=== PATIENT | male | born 1955 ===

== ENCOUNTER 2022-08-01 10:19 | Outpatient (REF) | payer MEDICARE, SELFPAY ==
[2022-08-01 10:38] LABS: MANUAL DIFF FLAG NO
[2022-08-01 11:30] LABS: Basophils Percent Auto 0.5 % (0-2); Eosinophils Absolute Auto 0.2 X10*3/uL (0.0-0.4); Eosinophils Percent Auto 3.6 % (0-4); Hematocrit 38.4 % (42.0-52.0); Hemoglobin 12.6 g/dl (14.0-18.0); Imm Gran Abs Auto 0.02 X10*3/uL (0.00-0.03); Imm Gran Pct Auto 0.3 % (0.0-0.4); Lymphocytes Absolute Auto 1.8 X10*3/uL (1.2-4.9); Lymphocytes Percent Auto 30.1 % (20-40); Mean Corpuscular HGB Conc 32.8 g/dl (31.0-36.0); Mean Corpuscular Hemoglobin 30.4 pg (27.0-33.0); Mean Corpuscular Volume 92.8 fL (80.0-98.0); Mean Platelet Volume 10.5 fL (9.4-12.4); Monocytes Absolute Auto 0.6 X10*3/uL (0.1-1.2); Monocytes Percent Auto 10.2 % (2-11); Neutrophils Absolute Auto 3.3 x10*3/uL (2.0-8.3); Neutrophils Percent Auto 55.3 % (45-73); Platelet Count 145 X10*3/uL (160-400); Red Blood Count 4.14 X10*6/uL (4.60-5.80); Red Cell Distribution Width 13.3 % (11.0-16.0); White Blood Count 5.9 X10*3/uL (4.8-10.8)
[2022-08-01 11:40] LABS: Alanine Aminotransferase 27 U/L (0-40); Albumin Level 4.1 g/dL (3.5-5.0); Alkaline Phosphatase 136 U/L (39-117); Anion Gap 13 (12-20); Aspartate Amino Transferase 37 U/L (5-37); Bilirubin Direct 0.2 mg/dL (0.0-0.5); Bilirubin Total 0.5 mg/dL (0.0-1.0); Blood Urea Nitrogen 24 mg/dL (9-16); Calcium 8.8 mg/dL (8.4-10.2); Carbon Dioxide 25 mmol/L (22-29); Chloride 109 mmol/L (96-108); Estimated Glomerular Filt Rate > 60; Glucose Random 108 mg/dL (60-115); Potassium 4.3 mmol/L (3.3-5.1); Sodium 143 mmol/L (135-145); Total Protein 6.9 g/dL (6.5-8.0)
[2022-08-01 12:09] LABS: Folate 16.4 ng/mL (> or = 4.0); Vitamin B12 892 pg/mL (200-900); Vitamin D 25-OH Total 38.6 ng/mL (>30)
== END 2022-08-01 10:20 | disposition home or self-care (01) ==
LOC: HO.LAB 10:19
PROVIDERS: Visit Provider Family Medicine
DX: Z13.9 Encounter for screening, unspecified (principal); Z78.9 Other specified health status; E66.9 Obesity, unspecified; Z68.30 Body mass index [BMI] 30.0-30.9, adult; E55.9 Vitamin D deficiency, unspecified
CPT/HCPCS: 36415; 80053; 82248; 82306; 82607; 82746; 84443; 85025

== ENCOUNTER → 2022-09-15 20:30 | Outpatient (REF) | payer MEDICARE, SELFPAY | LOC: HO.SL 20:30 | PROVIDERS: Visit Provider Family Medicine | DX: G47.30 Sleep apnea, unspecified (principal) | CPT/HCPCS: 95810 ==

== ENCOUNTER 2022-11-09 14:50 | Outpatient (REF) | payer MEDICARE, SELFPAY ==
[2022-11-09 18:07] LABS: Alanine Aminotransferase 48 U/L (0-40); Alkaline Phosphatase 108 U/L (39-117); Anion Gap 13 (12-20); Aspartate Amino Transferase 43 U/L (5-37); Bilirubin Total 0.5 mg/dL (0.0-1.0); Blood Urea Nitrogen 19 mg/dL (9-16); Calcium 9.2 mg/dL (8.4-10.2); Carbon Dioxide 26 mmol/L (22-29); Chloride 109 mmol/L (96-108); Estimated Glomerular Filt Rate > 60; Glucose Random 76 mg/dL (60-115); Potassium 3.9 mmol/L (3.3-5.1); Sodium 144 mmol/L (135-145); Total Protein 7.4 g/dL (6.5-8.0)
== END 2022-11-09 14:51 | disposition home or self-care (01) ==
LOC: HO.LAB 14:50
PROVIDERS: PCP Family Medicine; Visit Provider Internal Medicine
DX: Z11.4 Encounter for screening for human immunodeficiency virus [HIV] (principal); K74.60 Unspecified cirrhosis of liver
CPT/HCPCS: 36415; 80053; 85027; 85610; 86704; 86706; 86708; 86803; 87340; 87389; 99202

== ENCOUNTER 2022-12-03 13:53 | Outpatient (REF) | payer MEDICARE, SELFPAY ==
--- NOTE | ~2022-12-03 | US_ITS ---
EXAMINATION: US COMPLETE ABDOMEN WITH LIVER ELASTOGRAPHY CLINICAL INFORMATION: Unspecified cirrhosis of liver COMPARISON: None available. TECHNIQUE: Real-time imaging of the abdominal viscera. Noninvasive ultrasound liver fibrosis assessment is performed using Angel ElastPQ point quantification shear wave elastography (2D-SWE) with a C5-2 MHz transducer. Multiple elastography samples are obtained. FINDINGS: Slightly limited exam due to overlying gas PANCREAS: Normal. The visualized pancreatic head and body are normal in appearance. The remainder of the pancreas is obscured from visualization by the overlying bowel gas. ABDOMINAL AORTA: The proximal, middle, and distal aortic segments are normal in caliber. INFERIOR VENA CAVA: Visualized portions are normal. LIVER: The liver demonstrates normal size, contour and mild increased echogenicity. No focal lesion or intrahepatic biliary duct dilatation. The right lobe measures 14.9 cm in length. The left lobe measures 11.9 cm in length. Portal flow is hepatopedal Shear wave liver elastography median stiffness is 1.92 m/s (reference: normal median stiffness is 1.3 m/s or less). IQR/median stiffness to assess sampling precision is 0.09 (reference: good quality data set is IQR/median stiffness of 0.15 or less). GALLBLADDER: Normal. The gallbladder is physiologically distended without evidence of stones, sludge, polyps, wall thickening or pericholecystic fluid. COMMON BILE DUCT: Normal in caliber measuring 0.3 cm in diameter. RIGHT KIDNEY: Normal. No hydronephrosis. No renal calculi or focal parenchymal lesions. The kidney measures 10.5 cm in maximum dimension. LEFT KIDNEY: There is normal cortical thickness with an echogenic stone measuring 0.3 x 0.3 x 0.4 cm midpole. No additional echogenic stones seen. There is no hydronephrosis. The kidney measures 10.6 cm in maximum dimension. SPLEEN: Normal. The spleen measures 11.0 cm in maximum dimension. FREE FLUID: None. US/US abdomen comp w elastography IMPRESSION: 1. Mild hepatic steatosis without focal lesion. Nonobstructive echogenic stone midpole left kidney measuring 4 mm. 2. Liver elastography median liver stiffness measures 1.92 m/s corresponding to cACLD suggestive. REFERENCE: Society of Radiologists in Ultrasound Liver Stiffness Thresholds (2020): LIVER STIFFNESS THRESHOLDS: *Liver Stiffness equal or less than 1.3 m/s: High probability of being normal. *Liver Stiffness less than 1.7 m/s: In the absence of other known clinical signs, rules out compensated advanced chronic liver disease. *Liver Stiffness 1.7-2.1 m/s: Suggestive of compensated advanced chronic liver disease but need further test for confirmation. *Liver Stiffness over 2.1 m/s: Rules in compensated advanced chronic liver disease. *Liver Stiffness over 2.4 m/s: Suggestive of clinically significant portal hypertension. QUALITY OF DATA SET: *IQR/Median value equal or less than 0.15 implies a quality data set. *IQR/Median value over 0.15 implies a poor quality data set. SIGNIFICANT CHANGE FROM PRIOR EXAM: Significant change if liver stiffness measurement is 10% or greater from prior exam. OTHER CONSIDERATIONS: The stage of liver fibrosis may be overestimated in the setting of acute hepatitis, liver inflammation, elevated liver function tests, hepatic vascular congestion, obstructive cholestasis, non-fasting state, and infiltrative diseases such as amyloidosis and lymphoma. In some patients with NAFLD, the liver stiffness thresholds for compensated advanced chronic liver disease may be lower. In causes other than viral hepatitis and NAFLD, liver stiffness thresholds are not well established.
== END 2022-12-03 13:54 | disposition home or self-care (01) ==
LOC: HO.US 13:53
PROVIDERS: PCP Family Medicine; Visit Provider Internal Medicine
DX: K74.60 Unspecified cirrhosis of liver (principal)
CPT/HCPCS: 76705; 76981

== ENCOUNTER 2022-12-07 13:16 | Outpatient (AMB) | payer OTHER, SELFPAY ==
--- NOTE | 2022-12-07 13:21 | A.OFFVIS_ITS ---
Intake Vital Signs 12/07/22 13:25 Height 5 ft 7 in Weight 200 lb 9.93 oz BMI 31.4 BP 120/60 Blood Pressure Location Lt brachial Position Sitting Pulse 71 Intake Visit Reasons: 4 week fu Intake Note: Niraj presents in the office as a 4 week follow up. CC: He has been having some pains in the RUQ since he has had a surgery. He get discomfort. Manager Salt Required: Yes Manager Salt Name: Jan [id number] Allergies No Known Allergies Allergy (Verified 12/07/22 13:26) HPI HPI Comments History of Present Illness Details 67y.o M with PMH of recently diagnosed cirrhosis of ? etiology for which he is here for follow up. 11/09/22: Pt here with his and daughter. Reports that last year he underwent a CCY, from their description it sounds like he then also had a bile leak secondary to CBD stone which was removed post cholecystectomy. During this hospitalisation he was told he likely has cirrhosis. However pt does not recall seeing a doctor of dental medicine for furhter care. He has remote hx of drinking in his teenage. No current or previous IVDU. No fam hx of chronic liver diseases including iron or copper disorders, early COPD or neuropsychiatric disorders. No fam hx of HCC. Pt does not have DM or HLD that he is aware of. He has never had CRC screening. 12/07/22: Here with . 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 Apart from R sided abdominal pain and discomfort at the site of CCY, no new gastrointestinal complaints. Labs reviewed and are reassuring for normal INR and platelet count. Elastography done but report pending. [facility] Surgical History History of esophagogastroduodenoscopy (EGD) Hx of cholecystectomy Social History Alcohol intake: current Alcohol intake frequency: holidays/special occasions only Patient Tobacco Use Status: Never used Tobacco Review of Systems Const All systems reviewed & are unremarkable except as noted in HPI and below Physical Exam Vital Signs: Last Vital Signs Pulse 71 12/07/22 13:25 BP 120/60 12/07/22 13:25 BMI result Body Mass Index 31.4 Gen appear: NAD HEENT: nonicteric, no cervical lymphadenopathy Chest: CTA CVS: Regular S1/S2 Abd: soft, nontender, nondistended, bowel sounds + Ext: no peripheral edema Neuro: A/Ox3, noted to move all extremities spontaneously Psych: interacting appropriately Assessment & Plan Assessment & Plan (1) Cirrhosis: Code(s): K74.60 - Unspecified cirrhosis of liver (2) Encounter for colorectal cancer screening: Code(s): Z12.11 - Encounter for screening for malignant neoplasm of colon; Z12.12 - Encounter for screening for malignant neoplasm of rectum Plan Reviewed with the pt and his daughter that based on labs no evidence of advanced liver disease however elastography pending. If concurrent with remaining noninvasive testing, will book for a screening colo as previously discussed, otherwise will need an EGD in addition to this for variceal screening. Will book these procedures as needed. Split PEG prep instructions were also reviewed with him. Coding Level of Care Code Est Pt Level 4 (61591) Diagnoses Cirrhosis K74.60 Encounter for colorectal cancer screening Z12.11; Z12.12
[2022-12-07 13:25] VITALS: BP 120/60; PULSE 71; BMI 31.4
== END 2022-12-07 14:50 | disposition home or self-care (01) ==
PROVIDERS: Visit Provider Internal Medicine
DX: K74.60 Unspecified cirrhosis of liver (principal); Z12.11 Encounter for screening for malignant neoplasm of colon; Z12.12 Encounter for screening for malignant neoplasm of rectum
CPT/HCPCS: 99214

== ENCOUNTER → 2022-12-07 13:16 | Outpatient (BNVA) | payer OTHER, SELFPAY | PROVIDERS: Visit Provider Internal Medicine | DX: Z12.11 Encounter for screening for malignant neoplasm of colon (principal); K74.60 Unspecified cirrhosis of liver | CPT/HCPCS: 99212 ==

== ENCOUNTER → 2023-01-04 08:43 | Outpatient (REF) | payer MEDICARE, SELFPAY ==
--- NOTE | 2023-01-04 08:47 | CA_ITS ---
Transthoracic Echocardiogram Patient (Last, First, Middle): Niraj Ro, Gender: Male Date of : 1955 Age: 67 Procedure Date: 01/04/2023 Procedure Type: Transthoracic Echocardiogram Location: OP Height: 167.64 cm Weight: 90.72 kg BSA: 2.00 m2 Heart Rate: bpm BP: 110 / 65 mmHg [employer] Salesperson: AMY Referring MD: Angela Curry MD Symptoms: R06.09 ABRAMS Study Quality: Adequate with contrast ECG Rhythm: Sinus Conclusions: - The left ventricular systolic function is normal. The calculated ejection fraction is 57% by biplane method. - [id number] focal hypertrophy of the basal septum. - No obvious valvular pathology seen on this study. Findings Procedure Information Contrast agent, definity, is being given per protocol without apparent complications. Left Ventricle Normal left ventricular cavity size. The left ventricular systolic function is normal. The calculated ejection fraction is 57% by biplane method. There is no evidence of regional wall motion abnormalities. Diastolic function is normal for age. [id number] focal hypertrophy of the basal septum. Right Ventricle Normal right ventricular cavity size and systolic function. Atria Both atria are normal in size. Aortic Valve There is a normal trileaflet aortic valve. There is no aortic valve stenosis. There is trace (trivial) aortic valve regurgitation. Mitral Valve The mitral valve appears normal. There is trace mitral valve regurgitation. There is no mitral valve stenosis. Pulmonic Valve The pulmonic valve is likely normal. Tricuspid Valve Normal tricuspid valve structure. There is mild tricuspid valve regurgitation. There is no evidence of pulmonary hypertension. Great Vessels The asc aorta is normal in size. Venous The inferior vena cava was not well visualized. The inferior vena cava is normal in size. Pericardium/Pleural There is no evidence of pericardial effusion. Prior Study Comparison No prior study available for comparison. Recommendations, Care & Conclusions No obvious valvular pathology seen on this study. Measurements 2D Linear Measurements IVSd: 1.33 0.6-0.9/0.6-1.0 cm LVIDd: 4.37 3.9-5.3/4.2-5.9 cm LVIDd Index: 2.19 2.4-3.2/2.2-3.1 cm/m2 LVIDs: 3.10 2.0-3.6 cm LVPWd: 1.03 0.7-1.1 cm LA Diam: 4.20 2.7-3.8/3.0-4.0 cm LAIDs Index: 2.10 1.5-2.3 cm/m2 LV Mass: 230.22 67-162/88-224 g LV Mass Index: 115.11 43-95/49-115 g/m2 LVOT Diam: 1.80 3.0+(-)1.3 cm 2D Systolic Function EF 4C: 60.70 >55% EF 2C: 52.00 >55% EF BiP: 56.80 >55% Mitral Valve MV Pk E: 1.00 MV PK A: 1.00 MV Decel Time: 197.00 E/A: 1.00 E'Lateral: 8.59 E'Medial: 8.49 E/E' Med: 11.80 E/E' Lat: 11.60 PHT: 58.00 MVA PHT: 3.79 Decel Drew: 5.06 Aortic Valve AoV Pk Piter: 1.41 AoV Mn Piter: 0.96 AoV VTI: 0.32 AoV Pk Grad: 8.00 Aov Mn Grad: 4.00 LISA Cont.VTI: 1.81 LVOT LVOT Pk Piter: 1.04 LVOT Mn Piter: 0.64 LVOT VTI: 0.23 LVOT Pk Grad: 4.00 LVOT Mn Grad: 2.00 LVOT Diam: 1.80 LVOT Area: 2.54 Diastolic Function MV Pk E: 1.00 MV Pk A: 1.00 E/A: 1.00 E'Medial: 8.49 E/E' Med: 11.80 E' Laterial: 8.59 E/E' Lat: 11.60 Right Ventricle TAPSE (mm): 22.60 TVS' Piter: 12.20 Tricuspid Valve TR Pk Piter: 2.04 TR Pk Grad: 17.00 Great Vessels Aorta Sinus of Valsalva: 3.20 2.0-3.5 cm Ao Asc: 3.60 2.1-3.4 cm Pulmonary Valve PV Pk Piter: 0.91 Peak PV Grad: 3.00 Updated in Other Vendor System with Status of Final Hao Ross MD electronically signed on 01/04/2023 11:30:40 AM with status of Final
== END ==
LOC: HO.CARD 08:43
PROVIDERS: PCP Family Medicine; Visit Provider Family Medicine
DX: R06.09 Other forms of dyspnea (principal)
CPT/HCPCS: 93306; Q9957

== ENCOUNTER → 2023-01-04 08:47 | Outpatient (BNV) | payer MEDICARE, SELFPAY | PROVIDERS: PCP Family Medicine; Visit Provider Internal Medicine | DX: I36.1 Nonrheumatic tricuspid (valve) insufficiency (principal) | CPT/HCPCS: 93306 ==

== ENCOUNTER 2023-03-11 11:59 | Day surgery (SDC) | payer MEDICARE, OTHER, SELFPAY ==
--- NOTE | 2023-03-10 10:59 | HO.ANESPROP2 ---
Documented by User: Clarisa Olea NP 03/10/23 11:03 HPI - Anesthesia Eval Consult details Narrative: 67yo M for Upper Endoscopy and Colonoscopy ? Cirrhosis PMFSH Active Problems Active Problems: All Active Problems (Updated 11/09/22 @ 15:55 by Kisha Hale MD) Encounter for colorectal cancer screening (Acute) Cirrhosis (Acute) Surgical History Surgical History History of esophagogastroduodenoscopy (EGD) Hx of cholecystectomy Social History Social History Alcohol intake: current Alcohol intake frequency: holidays/special occasions only Patient Tobacco Use Status: Never used Tobacco Advance Directives: No Advance Directives Information Provided: Yes Meds Allergies Allergy/AdvReac Type Severity Reaction Status Date / Time No Known Allergies Allergy Verified 12/07/22 13:26 Home Medications Medication Instructions Recorded Confirmed Last Taken Type ascorbic acid (vitamin C) 500 mg 1,000 mg PO QAM 11/09/22 Unknown History tablet (Vitamin C) citalopram 20 mg tablet 20 mg PO QAM 11/09/22 Unknown History cyanocobalamin (vitamin B-12) 1,000 mcg PO QAM 11/09/22 Unknown History 1,000 mcg tablet diphenhydramine HCl 50 mg capsule 50 mg PO BEDTIME PRN itch 11/09/22 Unknown History (Banophen) famotidine 40 mg tablet 40 mg PO BEDTIME 11/09/22 Unknown History folic acid 800 mcg tablet 0.8 mg PO QAM 11/09/22 Unknown History haloperidol 10 mg tablet 10 mg PO BEDTIME 11/09/22 Unknown History haloperidol 5 mg tablet 5 mg PO QAM 11/09/22 Unknown History omega-3 acid ethyl esters 1 gram 1 cap PO BID 11/09/22 Unknown History capsule pantoprazole 40 mg tablet,delayed 40 mg PO QAM 11/09/22 Unknown History release simvastatin 40 mg tablet 40 mg PO BEDTIME 11/09/22 Unknown History aripiprazole 15 mg tablet 15 mg PO DAILY 12/07/22 Unknown History nabumetone 750 mg tablet 750 mg PO BID 12/07/22 Unknown History Exam Exam Date and Time: March 10, 2023 1059 Pertinent Lab Results Pertinent Lab Results: Laboratory Tests 11/09/22 16:15 WBC 7.6 Hgb 13.1 L Hct 39.8 L Plt Count 180 Sodium 144 Potassium 3.9 Chloride 109 H Carbon Dioxide 26 BUN 19 H Creatinine 0.76 Laboratory Tests 11/09/22 16:15 Total Bilirubin 0.5 AST 43 H ALT 48 H Alkaline Phosphatase 108 Total Protein 7.4 Albumin 4.0 Narrative Narrative: US abdomen comp w elastography 11/2022 IMPRESSION: 1. Mild hepatic steatosis without focal lesion. Nonobstructive echogenic stone midpole left kidney measuring 4 mm. 2. Liver elastography median liver stiffness measures 1.92 m/s corresponding to cACLD suggestive. ECHO 12/2022 Conclusions: - The left ventricular systolic function is normal. The calculated ejection fraction is 57% by biplane method. - Mszf-yk-mmitkyik focal hypertrophy of the basal septum. - No obvious valvular pathology seen on this study. Assessment and Plan Assessment Anesthesia Assessment: Chart Reviewed Documented by User: Uriel Garcia MD 03/11/23 13:08 PMF Family History Family history of problems with anesthesia: No Surgical History Surgical History History of esophagogastroduodenoscopy (EGD) Hx of cholecystectomy History of Problems with Anesthesia: No Social History Social History Alcohol intake: current Alcohol intake frequency: holidays/special occasions only Patient Tobacco Use Status: Never used Tobacco Advance Directives: No Advance Directives Information Provided: Yes Meds Allergies Allergy/AdvReac Type Severity Reaction Status Date / Time No Known Allergies Allergy Verified 12/07/22 13:26 Home Medications Medication Instructions Recorded Confirmed Last Taken Type ascorbic acid (vitamin C) 500 mg 1,000 mg PO QAM 11/09/22 Unknown History tablet (Vitamin C) citalopram 20 mg tablet 20 mg PO QAM 11/09/22 Unknown History cyanocobalamin (vitamin B-12) 1,000 mcg PO QAM 11/09/22 Unknown History 1,000 mcg tablet diphenhydramine HCl 50 mg capsule 50 mg PO BEDTIME PRN itch 11/09/22 Unknown History (Banophen) famotidine 40 mg tablet 40 mg PO BEDTIME 11/09/22 Unknown History folic acid 800 mcg tablet 0.8 mg PO QAM 11/09/22 Unknown History haloperidol 10 mg tablet 10 mg PO BEDTIME 11/09/22 Unknown History haloperidol 5 mg tablet 5 mg PO QAM 11/09/22 Unknown History omega-3 acid ethyl esters 1 gram 1 cap PO BID 11/09/22 Unknown History capsule pantoprazole 40 mg tablet,delayed 40 mg PO QAM 11/09/22 Unknown History release simvastatin 40 mg tablet 40 mg PO BEDTIME 11/09/22 Unknown History aripiprazole 15 mg tablet 15 mg PO DAILY 12/07/22 Unknown History nabumetone 750 mg tablet 750 mg PO BID 12/07/22 Unknown History Exam Airway Mallampati Class: II TM Dist: <=3cm Neck ROM: Full Heart: ok Lungs: ok Assessment and Plan Assessment Anesthesia Assessment: Anesthesia Plan Discussed Final Anesthetic Review Family History of Problems with Anesthesia: No History of Problems with Anesthesia: No NPO: Yes ASA Class: III Final Preanesthetic Review: No Changes in Pt Med Stat, Meds/Allgs Chart Reviewed, Consent Obtained/Reviewed and Anes Risks/Benef Reviewed Patient Risk: Intermediate Procedure Risk: Intermediate Anesthetic Plan Anesthetic Plan: MAC: and Agree w/ Assess. and Plan Disposition: Standard PACU
--- NOTE | 2023-03-11 12:19 | MHC.SHP ---
Pre-Procedural Eval Section A Date of Service: 03/11/23 Section B Chief Complaint: Unspecified cirrhosis of liver,screening Details of Present Illness: Surgical History History of esophagogastroduodenoscopy (EGD) Hx of cholecystectomy Present Medications: see Short Stay Collaborative assessment History of Previous Operations: No relevant previous surgery Allergies: Allergies Allergy/AdvReac Type Severity Reaction Status Date / Time No Known Allergies Allergy Verified 12/07/22 13:26 Review of Systems Review of Systems Comment: Ten point ROS negative Exam Exam Comment: Gen appear: No acute distress HEENT: no icterus Chest: No overt resp distress Abd: soft, nontender, nondistended Psych: Stable affect, answering questions appropriately Neuro: A/Ox3 noted to move all extremities spontaneously Ext: no peripheral edema Plan Diagnosis/Plan: Unchanged I have reviewed the history and physical and performed a pertinent physical examination on my patient. No changes have occurred unless specified. Time Spent With Patient Time: Total time managing care of this patient today ____ minutes.
[2023-03-11 12:39] VITALS: BP 129/64; PULSE 65; RESP 16; TEMP 36.4; O2SAT 98; BMI 31.3
--- NOTE | 2023-03-11 13:07 | P.OP_ITS ---
Operative Note Operative Note Date of Service: 03/11/23 Narrative: Procedure:?Esophagogastroduodenoscopy and colonoscopy Endoscopist:?Kisha Hale MD Indication:?Liver disease, screening for CRC Anesthesia Provider:?Dr Uriel Garcia Anesthesia Type:?MAC Instrument:?Olympus GIF-H190, PCF-H190L EGD Procedure:?? The procedure, indications, preparation and potential complications were reviewed with the patient who indicated understanding and gave written informed consent to proceed. A professional sports scout was utilized for the encounter. A physical exam was performed. The endoscope was introduced through the mouth, and advanced to the second part of duodenum. The mucosa was carefully examined on slow withdrawal of the endoscope. There were no immediate complications. Patient tolerated the procedure well. EGD Findings:? * Esophagus:? Normal esophageal mucosa was noted. The Z line is at 39 cm. * Stomach:? Normal gastric mucosa was noted. Retroflexion performed in the fundus. * Duodenum:? Erythema and edema of the duodenal bulb as noted. Cold forceps biopsies were taken for histology. Colonoscopy Procedure:? The patient was then turned for the colonoscopy. A digital rectal exam was performed which was normal.? A distal attachment cap was affixed to the tip of the scope and the colonoscope was then inserted through the anus and advanced through the colon to the cecum at 70 cm and terminal ileum. Appendiceal orifice and ileocecal valve were identified. Mucosa was carefully examined under high definition white light as the instrument was slowly withdrawn in a retrograde panoramic fashion. Retroflexion was performed in rectum. The procedure was not difficult. There were no immediate obvious complications. The quality of the prep was BBPS: 3+2+3 = adequate Withdrawal time: 10 minutes Limitations: No limitation. Findings: Mucosa: Normal mucosa was noted in cecum and terminal ileum. Protruding lesions: * Large internal hemorrhoids without stigmata of recent bleeding. Excavated lesions: * Scattered diverticulosis of the left side of the colon. Impression: 1. Normal esophagus 2. Normal stomach 3. Peptic duodenitis (biopsy) 4. Normal colon and terminal ileum mucosa 5. Internal hemorrhoids 6. Diverticulosis Recommendations:?? * Await pathology results. * Increase pantoprazole to BID for 4 weeks and then once daily * Repeat EGD in 3 years for variceal screening * Repeat colonoscopy for asymptomatic colorectal cancer screening recommended in 10 years.
[2023-03-11 14:02] VITALS: BP 78/44; PULSE 52; RESP 18; TEMP 36.1; O2SAT 96
[2023-03-11 14:08] VITALS: BP 94/48; PULSE 53; RESP 16; O2SAT 98
[2023-03-11 14:17] VITALS: BP 99/54; PULSE 55; RESP 16; O2SAT 98
[2023-03-11 14:31] VITALS: BP 112/60; PULSE 57; RESP 16; TEMP 36.3; O2SAT 100
== END 2023-03-11 15:38 | disposition home or self-care (01) ==
PROVIDERS: PCP Family Medicine; Visit Provider Internal Medicine
PROC: (CPT 43239; principal; 2023-03-11 13:40)
DX: K29.80 Duodenitis without bleeding (principal); Z12.11 Encounter for screening for malignant neoplasm of colon; K64.8 Other hemorrhoids; K57.30 Diverticulosis of large intestine without perforation or abscess without bleeding; K74.60 Unspecified cirrhosis of liver
CPT/HCPCS: 43239; G0121; 88305

== ENCOUNTER → 2023-03-11 11:59 | Outpatient (BNV) | payer MEDICARE, SELFPAY | PROVIDERS: PCP Family Medicine; Visit Provider Internal Medicine | DX: Z12.11 Encounter for screening for malignant neoplasm of colon (principal); K76.9 Liver disease, unspecified; K29.80 Duodenitis without bleeding; K57.30 Diverticulosis of large intestine without perforation or abscess without bleeding; K64.8 Other hemorrhoids | CPT/HCPCS: 43239; G0121 ==

== ENCOUNTER 2023-03-22 11:07 | Outpatient (AMB) | payer MEDICARE, SELFPAY ==
--- NOTE | 2023-03-22 11:19 | A.OFFVIS_ITS ---
Intake Vital Signs 03/22/23 11:29 Height 5 ft 6 in Weight 202 lb 13.204 oz BMI 32.7 BP 141/65 H Blood Pressure Location Lt brachial Position Sitting Pulse 65 Intake Visit Reasons: s/p DBL Intake Note: Niraj presents in the office as a follow up EGD and COLO. CC: He states that he is not having any concerns since his procedures. Special Weapons Unit Officer Required: Yes Special Weapons Unit Officer Name: [id number] Josette Allergies Seasonal Allergies Allergy (Mild, Verified 03/22/23 11:32) Unknown HPI HPI Comments History of Present Illness Details 67y.o M with PMH of recently diagnosed c irrhosis of ? etiology for which he is here for follow up. 11/09/22: Pt here with his and daughter. Reports that last year he underwent a CCY, from their description it sounds like he then also had a bile leak secondary to CBD stone which was removed post cholecystectomy. During this hospitalisation he was told he likely has cirrhosis. However pt does not recall seeing a insulator tester for furhter care. He has remote hx of drinking in his teenage. No current or previous IVDU. No fam hx of chronic liver diseases including iron or copper disorders, early COPD or neuropsychiatric disorders. No fam hx of HCC. Pt does not have DM or HLD that he is aware of. He has never had CRC screening. 12/07/22: Here with . Seen with handbag stitcher. Apart from R sided abdominal pain and discomfort at the site of CCY, no new gastrointestinal complaints. Labs reviewed and are reassuring for normal INR and platelet count. Elastography done but report pending. 03/11/23: EGD/colo 1. Normal esophagus 2. Normal stomach 3. Peptic duodenitis (biopsy) 4. Normal colon and terminal ileum mucos a 5. Internal hemorrhoids 6. 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 Has no gastrointestinal complaints. Findings of EGD/colo reviewed with the pt. Previously reported no etOH use but today reports that he in fact continues to drink beer daily, also has whiskey on weekends when he's meeting with friends and family. [facility] Surgical History Hx of colonoscopy Hx of cholecystectomy History of esophagogastroduodenoscopy (EGD) Social History Alcohol intake: current Alcohol intake frequency: holidays/special occasions only Patient Tobacco Use Status: Never used Tobacco Review of Systems Const All systems reviewed & are unremarkable except as noted in HPI and below Physical Exam Vital Signs: Last Vital Signs Pulse 65 03/22/23 11:29 BP 141/65 H 03/22/23 11:29 BMI result Body Mass Index 32.7 Gen appear: NAD HEENT: nonicteric, no cervical lymphadenopathy Chest: CTA CVS: Regular S1/S2 Abd: soft, nontender, nondistended, bowel sounds + Ext: no peripheral edema Neuro: A/Ox3, noted to move all extremities spontaneously Psych: interacting appropriately Results Reviewed Results Reviewed: Liver elastography The liver demonstrates normal size, contour and mild increased echogenicity. No focal lesion or intrahepatic biliary duct dilatation. The right lobe measures 14.9 cm in length. The left lobe measures 11.9 cm in length. Portal flow is hepatopedal Shear wave liver elastography median stiffness is 1.92 m/s (reference: normal median stiffness is 1.3 m/s or less). IQR/median stiffness to assess sampling precision is 0.09 (reference: good quality data set is IQR/median stiffness of 0.15 or less). Assessment & Plan Assessment & Plan (1) Cirrhosis: Code(s): K74.60 - Unspecified cirrhosis of liver (2) Encounter for colorectal cancer screening: Code(s): Z12.11 - Encounter for screening for malignant neoplasm of colon; Z12.12 - Encounter for screening for malignant neoplasm of rectum Plan Has evidence of advanced fibrosis based on Fib-4 and elastography. No definite CSPH appreciated based on work up so far including upper endoscopy. However pt was strongly counseled to stop drinking to avoid progression of liver disease. He was also educated on modifying metabolic risk factors to avoid further liver fibrosis. In terms of comprehensive care, if continues to drink would favor repeat EGD for variceal screening in 2-3 years if continues to drink. He will also need q6m US Liver for HCC screening. Next US due in May 2023. Orders placed. He was counseled to avoid NSAIDs. Tylenol ok to take if needed. For CRC screening, can consider repeat colonoscopy in 10 years if in good health. Follow up in 6 months. Orders: Orders US abdomen complete 2 Months K74.60 - Unspecified cirrhosis of liver Coding Level of Care Code Est Pt Level 4 (83706) Diagnoses Cirrhosis K74.60 Encounter for colorectal cancer screening Z12.11; Z12.12
[2023-03-22 11:29] VITALS: BP 141/65; PULSE 65; BMI 32.7
== END 2023-03-22 12:18 | disposition home or self-care (01) ==
PROVIDERS: PCP Family Medicine; Visit Provider Internal Medicine
DX: K74.60 Unspecified cirrhosis of liver (principal); Z12.11 Encounter for screening for malignant neoplasm of colon; Z12.12 Encounter for screening for malignant neoplasm of rectum
CPT/HCPCS: 99214

== ENCOUNTER → 2023-03-22 11:07 | Outpatient (BNVA) | payer MEDICARE, SELFPAY | PROVIDERS: PCP Family Medicine; Visit Provider Internal Medicine | DX: Z12.11 Encounter for screening for malignant neoplasm of colon (principal); Z12.12 Encounter for screening for malignant neoplasm of rectum; K74.60 Unspecified cirrhosis of liver | CPT/HCPCS: 99212 ==

== ENCOUNTER 2023-06-10 10:08 | Outpatient (REF) | payer MEDICARE, SELFPAY ==
--- NOTE | ~2023-06-10 | US_ITS ---
EXAMINATION: US ABDOMEN COMPLETE CLINICAL INFORMATION: Unspecified cirrhosis of liver. COMPARISON: Ultrasound abdomen complete with elastography 12/03/2022. TECHNIQUE: Real-time imaging of the abdominal viscera. FINDINGS: PANCREAS: Obscured by overlying bowel gas. ABDOMINAL AORTA: The proximal, mid, and distal segments are normal in caliber. INFERIOR VENA CAVA: Visualized portions are normal. LIVER: The left lobe of the liver is not seen due to its superior position. The visualized liver is normal in size. The liver contour is normal. No focal hepatic lesion. There is no intrahepatic biliary duct dilatation seen. There is increased echogenicity present consistent with fatty infiltration. GALLBLADDER: Surgically absent. COMMON BILE DUCT: Normal in caliber measuring 0.6 cm in diameter. RIGHT KIDNEY: Normal. No hydronephrosis. No renal calculi or focal parenchymal lesions. The kidney measures 11.7 cm in maximum dimension. LEFT KIDNEY: Normal. No hydronephrosis. No renal calculi or focal parenchymal lesions. The kidney measures 11.5 cm in maximum dimension. SPLEEN: Normal. The spleen measures 11.3 cm in maximum dimension. FREE FLUID: None. US/US abdomen complete IMPRESSION: Hepatic parenchymal increased echogenicity consistent with fatty infiltration.
== END 2023-06-10 10:09 | disposition home or self-care (01) ==
LOC: HO.US 10:08
PROVIDERS: PCP Family Medicine; Visit Provider Internal Medicine
DX: K74.60 Unspecified cirrhosis of liver (principal)
CPT/HCPCS: 76700

== ENCOUNTER 2023-06-16 | Outpatient (REF) | payer MEDICARE, SELFPAY ==
[2023-06-17 14:00] LABS: Influenza A PCR NEGATIVE (Negative); Influenza B PCR NEGATIVE (Negative); Resp Syncy Virus RNA Qual PCR NEGATIVE (Negative); SARS COV2 PCR INHOUSE NEGATIVE (Negative)
== END 2023-06-16 00:01 | disposition home or self-care (01) ==
LOC: HO.HHCLNP
PROVIDERS: Visit Provider Emergency Medicine
DX: R05.9 Cough, unspecified (principal); Z11.52 Encounter for screening for COVID-19; Z20.828 Contact with and (suspected) exposure to other viral communicable diseases
CPT/HCPCS: 0241U

== ENCOUNTER 2023-07-28 14:22 | Outpatient (AMB) | payer MEDICARE, SELFPAY ==
--- NOTE | 2023-07-28 14:27 | A.OFFVIS_ITS ---
Intake Vital Signs 07/28/23 14:28 Height 5 ft 6 in Weight 208 lb BMI 33.6 BP 128/60 Blood Pressure Location Rt brachial Position Sitting Pulse 68 Pulse Source Pulse Oximeter Pulse Oximetry (%) 98 Oxygen Delivery Method Room Air Intake Visit Reasons: Wheezing Content Designer Required: Yes Dictating Machine Typist: Dictating Machine Typist offered & declined Accompanied by: Spouse Allergies Seasonal Allergies Allergy (Mild, Verified 07/28/23 14:32) Unknown HPI Wheezing HPI Details Niraj is a pleasant 67 year old male, never smoker, with underlying asthma, cirrhosis and COREY on CPAP. He was referred by PCP for pulmonary evaluation for progressively worsening dyspnea and wheezing. He denies any cough, and chest tightness. He has been using albuterol twice daily with suboptimal response. He denies any prior respiratory inhalers. He denies any seasonal allergies. He denies any pertinent family history. He denies any occupational exposures. He reports his CPAP is managed by his PCP. PCP noted unremarkable echocardiogram. Patient denies orthopnea or bilateral lower extremity edema. [facility] Surgical History Hx of colonoscopy Hx of cholecystectomy History of esophagogastroduodenoscopy (EGD) Social History (Updated 07/28/23 @ 14:34 by Tessa Light LPN) Alcohol intake: current Alcohol intake frequency: holidays/special occasions only Patient Tobacco Use Status: Never used Tobacco Review of Systems Const Denies chills, Denies excessive sweating, Denies fever(s), Denies headache(s) and Denies night sweats Eyes Denies dry eyes, Denies irritation and Denies itchy eyes ENT Reports Normal hearing present, Denies headache(s), Denies nasal congestion, Denies nasal discharge, Denies post nasal drip and Denies sore throat Card Denies chest pain, Denies chest pain at rest, Denies chest pain with activity, Denies claudication, Denies leg edema, Denies orthopnea and Denies paroxysmal nocturnal dyspnea Resp Denies chest congestion, Denies cough, Denies excessive phlegm production, Denies pain on inspiration, Denies pain with cough and Denies stridor Musc Denies myalgias Neuro Reports Normal hearing present and Denies headache(s) Endo Denies excessive sweating Daren/Lymph Denies lymphadenopathy Aller/Immun Denies itchy eyes and Denies seasonal rhinorrhea Physical Exam Vital Signs: Last Vital Signs Pulse 68 07/28/23 14:28 BP 128/60 07/28/23 14:28 Pulse Ox 98 07/28/23 14:28 Oxygen Delivery Method Room Air 07/28/23 14:28 BMI result Body Mass Index 33.6 Const General: cooperative, healthy appearing, comfortable, no acute distress, well developed and alert Nutritional Appearance: obese Orientation/consciousness: patient oriented x3 Limitations: no limitations HEENT Head: Yes normal to inspection, Yes normocephalic and Yes atraumatic Ears: hearing grossly normal bilaterally and external ears normal Eyes General: appearance normal, both eyes and all related structures Eyelids: Yes eyelids normal Sclerae: sclerae normal EOM: EOMs intact bilaterally Neck Neck: Yes normal visual inspection and Yes no lymphadenopathy Lymphatic: no lymphadenopathy noted Chest Chest palpation & inspection: normal inspection of the chest Resp Effort & Inspection: normal respiratory effort, able to speak in complete sentences, no audible wheezes, no cough, no stridor, not tachypneic, no tripod positioning and no use of accessory muscles Auscultation: clear to auscultation bilaterally Cardio Jugular venous distension: no JVD Rate: regular rate Rhythm: regular rhythm Skin Other: warm, dry General skin exam: no rashes or lesions noted Neuro General: patient oriented x3 Cranial nerves: Yes Normal hearing present Cognition (Neuro): normal cognition Gait exam (Neuro): Normal gait present Extrem General: Yes normal to inspection, Yes capillary refill normal, Yes no clubbing, cyanosis or edema and Yes no pedal edema Psych Appearance: grossly normal and well kempt Speech and movement: Normal speech and movement present and Clear speech present Affect: normal affect Attitude: cooperative Thought process: Normal thought process present Thought content: Normal thought content present Insight: Good insight present (Psych) Judgement: Good judgement present (Psych) Assessment & Plan Assessment & Plan (1) Asthma: Code(s): J45.909 - Unspecified asthma, uncomplicated (2) Dyspnea: Code(s): R06.00 - Dyspnea, unspecified Plan Niraj's symptoms are likely due to underlying asthma. Will send for PFT to thoroughly evaluate and empirically trial and ICS. Inhaler technique reviewed and discussed importance of good oral hygiene. Will also send for chest CT to assess for any parenchymal condition contributing to dyspnea. All questions were answered and patient is in agreement of plan. Will follow-up to review results and response to new inhaler. Orders: Orders PFT pulmonary function test Today J45.909 - Unspecified asthma, uncomplicated CT chest wo IV con Today R06.00 - Dyspnea, unspecified Medications: New albuterol sulfate 90 mcg/actuation 2 puffs inhalation Q4-6H PRN 1 ea 1RF shortness of breath or wheezing fluticasone propionate 110 mcg/actuation administer with spacer 2 puffs inhalation BID 12 grams 3RF Coding Level of Care Code New Pt Level 4 (43408) Diagnoses Asthma J45.909 Dyspnea R06.00
[2023-07-28 14:28] VITALS: BP 128/60; PULSE 68; O2SAT 98; BMI 33.6
== END 2023-07-28 15:11 | disposition home or self-care (01) ==
PROVIDERS: PCP Family Medicine; Referring Provider Family Medicine; Visit Provider Nurse Practitioner Family
DX: J45.909 Unspecified asthma, uncomplicated (principal); R06.00 Dyspnea, unspecified
CPT/HCPCS: 99204

== ENCOUNTER → 2023-07-28 14:22 | Outpatient (BNVA) | payer MEDICARE, SELFPAY | PROVIDERS: PCP Family Medicine; Referring Provider Family Medicine; Visit Provider Nurse Practitioner Family | DX: R06.00 Dyspnea, unspecified (principal); J45.909 Unspecified asthma, uncomplicated; G47.33 Obstructive sleep apnea (adult) (pediatric); Z99.89 Dependence on other enabling machines and devices | CPT/HCPCS: 99202 ==

== ENCOUNTER 2023-08-23 10:27 | Outpatient (REF) | payer MEDICARE, MEDICAID, SELFPAY ==
[2023-08-23 10:43] LABS: MANUAL DIFF FLAG NO
[2023-08-23 11:30] LABS: Basophils Percent Auto 0.4 % (0-2); Eosinophils Absolute Auto 0.2 X10*3/uL (0.0-0.4); Eosinophils Percent Auto 2.2 % (0-4); Hematocrit 39.4 % (42.0-52.0); Hemoglobin 12.8 g/dl (14.0-18.0); Imm Gran Abs Auto 0.03 X10*3/uL (0.00-0.03); Imm Gran Pct Auto 0.4 % (0.0-0.4); Lymphocytes Absolute Auto 1.7 X10*3/uL (1.2-4.9); Lymphocytes Percent Auto 23.3 % (20-40); Mean Corpuscular HGB Conc 32.5 g/dl (31.0-36.0); Mean Corpuscular Hemoglobin 30.1 pg (27.0-33.0); Mean Corpuscular Volume 92.7 fL (80.0-98.0); Mean Platelet Volume 10.7 fL (9.4-12.4); Monocytes Absolute Auto 0.6 X10*3/uL (0.1-1.2); Monocytes Percent Auto 7.9 % (2-11); Neutrophils Absolute Auto 4.7 x10*3/uL (2.0-8.3); Neutrophils Percent Auto 65.8 % (45-73); Platelet Count 148 X10*3/uL (160-400); Red Blood Count 4.25 X10*6/uL (4.60-5.80); Red Cell Distribution Width 13.6 % (11.0-16.0); White Blood Count 7.2 X10*3/uL (4.8-10.8)
[2023-08-23 12:05] LABS: Appearance Urine Clear; Color Urine Yellow; Glucose Urine UA Negative (Negative); Leukocyte Esterase Urine Negative (Negative); Nitrite Urine Negative (Negative); PH 5.5 (5.0-9.0); UMIC TRIGGER UACC YES; Urine Blood Small (1+) (Negative); Urine Ketones Negative (Negative); Urine Protein Negative (Neg-Trace)
[2023-08-23 12:10] LABS: Bacteria Urine None Seen (None Seen); Hyaline Casts Urine 0-2 /LPF (0-2); Squamous Epithelial Cell Urine 0-2 /HPF (0-2); WBC Urine 0-5 /HPF (0-5)
[2023-08-23 12:33] LABS: Alanine Aminotransferase 33 U/L (0-40); Albumin Level 4.1 g/dL (3.5-5.0); Alkaline Phosphatase 120 U/L (39-117); Anion Gap 11 (12-20); Aspartate Amino Transferase 31 U/L (5-37); Bilirubin Total 0.3 mg/dL (0.0-1.0); Blood Urea Nitrogen 20 mg/dL (9-16); Calcium 9.3 mg/dL (8.4-10.2); Carbon Dioxide 23 mmol/L (22-29); Chloride 111 mmol/L (96-108); Cholesterol 133 mg/dL (<200); Estimated Glomerular Filt Rate > 60; Glucose Random 114 mg/dL (60-115); HDL Cholesterol 55 mg/dL (>40); LDL Cholesterol Calculated 64 mg/dL (<100); Potassium 3.8 mmol/L (3.3-5.1); Sodium 141 mmol/L (135-145); Total Protein 7.3 g/dL (6.5-8.0); Triglycerides 71 mg/dL (<150)
[2023-08-23 12:37] LABS: TSH reflex Free T4 1.22 uIU/mL (0.32-4.0); Vitamin D 25-OH Total 22.2 ng/mL (>30)
== END 2023-08-23 10:28 | disposition home or self-care (01) ==
LOC: HO.LAB 10:27
PROVIDERS: PCP Family Medicine; Visit Provider Family Medicine
DX: E55.9 Vitamin D deficiency, unspecified (principal); E66.9 Obesity, unspecified; Z13.29 Encounter for screening for other suspected endocrine disorder
CPT/HCPCS: 36415; 80053; 80061; 81001; 82306; 84443; 85025

== ENCOUNTER 2023-09-03 14:51 | Outpatient (REF) | payer MEDICARE, OTHER, SELFPAY ==
--- NOTE | ~2023-09-03 | CT_ITS ---
EXAMINATION: CT CHEST WITHOUT CONTRAST CLINICAL INFORMATION: Dyspnea COMPARISON: None available. TECHNIQUE: Multidetector volumetric CT imaging of the chest was done. Axial MIP volume rendering provided. Sagittal and coronal reformatted images were obtained. This CT examination was performed using dose optimization techniques as appropriate, variously including the following: *Automated exposure control *Adjustment of mA and/or kV according to patient size (this includes techniques or standardized protocols for targeted exams where dose is matched to indication/reason for exam; i.e. extremities or head) *Use of iterative reconstruction technique DLP: 185 mGy-cm FINDINGS: RESEARCH ENVIRONMENTAL SCIENTIST: No acute cardiopulmonary disease. Degenerative changes. LUNGS: Trachea and bronchi are patent. Minimal bilateral lower lobe atelectasis. Right middle lobe granuloma. No consolidations, groundglass opacities are pulmonary nodules. MEDIASTINUM: Unremarkable thyroid. No pathologic lymphadenopathy. Heart size within normal limits. No pericardial effusion. Atherosclerotic calcifications nonaneurysmal aorta. Nonenlarged pulmonary arteries. CORONARY ARTERY CALCIFICATION: Mild to moderate. PLEURA: There is no pleural effusion. No pleural mass or thickening. AXILLA: No lymphadenopathy. UPPER ABDOMEN: Diffuse hypodensity to liver parenchyma. OSSEOUS STRUCTURES: Degenerative changes. No suspicious osseous lesions CT/CT chest wo IV con IMPRESSION: No acute intrathoracic or upper abdominal pathology recognized. Fleischner guidelines were followed.
== END 2023-09-03 14:52 | disposition home or self-care (01) ==
LOC: HO.CT 14:51
PROVIDERS: PCP Family Medicine; Visit Provider Nurse Practitioner Family
DX: R06.00 Dyspnea, unspecified (principal)
CPT/HCPCS: 71250

== ENCOUNTER 2023-09-13 12:16 | Outpatient (REF) | payer MEDICARE, SELFPAY ==
[2023-09-13 08:54] VITALS: PULSE 74; RESP 16; O2SAT 96
--- NOTE | 2023-09-13 15:31 | PFT_ITS ---
Flows: FEV1: 73 % of predicted at 2.08 L FVC: 70 % of predicted at 2.59 L FEV1/FVC: 80 % Bronchodilator response: Absent Volumes: Total lung capacity: 60 % of predicted at 3.77 L Residual volume: 54 % of predicted at 1.18 L Slow vital capacity: 64 % of predicted at 2.59 L Expiratory reserve volume: 54 % of predicted at 0.55 L Diffusion capacity: Mildly decreased, corrects to normal after adjustment for alveolar ventilation. Impression: Moderate restrictive ventilatory defect with no bronchodilator response. Decreased expiratory reserve volume suggests extrathoracic restriction likely secondary to abdominal obesity. Combination of restrictive ventilatory defect with decreased diffusion capacity suggests underlying pulmonary parenchymal disease. Clinical correlation is advised. MTDD
== END 2023-09-13 12:17 | disposition home or self-care (01) ==
LOC: HO.RESP 12:16
PROVIDERS: PCP Family Medicine; Visit Provider Nurse Practitioner Family
DX: J45.909 Unspecified asthma, uncomplicated (principal)
CPT/HCPCS: 94010; 94640; 94727; 94729

== ENCOUNTER → 2023-09-13 15:31 | Outpatient (BNV) | payer MEDICARE, SELFPAY | PROVIDERS: PCP Family Medicine; Visit Provider Internal Medicine Pulmonary Disease | DX: J45.909 Unspecified asthma, uncomplicated (principal) | CPT/HCPCS: 94060; 94727; 94729 ==

== ENCOUNTER 2023-09-22 13:34 | Outpatient (AMB) | payer MEDICARE, SELFPAY ==
--- NOTE | 2023-09-22 13:47 | MHC.OFFVIS ---
Vital Signs 09/22/23 13:48 Height 5 ft 6 in Weight 211 lb 2 oz BMI 34.1 BP 118/72 Blood Pressure Location Lt brachial Position Sitting Pulse 75 Pulse Source Pulse Oximeter Pulse Oximetry (%) 97 Oxygen Delivery Method Room Air Intake Visit Reasons: wheezing Insurance Verification Clerk Required: Yes Insurance Verification Clerk Language: Disability Manager Name: [id number] rubén Allergies Seasonal Allergies Allergy (Mild, Verified 07/28/23 14:32) Unknown HPI HPI wheezing : Details: Niraj is a pleasant 68 year old male, never smoker, with underlying asthma, cirrhosis and COREY on CPAP. At the last visit, patient was started on Flovent and reports mild improvement of symptoms. He continues to report dyspnea with exertion as well as occasional dry cough and chest tightness. He reports minimal use of albuterol. He also reports significant postnasal drip and nasal congestion that has been worsening and has been using Afrin daily for the last few weeks. He likely developed rebound symptoms with continued use. Of note, he reports compliance with CPAP machine however states there is a moderate amount of air leakage. He states he receives his supplies from [email or web address] and CPAP therapy is managed by his PCP. However after further discussion it is unclear if his pressures, leakage, respiratory events and compliance are being managed by any provider. I discussed with patient to reach out to PCP and clarify if they are monitoring this. [facility] Surgical History Hx of colonoscopy Hx of cholecystectomy History of esophagogastroduodenoscopy (EGD) Social History Alcohol intake: current Alcohol intake frequency: holidays/special occasions only Patient Tobacco Use Status: Never used Tobacco Review of Systems Const Denies chills, Denies excessive sweating, Denies fever(s), Denies headache(s) and Denies night sweats Eyes Denies dry eyes, Denies irritation and Denies itchy eyes ENT Reports Normal hearing present, Denies headache(s) and Denies sore throat Card Denies chest pain, Denies chest pain at rest, Denies chest pain with activity, Denies claudication and Denies paroxysmal nocturnal dyspnea Resp Denies chest congestion, Denies cough, Denies excessive phlegm production, Denies pain on inspiration, Denies pain with cough and Denies stridor Musc Denies myalgias Neuro Reports Normal hearing present and Denies headache(s) Endo Denies excessive sweating Daren/Lymph Denies lymphadenopathy Aller/Immun Denies itchy eyes and Denies seasonal rhinorrhea Physical Exam Vital Signs: Last Vital Signs Pulse 75 09/22/23 13:48 BP 118/72 09/22/23 13:48 Pulse Ox 97 09/22/23 13:48 Oxygen Delivery Method Room Air 09/22/23 13:48 BMI result Body Mass Index 34.1 Const General: cooperative, healthy appearing, comfortable, no acute distress, well developed and alert Orientation/consciousness: patient oriented x3 Limitations: no limitations HEENT Head: Yes normal to inspection, Yes normocephalic and Yes atraumatic Ears: hearing grossly normal bilaterally and external ears normal Eyes General: appearance normal, both eyes and all related structures Eyelids: Yes eyelids normal Sclerae: sclerae normal EOM: EOMs intact bilaterally Neck Neck: Yes normal visual inspection and Yes no lymphadenopathy Lymphatic: no lymphadenopathy noted Chest Chest palpation & inspection: normal inspection of the chest Resp Effort & Inspection: normal respiratory effort, able to speak in complete sentences, no audible wheezes, no cough, no stridor, not tachypneic, no tripod positioning and no use of accessory muscles Auscultation: wheezes expiratory wheezes and throughout Cardio Jugular venous distension: no JVD Rate: regular rate Rhythm: regular rhythm Skin Other: warm, dry General skin exam: no rashes or lesions noted Neuro General: patient oriented x3 Cranial nerves: Yes Normal hearing present Cognition (Neuro): normal cognition Gait exam (Neuro): Normal gait present Extrem Other: Trace pitting bilateral lower extremity edema Psych Appearance: grossly normal and well kempt Speech and movement: Normal speech and movement present and Clear speech present Affect: normal affect Attitude: cooperative Thought process: Normal thought process present Thought content: Normal thought content present Insight: Good insight present (Psych) Judgement: Good judgement present (Psych) Results Reviewed Results Reviewed: [address] [address] [address] Scan Report Signed Patient: Niraj Ro MR#: [id number] : 1955 Acct:[id number] Age/Sex: 67 / M ADM Date: 09/03/23 Loc: HO.CT Attending Dr: Puja Jenkins NP Ordering Physician: Puja Jenkins NP Date of Service: 09/03/23 Procedure(s): CT chest wo IV con Accession Number(s): [id number] cc: Puja Jenkisn OPERATIONS MANAGER STATION; Angela Curry MD~ EXAMINATION: CT CHEST WITHOUT CONTRAST CLINICAL INFORMATION: Dyspnea COMPARISON: None available. TECHNIQUE: Multidetector volumetric CT imaging of the chest was done. Axial MIP volume rendering provided. Sagittal and coronal reformatted images were obtained. This CT examination was performed using dose optimization techniques as appropriate, variously including the following: *Automated exposure control *Adjustment of mA and/or kV according to patient size (this includes techniques or standardized protocols for targeted exams where dose is matched to indication/reason for exam; i.e. extremities or head) *Use of iterative reconstruction technique DLP: 185 mGy-cm FINDINGS: BET TAKER: No acute cardiopulmonary disease. Degenerative changes. LUNGS: Trachea and bronchi are patent. Minimal bilateral lower lobe atelectasis. Right middle lobe granuloma. No consolidations, groundglass opacities are pulmonary nodules. MEDIASTINUM: Unremarkable thyroid. No pathologic lymphadenopathy. Heart size within normal limits. No pericardial effusion. Atherosclerotic calcifications nonaneurysmal aorta. Nonenlarged pulmonary arteries. CORONARY ARTERY CALCIFICATION: Mild to moderate. PLEURA: There is no pleural effusion. No pleural mass or thickening. AXILLA: No lymphadenopathy. UPPER ABDOMEN: Diffuse hypodensity to liver parenchyma. OSSEOUS STRUCTURES: Degenerative changes. No suspicious osseous lesions CT/CT chest wo IV con IMPRESSION: No acute intrathoracic or upper abdominal pathology recognized. Fleischner guidelines were followed. Dictated By: Caroline Enrique MD Signed By: <Electronically signed by Caroline Enrique MD in OV> 09/14/23 1556 DD/ 1529 TD/TT: Floor Representative: Assessment & Plan Assessment & Plan (1) Asthma: Code(s): J45.909 - Unspecified asthma, uncomplicated Category: Medical (2) Dyspnea: Code(s): R06.00 - Dyspnea, unspecified Category: Medical Plan On exam patient with faint expiratory wheezing throughout. Will send in prednisone 40 mg x 5 days. Will also switch inhaler from Flovent to Advair. Will also trial ipratropium and discussed importance of short-term use with Afrin. in Reviewed PFT which revealed Moderate restrictive ventilatory defect with no bronchodilator response. Decreased expiratory reserve volume suggests extrathoracic restriction likely secondary to abdominal obesity. Combination of restrictive ventilatory defect with decreased diffusion capacity suggests underlying pulmonary parenchymal disease. Review chest CT which was unremarkable. Patient also reports significant orthopnea and has trace bilateral lower extremity edema. Will send for echo to rule out cardiac component contributing to dyspnea. All questions were answered and patient is in agreement of plan. Will follow-up to review results of echocardiogram and response to new inhaler. Orders: Orders CA echo transthoracic complete Today R06.00 - Dyspnea, unspecified Medications: New ipratropium bromide administer into each nostril 2 sprays intranasal BID 30 mL 3RF fluticasone propion-salmeterol 115-21 mcg/actuation (Advair HFA) 2 puffs inhalation Q12H 12 grams 6RF prednisone 40 mg (2 x 20 mg) PO DAILY 10 tabs 0RF Discontinued fluticasone propionate 110 mcg/actuation administer with spacer Discontinued Reason: Patient Completed Course 2 puffs inhalation BID 12 grams 3RF Coding Level of Care Code Est Pt Level 4 (45008) Diagnoses Asthma J45.909 Dyspnea R06.00
[2023-09-22 13:48] VITALS: BP 118/72; PULSE 75; O2SAT 97; BMI 34.1
== END 2023-09-22 14:52 | disposition home or self-care (01) ==
PROVIDERS: PCP Family Medicine; Visit Provider Nurse Practitioner Family
DX: J45.909 Unspecified asthma, uncomplicated (principal); R06.00 Dyspnea, unspecified
CPT/HCPCS: 99214

== ENCOUNTER → 2023-09-22 13:34 | Outpatient (BNVA) | payer MEDICARE, SELFPAY | PROVIDERS: PCP Family Medicine; Visit Provider Nurse Practitioner Family | DX: J45.909 Unspecified asthma, uncomplicated (principal); R06.00 Dyspnea, unspecified | CPT/HCPCS: 99212 ==

== ENCOUNTER 2023-09-29 13:12 | Outpatient (AMB) | payer MEDICARE, SELFPAY ==
--- NOTE | 2023-09-29 13:28 | A.OFFVIS_ITS ---
Vital Signs 09/29/23 13:29 Height 5 ft 6 in Weight 207 lb 3.752 oz BMI 33.4 BP 121/57 L Blood Pressure Location Lt brachial Position Sitting Pulse 70 Intake Visit Reasons: Cirrhosis 6 Month Follow Up Intake Note: Niraj presents in the office as a 6 month follow up for cirrhosis. CC: He states that he is having some feeling of shortness of breath - he states that he is able to breathe. He states that there is a tightness and phlegm in his throat. Building Drafting Officer Required: Yes Building Drafting Officer Name: [id number] Angela Allergies Seasonal Allergies Allergy (Mild, Verified 09/29/23 13:29) Unknown HPI Comments Details: 67y.o M with PMH of recently diagnosed cirrhosis of ? etiology for which he is here for follow up. 11/09/22: Pt here with his and daughter. Reports that last year he underwent a CCY, from their description it sounds like he then also had a bile leak secondary to CBD stone which was removed post cholecystectomy. During this hospitalisation he was told he likely has cirrhosis. However pt does not recall seeing a caterpillar operator for furhter care. He has remote hx of drinking in his teenage. No current or previous IVDU. No fam hx of chronic liver diseases including iron or copper disorders, early COPD or neuropsychiatric disorders. No fam hx of HCC. Pt does not have DM or HLD that he is aware of. He has never had CRC screening. 12/07/22: Here with . Seen with bluing oven tender. Apart from R sided abdominal pain and discomfort at the site of CCY, no new gastrointestinal complaints. Labs reviewed and are reassuring for normal INR and platelet count. Elastography done but report pending. 03/11/23: EGD/colo 1. Normal esophagus 2. Normal stomach 3. Peptic duodenitis (biopsy) 4. Normal colon and terminal ileum mucosa 5. Internal hemorrhoids 6. 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 Has no gastrointestinal complaints. Findings of EGD/colo reviewed with the pt. Previously reported no etOH use but today reports that he in fact continues to drink beer daily, also has whiskey on weekends when he's meeting with friends and family. 09/29/23: Here for routine 6m follow up. Cont to intermittently drink but has cut down significantly. Reports drinking may be once a month now. Main complaint today is shortness of breath with sensation of phlegm stuck in his throat. Otherwise no abd oain, distention, pruritus. US Abd 06/10/23: Hepatic parenchymal increased echogenicity consistent with fatty infiltration. Fib-4 score 2.52. PFSH Surgical History Hx of colonoscopy Hx of cholecystectomy History of esophagogastroduodenoscopy (EGD) Social History Alcohol intake: current Alcohol intake frequency: holidays/special occasions only Patient Tobacco Use Status: Never used Tobacco Review of Systems Const All systems reviewed & are unremarkable except as noted in HPI and below Physical Exam Vital Signs: Last Vital Signs Pulse 70 09/29/23 13:29 BP 121/57 L 09/29/23 13:29 BMI result Body Mass Index 33.4 No apparent distress Nonicteric Abdomen soft, nondistended Alert and oriented x3, normal gait Assessment & Plan Assessment & Plan (1) Cirrhosis: Code(s): K74.60 - Unspecified cirrhosis of liver Category: Medical (2) Encounter for colorectal cancer screening: Code(s): Z12.11 - Encounter for screening for malignant neoplasm of colon; Z12.12 - Encounter for screening for malignant neoplasm of rectum Category: Medical (3) Consumes alcohol: Code(s): Z78.9 - Other specified health status Plan Has evidence of advanced fibrosis based on Fib-4 and elastography. No definite CSPH appreciated based on work up so far including upper endoscopy. However pt was strongly counseled to stop drinking to avoid progression of liver disease. He was also educated on modifying metabolic risk factors to avoid further liver fibrosis. In terms of comprehensive care, since he continues to drink would favor repeat EGD for variceal screening in Mar 2026. Reminder set. He will also need q6m US Liver for HCC screening. Next US due in Dec 2023. Orders placed. He was counseled to avoid NSAIDs. Tylenol ok to take if needed. For CRC screening, can consider repeat colonoscopy in 10 years if in good health. Follow up in 6 months. Will need updated MELD labs before the next appt. Orders: Orders Complete Blood Count no Diff 6 Months K76.9 - Liver disease, unspecified, Z78.9 - Other specified health status Comprehensive Met. Panel 6 Months K76.9 - Liver disease, unspecified, Z78.9 - Other specified health status Prothrombin Time INR 6 Months K76.9 - Liver disease, unspecified, Z78.9 - Other specified health status US abdomen limited 3 Months K74.60 - Unspecified cirrhosis of liver Phosphatidylethanol, Blood 6 Months K76.9 - Liver disease, unspecified, Z78.9 - Other specified health status Coding Level of Care Code Est Pt Level 4 (61610) Diagnoses Cirrhosis K74.60 Encounter for colorectal cancer screening Z12.11; Z12.12 Consumes alcohol Z78.9
[2023-09-29 13:29] VITALS: BP 121/57; PULSE 70; BMI 33.4
== END 2023-09-29 14:25 | disposition home or self-care (01) ==
LOC: HO.HGI 13:27
PROVIDERS: PCP Family Medicine; Visit Provider Internal Medicine
DX: K74.60 Unspecified cirrhosis of liver (principal); Z12.11 Encounter for screening for malignant neoplasm of colon; Z12.12 Encounter for screening for malignant neoplasm of rectum; Z78.9 Other specified health status
CPT/HCPCS: 99214

== ENCOUNTER → 2023-09-29 13:27 | Outpatient (BNVA) | payer MEDICARE, SELFPAY | PROVIDERS: PCP Family Medicine; Visit Provider Internal Medicine | DX: K74.60 Unspecified cirrhosis of liver (principal); Z78.9 Other specified health status; Z12.11 Encounter for screening for malignant neoplasm of colon; Z12.12 Encounter for screening for malignant neoplasm of rectum | CPT/HCPCS: 99212 ==

== ENCOUNTER → 2023-10-26 12:50 | Outpatient (REF) | payer MEDICARE, SELFPAY ==
--- NOTE | 2023-10-26 12:54 | CA_ITS ---
Transthoracic Echocardiogram Patient (Last, First, Middle): Niraj Ro, Gender: Male Date of : 1955 Age: 68 Procedure Date: 10/26/2023 Procedure Type: Transthoracic Echocardiogram Location: OP Height: 167. 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 The calculated ejection fraction is 56% by biplane method. - No obvious valvular pathology seen on this study. - There is no evidence of pulmonary hypertension. Findings Procedure Information Contrast agent, definity, is being given per protocol without apparent complications. Left Ventricle Normal left ventricular cavity size. There is normal left ventricular wall thickness. The left ventricular systolic function is normal. The calculated ejection fraction is 56% by biplane method. There is no evidence of regional wall motion abnormalities. Diastolic function is normal for age. Right Ventricle Normal right ventricular cavity size and systolic function. Atria Both atria are normal in size. Aortic Valve There is a normal trileaflet aortic valve. There is no aortic valve stenosis. There is trace (trivial) aortic valve regurgitation. Mitral Valve The mitral valve appears normal. There is no mitral valve regurgitation. There is no mitral valve stenosis. Pulmonic Valve The pulmonic valve is likely normal. Tricuspid Valve Normal tricuspid valve structure. There is trace tricuspid valve regurgitation. There is no evidence of pulmonary hypertension. Great Vessels The asc aorta is normal in size. Venous The inferior vena cava was not well visualized. Pericardium/Pleural There is no evidence of pericardial effusion. Prior Study Comparison No significant change compared to prior study dated: 01/04/2023. Recommendations, Care & Conclusions No obvious valvular pathology seen on this study. Measurements 2D Linear Measurements IVSd: 0.88 0.6-0.9/0.6-1.0 cm LVIDd: 4.64 3.9-5.3/4.2-5.9 cm LVIDd Index: 2.27 2.4-3.2/2.2-3.1 cm/m2 LVIDs: 2.81 2.0-3.6 cm LVPWd: 0.86 0.7-1.1 cm LA Diam: 4.20 2.7-3.8/3.0-4.0 cm LAIDs Index: 2.06 1.5-2.3 cm/m2 LV Mass: 165.68 67-162/88-224 g LV Mass Index: 81.22 43-95/49-115 g/m2 LVOT Diam: 1.90 3.0+(-)1.3 cm 2D Systolic Function EF 4C: 61.40 >55% EF 2C: 54.60 >55% EF BiP: 55.90 >55% Mitral Valve MV Pk E: 0.79 MV PK A: 0.88 MV Decel Time: 239.00 E/A: 0.90 E'Lateral: 8.81 E'Medial: 8.38 E/E' Med: 9.40 E/E' Lat: 8.90 PHT: 70.00 MVA PHT: 3.14 Decel [place]: 3.30 Aortic Valve AoV Pk Piter: 1.60 AoV Mn Piter: 1.16 AoV VTI: 0.37 AoV Pk Grad: 10.00 Aov Mn Grad: 6.00 LISA Cont.VTI: 1.95 LVOT LVOT Pk Piter: 1.14 LVOT Mn Piter: 0.76 LVOT VTI: 0.26 LVOT Pk Grad: 5.00 LVOT Mn Grad: 3.00 LVOT Diam: 1.90 LVOT Area: 2.84 Diastolic Function MV Pk E: 0.79 MV Pk A: 0.88 E/A: 0.90 E'Medial: 8.38 E/E' Med: 9.40 E' Laterial: 8.81 E/E' Lat: 8.90 Right Ventricle TAPSE (mm): 20.40 TVS' Piter: 10.60 Tricuspid Valve TR Pk Piter: 2.15 TR Pk Grad: 18.00 Great Vessels Aorta Sinus of Valsalva: 3.20 2.0-3.5 cm Ao Asc: 3.30 2.1-3.4 cm Pulmonary Valve PV Pk Piter: 1.02 Peak PV Grad: 4.00 Updated in Other Vendor System with Status of Final Hao Ross MD electronically signed on 10/26/2023 4:05:54 PM with status of Final
== END ==
LOC: HO.CARD 12:50
PROVIDERS: PCP Family Medicine; Visit Provider Internal Medicine
DX: R06.00 Dyspnea, unspecified (principal)
CPT/HCPCS: 93306; Q9957

== ENCOUNTER → 2023-10-26 12:54 | Outpatient (BNV) | payer MEDICARE, SELFPAY | PROVIDERS: PCP Family Medicine; Visit Provider Internal Medicine | DX: R06.00 Dyspnea, unspecified (principal) | CPT/HCPCS: 93306 ==

== ENCOUNTER 2024-01-26 15:02 | Outpatient (REF) | payer MEDICARE, SELFPAY ==
--- NOTE | ~2024-01-26 | US_ITS ---
EXAMINATION: Noninvasive assessment of the bilateral lower extremities with ARTERIAL DUPLEX and ANKLE BRACHIAL INDICES (ABIs). CLINICAL INFORMATION: Peripheral vascular disease with lower extremity edema and cramps TECHNIQUE: Duplex Doppler techniques with waveform analysis and measurement of velocities in the bilateral common femoral, profunda femoris, superficial femoral, popliteal and tibial arteries were performed. Additionally, ankle pulse volume recordings, ankle pressure measurements and ankle brachial indices were obtained of the lower extremity arterial system bilaterally. The study was performed only at rest. COMPARISON: None FINDINGS: DIRECT DUPLEX DOPPLER FINDINGS: RIGHT LEG: Common femoral artery: 104 cm/s, phasicity: Triphasic Profunda femoris artery: 35 cm/s, phasicity: Biphasic Superficial femoral artery (proximal): 107 cm/s, phasicity: Triphasic Superficial femoral artery (mid): 92 cm/s, phasicity: Triphasic Superficial femoral artery (distal): 69 cm/s, phasicity: Triphasic Popliteal artery: 57 cm/s, phasicity: Triphasic Posterior tibial artery: 57 cm/s, phasicity: Triphasic Peroneal artery: 62.1 cm/s, phasicity: Triphasic Anterior tibial artery: 55 cm/s, phasicity: Triphasic Dorsalis pedis artery: 79 cm/s, phasicity:Triphasic LEFT LEG: Common femoral artery: 108 cm/s, phasicity: Triphasic Profunda femoris artery: 38 cm/s, phasicity: Biphasic Superficial femoral artery (proximal): 102 cm/s, phasicity: Triphasic Superficial femoral artery (mid): 65 cm/s, phasicity: Triphasic Superficial femoral artery (distal): 63 cm/s, phasicity: Triphasic Popliteal artery: 58 cm/s, phasicity: Triphasic Posterior tibial artery: 90 cm/s, phasicity: Triphasic Peroneal artery: 80 cm/s, phasicity: Triphasic Anterior tibial artery: 55 cm/s, phasicity: Triphasic Dorsalis pedis artery: 48 cm/s, phasicity: Biphasic ANKLE-BRACHIAL INDEX: Right: 1.26 Left: 1.31 ANKLE PRESSURES: Right: PT 161, DP 152 Left: PT 168, DP 143 ANKLE PVR WAVEFORMS: Right: Normal Left: Normal US/US arterial duplex BI w/ SAMUEL IMPRESSION: Right leg: Normal noninvasive arterial evaluation and duplex ultrasound Left leg: Normal noninvasive arterial evaluation and duplex ultrasound SAMUEL Reference: - >1.4 = calcified vessels - 0.9 - 1.4 = normal - no significant arterial disease - 0.7 - 0.89 = mild peripheral arterial disease - 0.51 - 0.69 = moderate peripheral arterial disease - d 0.50 = severe peripheral arterial disease - < .30 = critical arterial disease Electronically signed by: Melecio Sandhu MD 02/01/2024 03:00 PM EDT
== END 2024-01-26 15:03 | disposition home or self-care (01) ==
LOC: HO.US 15:02
PROVIDERS: PCP Family Medicine; Visit Provider Family Medicine
DX: I73.9 Peripheral vascular disease, unspecified (principal)
CPT/HCPCS: 93922; 93925

== ENCOUNTER 2024-02-08 15:18 | Outpatient (AMB) | payer MEDICARE, SELFPAY ==
[2024-02-08 15:22] VITALS: BP 126/64; PULSE 72; O2SAT 96; BMI 34.2
--- NOTE | 2024-02-08 15:22 | A.OFFVIS_ITS ---
Vital Signs 02/08/24 15:22 Height 5 ft 6 in Weight 212 lb 2 oz BMI 34.2 BP 126/64 Blood Pressure Location Rt brachial Position Sitting Pulse 72 Pulse Source Pulse Oximeter Pulse Oximetry (%) 96 Oxygen Delivery Method Room Air Intake Visit Reasons: dyspnea Metallurgical Or Materials Technician Required: Yes Metallurgical Or Materials Technician Language: Electro Mechanical Designer Name: [id number] Keren OA Allergies Seasonal Allergies Allergy (Mild, Verified 02/08/24 15:27) Unknown HPI HPI dyspnea: Details: Niraj is a pleasant 68 year old male, never smoker, with underlying asthma, cirrhosis and COREY on CPAP. At the last visit, he was switched from Flovent to Advair with minimal improvement in symptoms, however is not using consistently. He continues to report dyspnea with exertion. He denies cough, wheezing or chest tightness. He also reports significant postnasal drip and nasal congestion that has been worsening and continues to use Afrin daily, despite previous discussion of limited use. PFSH Surgical History Hx of colonoscopy Hx of cholecystectomy History of esophagogastroduodenoscopy (EGD) Social History Alcohol intake: current Alcohol intake frequency: holidays/special occasions only Patient Tobacco Use Status: Never used Tobacco Review of Systems Const Denies chills, Denies excessive sweating, Denies fever(s), Denies headache(s) and Denies night sweats Eyes Denies dry eyes, Denies irritation and Denies itchy eyes ENT Reports Normal hearing present, Denies headache(s), Denies nasal congestion, Denies nasal discharge, Denies post nasal drip and Denies sore throat Card Denies chest pain, Denies chest pain at rest, Denies chest pain with activity, Denies claudication, Denies leg edema, Denies orthopnea and Denies paroxysmal nocturnal dyspnea Resp Denies chest congestion, Denies cough, Denies excessive phlegm production, Denies pain on inspiration, Denies pain with cough, Denies stridor and Denies wheezing Musc Denies myalgias Neuro Reports Normal hearing present and Denies headache(s) Endo Denies excessive sweating Daren/Lymph Denies lymphadenopathy Aller/Immun Denies itchy eyes, Denies seasonal rhinorrhea and Denies wheezing Physical Exam Vital Signs: Last Vital Signs Pulse 72 02/08/24 15:22 BP 126/64 02/08/24 15:22 Pulse Ox 96 02/08/24 15:22 Oxygen Delivery Method Room Air 02/08/24 15:22 BMI result Body Mass Index 34.2 Const General: cooperative, healthy appearing, comfortable, no acute distress, well developed and alert Nutritional Appearance: obese Orientation/consciousness: patient oriented x3 Limitations: no limitations HEENT Head: Yes normal to inspection, Yes normocephalic and Yes atraumatic Ears: hearing grossly normal bilaterally and external ears normal Eyes General: appearance normal, both eyes and all related structures Eyelids: Yes eyelids normal Sclerae: sclerae normal EOM: EOMs intact bilaterally Neck Neck: Yes normal visual inspection and Yes no lymphadenopathy Lymphatic: no lymphadenopathy noted Chest Chest palpation & inspection: normal inspection of the chest Resp Effort & Inspection: normal respiratory effort, able to speak in complete sentences, no audible wheezes, no cough, no stridor, not tachypneic, no tripod positioning and no use of accessory muscles Auscultation: clear to auscultation bilaterally Cardio Jugular venous distension: no JVD Rate: regular rate Rhythm: regular rhythm Skin Other: warm, dry General skin exam: no rashes or lesions noted Neuro General: patient oriented x3 Cranial nerves: Yes Normal hearing present Cognition (Neuro): normal cognition Gait exam (Neuro): Normal gait present Extrem General: Yes normal to inspection, Yes capillary refill normal, Yes no clubbing, cyanosis or edema and Yes no pedal edema Psych Appearance: grossly normal and well kempt Speech and movement: Normal speech and movement present and Clear speech present Affect: normal affect Attitude: cooperative Thought process: Normal thought process present Thought content: Normal thought content present Insight: Good insight present (Psych) Judgement: Good judgement present (Psych) Assessment & Plan Assessment & Plan (1) Asthma: Code(s): J45.909 - Unspecified asthma, uncomplicated Category: Medical (2) Dyspnea: Code(s): R06.00 - Dyspnea, unspecified Category: Medical Plan Discussed importance of compliance with Advair. Patient agreeable to use twice daily and avoid use of Afrin. All questions were answered and patient is in agreement of plan. Will follow up in 6-8 weeks to assess response to inhaler or sooner if needed. Coding Level of Care Code Est Pt Level 3 (42374) Diagnoses Asthma J45.909 Dyspnea R06.00
== END 2024-02-08 16:14 | disposition home or self-care (01) ==
PROVIDERS: PCP Family Medicine; Visit Provider Nurse Practitioner Family
DX: J45.909 Unspecified asthma, uncomplicated (principal); R06.00 Dyspnea, unspecified
CPT/HCPCS: 99213

== ENCOUNTER → 2024-02-08 15:18 | Outpatient (BNVA) | payer MEDICARE, SELFPAY | PROVIDERS: PCP Family Medicine; Visit Provider Nurse Practitioner Family | DX: J45.909 Unspecified asthma, uncomplicated (principal); R06.00 Dyspnea, unspecified | CPT/HCPCS: 99212 ==

== ENCOUNTER 2024-03-06 07:11 | Outpatient (REF) | payer MEDICARE, SELFPAY ==
[2024-03-06 08:31] LABS: Estimated Average Glucose 120 mg/dL; Hemoglobin A1C 132.4889 umol/L; Hemoglobin A1c % 5.8 % (<6.0); Total Hemoglobin (HGBA1C) 3287.0233 umol/L
[2024-03-06 08:33] LABS: Glucose Random 123 mg/dL (60-115); Total Protein 7.4 g/dL (6.5-8.0)
[2024-03-06 09:15] LABS: Folate 14.8 ng/mL (> or = 4.0); Vitamin B12 768 pg/mL (200-900)
[2024-03-08 11:54] LABS: Prot Elec - Alpha1 0.3 g/dL (0.2-0.3); Prot Elec - Alpha2 0.6 g/dL (0.5-0.9); Prot Elec - Beta 1 0.4 g/dL (0.4-0.6); Prot Elec - Beta 2 0.4 g/dL (0.2-0.5); Prot Elec - Gamma 1.3 g/dL (0.8-1.7)
[2024-03-08 18:08] LABS: Homocysteine 7.2 umol/L (<11.4)
[2024-03-08 21:14] LABS: IgA 295 mg/dL (70-320); IgG 1436 mg/dL (600-1540); IgM 104 mg/dL (50-300)
[2024-03-11 09:43] LABS: Methylmalonic Acid 89 nmol/L (69-390)
== END 2024-03-06 07:12 | disposition home or self-care (01) ==
LOC: HO.LAB 07:11
PROVIDERS: PCP Family Medicine; Visit Provider Family Medicine
DX: G62.9 Polyneuropathy, unspecified (principal); Z13.1 Encounter for screening for diabetes mellitus
CPT/HCPCS: 36415; 82607; 82746; 82784; 82947; 83036; 83090; 83921; 84155; 84165; 86334

== ENCOUNTER 2024-03-24 16:01 | Outpatient (REF) | payer MEDICARE, SELFPAY ==
[2024-03-24 18:12] LABS: Alanine Aminotransferase 62 U/L (0-40); Albumin Level 4.2 g/dL (3.5-5.0); Alkaline Phosphatase 124 U/L (39-117); Anion Gap 9 (12-20); Aspartate Amino Transferase 54 U/L (5-37); Bilirubin Total 0.3 mg/dL (0.0-1.0); Blood Urea Nitrogen 23 mg/dL (9-16); Calcium 9.6 mg/dL (8.4-10.2); Carbon Dioxide 26 mmol/L (22-29); Chloride 108 mmol/L (96-108); Estimated Glomerular Filt Rate > 60; Glucose Random 147 mg/dL (60-115); Potassium 4.1 mmol/L (3.3-5.1); Sodium 139 mmol/L (135-145); Total Protein 7.6 g/dL (6.5-8.0)
== END 2024-03-24 16:02 | disposition home or self-care (01) ==
LOC: HO.CHCLDS 16:01
PROVIDERS: Visit Provider Family Medicine
DX: K74.60 Unspecified cirrhosis of liver (principal)
CPT/HCPCS: 36415; 80053

== ENCOUNTER 2024-03-29 14:54 | Outpatient (AMB) | payer MEDICARE, SELFPAY ==
[2024-03-29 14:55] VITALS: BP 116/55; PULSE 78; BMI 33.4
--- NOTE | 2024-03-29 14:55 | A.OFFVIS_ITS ---
Vital Signs 03/29/24 14:55 Height 5 ft 6 in Weight 207 lb 3.752 oz BMI 33.4 BP 116/55 L Blood Pressure Location Lt brachial Position Sitting Pulse 78 Intake Visit Reasons: 6 month follow up Intake Note: Niraj presents in the office as a 6 month follow up. CC: Pains in the stomach - states that it is in the liver. No irregular bowel movements just the pains in the liver. Explosives Worker Required: Yes Allergies Seasonal Allergies Allergy (Mild, Verified 03/29/24 14:59) Unknown HPI Comments Details: 67y.o M with PMH of recently diagnosed cirrhosis of ? etiology for which he is here for follow up. 11/09/22: Pt here with his and daughter. Reports that last year he underwent a CCY, from their description it sounds like he then also had a bile leak secondary to CBD stone which was removed post cholecystectomy. During this hospitalisation he was told he likely has cirrhosis. However pt does not recall seeing a cable stretcher and tester for furhter care. He has remote hx of drinking in his teenage. No current or previous IVDU. No fam hx of chronic liver diseases including iron or copper disorders, early COPD or n europsychiatric disorders. No fam hx of HCC. Pt does not have DM or HLD that he is aware of. He has never had CRC screening. 12/07/22: Here with . Seen with insurance assistant. Apart from R sided abdominal pain and discomfort at the site of CCY, no new gastrointestinal complaints. Labs reviewed and are reassuring for normal INR and platelet count. Elastography done but report pending. 03/11/23: EGD/colo 1. Normal esophagus 2. Normal stomach 3. Peptic duodenitis (biopsy) 4. Normal colon and terminal ileum mucosa 5. Internal hemorrhoids 6. 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 Has no gastrointestinal complaints. Findings of EGD/colo reviewed with the pt. Previously reported no etOH use but today reports that he in fact continues to drink beer daily, also has whiskey on weekends when he's meeting with friends and family. 09/29/23: Here for routine 6m follow up. Cont to intermittently drink but has cut down significantly. Reports drinking may be once a month now. Main complaint today is shortness of breath with sensation of phlegm stuck in his throat. Otherwise no abd oain, distention, pruritus. US Abd 06/10/23: Hepatic parenchymal increased echogenicity consistent with fatty infiltration. Fib-4 score 2.52. 03/29/24: Here for routine 6 month follow up. Reports for the past 2 weeks has been having R sided abd pain that radiates to the L side. Has also been noticing increase in abd girth x 4 weeks. Pt was due for US which was sid for 01/11 but pt missed appt - reports never got a phone call. Was seen by PCP and started lasix for possible ascites. Also sid for US Abd next week. PFSH Surgical History Hx of colonoscopy Hx of cholecystectomy History of esophagogastroduodenoscopy (EGD) Social History Alcohol intake: current Alcohol intake frequency: holidays/special occasions only Patient Tobacco Use Status: Never used Tobacco Review of Systems Const All systems reviewed & are unremarkable except as noted in HPI and below Physical Exam Vital Signs: Last Vital Signs Pulse 78 03/29/24 14:55 BP 116/55 L 03/29/24 14:55 BMI result Body Mass Index 33.4 No apparent distress Nonicteric Abdomen soft, nondistended, no shifting dullness on my exam Alert and oriented x3, normal gait Assessment & Plan Assessment & Plan (1) Cirrhosis: Code(s): K74.60 - Unspecified cirrhosis of liver Category: Medical (2) Ascites: Code(s): R18.8 - Other ascites Category: Medical Plan Has evidence of advanced fibrosis based on Fib-4 and elastography. No definite CSPH appreciated based on work up so far including upper endoscopy. However pt was strongly counseled to stop drinking to avoid progression of liver disease. More recently has developed R sided abd pain with increase in abd girth concernign for ascites. None elicited on exam today - likely 2/2 lasix use. Plan: - Advised to hold lasix until US Abd done - If has ascites, will favor giovanni monotherapy - Also overdue for MELD labs which were ordered as last visit - can hold off for now and do these after starting diuretics if needed - Further management contingent on results of US Follow up 2-3 weeks Coding Level of Care Code Est Pt Level 4 (35781) Complex EM visit Add On G2211 Diagnoses Cirrhosis K74.60 Ascites R18.8
== END 2024-03-29 16:13 | disposition home or self-care (01) ==
PROVIDERS: PCP Family Medicine; Visit Provider Internal Medicine
DX: K74.60 Unspecified cirrhosis of liver (principal); R18.8 Other ascites
CPT/HCPCS: 99214; G2211

== ENCOUNTER → 2024-03-29 14:54 | Outpatient (BNVA) | payer MEDICARE, SELFPAY | PROVIDERS: PCP Family Medicine; Visit Provider Internal Medicine | DX: K74.60 Unspecified cirrhosis of liver (principal); R18.8 Other ascites | CPT/HCPCS: 99212 ==

== ENCOUNTER 2024-04-04 09:19 | Outpatient (REF) | payer MEDICARE, SELFPAY ==
--- NOTE | ~2024-04-04 | US_ITS ---
EXAMINATION: US ABDOMEN COMPLETE CLINICAL INFORMATION: Hepatic cirrhosis. COMPARISON: Ultrasound abdomen complete 06/10/2023 and 12/03/2022. TECHNIQUE: Real-time imaging of the abdominal viscera using grayscale and color Doppler technique. Technically limited study secondary to bowel gas and body habitus. FINDINGS: PANCREAS: No peripancreatic fluid collection. ABDOMINAL AORTA: Limited evaluation demonstrated a normal diameter of no more than 2.9 cm in the proximal segment. INFERIOR VENA CAVA: Not visualized. LIVER: Liver measures 16 cm. Increased echotexture. No nodular surface. No solid or cystic lesion. Main portal vein is patent with normal hepatopedal flow direction. No intrahepatic biliary ductal dilatation. GALLBLADDER: Surgically absent. COMMON BILE DUCT: 4 mm. RIGHT KIDNEY: 11 cm. No solid or cystic lesion. Normal echotexture. No hydronephrosis. Renal cortical thickness is normal. Normal flow on color Doppler interrogation of the renal hilum. LEFT KIDNEY: 11 cm. No solid or cystic lesion. Normal echotexture. Renal cortical thickness is normal. No hydronephrosis. Normal flow on color Doppler interrogation of the renal hilum.. SPLEEN: 12 cm no focal mass. FREE FLUID: None. US/US abdomen complete IMPRESSION: Hepatic steatosis and mild hepatomegaly. Hepatocellular disease versus cirrhosis cannot be excluded. Borderline normal size spleen. No ascites. No hydronephrosis. No choledocholithiasis. Electronically signed by: Chandu Padron MD 04/12/2024 03:49 PM EST
== END 2024-04-04 09:20 | disposition home or self-care (01) ==
LOC: HO.US 09:19
PROVIDERS: PCP Family Medicine; Visit Provider Family Medicine
DX: K74.60 Unspecified cirrhosis of liver (principal)
CPT/HCPCS: 76700

== ENCOUNTER → 2024-04-04 09:24 | Outpatient (BNV) | payer MEDICARE, SELFPAY | PROVIDERS: PCP Family Medicine; Visit Provider Radiology Diagnostic Radiology | DX: K76.0 Fatty (change of) liver, not elsewhere classified (principal) | CPT/HCPCS: 76700 ==

== ENCOUNTER → 2024-04-11 15:08 | Outpatient (AMB) | payer MEDICARE, SELFPAY ==
--- NOTE | 2024-04-11 15:12 | MHC.OFFVIS ---
Vital Signs 04/11/24 15:13 Height 5 ft 6 in Weight 213 lb 6.519 oz BMI 34.4 BP 116/50 L Blood Pressure Location Rt brachial Position Sitting Pulse 74 Intake Visit Reasons: 3 weeks f/u Intake Note: Niraj presents to in office follow up of cirrhosis. CC: Patient c/o numbness from BLE, RUQ abdominal pain, and abdominal swelling, acid reflux and constipation. Allergies Seasonal Allergies Allergy (Mild, Verified 04/11/24 15:27) Unknown HPI Comments Details: 67y.o M with PMH of recently diagnosed cirrhosis of ? etiology for which he is here for follow up. 11/09/22: Pt here with his and daughter. Reports that last year he underwent a CCY, from their description it sounds like he then also had a bile leak secondary to CBD stone which was removed post cholecystectomy. During this hospitalisation he was told he likely has cirrhosis. However pt does not recall seeing a sign language interpreter for furhter care. He has remote hx of drinking in his teenage. No current or previous IVDU. No fam hx of chronic liver diseases including iron or copper disorders, early COPD or neuropsychiatric disorders. No fam hx of HCC. Pt does not have DM or HLD that he is aware of. He has never had CRC screening. 12/07/22: Here with . Seen with staff interpreter. Apart from R sided abdominal pain and discomfort at the site of CCY, no new gastrointestinal complaints. Labs reviewed and are reassuring for normal INR and platelet count. Elastography done but report pending. 03/11/23: EGD/colo 1. Normal esophagus 2. Normal stomach 3. Peptic duodenitis (biopsy) 4. Normal colon and terminal ileum mucosa 5. Internal hemorrhoids 6. 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 Has no gastrointestinal complaints. Findings of EGD/colo reviewed with the pt. Previously reported no etOH use but today reports that he in fact continues to drink beer daily, also has whiskey on weekends when he's meeting with friends and family. 09/29/23: Here for routine 6m follow up. Cont to intermittently drink but has cut down significantly. Reports drinking may be once a month now. Main complaint today is shortness of breath with sensation of phlegm stuck in his throat. Otherwise no abd oain, distention, pruritus. US Abd 06/10/23: Hepatic parenchymal increased echogenicity consistent with fatty infiltration. Fib-4 score 2.52. 03/29/24: Here for routine 6 month follow up. Reports for the past 2 weeks has been having R sided abd pain that radiates to the L side. Has also been noticing increase in abd girth x 4 weeks. Pt was due for US which was sid for 01/11 but pt missed appt - reports never got a phone call. Was seen by PCP and started lasix for possible ascites. Also sid for US Abd next week. 04/12/24: Seen for follow-up. Reports further increase of 1inch in his waist in the past 4 weeks. Ultrasound done, but read is pending. Otherwise, does not report any abdominal pain, shortness of breath, chest pain, lightheadedness. PFSH Surgical History Hx of colonoscopy Hx of cholecystectomy History of esophagogastroduodenoscopy (EGD) Social History Alcohol intake: current Alcohol intake frequency: holidays/special occasions only Patient Tobacco Use Status: Never used Tobacco Review of Systems Const All systems reviewed & are unremarkable except as noted in HPI and below Physical Exam Vital Signs: Last Vital Signs Pulse 74 04/11/24 15:13 BP 116/50 L 04/11/24 15:13 BMI result Body Mass Index 34.4 No apparent distress Nonicteric Abdomen soft, nondistended, no shifting dullness on my exam Alert and oriented x3, normal gait Assessment & Plan Assessment & Plan (1) Ascites: Code(s): R18.8 - Other ascites Category: Medical (2) Chronic liver disease: Code(s): K76.9 - Liver disease, unspecified Category: Medical Plan Has evidence of advanced fibrosis based on Fib-4 and elastography. No definite CSPH appreciated based on work up so far including upper endoscopy. However pt was strongly counseled to stop drinking to avoid progression of liver disease. Discussed with the patient that I am unable to appreciate any ascites on exam today. Furthermore, would have noted more dramatic increase in abdominal girth if this was from fluid retention. In any case, can empirically start spironolactone 100 mg for now, until ultrasound results are available. Plan: - Start spironolactone 100 mg once daily - Daily weights - Also overdue for MELD labs which will be ordered - Msg sent to office MA to follow up on US Abd results Follow up 4 weeks Orders: Orders Prothrombin Time INR 2 Weeks K76.9 - Liver disease, unspecified, R18.8 - Other ascites Basic Metabolic Panel 04/11/24 K76.9 - Liver disease, unspecified, R18.8 - Other ascites Complete Blood Count no Diff 2 Weeks K76.9 - Liver disease, unspecified, R18.8 - Other ascites Comprehensive Met. Panel 2 Weeks K76.9 - Liver disease, unspecified, R18.8 - Other ascites Medications: New spironolactone 100 mg PO DAILY 90 tabs 0RF Coding Level of Care Code Est Pt Level 4 (06254) Diagnoses Ascites R18.8 Chronic liver disease K76.9
[2024-04-11 15:13] VITALS: BP 116/50; PULSE 74; BMI 34.4
== END ==
PROVIDERS: PCP Family Medicine; Visit Provider Internal Medicine
DX: R18.8 Other ascites (principal); K76.9 Liver disease, unspecified
CPT/HCPCS: 99214

== ENCOUNTER → 2024-04-11 15:08 | Outpatient (BNVA) | payer MEDICARE, SELFPAY | PROVIDERS: PCP Family Medicine; Visit Provider Internal Medicine | DX: K74.60 Unspecified cirrhosis of liver (principal); R10.11 Right upper quadrant pain; R18.8 Other ascites | CPT/HCPCS: 99212 ==

== ENCOUNTER 2024-04-18 15:35 | Outpatient (AMB) | payer MEDICARE, SELFPAY ==
[2024-04-18 15:48] VITALS: BP 124/60; PULSE 77; O2SAT 96; BMI 34.3
--- NOTE | 2024-04-18 15:48 | A.OFFVIS_ITS ---
Vital Signs 04/18/24 15:48 Height 5 ft 6 in Weight 212 lb 8 oz BMI 34.3 BP 124/60 Blood Pressure Location Lt brachial Position Sitting Pulse 77 Pulse Source Pulse Oximeter Pulse Oximetry (%) 96 Oxygen Delivery Method Room Air Intake Visit Reasons: dyspnea Pattern Changer And Repairer Required: Yes Pattern Changer And Repairer Language: Process Analyst Name: Amalia Veliz OA Allergies Seasonal Allergies Allergy (Mild, Verified 04/18/24 15:54) Unknown HPI HPI dyspnea: Details: Niraj is a pleasant 68 year old male, never smoker, with underlying asthma, cirrhosis and COREY on CPAP. At the last visit, he was switched from Flovent to Advair with minimal improvement in symptoms, however is not using consistently. Since he has been using Advair consistently he reports significant improvement and dyspnea. He denies cough, wheezing or chest tightness. He also reports significant postnasal drip and nasal congestion that has been worsening and continues to use Afrin daily, despite previous discussion of limited use. He denies any visits care or hospitalizations related to respiratory distress since last visit. [facility] Surgical History Hx of colonoscopy Hx of cholecystectomy History of esophagogastroduodenoscopy (EGD) Social History Alcohol intake: current Alcohol intake frequency: holidays/special occasions only Patient Tobacco Use Status: Never used Tobacco Review of Systems Const Denies chills, Denies excessive sweating, Denies fever(s), Denies headache(s) and Denies night sweats Eyes Denies dry eyes, Denies irritation and Denies itchy eyes ENT Reports Normal hearing present, Denies headache(s), Reports nasal congestion, Reports nasal discharge and Denies sore throat Card Denies chest pain, Denies chest pain at rest, Denies chest pain with activity, Denies claudication, Denies leg edema, Denies orthopnea and Denies paroxysmal nocturnal dyspnea Resp Denies chest congestion, Denies cough, Denies excessive phlegm production, Denies pain on inspiration, Denies pain with cough, Denies stridor and Denies wheezing Musc Denies myalgias Neuro Reports Normal hearing present and Denies headache(s) Endo Denies excessive sweating Daren/Lymph Denies lymphadenopathy Aller/Immun Denies itchy eyes, Denies seasonal rhinorrhea and Denies wheezing Physical Exam Vital Signs: Last Vital Signs Pulse 77 04/18/24 15:48 BP 124/60 04/18/24 15:48 Pulse Ox 96 04/18/24 15:48 Oxygen Delivery Method Room Air 04/18/24 15:48 BMI result Body Mass Index 34.3 Const General: cooperative, healthy appearing, comfortable, no acute distress, well developed and alert Nutritional Appearance: obese Orientation/consciousness: patient oriented x3 Limitations: no limitations HEENT Head: Yes normal to inspection, Yes normocephalic and Yes atraumatic Ears: hearing grossly normal bilaterally and external ears normal Eyes General: appearance normal, both eyes and all related structures Eyelids: Yes eyelids normal Sclerae: sclerae normal EOM: EOMs intact bilaterally Neck Neck: Yes normal visual inspection and Yes no lymphadenopathy Lymphatic: no lymphadenopathy noted Chest Chest palpation & inspection: normal inspection of the chest Resp Effort & Inspection: normal respiratory effort, able to speak in complete sentences, no audible wheezes, no cough, no stridor, not tachypneic, no tripod positioning and no use of accessory muscles Auscultation: clear to auscultation bilaterally Cardio Jugular venous distension: no JVD Rate: regular rate Rhythm: regular rhythm Skin Other: warm, dry General skin exam: no rashes or lesions noted Neuro General: patient oriented x3 Cranial nerves: Yes Normal hearing present Cognition (Neuro): normal cognition Gait exam (Neuro): Normal gait present Extrem General: Yes normal to inspection, Yes capillary refill normal, Yes no clubbing, cyanosis or edema and Yes no pedal edema Psych Appearance: grossly normal and well kempt Speech and movement: Normal speech and movement present and Clear speech present Affect: normal affect Attitude: cooperative Thought process: Normal thought process present Thought content: Normal thought content present Insight: Good insight present (Psych) Judgement: Good judgement present (Psych) Assessment & Plan Assessment & Plan (1) Asthma: Code(s): J45.909 - Unspecified asthma, uncomplicated Category: Medical (2) Dyspnea: Code(s): R06.00 - Dyspnea, unspecified Category: Medical (3) Allergic rhinitis: Code(s): J30.9 - Allergic rhinitis, unspecified Category: Medical Plan Niraj reports excellent control on Advair and albuterol MDI p.r.n.. Encourage patient to continue. Again reviewed rebound effects of Afrin and urged patient to discontinue. He was agreeable to this and will trial ipratropium nasal spray. All questions were answered and patient is in agreement of plan. Will follow up in 3 months or sooner if needed. Medications: Refilled ipratropium bromide administer into each nostril 2 sprays intranasal BID 30 mL 3RF fluticasone propion-salmeterol 115-21 mcg/actuation (Advair HFA) 2 puffs inhalation Q12H 12 grams 6RF Coding Level of Care Code Est Pt Level 4 (59816) Diagnoses Asthma J45.909 Dyspnea R06.00 Allergic rhinitis J30.9
== END 2024-04-18 16:23 | disposition home or self-care (01) ==
PROVIDERS: PCP Family Medicine; Visit Provider Nurse Practitioner Family
DX: J45.909 Unspecified asthma, uncomplicated (principal); R06.00 Dyspnea, unspecified; J30.9 Allergic rhinitis, unspecified
CPT/HCPCS: 99214

== ENCOUNTER → 2024-04-18 15:35 | Outpatient (BNVA) | payer MEDICARE, SELFPAY | PROVIDERS: PCP Family Medicine; Visit Provider Nurse Practitioner Family | DX: J45.909 Unspecified asthma, uncomplicated (principal); R06.00 Dyspnea, unspecified | CPT/HCPCS: 99212 ==

== ENCOUNTER 2024-04-27 15:03 | Outpatient (REF) | payer MEDICARE, SELFPAY ==
--- NOTE | 2024-04-27 15:08 | EMG_ITS ---
Chief complaint: Bilateral leg numbness, chronic low back pain, denies history of diabetes, history of liver cirrhosis Reason for referral: Evaluate for neuropathy Referred by: Dr. Curry Procedure done: Bilateral lower extremity NCS/EMG Precautions and/or limitations: None The limb temperature was monitored continuously and remained between 32-36 degrees C during the performance of the NCS. Nerve Conduction Studies Anti Sensory Summary Table ?Stim Site NR Onset (ms) Norm Onset (ms) Peak (ms) Norm Peak (ms) O-P Amp (?V) Norm O-P Amp Site1 Site2 Delta-0 (ms) Dist (cm) Piter (m/s) Norm Piter (m/s) Left Sural Anti Sensory (Lat Mall) Calf ? 3.5 4.4 <4.0 5.7 >5.0 Calf Lat Mall 3.5 14.0 40 Right Sural Anti Sensory (Lat Mall) Calf NR <4.0 >5.0 Calf Lat Mall 14.0 Motor Summary Table ?Stim Site NR Onset (ms) Norm Onset (ms) O-P Amp (mV) Norm O-P Amp iAmp (mV) Amp (1st) (%) Site1 Site2 Delta-0 (ms) Dist (cm) Piter (m/s) Norm Piter (m/s) Right Peroneal Motor (Ext Dig Brev) Ankle NR <4.0 >2.5 Ankle Ext Dig Brev 0.0 B Fib ? 13.7 3.1 3.5 B Fib Ankle 0.0 >40 Poplt ? 14.9 3.0 3.4 Poplt B Fib 1.2 5.0 42 >40 Left Tibial Motor (Abd Altamirano Brev) Ankle ? 3.9 <5 5.8 >2.5 7.2 100.0 Ankle Abd Altamirano Brev 3.9 0.0 Knee ? 15.0 3.4 3.7 58.6 Knee Ankle 11.1 40.0 36 >40 Right Tibial Motor (Abd Altamirano Brev) Ankle ? 4.5 <5 6.0 >2.5 8.7 100.0 Ankle Abd Altamirano Brev 4.5 0.0 Knee ? 13.5 2.2 3.1 36.7 Knee Ankle 9.0 41.0 46 >40 EMG ?Side Muscle Nerve Root Ins Act Fibs Psw Amp Dur Poly Recrt Int Pat Comment Right AbdHallucis MedPlantar S1-2 Incr 1+ 1+ Nml Nml 0 Nml Complete Right AntTibialis Dp Br Peron L4-5 Nml Nml Nml Nml Nml 0 Nml Complete Right PostTibialis Tibial L5, S1 Nml Nml Nml Nml Nml 0 Nml Complete Right MedGastroc Tibial S1-2 Incr 1+ 1+ Nml Nml 0 Nml Complete Right VastusMed Femoral L2-4 Nml Nml Nml Nml Nml 0 Nml Complete Left AbdHallucis MedPlantar S1-2 Incr 2+ 2+ Incr Incr 0 Nml Complete Left AntTibialis Dp Br Peron L4-5 Nml Nml Nml Nml Nml 0 Nml Complete Left PostTibialis Tibial L5, S1 Nml Nml Nml Nml Nml 0 Nml Complete Left MedGastroc Tibial S1-2 Nml Nml Nml Nml Nml 0 Nml Complete Left VastusMed Femoral L2-4 Nml Nml Nml Nml Nml 0 Nml Complete Paraspinal EMG ?Side Muscle Nerve Root Ins Act Fibs Psw Comment Right Lumbar Upper Rami Nml Nml Nml Right Lumbar Mid Rami Nml Nml Nml Right Lumbar Lower Rami Nml Nml Nml Left Lumbar Upper Rami Nml Nml Nml Left Lumbar Mid Rami Nml Nml Nml Left Lumbar Lower Rami Nml Nml Nml FINDINGS: Right peroneal nerve showed absent distal response but noted flat ITB muscle. No slowing of conduction velocity across the fibular neck. Right tibial nerve showed normal distal latency, small proximal amplitude and normal conduction velocity. Left tibial nerve showed normal distal latency, small proximal amplitude and slow conduction velocity. Right sural nerve absent response. Left sural nerve showed slow peak latency. Concentric needle EMG was performed in selected muscles of the bilateral lower extremity and lumbar paraspinals. Study revealed Signs of electric abnormalities as shown in the table above. Right AH and medial gastrocnemius showed increased insertional activity, PSWs and fibrillations. Left AH showed PSWs +2, fibrillations and increased insertional activity, with increased duration and amplitude. No denervation seen on lumbar paraspinals. IMPRESSION: 1. This is an abnormal study. 2. 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 3. However, needle EMG showed subacute/chronic reinnervation changes in S1 innervated muscles, therefore an S1 radiculopathy is not completely ruled out. CLINICAL COMMENT: Further clinical correlation recommended. Thank you for your kind referral. Jenny Samuel MD, GILBERT Board Certified, [place] Board of Physical Medicine and Rehabilitation (ABPMR) Board Certified, [place] Board of Electrodiagnostic Medicine (ABEM) CODIN [id number] x 2 MTDD
== END 2024-04-27 15:04 | disposition home or self-care (01) ==
LOC: HO.NEURO 15:03
PROVIDERS: PCP Family Medicine; Visit Provider Family Medicine
DX: G62.9 Polyneuropathy, unspecified (principal); R20.0 Anesthesia of skin; M54.50 Low back pain, unspecified
CPT/HCPCS: 95886; 95909

== ENCOUNTER → 2024-04-27 15:08 | Outpatient (BNV) | payer MEDICARE, SELFPAY | PROVIDERS: PCP Family Medicine; Visit Provider Physical Medicine & Rehabilitation | DX: G62.89 Other specified polyneuropathies (principal) | CPT/HCPCS: 95886; 95909 ==

== ENCOUNTER 2024-06-07 14:30 | Outpatient (RCR) | payer MEDICARE, OTHER, MEDICAID, SELFPAY | END 2024-07-17 13:12 | disposition home or self-care (01) | LOC: HO.PT 14:30 | PROVIDERS: PCP Family Medicine; Visit Provider Family Medicine | DX: R26.9 Unspecified abnormalities of gait and mobility (principal) | CPT/HCPCS: 97112; 97162 ==

== ENCOUNTER 2024-06-27 15:04 | Outpatient (REF) | payer OTHER, SELFPAY ==
--- NOTE | ~2024-06-27 | CT_ITS ---
CLINICAL HISTORY: persistent ruq pain, welling in abd w o signs of ascities CT abdomen and pelvis with contrast Comparison: None Findings: Minimal bibasilar atelectasis. Coronary artery calcifications. Hepatic steatosis. Hepatic segments 2 and 3 are severely small/atrophied. Small stone either within small gallbladder and/or cystic duct remnant versus a severely contracted gallbladder. Unremarkable kidneys without evidence of urinary tract stone or hydronephrosis. 13 mm filling defect in the posterior aspect of the gastric fundus with a small foci of gas likely due to ingested gastric content. Intraluminal mass seems less likely but cannot be entirely excluded. Finding could be further evaluated with a repeat abdomen CT scan or barium study. Uncomplicated fat containing left inguinal hernia. Partial severe atrophy of the supraumbilical portion of the right rectus abdominus muscle. Prominent prostate measuring 45 mm in width and mildly projecting into the urinary bladder base. Colonic diverticulosis without diverticulitis. Unremarkable appendix. No evidence of enlarged lymphadenopathy, ascites, or mass lesion. No acute fracture. Spinal degenerative changes. Atherosclerotic vascular calcifications. Rest of the abdominopelvic viscera are unremarkable. IMPRESSION: 1. 13 mm filling defect in the posterior aspect of the gastric fundus with a small foci of gas likely due to ingested gastric content. Intraluminal mass seems less likely but cannot be entirely excluded. Finding could be further evaluated with a repeat abdomen CT scan or barium study. 2. Hepatic steatosis. This document has been electronically signed by: Vannessa Mckeon MD on 06/28/2024 10:53:18
--- OUTSIDE RECORDS SUMMARY | 2024-06-27 16:01 | XMS_ITS | Encounter Summary ---
Author Organization [employer] Address [address] [facility] 7t [place] [address] Care Team Providers Care Gore Maker Name Role Phone Angela Curry MD Primary Care Provider [phone] Reason for Visit * Reason Onset Date Comments Med Refill 06/06/2024 Encounter Details Date Type Department Care Team ([facility] st Contact Info) Description 06/06/2024 Refill [facility] MED & PEDS [address] [place] [address] Angela Curry MD [address] [place] [address] Arthritis (Primary Dx) Social History Tobacco Use Types Packs/Day Years Used Date Smoking Tobacco: Never Passive Smoke Exposure: Never Smokeless Tobacco: Never Alcohol Use Standard Drinks/Week Comments Never 0 (1 standard drink = 0.6 oz pur e alcohol) Alcohol Answer Date Recorded Frequency of Alcohol Consumption Not on file 02/25/2024 Average Number of Drinks Not on file 024 Frequency of Binge Drinking Not on file 02/07 Score 0 02/25/2024 Depression Answer Date Recorded Patient Health Questionnaire-9 Score 0 02/25/2024 Patient Health Questionnaire-9 Score 0 02/25/2024 Last PHQ-9: Questionnaire Data Not on file 1 Housing Stability Answer Date Recorded What is your housing situation today? I have jerod grijalva 02/25/[address] you li ve. Do you have problems with any of the following? None of the above 02/25/2024 Food Insecurity Answer Date Recorded Within the past 12 months, y ou worried that your food would run out before you got money to buy more: Never True 02/25/2024 Within the past 12 months,th e food you bought just didn't last and you didn't have enough money to get more: Never True Transportation Answer Date Recorded In the past 12 months, has l ack of transportation kept you from medical appts, meetings, work or from getting things needed for daily living? No 02/25/2024 Utilities Answer Date Recorded In the past 12 months, has t he electric, gas, oil or water company threatened to shut off services in your home? No 02/25/2024 Depression Answer Date Recorded Patient Health Questionnaire-2 Score 0 02/25/2024 Internet Access Answer Date Recorded Internet Access Q1 Yes 02/25/2024 Internet Access Q2 Not on file 02/25/2024 Sex and Gender Information Value Date Recorded Sex Assigned at Male 07/31/2022 1:19 PM EDT Legal Sex Male 1:41 PM EST Gender Identity Male 07/31/2022 1:19 PM EDT Sexual Orientation Straight 07/31/2022 1: 19 PM EDT documented as of this encounter Miscellaneous Notes * Telephone Encounter - Tana Armstrong - 06/06/2024 12:38 PM EST TC from pt requesting medication refill. Medications needing refill : traMADol (Ultram) 50 MG tablet To be sent to: [facility] documented in this encounter Plan of Treatment Upcoming Encounters Date Type Department Care Team (Late st Contact Info) Description 06/30/2024 9:45 AM EST Office Visit [facility] MED & PEDS [address] [place] [address] Kallie Rodriguez MD [address] [place] [address] 07/11/2024 10:15 AM EST Office Visit [facility] MED & PEDS [address] [place] [address] Rocky rCuz MD [address] [place] [address] 09/18/2024 1:00 PM EDT Medication Management [facility] MEDICINE [address] [place] [address] documented as of this encounter Goals Goal Patient Goal Type Associated Problems Recent Progress Patient-Stated? Author Short-term: Promote adherence to treatment regimen General No Alfred Long PharmD Take your medication every day Lifestyle No Alfred Long PharmD documented as of this encounter Visit Diagnoses Diagnosis Arthritis- Primary Unspecified arthropathy, site unspecified documented in this encounter Additional Health Concerns Assessment Noted Time PHQ-9 Depression Total Score: 0 02/25/20 24 11:29 AM EDT documented as of this encounter Care Teams Gore Maker Relationship Specialty Start Date End Date Angela Curry MD [address] [place] [address] PCP - General Family Medicine 07/31/22 documented as of this encounter
--- OUTSIDE RECORDS SUMMARY | 2024-06-27 16:01 | XMS_ITS | Encounter Summary ---
Author Organization [employer] Address [address] [facility] 7t [place] [address] Care Team Providers Care Conveyor Worker Name Role Phone Angela Curry MD Primary Care Provider [phone] Reason for Visit * Reason Onset Date Comments Call Back Request 06/21/2024 Encounter Details Date Type Department Care Team ([facility] st Contact Info) Description 06/21/2024 Telephone [facility] [address] [place] [address] Angela Curry MD [address] [place] [phone] Call Back Request Social History Tobacco Use Types Packs/Day Years [...] encounter Miscellaneous Notes * Telephone Encounter - Joellen Vo RN - 06/21/2024 10:24 AM EST TC to Lian. Left detailed message to return call to office. * Telephone Encounter - Edgar Gallego - 06/21/2024 9:22 AM EST Tc from Lian Asher with [employer] informing pt has been showing memory loss symptoms as he also been complaining about it and hasn't been feeling to well. Please contact Lian Asher documented in this encounter Plan of Treatment Upcoming Encounters Date Type Department Care Team ([facility] st Contact Info) Description 06/30/2024 9:45 AM EST Office Visit [facility] MED & PEDS [address] [place] [address] Kallie Rodriguez MD [address] [place], [place] [id number] 07/11/2024 10:15 AM EST Office Visit [facility] MED & PEDS [address] [place] [address] Rocky Cruz MD [address] [place] [address] 09/18/2024 1:00 PM EDT Medication Management [facility] [address] [place] [address] documented as of this encounter Goals Goal Patient Goal Type Associated Problems Recent Progress Patient-Stated? Author Short-term: Promote adherence to treatment regimen General No Alfred Long, PharmD Take your medication every day Lifestyle No Alfred Long, PharmD documented as of this encounter Visit Diagnoses Not on filedocumented in this encounter Additional Health Concerns Assessment Noted Time PHQ-9 Depression Total Score: 0 02/25/20 24 11:29 AM EDT documented as of this encounter Care Teams Conveyor Worker Relationship Specialty Start Date End Date Angela Curry MD [address] [place] [address] PCP - General Family Medicine 07/31/22 documented as of this encounter
--- OUTSIDE RECORDS SUMMARY | 2024-06-27 16:01 | XMS_ITS | Encounter Summary ---
Author Organization [employer] Address [address] [facility] 7t [place] [address] Care Team Providers Care Grapple Skidder Operator Name Role Phone Angela Curry MD Primary Care Provider [phone] Reason for Visit * Reason Comments Med Refill Encounter Details Date Type Department Care Team ([facility] st Contact Info) Description 06/19/2024 Refill [facility] [address] [place], [place] [phone] Angela Curry MD [address] [place] [address] Alcohol use Social History Tobacco Use Types Packs/Day Years [...] PM EDT documented as of this encounter Plan of Treatment Upcoming Encounters Date Type Department Care Team (Late st Contact Info) Description 06/30/2024 9:45 AM EST Office Visit [facility] MED & PEDS [address] [place] [address] Kallie Rodriguez MD [address] [place] [address] 07/11/2024 10:15 AM EST Office Visit [facility] MED & PEDS [address] [place] [address] Rocky Cruz MD [address] [place] [address] 09/18/2024 1:00 PM EDT Medication Management [facility] [address] [place] [phone] documented as of this encounter Goals Goal Patient Goal Type Associated Problems Recent Progress Patient-Stated? Author Short-term: Promote adherence to treatment regimen General No Alfred Long, PharmD Take your medication every day Lifestyle No Alfred Long PharmD documented as of this encounter Visit Diagnoses Diagnosis Alcohol use Other problems related to lifestyle documented in this encounter Additional Health Concerns Assessment Noted Time PHQ-9 Depression Total Score: 0 02/25/20 24 11:29 AM EDT documented as of this encounter Care Teams Grapple Skidder Operator Relationship Specialty Start Date End Date Angela Curry MD [address] [place] [address] PCP - General Family Medicine 07/31/22 documented as of this encounter
--- OUTSIDE RECORDS SUMMARY | 2024-06-27 16:01 | XMS_ITS | Encounter Summary ---
Author Organization [employer] Address [address] [facility] 7t [place] [address] Care Team Providers Care Teleprinter Installer Name Role Phone Angela Curry MD Primary Care Provider [phone] Reason for Visit * Reason Comments Med Refill Encounter Details Date Type Department Care Team ([facility] st Contact Info) Description 06/23/2024 Refill [facility] MED & PEDS [address] [place], [place] [phone] Angela Curry MD [address] [place] [address] Social History Tobacco Use Types Packs/Day Years [...] Description 06/30/2024 9:45 AM EST Office Visit [facility] MED & PEDS [address] [place] [address] Kallie Rodriguez MD [address] [place] [address] 07/11/2024 10:15 AM EST Office Visit [facility] MED & PEDS [address] [place] [address] Rocky Cruz MD [address] [place] [address] 09/18/2024 1:00 PM EDT Medication Management [facility] MEDICINE [address] [place] [address] documented as of this encounter Goals Goal [...] documented as of this encounter Care Teams Teleprinter Installer Relationship Specialty Start Date End Date Angela Curry MD [address] [place] [address] PCP - General Family Medicine 07/31/22 documented as of this encounter
--- OUTSIDE RECORDS SUMMARY | 2024-06-27 16:01 | XMS_ITS | Encounter Summary ---
Author Organization [employer] Address [address] [facility] 7t [place] [address] Care Team Providers Care Manufacturing Sales Representative Name Role Phone Angela Curry MD Primary Care Provider Reason for Visit * Reason Onset Date Comments Nurse Triage 06/23/2024 Encounter Details Date Type Department Care Team ([facility] st Contact Info) Description 06/23/2024 Telephone [facility] MEDICINE [address] [place] [address] Angela Curry MD [address] [place] [address] Nurse Triage Social History Tobacco Use Types Packs/Day Years [...] encounter Miscellaneous Notes * Telephone Encounter - Amanda Montanez RN - 06/23/2024 12:17 PM EST Call returned to Niraj Pedraza to triage below. Confirmed name and . Pt gave verbal consent to speak with spouse. Reports that Neurologist called and stated that MRI shows a nerve that is pinchingand requires a Neurosurgery referral. Reports that patient attends an adult day health program and needs a physical exam and TB testing. Advised will send message to [place] to follow up regarding PHY. Regarding confusion spouse states this is chronic for patient, no new or worsening sx. States pt most concerned about bilateral foot pain and numbness. Pt has hx of arthritis and neuropathy. States amitriptyline and tramadol not providing relief. Wants follow up appt for this . Agrees to sick on site first available for booking next week with team provider as PCP out. Reviewed home care advise, ER precautions and reasons to call back. Protocol Used: Foot Pain (Adult) Protocol-Based Disposition: See in Office or Video Visit within 2 Weeks Future Appointments Date Time Provider Department Center 06/30/2024 9:45 AM Kallie Rodriguez MD [facility] 07/11/2024 10:15 AM Rocky Cruz MD [facility] MED [facility] 09/18/2024 1:00 PM [facility] NAILER 1 MEDICINE [facility] Insurance verified as active per Real Time Eligibility in Epic. Video visit offer not recorded Positive Triage Question: * Mild pain (e.g., does not interfere with normal activities) and present > 7 days * All higher-acuity triage questions were negative Care Advice Discussed: * Reassurance and Education - Foot Pain * Foot Pain - Aggravating Factors * Pain Medicines * Reasons To Call Back - Swelling, redness, or fever occur - Severe pain not relieved by pain medicine - You become worse * Telephone Encounter - Jerry Sanchez - 06/23/2024 12:15 PM EST Symptom: Confusion Outcome: Schedule a same-day appointment or talk to a nurse or provider today Reason: Caller denied all higher acuity questions The caller accepted this outcome. Contact pt at [phone] documented in this encounter Plan of Treatment Upcoming Encounters Date Type Department Care Team (Late st Contact Info) Description 06/30/2024 9:45 AM EST Office Visit [facility] MED & PEDS [address] [place] [address] Kallie Rodriguez MD [address] [place] [address] 07/11/2024 10:15 AM EST Office Visit [facility] MED & PEDS [address] [place] [address] Rocky Cruz MD [address] [place] [address] 09/18/2024 1:00 PM EDT Medication Management [facility] MEDICINE [address] [place] [address] documented as of this encounter Goals Goal Patient Goal Type Associated Problems Recent Progress Patient-Stated? Author Short-term: Promote adherence to treatment regimen General Alfred Hylton, PharmD Take your medication every day Lifestyle No Alfred Long PharmD documented as of this encounter Visit Diagnoses Not on filedocumented in this encounter Additional Health Concerns Assessment Noted Time PHQ-9 Depression Total Score: 0 02/25/20 24 11:29 AM EDT documented as of this encounter Care Teams Manufacturing Sales Representative Relationship Specialty Start Date End Date Angela Curry MD [address] [place] [address] PCP - General Family Medicine 07/31/22 documented as of this encounter
--- OUTSIDE RECORDS SUMMARY | 2024-06-27 16:01 | XMS_ITS | Encounter Summary ---
Author Organization [employer] Address [address] [facility] [address] [place] [address] Care Team Providers Care Heat Treat Inspector Name Role Phone Angela Curry MD Primary Care Provider [phone] Reason for Visit * Reason Onset Date Comments Appointment Request 06/02/2023 Encounter Details Date Type Department Care Team ([facility] st Contact Info) Description 06/02/2023 Telephone [facility] MEDICINE [address] [place] [address] Angela Curry MD [address] [place] [id number] Appointment Request Social History Tobacco Use Types Packs/Day [...] encounter Miscellaneous Notes * Telephone Encounter - Kari Stone - 06/02/2023 10:47 AM EST Tc from pt requesting a follow up appt with PCP, States would like appt scheduled same day as spouse scheduled for 07/01/23 @ 4, also stated spouse has spoken to [place] in regards to appt. However music writer unable to schedule pt does not have any recalls. Pt was last seen on 04/13/23. Please contact at [phone] Chinese documented in this encounter Plan of Treatment Upcoming Encounters Date Type Department Care Team ([facility] st Contact Info) Description 06/30/2024 9:45 AM EST Office Visit [facility] MED & PEDS [address] [place] [address] Kallie Rodriguez MD [address] [place] [address] 07/11/2024 10:15 AM EST Office Visit [facility] MED [facility] PEDS [address] [place] [address] Rocky Cruz MD [address] [place] [address] 09/18/2024 1:00 PM EDT Medication Management [facility] MEDICINE [address] [place] [address] documented as of this encounter Goals Goal Patient Goal Type Associated Problems Recent Progress Patient-Stated? Author Short-term: Promote adherence to treatment regimen General No Alfred Long, PharmD Take your medication every day Lifestyle No Alfred Long PharmD documented as of this encounter Visit Diagnoses Not on filedocumented in this encounter Additional Health Concerns Assessment Noted Time PHQ-9 Depression Total Score: 0 08/14/19 23 3:07 PM EDT documented as of this encounter Care Teams Heat Treat Inspector Relationship Specialty Start Date End Date Angela Curry MD [address] [place] [address] PCP - General Family Medicine 07/31/22 documented as of this encounter
--- OUTSIDE RECORDS SUMMARY | 2024-06-27 16:01 | XMS_ITS | Encounter Summary ---
Author Organization [employer] Address [address] [facility] [address] [place] [address] Care Team Providers Care Spa Manager/Esthetician Name Role Phone Angela Curry MD Primary Care Provider [phone] Reason for Visit * Reason Onset Date Comments Referral 05/08/2024 Encounter Details Date Type Department Care Team ([facility] st Contact Info) Description 05/08/2024 Telephone [facility] MEDICINE [address] [place] [address] Angela Curry MD [address] [place] [address] Referral Social History Tobacco Use Types Packs/Day Years [...] encounter Miscellaneous Notes * Telephone Encounter - Nikia Gallego - 05/08/2024 5:24 PM EST Referral re-faxed to [facility] PT. * Telephone Encounter - Edgar Gallego - 05/08/2024 8:54 AM EST Tc from spouse requesting new referral for physical therapy as pt inform called [facility] facility and referral doesn't exist, copy writer verify referral status is (closed) , pt verbalized not understanding kristina had call her for pt to make appointment and now referral doesn't exist. documented in this encounter Plan of Treatment Upcoming Encounters Date Type Department Care Team ([facility] st Contact Info) Description 06/30/2024 9:45 AM EST Office Visit [facility] MED & PEDS [address] [place], [place] [phone] Kallie Rodriguez MD [address] [place], [place] [phone] 07/11/2024 10:15 AM EST Office Visit [facility] & PEDS [address] [place] [address] Rocky Cruz MD [address] [place] [address] 09/18/2024 1:00 PM EDT Medication Management [facility] MEDICINE [address] [place] [address] documented as of this encounter Goals Goal [...] documented as of this encounter Care Teams Spa Manager/Esthetician Relationship Specialty Start Date End Date Angela Curry MD [address] [place] [id number] PCP - General Family Medicine 07/31/22 documented as of this encounter
--- OUTSIDE RECORDS SUMMARY | 2024-06-27 16:01 | XMS_ITS | Clinical Summary ---
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 Active albuterol 108 (90 Base) MCG/ACT inhaler INHALE 2 PUFFS EVERY 4 HOURS IF NEEDED FOR WHEEZING. 18 g 11 05/05/20 23 Active cholecalciferol (Vitamin D-3) 50 MCG (2000 UT) capsule Take 1 capsule (50 mcg) by mouth in the morning. 120 capsule 3 08/24/19 24 Active betamethasone valerate (Valisone) 0.1 % creamIndications: Psoriasis Apply topically 2 times daily. 90 g 5 10/22/19 24 Active Advair HFA 115-21 MCG/ACT inhaler INHALE 2 PUFFS BY MOUTH EVERY TWELVE HOURS. RINSE MOUTH AFTER USING. 11/05/19 24 Active ipratropium (Atrovent) 0.03 % nasal spray USE 2 SPRAYS IN EACH NOSTRIL TWICE DAILY 09/22/19 24 Active famotidine (Pepcid) 40 MG tabletIndications :Gastroesophageal reflux disease, unspecified whether esophagitis present Take 1 tablet (40 mg) by mouth at bedtime. 90 tablet 1 01/17/20 24 Active citalopram (CeleXA) 20 MG tabletIndications :Anxiety TAKE 1 TABLET BY MOUTH EVERY MORNING 90 tablet 1 01/27/20 24 Active simvastatin (Zocor) 40 MG tabletIndications :Hyperlipidemia, unspecified hyperlipidemia type TAKE 1 TABLET BY MOUTH AT BEDTIME 90 tablet 1 01/27/20 24 Active omega-3 acid ethyl esters (Lovaza) 1 g capsuleIndication s:Hyperlipidemia, unspecified hyperlipidemia type TAKE 1 CAPSULE BY MOUTH TWICE DAILY IN THE MORNING AND IN THE EVENING 180 capsule 1 01/27/20 24 Active Blood Pressure kit 1 Units Once per day. 1 kit 04/14/20 24 Active nabumetone (Relafen) 750 MG tabletIndications :Arthritis TAKE 1 TABLET BY MOUTH TWICE DAILY 60 tablet 5 04/20/20 24 Active ARIPiprazole (Abilify) 15 MG tablet TAKE 1 TABLET BY MOUTH EVERY MORNING 30 tablet 2 05/18/19 25 Active pantoprazole (ProtoNix) 40 MG EC tabletIndications :Gastroesophageal reflux disease, unspecified whether esophagitis present TAKE 1 TABLET BY MOUTH EVERY MORNING BEFORE BREAKFAST 90 tablet 1 05/24/19 25 Active folic acid (Folvite) 800 MCG tabletIndications :Alcohol use TAKE 1 TABLET BY MOUTH EVERY MORNING 90 tablet 1 06/20/19 25 Active Ascorbic Acid (vitamin C) 500 MG tablet TAKE 2 TABLETS BY MOUTH ONCE DAILY IN THE MORNING 180 tablet 1 06/20/19 25 Active cyanocobalamin (Vitamin B-12) 1000 MCG tabletIndications :Alcohol use TAKE 1 TABLET BY MOUTH EVERY MORNING 90 tablet 1 06/20/19 25 Active amitriptyline (Elavil) 25 MG tablet TAKE 1 TABLET BY MOUTH AT BEDTIME 30 tablet 06/27/19 25 Active furosemide (Lasix) 40 MG tablet TAKE 1 TABLET BY MOUTH EVERY DAY 30 tablet 06/27/19 25 Active Ascorbic Acid (vitamin C) 500 MG tablet TAKE 2 TABLETS BY MOUTH ONCE DAILY IN THE MORNING 180 tablet 1 01/03/20 24 025 Discontinued cyanocobalamin (Vitamin B-12) 1000 MCG tabletIndications :Alcohol use TAKE 1 TABLET BY MOUTH EVERY MORNING 90 tablet 1 01/03/20 24 025 Discontinued furosemide (Lasix) 40 MG tablet Take 1 tablet (40 mg) by mouth Once per day. 30 tablet 2 03/24/20 24 025 Discontinued amitriptyline (Elavil) 25 MG tablet Take 1 tablet (25 mg) by mouth at bedtime. 30 tablet 05/12/19 25 025 Discontinued traMADol (Ultram) 50 MG tabletIndications :Arthritis Take 1 tablet (50 mg) by mouth every 8 (eight) hours if needed for severe pain for up to 7 days. 21 tablet 06/08/19 25 025 Active Problems Problem Noted Date Diagnosed Date Abnormal gait 04/14/2024 Abnormality of gait and mobility 04/14/2024 Assessment & Plan (04/14/2024 3:08 PM EST): 68 yo M c/o unstable gait, weakness and decrease MRADLs. Also requesting a hospital bed given he feels he can't get out of bed, send to PT for eval of needs and therapy Abdominal swelling, generalized 03/24/2024 Assessment & Plan (04/14/2024 10:37 AM EST): Continue to follow up with GI. Ordering CT for further evaluation. Follow up in 3 months. Assessment & Plan (03/24/2024 6:59 PM EST): Discussed with pt nutritional modifications such as reducing salt intake. Prescribing Lasix for Sx. Relevant Medication Furosemide (Lasix) 40 mg tablet Prediabetes 03/08/2024 Assessment & Plan (03/08/2024 5:09 PM EDT): I have discussed with patient regarding increasing physicial activity and decrease calorie intake, sodas, juices, favor water and salads/veggies FU with PCP as scheduled Neuropathy 02/25/2024 Assessment & Plan (05/12/2024 2:20 PM EST): Follow up with Neurologist for the further evaluation. Prescribing Amitriptyline for Sx. Relevant Medication Amitriptyline (Elavil) 25 MG tablet Assessment & Plan (03/24/2024 7:01 PM EST): Discussed with pt beginning Lyrica for Sx due to Gabapentin not providing relief. Follow up in 2 weeks via telehealth. Relevant Medication Pregabalin (Lyrica) 75 mg capsule Assessment & Plan (03/14/2024 12:16 PM EST): Patient with neuropathic issues, will send for neurology for assessment and will send labs. Started on gabapentin. Assessment & Plan (03/08/2024 5:08 PM EDT): On LE, unclear if its associated to lumbar radiculopathy vs IFG. Labs from PCP were reviewed and explained to patient and his that sxs could be related to metabolic changes form IFG, hyperglycemia. Advised t Increase Gabapentin to 600mg at bedtime, continue 300mg otherwise. He will increase to 600mg bid if sxs do not improve and fu with PCP. Unstable gait 02/25/2024 Bilateral leg cramps 01/17/2024 Claudication of both lower extremities Assessment & Plan (01/17/2024 11:21 AM EDT): Ordering Vascular US for further evaluation of Sx. A vague feeling of discomfort 07/13/2023 Upper respiratory tract infection 04/13/2023 Wheezing 04/13/2023 Assessment & Plan (07/13/2023 9:29 PM EST): Referral sent to pulmonology due to persistent wheezing and SOB episodes. Assessment & Plan (04/13/2023 4:10 PM EST): Upon examination was noticed that wheezing was present on patient's lungs. Therefore, patient will be given Albuterol to treat wheezing. Advised to notify office if symptoms don't improve. COVID-19 04/13/2023 Assessment & Plan (04/13/2023 4:10 PM EST): Rap. COVID results: POSITIVE. Patient will be given Paxlovid to treat COVID symptoms. Recommended to rest and drink lots of fluid. Dyspnea on exertion 10/30/2022 Assessment & Plan (10/30/2022 4:20 PM EDT): Patient with dyspnea exacerbated with exertion of force. Will send for pulmonary function test, ECHO, and chest xray. Hepatic cirrhosis 08/18/2022 Assessment & Plan (03/24/2024 6:59 PM EST): Ordering US of Abdomen for further evaluation. Assessment & Plan (08/18/2022 1:41 PM EDT): Patient with a hx of hepatic cirrhosis, not following up with any specialist here will refer to GI Sleep apnea 08/18/2022 Assessment & Plan (08/18/2022 1:41 PM EDT): Patient's w/ symptoms of sleep apnea, elevated STOP-BANG, patient with risk factors, will send for sleep study,. Nausea and vomiting 08/18/2022 Assessment & Plan (08/18/2022 1:40 PM EDT): Reports sp exposure to taco, reports it happen this morning, no blood, will send antiemesis medication Schizophrenia 08/05/2022 Assessment & Plan (10/30/2022 4:28 PM EDT): Reports he has not been seen by psychiatrist. Will call to schedule appointment. Assessment & Plan (09/30/2022 1:51 PM EDT): Reports not being seen by psychiatrist yet or received GAS OPERATOR services. Will discontinue haldol and start on abilify. Assessment & Plan (08/05/2022 1:24 PM EDT): Patient needs formal psychiatry followup, referral was placed and also will send medications for now. He needs VNA services to assist with medication compliance and also will need GAS OPERATOR service to assist with ADLs/IADLs that need help. Vitamin D deficiency 08/05/2022 Hyperlipidemia 08/05/2022 Gastroesophageal reflux disease 08/05/2022 Assessment & Plan (01/17/2024 11:21 AM EDT): Continue on current medications. Arthritis 08/05/2022 Anxiety 08/05/2022 Assessment & Plan (07/13/2023 9:30 PM EST): Refilled Citalopram Psoriasis 08/05/2022 Polypharmacy 07/31/2022 Encounters Date Type Department Care Team Description 06/23/2024 Telephone [facility] [address] [place] [phone] Angela Curry MD Nurse Triage 06/23/2024 Refill [facility] [address] [place] [address] Angela Curry MD 06/21/[address] [address] Angela Curry MD Call Back Request 06/19/2024 Refill [facility] [address] [place] [address] Angela Curry MD Alcohol use 06/06/2024 Refill [facility] [address] [place] [address] Angela Curry MD Arthritis (Primary Dx) 05/24/2024 Refill [facility] [address] [place] [address] Angela Curry MD Gastroesophageal reflux disease, unspecified whether esophagitis present 05/18/2024 Refill [facility] [address] [place] [address] Angela Curry MD 05/12/2024 2:30 PM EST Telemedicine [facility] [address] [place] [address] Angela Curry MD Neuropathy (Primary Dx) 05/12/2024 Travel 05/08/2024 Telephone [facility] [address] [place] [phone] Angela Curry MD Referral 05/02/2024 [facility] [address] [place] [phone] ABDOMEN ORDER 04/26/2024 Telephone [facility] [address] [place] [phone] Angela Curry MD FYI 04/20/2024 Refill [facility] [address] [place] [address] Angela Curry MD Arthritis 04/14/2024 10:00 AM EST Telemedicine [facility] [address] [place] [address] Angela Curry MD Abdominal swelling, generalized (Primary Dx); Abnormality of gait and mobility 04/14/2024 Telephone [facility] [address] [facility] [place] [address] Angela Curry MD FYI 04/14/2024 Travel 04/12/2024 Telephone [facility] [address] [place] [address] Angela Curry MD 03/28/2024 Telephone [facility] [address] [place], [place] [phone] Angela Curry MD Results from Last 3 Months Immunizations Name Administration Dates Next Due Influenza High-dose Quadrivalent Preservative Fr ee 12/26/2021 Influenza injectable quadrivalent preservative f ree 07/13/2023 Influenza, High Dose Seasonal, Preservative Free 01/17/2024 Pfizer Covid-19 Vaccine 12+ 07/13/2023 Pneumococcal Conjugate PCV 20 12/26/2021 RSV Bivalent 01/27/2024 Tdap 09/28/2022 Zoster, Recombinant 02/16/2023,12/04/2022 Social History Tobacco Use Types Packs/Day Years Used Date Smoking Tobacco: Never Passive Smoke Exposure: Never Smokeless Tobacco: Never Tobacco Cessation:Counseling Given: Not Answered Alcohol Use Standard Drinks/Week Comments Never 0 [...] Orientation Straight 07/31/2022 1: 19 PM EDT Last Filed Vital Signs Vital Sign Reading Time Taken Comments Blood Pressure 138/75 03/24/2024 2:58 PM EST Pulse 78 03/24/2024 2:58 PM EST Temperature 36.1 ??C (96.9 ??F) 03/24/2024 2:58 PM ES T Respiratory Rate 14 03/24/2024 2:58 PM EST Oxygen Saturation 96% 03/24/2024 2:58 PM EST Inhaled Oxygen Concentration - - Weight 96.3 kg (212 lb 6.4 oz) 03/24/2024 2:58 P M EST Height 167.6 cm (5' 6 ) 03/24/2024 2:58 PM EST Body Mass Index 34.28 03/24/2024 2:58 PM EST Plan of Treatment Upcoming Encounters Date Type Department Care Team ([facility] st Contact Info) Description 06/30/2024 9:45 AM EST Office Visit [facility] [address] [place], [place] [phone] Kallie Rodriguez MD [address] [place], [place] [phone] 07/11/2024 10:15 AM EST Office Visit [facility] [address] [place], [place] [phone] Rocky Cruz MD [address] [place] [phone] 09/18/2024 1:00 PM EDT Medication Management [facility] [address] [place] [address] Health Maintenance Due Date Last Done Comments CT Colonography 1955 FIT DNA/Cologuard 1955 FIT 1955 FOBT 1955 Sigmoidoscopy 1955 Hepatitis A Vaccines (1 of 2 - Risk 2-dose series) 1973 Hepatitis B Vaccines (1 of 3 - Risk 3-dose series) 2014 COVID-19 Vaccine (2 - 2023-2 5 season) 2024 07/13/2023 Alcohol/Substance Use Screening 02/24/2025 02/25/2024 Depression Screening 02/24/2025 02/25/2024, 02/25/2024 SDOH Screening 02/24/2025 02/25/2024 Diabetes: Hemoglobin A1C 03/06/2025 03/06/2024 Tobacco Screening 05/12/2025 05/12/2024 Lipid Panel 08/22/2028 08/23/2023 DTaP/Tdap/Td Vaccines (2 - T d or Tdap) 09/28/2032 09/28/2022 Colonoscopy 03/11/2033 03/11/2023 Colorectal Cancer Screening 03/11/2033 Pneumococcal Vaccine: 50+ Years Completed 12/26/2021 Hepatitis C Screening Completed 11/09/2022 Zoster Vaccines Completed 02/16/2023, 12/04/2022 Influenza Vaccine Completed 01/17/2024, 07/13/2023, 12/26/2021 RSV Patients and Patients Aged 60 years or older Completed 01/27/2024 HIB Vaccines Aged Out No longer eligi ble based on patient's age to complete this topic HPV Vaccines Aged Out No longer eligi ble based on patient's age to complete this topic IPV Vaccines Aged Out No longer eligi ble based on patient's age to complete this topic Meningococcal Vaccine Aged Out No heath [place] eligible based on patient's age to complete this topic RSV under 20 months Aged Out No longe r eligible based on patient's age to complete this topic Rotavirus Vaccines Aged Out No longer eligible based on patient's age to complete this topic Goals Goal Patient Goal Type Associated Problems Recent Progress Patient-Stated? Author Short-term: Promote adherence to treatment regimen General No Alfred Long PharmD Take your medication every day Lifestyle No Alfred Long PharmD Procedures Procedure Name Priority Date/Time Associated Diagnosis Comments US ABDOMEN COMPLETE Routine 04/04/2024 9 :44 AM EST Hepatic cirrhosis, unspecified hepatic cirrhosis type, unspecified whether ascites present (CMS/HCC) HEMOGLOBIN A1C Routine 03/06/2024 7:45 AM EDT Polyneuropathy LIPID PANEL, STANDARD Routine 08/23/2023 10:42 AM EDT Obesity, unspecified classification, unspecified obesity type, unspecified whether serious comorbidity present HM COLONOSCOPY Routine 03/11/2023 HEPATITIS C ANTIBODY Routine 11/09/2022 4:15 PM EDT from Last 3 Months or Most Recently Relevant to Health Maintenance Results * US Abdomen Complete (04/04/2024 9:44 AM EST) Anatomical Region Laterality Modality Abdomen Ultrasound 04/04/2024 9:44 AM EST Narrative 04/12/2024 3:52 PM EST ? [facility] ?[address] ?[place] [address] ? Ultrasound Report ? Signed ? Patient: Milo Garcia,Niraj ?MR#: M ?? [id number] ? : 1955 ?Acct:[id number] ? Age/Sex: 68 / M ?ADM Date: 11/26/24 ? Loc: HO.US ? Attending Dr: Angela Curry MD ? Ordering Physician: Angela Curry MD ?? Date of Service: 04/04/24 ?? Procedure(s): US abdomen complete ?? Accession Number(s): [id number] ? cc: Angela Curry MD ? EXAMINATION: ?? US ABDOMEN COMPLETE ? CLINICAL INFORMATION: ?? Hepatic cirrhosis. ? COMPARISON: ?? Ultrasound abdomen complete 06/10/2023 and 12/03/2022. ? TECHNIQUE: ?? Real-time imaging of the abdominal viscera using grayscale and color ?? Doppler technique. Technically limited study secondary to bowel gas and ?? body habitus. ? FINDINGS: ? PANCREAS: No peripancreatic fluid collection. ? ABDOMINAL AORTA: Limited evaluation demonstrated a normal diameter of ?? no more than 2.9 cm in the proximal segment. ? INFERIOR VENA CAVA: Not visualized. ? LIVER: Liver measures 16 cm. Increased echotexture. No nodular surface. ?? No solid or cystic lesion. Main portal vein is patent with normal ?? hepatopedal flow direction. No intrahepatic biliary ductal dilatation. ? GALLBLADDER: Surgically absent. ? COMMON BILE DUCT: 4 mm. ? RIGHT KIDNEY: 11 cm. No solid or cystic lesion. Normal echotexture. No ?? hydronephrosis. Renal cortical thickness is normal. Normal flow on ?? color Doppler interrogation of the renal hilum. ? LEFT KIDNEY: 11 cm. No solid or cystic lesion. Normal echotexture. ?? Renal cortical thickness is normal. No hydronephrosis. Normal flow on ?? color Doppler interrogation of the renal hilum.. ? SPLEEN: 12 cm no focal mass. ? FREE FLUID: None. ? US/US abdomen complete ?? IMPRESSION: ?? Hepatic steatosis and mild hepatomegaly. Hepatocellular disease versus ?? cirrhosis cannot be excluded. ?? Borderline normal size spleen. ?? No ascites. ?? No hydronephrosis. ?? No choledocholithiasis. ? Electronically signed by: ??Chandu Padron MD ??04/12/2024 03:49 PM ?? EST RP ? Dictated By: ?Chandu Macias MD ? Signed By: ?<Electronically signed by Chandu Garber MD in OV> ? 04/12/24 1549 ? DD/ 0944 ? TD/TT: 04/04/24 1011 ? Funeral Limousine Driver: ? Procedure Note Donotuseinterpreter, Image - 04/12/[address] [address] Ultrasound Report Signed Patient: Taylor RoR#: M [id number] : 5Acct:[id number] Age/Sex: 68 / MADM Date: 04/04/24 Loc: HO.US Attending Dr: Angela Curry MD Ordering Physician: Angela Curry MD Date of Service: 04/04/24 Procedure(s): US abdomen complete Accession Number(s): [id number] cc: Angela Curry MD EXAMINATION: US ABDOMEN COMPLETE CLINICAL INFORMATION: Hepatic cirrhosis. COMPARISON: Ultrasound abdomen complete 06/10/2023 and 12/03/2022. TECHNIQUE: Real-time imaging of the abdominal viscera using grayscale and color Doppler technique. Technically limited study secondary to bowel gas and body habitus. FINDINGS: PANCREAS: No peripancreatic fluid collection. ABDOMINAL AORTA: Limited evaluation demonstrated a normal diameter of no more than 2.9 cm in the proximal segment. INFERIOR VENA CAVA: Not visualized. LIVER: Liver measures 16 cm. Increased echotexture. No nodular surface. No solid or cystic lesion. Main portal vein is patent with normal hepatopedal flow direction. No intrahepatic biliary ductal dilatation. GALLBLADDER: Surgically absent. COMMON BILE DUCT: 4 mm. RIGHT KIDNEY: 11 cm. No solid or cystic lesion. Normal echotexture. No hydronephrosis. Renal cortical thickness is normal. Normal flow on color Doppler interrogation of the renal hilum. LEFT KIDNEY: 11 cm. No solid or cystic lesion. Normal echotexture. Renal cortical thickness is normal. No hydronephrosis. Normal flow on color Doppler interrogation of the renal hilum.. SPLEEN: 12 cm no focal mass. FREE FLUID: None. US/US abdomen complete IMPRESSION: Hepatic steatosis and mild hepatomegaly. Hepatocellular disease versus cirrhosis cannot be excluded. Borderline normal size spleen. No ascites. No hydronephrosis. No choledocholithiasis. Electronically signed by: Chandu Padron MD 04/12/2024 03:49 PM EST RP Dictated By: Chandu Macisa MD Signed By: <Electronically signed by Chandu Garber MDin OV> 04/12/24 1549 DD/ 0944 TD/TT: 04/04/24 1011 Funeral Limousine Driver: us Angela Curry MD IMG US PROCEDURES Final Resul t * Hemoglobin A1c (03/06/2024 7:45 AM EDT) Hemoglobin A1c 5.8 <6.0 % [facility] Comment:Hemoglobin A1C Refer ence Range Adults: 4.8 - 6.0 % Non diabetic: < 6.0 % Goal: < 7.0 %Additional Action Suggested: > 8.0 %Note: Hemoglobin A1c results are invalid for patients with abnormal amounts of HbF. Blood transfusions may impact the HbA1c concentration in the patient sample. Estimated Average Glucose 120 mg/dL [facility] Comment:eAG = Estimated ave rage glucose which is %A1C expressed asaverage glucose, using the formula of the [id number] Glucose study (ADAG), Diabetes Care, Vol.31,#8,Dec. 2007 Blood Venous blood specimen / Unknown 03/06/2024 7:45 AM EDT 03/06/2024 7:45 AM EDT us Angela Curry MD LAB BLOOD ORDERABLES Final Re sult [facility] [address] [place] [phone] * Lipid Panel, Standard (08/23/2023 10:42 AM EDT) Triglycerides 71 <150 mg/dL [facility] Comment:Desirable Triglyceri de: less than 150 mg/dLBorderline High Triglyceride 150-199 mg/dLHigh Triglyceride: 200-499 mg/dLVery High Triglyceride: greater than or equal to 5OO mg/dL Cholesterol 133 <200 mg/dL [facility] Comment:Desirable Cholestero l: less than 200 mg/dLBorderline High Cholesterol: 200-239 mg/dLHigh Cholesterol: greater than 239 mg/dL LDL Cholesterol Calculated 64 <100 mg/dL [facility] Comment:Desirable LDL: less than 100 mg/dLNear Optimal/Above Optimal LDL: 110- 129 mg/dLBorderline High LDL: 130-159 mg/dLHigh LDL: 160-189 mg/dLVery High LDL: greater than or equal to 190 mg/dL HDL Cholesterol 55 >40 mg/dL [facility] Comment:Desirable HDL: great er than 40 mg/dL Note: This HDL assay may give artificially low results in patients with liver disease. Blood Venous blood specimen / Unknown 08/23/2023 10:42 AM EDT 08/23/2023 10:42 AM EDT Angela Curry MD LAB BLOOD ORDERABLES Final Re sult Performing Organization Address [facility]/ZIP Co de Phone Number [facility] [address] [place] [phone] * Hm Colonoscopy (03/11/2023) Colonoscopy Normal Normal Narrative Angela Curry MD - 03/11/[address] Kisha Hale, normal, diverticulosis and hemorrhoids noticed Historical Provider HEALTH MAINTENANCE Final Result * Hepatitis C Ab (11/09/2022 4:15 PM EDT) Hepatitis C Antibody Nonreactive Nonreactive [facility] Comment:Antibodies to HCV no t detected; does not exclude early acuteHCV infection. 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
[2024-06-27] MEDS: iohexoL 350 MG/ML 100 ML INFUS..BTL IV (18:42)
[2024-06-28 10:16] LABS: Creatinine POC 0.8 mg/dL (0.5-1.4); GFR POC > 60
== END 2024-06-27 15:05 | disposition home or self-care (01) ==
LOC: HO.CT 15:04
PROVIDERS: PCP Family Medicine; Visit Provider Family Medicine
DX: R19.07 Generalized intra-abdominal and pelvic swelling, mass and lump (principal)
CPT/HCPCS: 74177; 82565; Q9967

== ENCOUNTER → 2024-06-27 15:06 | Outpatient (BNV) | payer OTHER, SELFPAY | PROVIDERS: PCP Family Medicine; Visit Provider Radiology Diagnostic Radiology | DX: K76.0 Fatty (change of) liver, not elsewhere classified (principal) | CPT/HCPCS: 74177 ==

== ENCOUNTER 2024-06-30 10:03 | Outpatient (REF) | payer MEDICAID, SELFPAY ==
--- OUTSIDE RECORDS SUMMARY | 2024-06-30 10:46 | XMS_ITS | Encounter Summary ---
Author Organization [employer] Address 75 [facility] 7t [place] [address] Care Team Providers Care Delicatessen Clerk Name Role Phone Angela Curry MD Primary Care Provider [phone] Reason for Visit * Reason Onset Date Comments Lab Orders 06/29/2024 Encounter Details Date Type Department Care Team ([facility] st Contact Info) Description 06/29/2024 Telephone [facility] MEDICINE [address] [place] [address] Angela Curry MD [address] [place] [phone] Lab Orders Social History Tobacco Use Types Packs/Day Years [...] encounter Miscellaneous Notes * Telephone Encounter - Jerry Sanchez - 06/29/2024 3:40 PM EST Tc from pt requesting a Lab Order for TB test due to pt needing it for Program. Contact pt at [phone] documented in this encounter Plan of Treatment Upcoming Encounters Date Type Department Care Team ([facility] st Contact Info) Description 07/11/2024 10:15 AM EST Office Visit [facility] MED & PEDS [address] [place] [address] Rocky Cruz MD [address] [place] [address] 08/29/2024 1:45 PM EDT Office Visit [facility] MED & PEDS [address] [place] [address] Baltazar Patel MD [address] [place] [address] 09/18/2024 1:00 PM EDT Medication Management [facility] MEDICINE [address] [place] [address] documented as of this encounter Goals Goal Patient Goal Type Associated Problems Recent Progress Patient-Stated? Author Short-term: Promote adherence to treatment regimen General Alfred Hylton PharmD Take your medication every day Lifestyle No Alfred Long PharmD documented as of this encounter Visit Diagnoses Not on filedocumented in this encounter Additional Health Concerns Assessment Noted Time PHQ-9 Depression Total Score: 0 02/25/20 11:29 AM EDT documented as of this encounter Care Teams Delicatessen Clerk Relationship Specialty Start Date End Date Angela Curry MD [address] [place] [address] PCP - General Family Medicine 07/31/22 documented as of this encounter
--- OUTSIDE RECORDS SUMMARY | 2024-06-30 10:46 | XMS_ITS | Encounter Summary ---
Author Organization [employer] Address 75 [facility] 7t [place] [address] Care Team Providers Care Medicine Technologist Name Role Phone Angela Curry MD Primary Care Provider [phone] Encounter Details Date Type Department Care Team (Latest Contact Info) Description 06/30/2024 Travel Social History Tobacco Use Types Packs/Day Years [...] Care Team (Late st Contact Info) Description 07/11/2024 10:15 AM EST Office Visit [facility] MED & PEDS [address] [place] [address] Rocky Cruz MD [address] [place] [address] 08/29/2024 1:45 PM EDT Office Visit [facility] MED & PEDS [address] [place] [address] Baltazar Patel MD [address] [place] [address] 09/18/2024 1:00 PM EDT Medication Management [facility] MEDICINE [address] [place] [address] documented as of this encounter Goals Goal [...] documented as of this encounter Care Teams Medicine Technologist Relationship Specialty Start Date End Date Angela Curry MD [address] [place] [id number] PCP - General Family Medicine 07/31/22 documented as of this encounter
--- OUTSIDE RECORDS SUMMARY | 2024-06-30 10:46 | XMS_ITS | Encounter Summary ---
Author Organization [employer] Address 75 [facility] 7t [place] [address] Care Team Providers Care Sole Rounder Name Role Phone Angela Curry MD Primary Care Provider [phone] Reason for Visit * Reason Onset Date Comments Appointment Request 06/02/2023 Encounter Details Date Type Department Care Team ([facility] st Contact Info) Description 06/02/2023 Telephone [facility] MEDICINE [address] [place] [address] Angela Curry MD [address] [place] [phone] Appointment Request Social History Tobacco Use Types [...] 4, also stated spouse has spoken to [place] in regards to appt. However chief writer unable to schedule pt does not have any recalls. Pt was last seen on 04/13/23. Please contact at [phone] Frisian documented in this encounter Plan of Treatment Upcoming Encounters Date Type Department Care Team ([facility] st Contact Info) Description 07/11/2024 10:15 AM EST Office Visit [facility] MED & PEDS [address] [place] [address] Rocky Cruz MD [address] [place] [address] 08/29/2024 1:45 PM EDT Office Visit [facility] MED & PEDS [address] [place] [address] Baltazar Patel MD [address] [place] [address] 09/18/2024 1:00 PM EDT Medication Management [facility] MEDICINE [address] [place] [address] documented as of this encounter Goals Goal [...] documented as of this encounter Care Teams Sole Rounder Relationship Specialty Start Date End Date Angela Curry MD [address] [place] [address] PCP - General Family Medicine 07/31/22 documented as of this encounter
--- OUTSIDE RECORDS SUMMARY | 2024-06-30 10:46 | XMS_ITS | Encounter Summary ---
Author Organization [email or web address] Address [address] [place] [address] [facility] [place] [address] Care Team Providers Care Drying Equipment Operator Name Role Phone Angela Curry MD Primary Care Provider [phone] Reason for Referral * Consultation (Urgent) - Pending Review Specialty Diagnoses / Procedures Referred By Contac t Referred To Contact Neurosurgery Diagnoses Neuropathy Spinal stenosis of lumbar region with neurogenic claudication Klalie Rodriguez MD [address] [place] [address] Phone: tel: fax: Referral ID Status Reason Start Date Expiration Date Visits Requested Visits Authorized [id number] Pending Review Specialty Services Required 06/30/2024 06/30/2025 1 1 Encounter Details Date Type Department Care Team ([facility] st Contact Info) Description 06/30/2024 9:45 AM EST Office Visit [facility] MED [facility]EDS [address] [place] [address] Kallie Rodriguez MD [address] [place] [address] Screening-pulmonary TB (Primary Dx); Neuropathy; Spinal stenosis of lumbar region with neurogenic claudication; Claudication of both lower extremities (CMS/HCC) Social History Tobacco Use Types Packs/Day Years [...] PM EDT documented as of this encounter Last Filed Vital Signs Vital Sign Reading Time Taken Comments Blood Pressure 146/77 06/30/2024 9:19 AM EST Pulse 88 06/30/2024 9:19 AM EST Temperature 36.4 ??C (97.6 ??F) 06/30/2024 9:19 AM ES T Respiratory Rate 20 06/30/2024 9:19 AM EST Oxygen Saturation 96% 06/30/2024 9:19 AM EST Inhaled Oxygen Concentration - - Weight 98 kg (216 lb) 06/30/2024 9:19 AM EST Height 168 cm (5' 6.14 ) 06/30/2024 9:19 AM EST Body Mass Index 34.71 06/30/2024 9:19 AM EST documented in this encounter Plan of Treatment Upcoming Encounters Date Type Department Care Team (Late st Contact Info) Description 07/11/2024 10:15 AM EST Office Visit [facility] MED & PEDS [address] [place] [address] Rocky Cruz MD [address] [place] [address] 08/29/2024 1:45 PM EDT Office Visit [facility] MED & PEDS [address] [place], [place] [phone] Baltazar Patel MD [address] [place], [place] [phone] 09/18/2024 1:00 PM EDT Medication Management [facility] MEDICINE [address] [place] [address] Scheduled Referrals Name Type Priority Associated Diagnoses Orde r Schedule Referral to Neurosurgery Outpatient Referral Urgent Neuropathy Spinal stenosis of lumbar region with neurogenic claudication Expected: 06/30/2024 (Approximate), Expires: 06/30/2025 documented as of this encounter Goals Goal Patient Goal Type Associated Problems Recent Progress Patient-Stated? Author Short-term: Promote adherence to treatment regimen General No Alfred Long, PharmD Take your medication every day Lifestyle No Alfred Long PharmD documented as of this encounter Visit Diagnoses Diagnosis Screening-pulmonary TB- Primary Screening examination for pulmonary tuberculosis Neuropathy Mononeuritis of unspecified site Spinal stenosis of lumbar region with neurogenic claudication Claudication of both lower extremities (CMS/HCC) documented in this encounter Additional Health Concerns Assessment Noted Time PHQ-9 Depression Total Score: 0 02/25/20 24 11:29 AM EDT documented as of this encounter Care Teams Drying Equipment Operator Relationship Specialty Start Date End Date Angela Curry MD [address] [place] [address] PCP - General Family Medicine 07/31/22 documented as of this encounter
--- OUTSIDE RECORDS SUMMARY | 2024-06-30 10:46 | XMS_ITS | Encounter Summary ---
Author Organization [employer] Address 75 [facility] 7t [place] [address] Care Team Providers Care Used Car Lot Attendant Name Role Phone Angela Curry MD Primary Care Provider [phone] Reason for Referral * Consultation (Routine) - Pending Review Specialty Diagnoses / Procedures Referred By Juvencio arriaga Referred To Contact Urology Diagnoses Enlarged prostate Tika Landers FNP [address] [place] [address] Phone: tel: fax: Referral ID Status Reason Start Date Expiration Date Visits Requested Visits Authorized [id number] Pending Review Specialty Services Required 06/29/2024 06/29/2025 1 1 Reason for Visit * Reason Onset Date Comments Results 06/29/2024 Encounter Details Date Type Department Care Team ([facility] Contact Info) Description 06/29/2024 Telephone [facility] MED & PEDS [address] [place] [address] Nano Walker RN Results Social History Tobacco Use Types Packs/Day Years [...] as of this encounter Miscellaneous Notes * Addendum Note - REHAN Ortiz - 06/29/2024 7:37 PM ESTAddended by: TIKA LANDERS on: 06/29/2024 07:37 PM Modules accepted: Orders * Telephone Encounter - REHAN Ortiz - 06/29/2024 7:37 PM EST Referral to Urology placed * Telephone Encounter - Nano Walker RN - 06/29/2024 10:55 AM EST TC placed to pt to advise of abdominal CT results below. Scan ordered by PCP but interpreted by covering provider Tika Landers. Pt agreeable to contacting [facility] (Dr. Beard) to f/u on this imaging and to discuss the results. RN inquired with the pt regarding the enlarged prostate and if there were any corresponding symptoms. The only symptom the pt has been experiencing is difficulty with urination which is not a daily occurrence. Pt is interested in a referral to urology. Pt advised that this information will be sent to the provider to place the referral ----- Message from Tika Landers sent at 06/28/2024 7:59 PM EST ----- Covering provider: please call to review results with Mr. 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 The radiologist also noted that there was likely food or gas bubble in the stomach, but if he was fasting prior to CT may want to discuss further imaging with GI doctor. Also noted prostate measuring 45mm, which may be on the larger side. Please ask if he has any urinary symptoms. If so, please let me know if interested in referral to Urology. Thanks! documented in this encounter Plan of Treatment Upcoming Encounters Date Type Department Care Team (Late st Contact Info) Description 07/11/2024 10:15 AM EST Office Visit [facility] MED & PEDS [address] [place] [address] Rocky Cruz MD [address] [place] [address] 08/29/2024 1:45 PM EDT Office Visit [facility] MED & PEDS [address] [place] [address] Baltazar Patel MD [address] [place] [address] 09/18/2024 1:00 PM EDT Medication Management [facility] MEDICINE [address] [place] [address] Scheduled Referrals Name Type Priority Associated Diagnoses Orde r Schedule Referral to Urology Outpatient Referral Routine Enlarged prostate Expected: 06/29/2024 (Approximate), Expires: 06/29/2025 documented as of this encounter Goals Goal Patient Goal Type Associated Problems Recent Progress Patient-Stated? Author Short-term: Promote adherence to treatment regimen General No Alfred Long PharmD Take your medication every day Lifestyle No Alfred Long PharmD documented as of this encounter Visit Diagnoses Diagnosis Enlarged prostate- Primary Hypertrophy of prostate without urinary obstruction and other lower urinary tract symptoms (LUTS) documented in this encounter Additional Health Concerns Assessment Noted Time PHQ-9 Depression Total Score: 0 02/25/20 11:29 AM EDT documented as of this encounter Care Teams Used Car Lot Attendant Relationship Specialty Start Date End Date Angela Curry MD [address] [place] [address] PCP - General Family Medicine 07/31/22 documented as of this encounter
--- OUTSIDE RECORDS SUMMARY | 2024-06-30 10:46 | XMS_ITS | Encounter Summary ---
Author Organization [employer] Address 75 [facility] 7t [place] [address] Care Team Providers Care Regulatory Attorney Name Role Phone Angela Curry MD Primary Care Provider [phone] Encounter Details Date Type Department Care Team ([facility] st Contact Info) Description 06/27/2024 Orders Only [facility] MED & PEDS [address] [place], [place] [phone] Angela Curry MD [address] [place] [address] Social History Tobacco Use Types Packs/Day Years [...] your housing situation today? I have jerod rgijalva 02/25/[address] you li [...] [facility] [address] [place] [address] Rocky Cruz MD [address] [place] [address] 08/29/2024 1:45 PM EDT Office Visit [facility] MED & PEDS [address] [place] [address] Baltazar Patel MD [address] [place] [address] 09/18/2024 1:00 PM EDT Medication Management [facility] MEDICINE [address] [place] [address] documented as of this encounter Goals Goal Patient Goal Type Associated Problems Recent Progress Patient-Stated? Author Short-term: Promote adherence to treatment regimen General No Alfred Long PharmD Take your medication every day Lifestyle No Alfred Long PharmD documented as of this encounter Procedures Procedure Name Priority Date/Time Associated Diagnosis Comments POCT CREATININE GFR Routine 06/27/2024 5 :16 PM EST documented in this encounter Results * POCT Creatinine GFR (06/27/2024 5:16 PM EST) POCT Creatinine 0.8 0.5 - 1.4 mg/dL [facility] GFR POC >60 [facility] Comment:Chronic Kidney Disea se: Estimated GFR < 60 mL/min/1.78a9[place]ihwle Kidney Disease: Estimated GFR < 15 mL/min/1.73m2 06/27/2024 5:16 PM EST 06/28/2024 10:14 AM EST Narrative [facility] - 06/28/2024 10:16 AM EST [id number] Angela Curry MD LAB POINT OF CARE TEST DOCKED DEVICE ORDERABLES Final Result Performing Organization Address City/State/[facility] Co de Phone Number [facility] [address] [place] [phone] documented in this encounter Visit Diagnoses Not on filedocumented in this encounter Additional Health Concerns Assessment Noted Time PHQ-9 Depression Total Score: 0 02/25/20 24 11:29 AM EDT documented as of this encounter Care Teams Regulatory Attorney Relationship Specialty Start Date End Date Angela Curry MD [address] [place] [address] PCP - General Family Medicine 07/31/22 documented as of this encounter
--- OUTSIDE RECORDS SUMMARY | 2024-06-30 10:46 | XMS_ITS | Encounter Summary ---
Author Organization [email or web address] Address 75 [facility] 7t [place] [address] Care Team Providers Care Corporate Meeting Planner Name Role Phone Angela Curry MD Primary Care Provider [phone] Reason for Visit * Reason Onset Date Comments Nurse Triage 06/23/2024 Encounter Details Date Type Department Care Team ([facility] st Contact Info) Description 06/23/2024 Telephone [facility] MEDICINE [address] [place] [address] Angela Curry MD [address] [place] [address] Nurse Triage Social History Tobacco Use Types [...] Center 06/30/2024 9:[address] [facility] 07/11/2024 10:15 AM Rocky Cruz MD [facility] 09/18/2024 1:00 PM [facility] CERNER ANALYST 1 MEDICINE [facility] Insurance verified as active per Real [...] caller accepted this outcome. Contact pt at [phone] documented in this encounter Plan of Treatment Upcoming Encounters Date Type Department Care Team (Late st Contact Info) Description 07/11/2024 10:15 AM EST Office Visit [facility] MED & PEDS [address] [place] [address] Rocky Cruz MD [address] [place] [address] 08/29/2024 1:45 PM EDT Office Visit [facility] MED & PEDS [address] [place] [address] Baltazar Patel MD [address] [place] [address] 09/18/2024 1:00 PM EDT Medication Management [facility] MEDICINE [address] [place] [address] documented as of this encounter Goals Goal [...] documented as of this encounter Care Teams Corporate Meeting Planner Relationship Specialty Start Date End Date Angela Curry MD [address] [place] [address] PCP - General Family Medicine 07/31/22 documented as of this encounter
--- OUTSIDE RECORDS SUMMARY | 2024-06-30 10:46 | XMS_ITS | Encounter Summary ---
Author Organization [employer] Address 75 [facility] 7t [place] [address] Care Team Providers Care Wildlife Refuge Manager Name Role Phone Angela Curry MD Primary Care Provider [phone] Reason for Visit * Reason Comments Med Refill Encounter Details Date Type Department Care Team ([facility] st Contact Info) Description 06/23/2024 Refill [facility] MED & PEDS [address] [place], [place] [phone] Angela Curry MD [address] [place] [address] Social History Tobacco Use Types Packs/Day Years [...] [facility] [address] [place] [address] Rocky Cruz MD [address] [place] [address] 08/29/2024 1:45 PM EDT Office Visit [facility] MED & PEDS [address] [place] [address] Baltazar Patel MD [address] [place] [address] 09/18/2024 1:00 PM EDT Medication Management [facility] MEDICINE [address] [place] [address] documented as of this encounter Goals Goal [...] documented as of this encounter Care Teams Wildlife Refuge Manager Relationship Specialty Start Date End Date Angela Curry MD [address] [place] [address] PCP - General Family Medicine 07/31/22 documented as of this encounter
--- OUTSIDE RECORDS SUMMARY | 2024-06-30 10:46 | XMS_ITS | Encounter Summary ---
Author Organization [employer] Address 75 [facility] 7t [place] [address] Care Team Providers Care Special Agent Fbi Name Role Phone Angela Curry MD Primary Care Provider [phone] Reason for Visit * Reason Onset Date Comments Lab Orders 06/29/2024 Encounter Details Date Type Department Care Team ([facility] st Contact Info) Description 06/29/2024 Telephone [facility] MEDICINE [address] [place] [address] Angela Curry MD [address] [place] [address] Lab Orders Social History Tobacco Use Types [...] encounter Miscellaneous Notes * Telephone Encounter - Danae Dunn RN - 06/29/2024 4:08 PM EST T-spot lab ordered as requested. * Telephone Encounter - Edgar Gallego - 06/29/2024 2:08 PM EST Tc from pt requesting lab order for tuberculosis as needed for program [facility]. As well pt inform needs appointment (physical) but will like SYLVIA to call him for that appointment , freelance copywriter inform could help as Identified self and how we assist patients he stated he will like the girls from the team toschedule him documented in this encounter Plan of Treatment Upcoming Encounters Date Type Department Care Team ([facility] st Contact Info) Description 07/11/2024 10:15 AM EST Office Visit [facility] MED & PEDS [address] [place], [place] [phone] Rocky Cruz MD [address] [place], [place] [phone] 08/29/2024 1:45 PM EDT Office Visit [facility] MED & PEDS [address] [place] [address] Baltazar Patel MD [address] [place] [address] 09/18/2024 1:00 PM EDT Medication Management [facility] MEDICINE [address] [place] [address] Scheduled Orders Name Type Priority Associated Diagnoses Orde r Schedule T-SPOT??.TB Lab Routine Routine general medical examination at a health care facility Expected: 06/29/2024 (Approximate), Expires: 06/29/2025 documented as of this encounter Goals Goal Patient Goal Type Associated Problems Recent Progress Patient-Stated? Author Short-term: Promote adherence to treatment regimen General No Alfred Long, PharmD Take your medication every day Lifestyle No Alfred Long, PharmD documented as of this encounter Visit Diagnoses Diagnosis Routine general medical examination at a health care facility documented in this encounter Additional Health Concerns Assessment Noted Time PHQ-9 Depression Total Score: 0 02/25/20 24 11:29 AM EDT documented as of this encounter Care Teams Special Agent [employer] Relationship Specialty Start Date End Date Angela Curry MD [address] [place] [address] PCP - General Family Medicine 07/31/22 documented as of this encounter
--- OUTSIDE RECORDS SUMMARY | 2024-06-30 10:46 | XMS_ITS | Clinical Summary ---
Author Organization [employer] Address 75 [facility] 7t [place] [address] Care Team Providers Care Associate Software Application Engineer Name Role Phone Angela Curry MD Primary Care Provider [phone] Allergies No known active allergies Medications Multiple [...] EVERY DAY 30 tablet 06/27/19 25 Active pregabalin (Lyrica) 75 MG capsule 06/23/19 25 Active traMADol (Ultram) 50 MG tabletIndications :Neuropathy Take 1 tablet (50 mg) by mouth every 8 (eight) hours if needed for severe pain for up to 15 days. 45 tablet 06/30/19 25 025 Active Ascorbic Acid (vitamin C) 500 MG [...] being seen by psychiatrist yet or received STAFF ATTORNEY services. Will discontinue haldol and start on abilify. Assessment & Plan (08/05/2022 1:24 PM EDT): Patient needs formal psychiatry followup, referral was placed and also will send medications for now. He needs VNA services to assist with medication compliance and also will need STAFF ATTORNEY service to assist with ADLs/IADLs that need help. Vitamin D deficiency 08/05/2022 Hyperlipidemia 08/05/2022 Gastroesophageal reflux disease 08/05/2022 Assessment & Plan (01/17/2024 11:21 AM EDT): Continue on current medications. Arthritis 08/05/2022 Anxiety 08/05/2022 Assessment & Plan (07/13/2023 9:30 PM EST): Refilled Citalopram Psoriasis 08/05/2022 Polypharmacy 07/31/2022 Encounters Date Type Department Care Team Description 06/30/2024 9:45 AM EST Office Visit [facility] [address] [place] [address] Kallie Rodriguez MD Screening-pulmonary TB (Primary Dx); Neuropathy; Spinal stenosis of lumbar region with neurogenic claudication; Claudication of both lower extremities ([facility]) 06/30/2024 Travel 06/29/[address] [address] Angela Curry MD Lab Orders 06/29/[address] [address] Angela Curry MD Lab Orders 06/29/2024 Telephone [facility] [address] [place] [address] Nano Walker, RN Results 06/27/2024 Orders Only [facility] [address] [place] [address] Angela Curry MD 06/23/[address] [address] Angela Curry MD Nurse Triage 06/23/2024 Refill [facility] [address] [place] [address] Angela Curry MD 06/21/[address] [address] Angela Curry MD Call Back Request 06/19/2024 Refill [facility] [address] [place] [address] Angela Curry MD Alcohol use 06/06/2024 Refill [facility] [address] [place] [address] Angela Curry MD Arthritis (Primary Dx) 05/24/2024 Refill [facility] [address] [place] [address] Angela Curry MD Gastroesophageal reflux disease, unspecified whether esophagitis present 05/18/2024 Refill [facility] [address] [place] [address] Angela Curry MD 05/12/2024 2:30 PM EST Telemedicine [facility] [address] [place] [address] Angela Curry MD Neuropathy (Primary Dx) 05/12/2024 Travel 05/08/2024 Telephone [facility] MEDICINE [address] [place] [address] Angela Curry MD Referral 05/02/2024 [facility] Information Management [address] [place] [address] [address] ABDOMEN ORDER 04/26/2024 Telephone [facility] [address] [place] [address] Angela Curry MD FYI 04/20/2024 Refill [facility] [address] [place] [address] Angela Curry MD Arthritis 04/14/2024 10:00 AM EST Telemedicine [facility] [address] [place] [address] Angela Curry MD Abdominal swelling, generalized (Primary Dx); Abnormality of gait and mobility 04/14/2024 Telephone [facility]INE [address] [place] [address] Angela Curry MD FYI 04/14/2024 Travel 04/12/2024 Telephone [facility] [address] [place] [address] Angela Curry MD from Last 3 Months Immunizations Name Administration [...] Mass Index 34.71 06/30/2024 9:19 AM EST Plan of Treatment Upcoming Encounters Date Type Department Care Team (Late st Contact Info) Description 07/11/2024 10:15 AM EST Office Visit [facility] [address] [place] [address] Rocky Cruz MD [address] [place] [address] 08/29/2024 1:45 PM EDT Office Visit [facility] [address] [place] [address] IzaguirreBaltazar Fisher MD [address] [place] [address] 09/18/2024 1:00 PM EDT Medication Management [facility]INE [address] [place] [address] Health Maintenance Due Date Last Done Comments CT Colonography 1955 FIT DNA/Cologuard 1955 FIT 1955 FOBT 1955 Sigmoidoscopy 1955 Hepatitis A Vaccines (1 of 2 - Risk 2-dose series) 1973 Hepatitis B Vaccines (1 of 3 - Risk 3-dose series) 2014 COVID-19 Vaccine (2023-2 5 season) 2024 07/13/2023 Alcohol/Substance Use Screening 02/24/2025 02/25/2024 Depression Screening 02/24/2025 02/25/2024, 02/25/2024 SDOH Screening 02/24/2025 02/25/2024 Diabetes: Hemoglobin A1C 03/06/2025 03/06/2024 Tobacco Screening 06/30/2025 06/30/2024 Lipid Panel 08/22/2028 08/23/2023 DTaP/Tdap/Td Vaccines (2 [...] Procedure Name Priority Date/Time Associated Diagnosis Comments CT ABDOMEN PELVIS W CONTRAST Routine 06/28/2024 10:53 AM EST Abdominal swelling, generalized POCT CREATININE GFR Routine 06/27/2024 5 :16 PM EST US ABDOMEN COMPLETE Routine 04/04/2024 9 :44 [...] Recently Relevant to Health Maintenance Results * CT Abdomen Pelvis w/ Contrast (06/28/2024 10:53 AM EST) Anatomical Region Laterality Modality Body, Pelvis, Abdomen Computed T omography 06/28/2024 10:5 3 AM EST Narrative 06/28/2024 10:54 AM EST ? [facility] ?[address] ?[place] [address] ? CT Scan Report ? Signed ? Patient: Niraj Ro ?MR#: M ?? [id number] ? : 1955 ?Acct:[id number] ? Age/Sex: 68 / M ?ADM Date: 06/27/24 ? Loc: HO.CT ? Attending Dr: Angela Curry MD ? Ordering Physician: Angela Curry MD ?? Date of Service: 06/27/24 ?? Procedure(s): CT abdomen pelvis w IV con ?? Accession Number(s): [id number] ? cc: Angela Curry MD ? Report Number: ?? [id number]: Total DLP = 1685.00 mGy-cm ? CLINICAL HISTORY: persistent ruq pain, welling in abd w o signs of ascities ? CT abdomen and pelvis with contrast ? Comparison: None ? Findings: ?? Minimal bibasilar atelectasis. ?? Coronary artery calcifications. ? Hepatic steatosis. ?? Hepatic segments 2 and 3 are severely small/atrophied. Small stone either ?? within small gallbladder and/or cystic duct remnant versus a severely ?? contracted gallbladder. ?? Unremarkable kidneys without evidence of urinary tract stone or ?? hydronephrosis. ?? 13 mm filling defect in the posterior aspect of the gastric fundus with a ?? small foci of gas likely due to ingested gastric content. Intraluminal ?? mass seems less likely but cannot be entirely excluded. Finding could be ?? further evaluated with a repeat abdomen CT scan or barium study. ?? Uncomplicated fat containing left inguinal hernia. Partial severe atrophy ?? of the supraumbilical portion of the right rectus abdominus muscle. ? Prominent prostate measuring 45 mm in width and mildly projecting into the ?? urinary bladder base. ?? Colonic diverticulosis without diverticulitis. ?? Unremarkable appendix. ?? No evidence of enlarged lymphadenopathy, ascites, or mass lesion. ?? No acute fracture. ?? Spinal degenerative changes. ? Atherosclerotic vascular calcifications. ?? Rest of the abdominopelvic viscera are unremarkable. ?? IMPRESSION: ?? 1. 13 mm filling defect in the posterior aspect of the gastric fundus with ?? a small foci of gas likely due to ingested gastric content. Intraluminal ?? mass seems less likely but cannot be entirely excluded. Finding could be ?? further evaluated with a repeat abdomen CT scan or barium study. ?? 2. Hepatic steatosis. ? This document has been electronically signed by: Vannessa Mckeon MD on ?? 06/28/2024 10:53:18 ? Dictated By: ?Vannessa Mckeon MD ? Signed By: ?<Electronically signed by Vannessa Mckeon MD in OV> ? 06/28/24 1053 ? DD/ 1053 ? TD/TT: 06/28/24 1053 ? Radiation Protection Engineer: ? Procedure Note Mindy, Martha - 06/28/[address] [place] [address] [address] Scan Report Signed Patient: Chapin Ro#: M [id number] : 5Acct:[id number] Age/Sex: 68 / MADM Date: 06/27/24 Loc: HO.CT Attending Dr: Angela Curry MD Ordering Physician: Angela Curry MD Date of Service: 06/27/24 Procedure(s): CT abdomen pelvis w IV con Accession Number(s): [id number] cc: Angela Curry MD Report Number: [id number]: Total DLP = 1685.00 mGy-cm CLINICAL HISTORY: persistent ruq pain, welling in abd w o signs ofascities CT abdomen and pelvis with contrast Comparison: None Findings: Minimal bibasilar atelectasis. Coronary artery calcifications. Hepatic steatosis. Hepatic segments 2 and 3 are severely small/atrophied. Small stone either within small gallbladder and/or cystic duct remnant versus a severely contracted gallbladder. Unremarkable kidneys without evidence of urinary tract stone or hydronephrosis. 13 mm filling defect in the posterior aspect of the gastric fundus with a small foci of gas likely due to ingested gastric content. Intraluminal mass seems less likely but cannot be entirely excluded. Finding could be further evaluated with a repeat abdomen CT scan or barium study. Uncomplicated fat containing left inguinal hernia. Partial severe atrophy of the supraumbilical portion of the right rectus abdominus muscle. Prominent prostate measuring 45 mm in width and mildly projecting into the urinary bladder base. Colonic diverticulosis without diverticulitis. Unremarkable appendix. No evidence of enlarged lymphadenopathy, ascites, or mass lesion. No acute fracture. Spinal degenerative changes. Atherosclerotic vascular calcifications. Rest of the abdominopelvic viscera are unremarkable. IMPRESSION: 1. 13 mm filling defect in the posterior aspect of the gastric fundus with a small foci of gas likely due to ingested gastric content. Intraluminal mass seems less likely but cannot be entirely excluded. Finding could be further evaluated with a repeat abdomen CT scan or barium study. 2. Hepatic steatosis. This document has been electronically signed by: Vannessa Mckeon MD on 06/28/2024 10:53:18 Dictated By: Vannessa Mckeon MD Signed By: <Electronically signed by Vannessa Mckeon MD in OV> 06/28/24 1053 DD/ 1053 TD/TT: 06/28/24 1053 Radiation Protection Engineer: us Angela Curry MD IMG CT PROCEDURES Edited Resu lt - Final * POCT Creatinine GFR (06/27/2024 5:16 PM EST) POCT Creatinine 0.8 0.5 - 1.4 mg/dL [facility] GFR POC >60 [facility] Comment:Chronic Kidney Disea se: Estimated GFR < 60 mL/min/1.11d1Ulwuxz Kidney Disease: Estimated GFR < 15 mL/min/1.73m2 06/27/2024 5:16 PM EST 06/28/2024 10:14 AM EST Narrative [facility] - 06/28/2024 10:16 AM EST [id number] us Angela Curry MD LAB POINT OF CARE TEST DOCKED DEVICE ORDERABLES Final Result Performing Organization Address [facility]/State/ZIP Co de Phone Number [facility] [address] [place] [address] [phone] * US Abdomen Complete (04/04/2024 9:44 AM EST) Anatomical Region Laterality Modality Abdomen Ultrasound 04/04/2024 9:44 AM EST Narrative 04/12/2024 3:52 PM EST ? [facility] ?[address] ?[place] [address] ? Ultrasound Report ? Signed ? Patient: Niraj Ro ?MR#: M ?? [id number] ? : 1955 ?Acct:[id number] ? Age/Sex: 68 / M ?ADM Date: 04/04/24 ? Loc: HO.US ? Attending Dr: Angela Curry MD ? Ordering Physician: Angela Curry MD ?? Date of Service: 04/04/24 ?? Procedure(s): US abdomen complete ?? Accession Number(s): [id number] ? cc: Angela Curry MD ? EXAMINATION: [...] Padron MD ??04/12/2024 03:49 PM ?? EST ? Dictated By: ?Chandu Macias MD ? Signed By: ?<Electronically signed by Chandu Garber MD in OV> ? 04/12/24 1549 ? DD/ 0944 ? TD/TT: 04/04/24 1011 ? Radiation Protection Engineer: ? Procedure Note Martha Guillen - 04/12/[address] [address] Ultrasound Report Signed Patient: Milo NogueraChapin hinds#: M [id number] : 5Acct:[id number] Age/Sex: 68 / MADM Date: 04/04/24 Loc: HO.US Attending Dr: Angela Curry MD Ordering Physician: Angela Curry MD Date of Service: 04/04/24 Procedure(s): US abdomen complete Accession Number(s): [id number] cc: Angela Curry MD EXAMINATION: US ABDOMEN [...] by: Chandu Padron MD 04/12/2024 03:49 PM [facility] Dictated By: Chandu Macias MD Signed By: <Electronically signed by Chandu Garber MDin OV> 04/12/24 1549 DD/ 0944 TD/TT: 04/04/24 1011 Radiation Protection Engineer: us Angela Curry MD IMG US PROCEDURES Final Resul t * Hemoglobin A1c (03/06/2024 7:45 AM EDT) Hemoglobin A1c 5.8 <6.0 % [facility] Comment:Hemoglobin A1C Refer ence Range Adults: 4.8 - 6.0 % Non diabetic: < 6.0 % Goal: < 7.0 %Additional Action Suggested: > 8.0 %Note: Hemoglobin A1c results are invalid for patients with abnormal amounts of HbF. Blood transfusions may impact the HbA1c concentration in the patient sample. Estimated Average Glucose 120 mg/dL [facility] Comment:eAG = Estimated ave rage glucose which is %A1C expressed asaverage glucose, using the formula of the D4S-KnpogyrEjbrvcu Glucose study (ADAG), Diabetes Care, Vol.31,#8,Dec. 2007 Blood Venous blood specimen / Unknown 03/06/2024 7:45 AM EDT 03/06/2024 7:45 AM EDT us Angela Curry MD LAB BLOOD ORDERABLES Final Re sult [facility] [address] [place] [phone] * Lipid Panel, Standard (08/23/2023 10:42 AM EDT) Triglycerides 71 <150 mg/dL [facility] Comment:Desirable Triglyceri de: less than 150 mg/dLBorderline High Triglyceride 150-199 mg/dLHigh Triglyceride: 200-499 mg/dLVery High Triglyceride: greater than or equal to 5OO mg/dL Cholesterol 133 <200 mg/dL [facility] Comment:Desirable Cholestero l: less than 200 mg/dLBorderline High Cholesterol: 200-239 mg/dLHigh Cholesterol: greater than 239 mg/dL LDL Cholesterol Calculated 64 <100 mg/dL [facility] Comment:Desirable LDL: less than 100 mg/dLNear Optimal/Above Optimal LDL: 110- 129 mg/dLBorderline High LDL: 130-159 mg/dLHigh LDL: 160-189 mg/dLVery High LDL: greater than or equal to 190 mg/dL HDL Cholesterol 55 >40 mg/dL [facility] Comment:Desirable HDL: great er than 40 mg/dL Note: This HDL assay may give artificially low results in patients with liver disease. Blood Venous blood specimen / Unknown 08/23/2023 10:42 AM EDT 08/23/2023 10:42 AM EDT Angela Curry MD LAB BLOOD ORDERABLES Final Re sult Performing Organization Address [facility]/ZIP Co de Phone Number [facility] [address] [place] [address] [phone] * Hm Colonoscopy (03/11/2023) Colonoscopy Normal Normal Narrative Angela Curry MD - 03/11/[address] Kisha Hale, normal, diverticulosis and hemorrhoids noticed Historical Provider HEALTH MAINTENANCE Final Result * Hepatitis C Ab (11/09/2022 4:15 PM EDT) Hepatitis C Antibody Nonreactive Nonreactive [facility] Comment:Antibodies to HCV no t detected; does not exclude early acuteHCV infection. 11/09/2022 4:15 PM EDT 11/09/2022 4:16 PM EDT [facility] External Provider LAB BLO OD ORDERABLES Final Result Performing Organization Address [facility] Co de Phone Number [facility] [address] [place] [address] [phone] from Last 3 Months or Most Recently Relevant to Health Maintenance Insurance [place] [id number] [place] [id number] [facility] [place] [id number] Care Teams Associate Software Application Engineer Relationship Specialty Start Date End Date Angela Curry MD [address] [place] [address] PCP - General Family Medicine 07/31/22
--- OUTSIDE RECORDS SUMMARY | 2024-06-30 10:47 | XMS_ITS | Encounter Summary ---
Author Organization [employer] Address 75 [facility] 7t [place] [address] Care Team Providers Care Automobile Drivers Name Role Phone Angela Curry MD Primary Care Provider [phone] Reason for Visit * Reason Onset Date Comments Referral 05/08/2024 Encounter Details Date Type Department Care Team ([facility] st Contact Info) Description 05/08/2024 Telephone [facility] [address] [place] [address] Angela Curry MD [address] [place] [address] Referral Social History Tobacco Use Types Packs/Day [...] 05/08/2024 5:24 PM EST Referral re-faxed to [facility] PT. * Telephone Encounter - Edgar Gallego - 05/08/2024 8:54 AM EST Tc from spouse requesting new referral for physical therapy as pt inform called [facility] facility and referral doesn't exist, commercial underwriter verify referral status is (closed) , pt verbalized not understanding kristina had call her for pt to make appointment and now referral doesn't exist. documented in this encounter Plan of Treatment Upcoming Encounters Date Type Department Care Team ([facility] st Contact Info) Description 07/11/2024 10:15 AM EST Office Visit [facility] [address] [place], [place] [phone] Rocky Cruz MD [address] [place], [place] [phone] 08/29/2024 1:45 PM EDT Office Visit [facility] [address] [place] [address] Baltazar Patel MD [address] [place] [address] 09/18/2024 1:00 PM EDT Medication Management [facility] [address] [place] [address] documented as of this encounter Goals Goal [...] documented as of this encounter Care Teams Automobile Drivers Relationship Specialty Start Date End Date Angela Curry MD [address] [place] [phone] PCP - General Family Medicine 07/31/22 documented as of this encounter
--- OUTSIDE RECORDS SUMMARY | 2024-06-30 10:47 | XMS_ITS | Encounter Summary ---
Author Organization [facility] [employer] Address 75 [facility] 7t [place] [address] Care Team Providers Care Mechanical Artist Name Role Phone Angela Curry MD Primary Care Provider Reason for Visit * Reason Onset Date Comments Med Refill 06/06/2024 Encounter Details Date Type Department Care Team ([facility] st Contact Info) Description 06/06/2024 Refill [facility] [address] [place] [address] Angela Curry MD [address] [place] [address] Arthritis (Primary Dx) Social History Tobacco Use [...] 50 MG tablet To be sent to: [facility] documented in this encounter Plan of Treatment Upcoming Encounters Date Type Department Care Team (Late st Contact Info) Description 07/11/2024 10:15 AM EST Office Visit [facility] [address] [place] [address] Rocky Cruz MD [address] [place] [address] 08/29/2024 1:45 PM EDT Office Visit [facility] [address] [place] [address] Balatzar Patel MD [address] [place] [address] 09/18/2024 1:00 PM EDT Medication Management [facility] [address] [place] [address] documented as of this encounter Goals Goal [...] documented as of this encounter Care Teams Mechanical Artist Relationship Specialty Start Date End Date Angela Curry MD [address] [place] [address] PCP - General Family Medicine 07/31/22 documented as of this encounter
--- OUTSIDE RECORDS SUMMARY | 2024-06-30 10:47 | XMS_ITS | Encounter Summary ---
Author Organization [employer] Address 75 [facility] [address]t [place] [address] Care Team Providers Care Bundle Shaker Name Role Phone Angela Curry MD Primary Care Provider [phone] Reason for Visit * Reason Comments Med Refill Encounter Details Date Type Department Care Team ([facility] st Contact Info) Description 06/19/2024 Refill [facility] [address] [place], [place] [phone] Angela Curry MD [address] [place] [address] Alcohol use Social History Tobacco Use Types [...] Description 07/11/2024 10:15 AM EST Office Visit [facility] [address] [place] [address] Rocky Cruz MD [address] [place] [address] 08/29/2024 1:45 PM EDT Office Visit [facility] [address] [place] [address] Baltazar Patel MD [address] [place] [address] 09/18/2024 1:00 PM EDT Medication Management [facility] [address] [place] [phone] documented as of this encounter Goals Goal [...] documented as of this encounter Care Teams Bundle Shaker Relationship Specialty Start Date End Date Angela Curry MD [address] [place] [address] PCP - General Family Medicine 07/31/22 documented as of this encounter
--- OUTSIDE RECORDS SUMMARY | 2024-06-30 10:47 | XMS_ITS | Encounter Summary ---
Author Organization [employer] Address 75 [facility] 7t [place] [address] Care Team Providers Care Food And Beverage Director Name Role Phone Angela Curry MD Primary Care Provider [phone] Reason for Visit * Reason Onset Date Comments Call Back Request 06/21/2024 Encounter Details Date Type Department Care Team ([facility] st Contact Info) Description 06/21/2024 Telephone [facility] [address] [place] [address] Angela Curry MD [address] [place] [phone] Call Back Request Social History Tobacco Use [...] AM EST Tc from Lian Asher with [employer] informing pt has been showing memory loss symptoms as he also been complaining about it and hasn't been feeling to well. Please contact Lian Asher documented in this encounter Plan of Treatment Upcoming Encounters Date Type Department Care Team ([facility] st Contact Info) Description 07/11/2024 10:15 AM EST Office Visit [facility] [address] [place] [address] Rocky Cruz MD [address] [place], [place] [phone] 08/29/2024 1:45 PM EDT Office Visit [facility] PEDS [address] [place] [address] Baltazar Patel MD [address] [place] [address] 09/18/2024 1:00 PM EDT Medication Management [facility] [address] [place] [address] documented as of this encounter Goals Goal [...] documented as of this encounter Care Teams Food And Beverage Director Relationship Specialty Start Date End Date Angela Curry MD [address] [place] [address] PCP - General Family Medicine 07/31/22 documented as of this encounter
[2024-07-03 15:49] LABS: TS Negative Control Passed; TS Panel A 0; TS Panel B 1; TS Positive Control Passed; TSpotTB Negative (Negative)
== END 2024-06-30 10:04 | disposition home or self-care (01) ==
LOC: HO.CHCLDS 10:03
PROVIDERS: Visit Provider Internal Medicine
DX: Z00.00 Encounter for general adult medical examination without abnormal findings (principal)
CPT/HCPCS: 36415; 86481

== ENCOUNTER 2024-07-17 12:54 | Outpatient (AMB) | payer OTHER, MEDICAID, SELFPAY ==
[2024-07-17 12:56] VITALS: BP 124/76; PULSE 81; BMI 34.5
--- NOTE | 2024-07-17 12:56 | A.OFFVIS_ITS ---
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/arteaga Intake Note: New patient dx sob on excretion this is also patient only complaint Supply Chain Design Manager Required: Yes Supply Chain Design Manager Services: Supply Chain Design Manager Present Supply Chain Design Manager Name: mehnaz Guzman Aluminum Siding Installer: Aluminum Siding Installer Present Accompanied by: Spouse Allergies Seasonal Allergies Allergy (Mild, Verified 04/18/24 15:54) Unknown Medication List - Last Reconciled 07/17/24 by Levi Robison MD albuterol sulfate 90 mcg/actuation (Ventolin HFA) 2 puffs PO Q4-6H PRN aripiprazole 15 mg PO DAILY ascorbic acid (vitamin C) (Vitamin C) 1,000 mg PO QAM betamethasone valerate 0.1% 1 appl topical BID cholecalciferol (vitamin D3) (Vitamin D3) 50 mcg PO QAM citalopram 20 mg PO QAM cyanocobalamin (vitamin B-12) 1,000 mcg PO QAM famotidine 40 mg PO DAILY fluticasone propion-salmeterol 115-21 mcg/actuation (Advair HFA) 2 puffs inhalation Q12H folic acid 0.8 mg PO QAM furosemide 40 mg PO DAILY ipratropium bromide 2 sprays intranasal BID nabumetone 750 mg PO BID omega-3 acid ethyl esters 1 cap PO BID pantoprazole 40 mg PO DAILY pregabalin 75 mg PO BID simvastatin 40 mg PO BEDTIME HPI Comments Details: Niraj was referred here for evaluation for exertional shortness of breath. History was obtained with help of a certified stem roller in the room. Patient was was present during the entire interview. Patient is 68-year-old male with prior history of cirrhosis of liver, hypertension currently on no med as per him but I do not see any antihypertensive regimen. No diabetes. Patient says he has has longstanding history of exertional shortness of breath over the last few years which has been gradually getting worse. He denies any clear orthopnea, PND although he says use his CPAP at nighttime. No significant leg edema. He is currently on Lasix therapy most likely due to his cirrhosis. He denies any associated exertional chest pain. He had a recent echocardiogram which shows normal structure of the heart with normal LV systolic function and normal valvular function without any significant evidence of pulmonary hypertension. He was significantly limited in his activity level due to what appears to be lumbar spinal stenosis. He was spinal consultation tomorrow. He said when he stands for long period of time he gets numbness in his legs and has to walk with help of a walker. As a result he was gained significant amount of weight as per the but he said his shortness of breath started before him gaining weight. He gets short of breath walking about 5 minutes or so. [facility] Surgical History Hx of colonoscopy Hx of cholecystectomy History of esophagogastroduodenoscopy (EGD) Social History Alcohol intake: current Alcohol intake frequency: holidays/special occasions only Patient Tobacco Use Status: Never used Tobacco Review of Systems Const Denies chills, Denies daytime sleepiness, Denies fatigue, Denies fever(s), Denies frequent falls, Denies poor appetite, Denies snoring, Denies stops breathing during sleep, Denies weakness, Denies weight gain and Denies weight loss Eyes Denies loss of vision ENT Denies dizziness and Denies hearing loss Card Denies chest pain, Denies claudication, Denies leg edema, Denies lightheadedness, Denies palpitations, Denies dyspnea, Reports dyspnea on exertion and Denies orthopnea Resp Denies cough, Denies excessive phlegm production, Denies dyspnea, Reports dyspnea on exertion, Denies snoring and Denies wheezing GI Denies abdominal pain, Denies hematochezia, Denies change in bowel habits, Denies nausea and Denies vomiting Denies dysuria and Denies urinary frequency Musc Denies arthralgias, Denies muscle weakness, Denies numbness and Denies other (frequent falls) Skin/Breast Denies nail changes and Denies rash Neuro Denies Abnormal speech present, Denies dizziness, Denies frequent falls, Denies loss of vision, Denies memory loss, Denies numbness and Denies weakness Psych Denies depression and Denies memory loss Endo Denies fatigue and Denies palpitations Daren/Lymph Reports easy bruising and Reports other (anemia) Aller/Immun Denies wheezing Physical Exam Vital Signs: Last Vital Signs Pulse 81 07/17/24 12:56 BP 124/76 07/17/24 12:56 BMI result Body Mass Index 34.5 Const General: cooperative, comfortable, no acute distress, alert and awake Nutritional Appearance: obese and overweight Orientation/consciousness: patient oriented x3 Limitations: ambulation with walker HEENT Head: Yes normocephalic and Yes atraumatic Neck Neck: Yes trachea midline, Yes supple and Yes no JVD Resp Effort & Inspection: normal respiratory effort Auscultation: clear to auscultation bilaterally Cardio Jugular venous distension: no JVD Palpation: normal PMI Rate: regular rate Rhythm: regular rhythm Heart sounds: S1 normal heart sound present, S2 normal heart sound present, no click, no gallops, no murmurs and no rubs GI Inspection: Yes obesity Auscultation: normal bowel sounds Skin General skin exam: no rashes or lesions noted Neuro General: patient oriented x3 and no focal motor deficits Speech: No Abnormal speech present Extrem General: Yes no clubbing, cyanosis or edema Psych Appearance: grossly normal Office Procedures EKG Details: EKG shows normal sinus rhythm with normal EKG 57083-Rbypaykbujhydbqik, Complete Assessment & Plan Assessment & Plan (1) Dyspnea: Code(s): R06.00 - Dyspnea, unspecified Category: Medical Plan: Exertional shortness of breath in this elderly gentleman with recent echocardiogram showed normal structure of the heart. Myocardial ischemia is likely and given his lack of exercise capacity will pursue vasodilating myocardial perfusion imaging to rule out obstructive coronary artery disease as a cause of his symptoms. If this is within normal limits most likely cause for his symptoms appear to be deconditioning as well as weight. This was discussed with the patient and patient's with help of stem roller. Clinically does have any signs of congestive heart failure. Will follow up in the clinic in 3 months time for follow-up of stress test. Thank you for allowing me to partake in his care Orders: Orders CA lexiscan stress w franklin Today R06.00 - Dyspnea, unspecified Coding Level of Care Code New Pt Level 4 (90123) Complex EM visit Add On G2211 Diagnoses Dyspnea R06.00 CPT Codes EKG - CPT: 83657-[id number], Complete ([id number])
--- OUTSIDE RECORDS SUMMARY | 2024-07-17 14:28 | XMS_ITS | Clinical Summary ---
Author Organization [employer] Address [address] [facility] [address] [place] [address] Care Team Providers Care Commercial Plumber Name Role Phone Angela Curry MD Primary Care Provider [phone] Allergies No known active allergies Medications Multiple [...] (Lyrica) 75 MG capsule 06/23/19 25 Active Fluocinolone Acetonide Scalp (Shoshoni-Smoothe/FS Scalp) 0.01 % oilIndications:Se bopsoriasis To use 2 times a week at night. 118 mL 3 07/12/19 25 Active Ascorbic Acid (vitamin C) 500 [...] 025 Discontinued traMADol (Ultram) 50 MG tabletIndications :Neuropathy Take 1 tablet (50 mg) by mouth every 8 (eight) hours if needed for severe pain for up to 15 days. 45 tablet 06/30/19 25 025 Active Problems Problem Noted Date [...] being seen by psychiatrist yet or received [facility]ARY CONNE[facility] services. Will discontinue haldol and start on abilify. Assessment & Plan (08/05/2022 1:24 PM EDT): Patient needs formal psychiatry followup, referral was placed and also will send medications for now. He needs VNA services to assist with medication compliance and also will need [facility] service to assist with ADLs/IADLs that need help. Vitamin D deficiency 08/05/2022 Hyperlipidemia 08/05/2022 Gastroesophageal reflux disease 08/05/2022 Assessment & Plan (01/17/2024 11:21 AM EDT): Continue on current medications. Arthritis 08/05/2022 Anxiety 08/05/2022 Assessment & Plan (07/13/2023 9:30 PM EST): Refilled Citalopram Psoriasis 08/05/2022 Polypharmacy 07/31/2022 Encounters Date Type Department Care Team Description 07/17/2024 Refill [facility] [address] [place] [address] Angela Curry MD Anxiety; Gastroesophageal reflux disease, unspecified whether esophagitis present; Hyperlipidemia, unspecified hyperlipidemia type 07/16/2024 Refill [facility] [address] [place] [address] Angela Curry MD 07/12/2024 2:00 PM EST Office Visit [facility] [address] [place] [address] Stephanie Mckeon MD Hyperlipidemia, unspecified hyperlipidemia type (Primary Dx); Gastroesophageal reflux disease, unspecified whether esophagitis present; Encounter for annual wellness visit; Neuropathy 07/11/2024 10:15 AM EST Office Visit [facility] [address] [place] [address] Rocky Cruz MD Sebopsoriasis (Primary Dx) 07/11/2024 Travel 06/30/2024 9:45 AM EST Office Visit [facility] [address] [place] [address] Kallie Rodriguez MD Screening-pulmonary TB (Primary Dx); Neuropathy; Spinal stenosis of lumbar region with neurogenic claudication; Claudication of both lower extremities ([facility]) 06/30/2024 Orders Only [facility] [address] [place] [address] Baltazar Patel MD 06/30/2024 Travel 06/29/2024 Telephone [facility] [address] [place] [address] Angela Curry MD Lab Orders 06/29/2024 Telephone [facility] [address] [place] [address] Angela Curry MD Lab Orders 06/29/2024 Telephone [facility] [address] [place] [address] Nano Walker, RN Results 06/27/2024 Orders Only [facility] [address] [place] [address] Angela Curry MD 06/23/2024 Telephone [facility] [address] [place] [address] Angela Curry MD Nurse Triage 06/23/2024 Refill [facility] [address] [place] [address] Angela Curry MD 06/21/[address] [address] Angela Curry MD Call Back Request 06/19/2024 Refill [facility] [address] [place] [address] Angela Curry MD Alcohol use 06/06/2024 Refill [facility] [address] [place] [address] Angela Curry MD Arthritis (Primary Dx) 05/24/2024 Refill [facility] [address] [place] [address] Angela Curry MD Gastroesophageal reflux disease, unspecified whether esophagitis present 05/18/2024 Refill [facility] [address] [place] [address] Angela Curry MD 05/12/2024 2:30 PM EST Telemedicine [facility] [address] [place] [address] Angela Curry MD Neuropathy (Primary Dx) 05/12/2024 Travel 05/08/[address] [address] Angela Curry MD Referral 05/02/2024 Telephone [facility] [address] [place] [address] [phone] [address] ABDOMEN ORDER 04/26/[address] [address] Angela Curry MD FYI 04/20/2024 Refill [facility] [address] [place] [address] Angela Curry MD Arthritis from Last 3 Months Immunizations Name Administration [...] Sign Reading Time Taken Comments Blood Pressure 130/68 07/12/2024 2:07 PM EST Pulse 92 07/12/2024 2:07 PM EST Temperature 36.8 ??C (98.2 ??F) 07/12/2024 2:07 PM ES T Respiratory Rate 14 07/12/2024 2:07 PM EST Oxygen Saturation 96% 07/12/2024 2:07 PM EST Inhaled Oxygen Concentration - - Weight 96.5 kg (212 lb 12.8 oz) 07/12/2024 2:07 PM EST Height 168 cm (5' 6.14 ) 07/12/2024 2:07 PM EST Body Mass Index 34.2 07/12/2024 2:07 PM EST Plan of Treatment Upcoming Encounters Date Type Department Care Team (Late st Contact Info) Description 09/18/2024 1:00 PM EDT Medication Management [facility] [address] [place] [phone] Health Maintenance Due Date Last Done Comments [...] Diabetes: Hemoglobin A1C 03/06/2025 03/06/2024 Tobacco Screening 07/11/2025 07/11/2024 Lipid Panel 08/22/2028 08/23/2023 DTaP/Tdap/Td Vaccines (2 [...] Procedure Name Priority Date/Time Associated Diagnosis Comments T-SPOT(R).TB Routine 06/30/2024 10:[address] ABDOMEN PELVIS W CONTRAST Routine 06/28/2024 10:53 AM EST Abdominal swelling, generalized POCT CREATININE GFR Routine 06/27/2024 5 :16 PM EST HEMOGLOBIN A1C Routine 03/06/2024 7:45 AM EDT Polyneuropathy LIPID PANEL, STANDARD Routine 08/23/2023 10:42 AM EDT Obesity, unspecified classification, unspecified obesity type, unspecified whether serious comorbidity present HM COLONOSCOPY Routine 03/11/2023 HEPATITIS C ANTIBODY Routine 11/09/2022 4:15 PM EDT from Last 3 Months or Most Recently Relevant to Health Maintenance Results * T-SPOT??.TB (06/30/2024 10:06 AM EST) T Spot TB Negative Negative [facility] Comment:A negative test resu lt does not exclude the possibilityof exposure to or infection with Mycobacteriumtuberculosis (M. tuberculosis). Patients with recentexposure to TB infected individuals exhibiting anegative T-SPOT.TB result should be considered forretesting within 6 weeks or if other relevant clinicalsymptoms indicate. Results from T-SPOT.TB testing mustbe used in conjunction with each individual'sepidemiological history, current medical status,and results of other diagnostic evaluations.The T-SPOT.TB test is qualitative and results arereported as positive, borderline, or negative, giventhat the test controls perform as expected. In linewith the Centers for Disease Control and Prevention's2010 recommendation to report quantitative measurementsalongside the qualitative result, the laboratoryprovides spot counts for informational purposes only.The T-SPOT.TB test should not be interpreted as aquantitative test. TS PANEL A 0 [facility] TS PANEL B 1 [facility] Negative Control Passed [facility] Positive Control Passed [facility] Comment:For additional infor mation, please refer tohttp://[email or web address].Trunk Show/faq/DVG024(This link is being provided for informational/educational purposes only.)THIS TEST WAS PERFORMED AT:[employer] [place] [address]GZDLCDVEDILIA LEE MD,PHD 06/30/2024 10:0 6 AM EST 06/30/2024 1:55 PM EST us Baltazar Perez MD LAB BLOOD ORDERABL ES Final Result [facility] [address] [place] [address] [phone] * CT Abdomen Pelvis w/ Contrast (06/28/2024 10:53 AM EST) Anatomical Region Laterality Modality Body, Pelvis, Abdomen Computed T omography 06/28/2024 10:5 3 AM EST Narrative 06/28/2024 10:54 AM EST ? [facility] ?[address] ?[place] [address] ? CT Scan Report ? Signed ? Patient: Niraj Ro ?MR#: M ?? [id number] ? : 1955 ?Acct:[id number] ? Age/Sex: 68 / M ?ADM Date: 06/27/24 ? Loc: HO.CT ? Attending Dr: Angela Curry MD ? Ordering Physician: Angela Curry MD ?? Date of Service: 06/27/24 ?? Procedure(s): CT abdomen pelvis w IV con ?? Accession Number(s): [id number] ? cc: Angela Curry MD ? Report Number: ?? [id number]: Total DLP = 1685.00 mGy-cm ? CLINICAL [...] DD/ 1053 ? TD/TT: 06/28/24 1053 ? Hotel Attendant: ? Procedure Note Donbainterpreter, Image - 06/28/[address] [place] [address] [address] Scan Report Signed Patient: Chapin Ro#: Edelmira [id number] : 5Acct:[id number] Age/Sex: 68 / MADM Date: 06/27/24 Loc: HO.CT Attending Dr: Angela Curry MD Ordering Physician: Angela Curry MD Date of Service: 06/27/24 Procedure(s): CT abdomen pelvis w IV con Accession Number(s): [id number] cc: Angela Curry MD Report Number: [id number]: Total DLP = 1685.00 mGy-cm CLINICAL HISTORY: [...] 06/28/24 1053 DD/ 1053 TD/TT: 06/28/24 1053 Hotel Attendant: us Angela Curry MD IMG CT PROCEDURES Edited Resu lt - Final * POCT Creatinine GFR (06/27/2024 5:16 PM EST) POCT Creatinine 0.8 0.5 - 1.4 mg/dL [facility] GFR POC >60 [facility] Comment:Chronic Kidney Disea se: Estimated GFR < 60 mL/min/1.68r7Rzcexj Kidney Disease: Estimated GFR < 15 mL/min/1.73m2 06/27/2024 5:16 PM EST 06/28/2024 10:14 AM EST Narrative [facility] - 06/28/2024 10:16 AM EST [id number] us Angela Curry MD LAB POINT OF CARE TEST DOCKED DEVICE ORDERABLES Final Result Performing Organization Address [facility] Co de Phone Number [facility] [address] [place] [phone] * Hemoglobin A1c (03/06/2024 7:45 AM EDT) Hemoglobin A1c 5.8 <6.0 % [facility] Comment:Hemoglobin A1C Refer ence Range Adults: 4.8 - 6.0 % Non diabetic: < 6.0 % Goal: < 7.0 %Additional Action Suggested: > 8.0 %Note: Hemoglobin A1c results are invalid for patients with abnormal amounts of HbF. Blood transfusions may impact the HbA1c concentration in the patient sample. Estimated Average Glucose 120 mg/dL [facility] Comment:eAG = Estimated ave rage glucose which is %A1C expressed asaverage glucose, using the formula of the L0J-FuzcmyiUsfabbs Glucose study (ADAG), Diabetes Care, Vol.31,#8,Dec. 2007 Blood Venous blood specimen / Unknown 03/06/2024 7:45 AM EDT 03/06/2024 7:45 AM EDT us Angela Curry MD LAB BLOOD ORDERABLES Final Re sult Performing Organization Address [facility]/ZIP Co de Phone Number [facility] [address] [place] [phone] * Lipid Panel, Standard (08/23/2023 10:42 AM EDT) Triglycerides 71 <150 mg/dL [facility] Comment:Desirable Triglyceri de: less than 150 mg/dLBorderline High Triglyceride 150-199 mg/dLHigh Triglyceride: 200-499 mg/dLVery High Triglyceride: greater than or equal to 5OO mg/dL Cholesterol 133 <200 mg/dL [facility] Comment:Desirable Cholestero l: less than 200 mg/dLBorderline High Cholesterol: 200-239 mg/dLHigh Cholesterol: greater than 239 mg/dL LDL Cholesterol Calculated 64 <100 mg/dL [facility] Comment:Desirable LDL: less than 100 mg/dLNear Optimal/Above Optimal LDL: 110- 129 mg/dLBorderline High LDL: 130-159 mg/dLHigh LDL: 160-189 mg/dLVery High LDL: greater than or equal to 190 mg/dL HDL Cholesterol 55 >40 mg/dL [facility] Comment:Desirable HDL: great er than 40 mg/dL Note: This HDL assay may give artificially low results in patients with liver disease. Blood Venous blood specimen / Unknown 08/23/2023 10:42 AM EDT 08/23/2023 10:42 AM EDT Angela Curry MD LAB BLOOD ORDERABLES Final Re sult Performing Organization Address [facility] de Phone Number [facility] [address] [place] [phone] * Hm Colonoscopy (03/11/2023) Colonoscopy Normal Normal Narrative Angela Curry MD - 03/11/[address] Kisha Hale, normal, diverticulosis and hemorrhoids noticed Historical Provider MD HEALTH MAINTENANCE Final Result * Hepatitis C Ab (11/09/2022 4:15 PM EDT) Hepatitis C Antibody Nonreactive Nonreactive [facility] Comment:Antibodies to HCV no t detected; does not exclude early acuteHCV infection. 11/09/2022 4:15 PM EDT 11/09/2022 4:16 PM EDT [facility] External Provider LAB BLO OD ORDERABLES Final Result Performing Organization Address [facility] Co de Phone Number [facility] [address] [place] [address] [phone] from Last 3 Months or Most Recently Relevant to Health Maintenance Insurance MEDICARE [facility] Care Teams Commercial Plumber Relationship Specialty Start Date End Date Angela Curry MD [address] [place] [address] PCP - General Family Medicine 07/31/22
--- OUTSIDE RECORDS SUMMARY | 2024-07-17 14:28 | XMS_ITS | Encounter Summary ---
Author Organization [employer] Address [address] [facility] [address] [place] [address] Care Team Providers Care Sheet Heater Helper Name Role Phone Angela Curry MD Primary Care Provider [phone] Reason for Visit * Reason Comments Med Refill Encounter Details Date Type Department Care Team ([facility] st Contact Info) Description 07/16/2024 Refill [facility] [address] [place], [place] [phone] Angela Curry MD [address] [place] [address] Social History Tobacco Use Types Packs/Day Years [...] Description 09/18/2024 1:00 PM EDT Medication Management [facility] [address] [place] [address] documented as of this encounter Goals Goal [...] documented as of this encounter Care Teams Sheet Heater Helper Relationship Specialty Start Date End Date Angela Curry MD [address] [place] [address] PCP - General Family Medicine 07/31/22 documented as of this encounter
--- OUTSIDE RECORDS SUMMARY | 2024-07-17 14:28 | XMS_ITS | Encounter Summary ---
Author Organization [employer] Address [address] [facility] 7t [place] [address] Care Team Providers Care Labeler Name Role Phone nAgela Curry MD Primary Care Provider [phone] Reason for Visit * Reason Comments Annual Exam VCare program ok per provider Encounter Details Date Type Department Care Team (Latest Contact Info) Description 07/12/2024 2:00 PM EST Office Visit [facility] CHC MED & PEDS [address] [place], [place] [phone] Stephanie Mckeon MD [address] [place] [address] Hyperlipidemia, unspecified hyperlipidemia type (Primary Dx); Gastroesophageal reflux disease, unspecified whether esophagitis present; Encounter for annual wellness visit; Neuropathy Social History Tobacco Use Types Packs/Day Years [...] Mass Index 34.2 07/12/2024 2:07 PM EST documented in this encounter Progress Notes * Stephanie Mckeon MD - 07/12/2024 2:00 PM EST Subjective Patient ID: Niraj Pedraza is a 68 y.o. male who presents for Annual Exam (VCare program ok per provider). Is here for PE for the program He is scheduled to see neurosurg for his neuropathy No other concerns No changes in meds Review of Systems Constitutional: Negative. Respiratory: Negative. Cardiovascular: Negative. Gastrointestinal: Negative. Genitourinary: Negative. Objective Physical Exam Constitutional: Appearance: Normal appearance. HENT: Head: Normocephalic and atraumatic. Right Ear: Tympanic membrane normal. Left Ear: Tympanic membrane normal. Mouth/Throat: Mouth: Mucous membranes are moist. Eyes: Pupils: Pupils are equal, round, and reactive to light. Cardiovascular: Rate and Rhythm: Normal rate and regular rhythm. Pulmonary: Effort: Pulmonary effort is normal. Breath sounds: Normal breath sounds. Abdominal: General: Abdomen is flat. Palpations: Abdomen is soft. Musculoskeletal: General: Normal range of motion. Cervical back: Normal range of motion. Lumbar back: No spasms or tenderness. Skin: General: Skin is warm. Neurological: Mental Status: He is alert. Gait: Gait abnormal. Assessment/Plan Diagnoses and all orders for this visit: Hyperlipidemia, unspecified hyperlipidemia type Comments: Stable on Statin Advised to maintain a low-fat, low-cholesterol diet. Counseled regarding importance of weight loss. Counseled re: potential co-morbidities including cardiovascular disease. Gastroesophageal reflux disease, unspecified whether esophagitis present Comments: Stable Avoid provocative foods: citrus, alcohol, coffee, chocolate, mints. Eat smaller meals, no eating three hours prior to bedtime. Encounter for annual wellness visit Neuropathy Comments: Pt is scheudled to see Neurosurgeon documented in this encounter Plan of Treatment Upcoming Encounters Date Type Department Care Team (Late st Contact Info) Description 09/18/2024 1:00 PM EDT Medication Management [facility] MEDICINE [address] [place] [address] documented as of this encounter Goals Goal Patient Goal Type Associated Problems Recent Progress Patient-Stated? Author Short-term: Promote adherence to treatment regimen General No Alfred Long PharmD Take your medication every day Lifestyle No Alfred Long PharmD documented as of this encounter Visit Diagnoses Diagnosis Hyperlipidemia, unspecified hyperlipidemia type- Primary Gastroesophageal reflux disease, unspecified whether esophagitis present Encounter for annual wellness visit Neuropathy Mononeuritis of unspecified site documented in this encounter Additional Health Concerns Assessment Noted Time PHQ-9 Depression Total Score: 0 02/25/20 24 11:29 AM EDT documented as of this encounter Care Teams Labeler Relationship Specialty Start Date End Date Angela Curry MD [address] [place] [address] PCP - General Family Medicine 07/31/22 documented as of this encounter
--- OUTSIDE RECORDS SUMMARY | 2024-07-17 14:28 | XMS_ITS | Encounter Summary ---
Author Organization [employer] Address [address] [facility] 7t [place] [address] Care Team Providers Care System Administration Advisor Name Role Phone Angela Curry MD Primary Care Provider [phone] Encounter Details Date Type Department Care Team ([facility] st Contact Info) Description 06/30/2024 Orders Only [facility] CHC MED & PEDS [address] [place], [place] [phone] Baltazar Patel MD [address] [place] [address] Social History Tobacco Use Types Packs/Day Years [...] Description 09/18/2024 1:00 PM EDT Medication Management [facility] MEDICINE [address] [place] [address] documented as of this encounter Goals Goal Patient Goal Type Associated Problems Recent Progress Patient-Stated? Author Short-term: Promote adherence to treatment regimen General No Alfred Long PharmVibha Take your medication every day Lifestyle No Alfred Long PharmD documented as of this encounter Procedures Procedure Name Priority Date/Time Associated Diagnosis Comments T-SPOT(R).TB Routine 06/30/2024 10:06 AM EST documented in this encounter Results * T-SPOT??.TB (06/30/2024 10:06 AM EST) [facility] T Spot TB Negative Negative LABS Comment:A negative test resu lt does [...] as aquantitative test. TS PANEL A 0 LABS TS PANEL B 1 LABS Negative Control Passed [facility] Positive Control Passed [facility] Comment:For additional infor mation, please refer tohttp://education.Coupsta/faq/ZYV552(This link is being provided for informational/educational purposes only.)THIS TEST WAS PERFORMED AT:[employer] [id number] [place] [address]PAUMWGSEDILIA LEE MD,PHD 06/30/2024 10:0 6 AM EST 06/30/2024 1:55 PM EST Baltazar Perez MD LAB BLOOD ORDERABL ES Final Result LABS [address] [place] [address] [phone] documented in this encounter Visit Diagnoses Not on filedocumented in this encounter Additional Health Concerns Assessment Noted Time PHQ-9 Depression Total Score: 0 02/25/20 24 11:29 AM EDT documented as of this encounter Care Teams System Administration Advisor Relationship Specialty Start Date End Date Angela Curry MD [address] [place] [address] PCP - General Family Medicine 07/31/22 documented as of this encounter
--- OUTSIDE RECORDS SUMMARY | 2024-07-17 14:28 | XMS_ITS | Encounter Summary ---
Author Organization [employer] Address [address] [facility] 7t [place] [address] Care Team Providers Care Granite Block Paver Name Role Phone Angela Curry MD Primary Care Provider [phone] Reason for Visit * Reason Comments Med Refill Encounter Details Date Type Department Care Team ([facility] st Contact Info) Description 06/23/2024 Refill [facility] CHC MED & PEDS [address] [place], [place] [phone] Angela Curry MD [address] [place] [address] Social History Tobacco Use Types Packs/Day Years [...] Description 09/18/2024 1:00 PM EDT Medication Management [facility] MEDICINE [address] [place] [address] documented as of this encounter Goals Goal [...] documented as of this encounter Care Teams Granite Block Paver Relationship Specialty Start Date End Date Angela Curry MD [address] [place] [address] PCP - General Family Medicine 07/31/22 documented as of this encounter
--- OUTSIDE RECORDS SUMMARY | 2024-07-17 14:28 | XMS_ITS | Encounter Summary ---
Author Organization [employer] Address [address] [facility] 7t [place] [address] Care Team Providers Care Conveyor Operator Name Role Phone Angela Curry MD Primary Care Provider Reason for Visit * Reason Onset Date Comments Nurse Triage 06/23/2024 Encounter Details Date Type Department Care Team ([facility] st Contact Info) Description 06/23/[address] [facility] MEDICINE [address] [place] [address] Angela Curry MD [address] [place] [address] Nurse Triage Social History Tobacco Use Types [...] Center 06/30/2024 9:45 AM Kallie Rodriguez MD [facility] 07/11/2024 10:15 AM Rocky Cruz MD [facility] 09/18/2024 1:[address] [facility] MFT [address] [facility] Insurance verified as active per Real Time Eligibility in [facility]. Video visit offer not recorded Positive Triage [...] You become worse * Telephone Encounter - Jerryjoseph De La ODaniel - 06/23/2024 12:15 PM EST Symptom: Confusion Outcome: Schedule a same-day appointment or talk to a nurse or provider today Reason: Caller denied all higher acuity questions The caller accepted this outcome. Contact pt at [phone] documented in this encounter Plan of Treatment Upcoming Encounters Date Type Department Care Team (Late st Contact Info) Description 09/18/2024 1:00 PM EDT Medication Management [facility] MEDICINE [address] [place] [address] documented as of this encounter Goals Goal [...] as of this encounter Care Teams Conveyor Operator Relationship Specialty Start Date End Date Angela Curry MD [address] [place] [address] PCP - General Family Medicine 07/31/22 documented as of this encounter
--- OUTSIDE RECORDS SUMMARY | 2024-07-17 14:28 | XMS_ITS | Encounter Summary ---
Author Organization [employer] Address [address] [facility] 7 [place] [address] Care Team Providers Care Window Assembler Name Role Phone Angela Curry MD Primary Care Provider [phone] Encounter Details Date Type Department Care Team (Latest Contact Info) Description 07/11/2024 10:15 AM EST Office Visit [facility] CHC MED & PEDS [address] [place] [address] Rocky Cruz MD [address] [place] [address] Sebopsoriasis (Primary Dx) Social History Tobacco Use Types [...] Sign Reading Time Taken Comments Blood Pressure 132/63 07/11/2024 10:03 AM EST Pulse 86 07/11/2024 10:03 AM EST Temperature 36.7 ??C (98 ??F) 07/11/2024 10:03 AM EST Respiratory Rate 20 07/11/2024 10:03 AM EST Oxygen Saturation 98% 07/11/2024 10:03 AM EST Inhaled Oxygen Concentration - - Weight 98.4 kg (217 lb) 07/11/2024 10:03 AM EST Height 168 cm (5' 6.14 ) 07/11/2024 10:03 AM EST Body Mass Index 34.88 07/11/2024 10:03 AM EST documented in this encounter Progress Notes * Rocky Cruz MD - 07/11/2024 10:15 AM EST Subjective Patient ID: Niraj Pedraza is a 68 y.o. male who presents for No chief complaint on file.. HPI Several years h/o psoriasis of the scalp. Pt gets washed everyday by his . He denies Pruritus of the scalp Patient Active Problem List Diagnosis Polypharmacy Schizophrenia (CMS/HCC) Vitamin D deficiency Hyperlipidemia Gastroesophageal reflux disease Arthritis Anxiety Psoriasis Hepatic cirrhosis (CMS/HCC) Sleep apnea Nausea and vomiting Dyspnea on exertion Upper respiratory tract infection Wheezing COVID-19 A vague feeling of discomfort Bilateral leg cramps Claudication of both lower extremities (CMS/HCC) Neuropathy Unstable gait Prediabetes Abdominal swelling, generalized Abnormal gait Abnormality of gait and mobility Current Outpatient Medications on File Prior to Visit Medication Sig Dispense Refill Advair HFA 115-21 MCG/ACT inhaler INHALE 2 PUFFS BY MOUTH EVERY TWELVE HOURS. RINSE MOUTH AFTER USING. albuterol 108 (90 Base) MCG/ACT inhaler INHALE 2 PUFFS EVERY 4 HOURS IF NEEDED FOR WHEEZING. 18 g 11 amitriptyline (Elavil) 25 MG tablet TAKE 1 TABLET BY MOUTH AT BEDTIME 30 tablet 0 ARIPiprazole (Abilify) 15 MG tablet TAKE 1 TABLET BY MOUTH EVERY MORNING 30 tablet 2 Ascorbic Acid (vitamin C) 500 MG tablet TAKE 2 TABLETS BY MOUTH ONCE DAILY IN THE MORNING 180 tablet 1 betamethasone valerate (Valisone) 0.1 % cream Apply topically 2 times daily. 90 g 5 Blood Pressure kit 1 Units Once per day. 1 kit 0 cholecalciferol (Vitamin D-3) 50 MCG (2000 UT) capsule Take 1 capsule (50 mcg) by mouth in the morning. 120 capsule 3 citalopram (CeleXA) 20 MG tablet TAKE 1 TABLET BY MOUTH EVERY MORNING 90 tablet 1 cyanocobalamin (Vitamin B-12) 1000 MCG tablet TAKE 1 TABLET BY MOUTH EVERY MORNING 90 tablet 1 famotidine (Pepcid) 40 MG tablet Take 1 tablet (40 mg) by mouth at bedtime. 90 tablet 1 folic acid (Folvite) 800 MCG tablet TAKE 1 TABLET BY MOUTH EVERY MORNING 90 tablet 1 furosemide (Lasix) 40 MG tablet TAKE 1 TABLET BY MOUTH EVERY DAY 30 tablet 0 ipratropium (Atrovent) 0.03 % nasal spray USE 2 SPRAYS IN EACH NOSTRIL TWICE DAILY Multiple Vitamins-Minerals (CENTRUM ADULT PO) Take 1 tablet by mouth 1 (one) time each day. nabumetone (Relafen) 750 MG tablet TAKE 1 TABLET BY MOUTH TWICE DAILY 60 tablet 5 omega-3 acid ethyl esters (Lovaza) 1 g capsule TAKE 1 CAPSULE BY MOUTH TWICE DAILY IN THE MORNING AND IN THE EVENING 180 capsule 1 pantoprazole (ProtoNix) 40 MG EC tablet TAKE 1 TABLET BY MOUTH EVERY MORNING BEFORE BREAKFAST 90 tablet 1 pregabalin (Lyrica) 75 MG capsule simvastatin (Zocor) 40 MG tablet TAKE 1 TABLET BY MOUTH AT BEDTIME 90 tablet 1 traMADol (Ultram) 50 MG tablet Take 1 tablet (50 mg) by mouth every 8 (eight) hours if needed for severe pain for up to 15 days. 45 tablet 0 No current facility-administered medications on file prior to visit. No Known Allergies Review of Systems Constitutional: Negative for appetite change, chills and diaphoresis. Eyes: Negative for photophobia, pain and redness. Respiratory: Negative for cough and choking. Cardiovascular: Negative for leg swelling. Musculoskeletal: Negative for back pain, gait problem and joint swelling. Skin: Positive for rash. Objective Physical Exam Constitutional: General: He is not in acute distress. Appearance: Normal appearance. He is not ill-appearing, toxic-appearing or diaphoretic. Pulmonary: Effort: Pulmonary effort is normal. Skin: Comments: Scalp: no erythema/scales on exam. Some fine yellowish scales were noted on the eyebrows. Rest of skin is clear. Neurological: Mental Status: He is alert. Assessment/Plan Diagnoses and all orders for this visit: Sebopsoriasis - Fluocinolone Acetonide Scalp ([place]-Smoothe/FS Scalp) 0.01 % oil; To use 2 times a week at night. Pt is to RTC as needed Advised to avoid removing the scales manually. documented in this encounter Plan of Treatment Upcoming Encounters Date Type Department Care Team (Late st Contact Info) Description 09/18/2024 1:00 PM EDT Medication Management [facility] MEDICINE [address] [place] [address] documented as of this encounter Goals Goal Patient Goal Type Associated Problems Recent Progress Patient-Stated? Author Short-term: Promote adherence to treatment regimen General No Alfred Long PharmD Take your medication every day Lifestyle No Alfred Long PharmD documented as of this encounter Visit Diagnoses Diagnosis Sebopsoriasis- Primary documented in this encounter Additional Health Concerns Assessment Noted Time PHQ-9 Depression Total Score: 0 02/25/20 24 11:29 AM EDT documented as of this encounter Care Teams Window Assembler Relationship Specialty Start Date End Date Angela Curry MD [address] [place] [address] PCP - General Family Medicine 07/31/22 documented as of this encounter
--- OUTSIDE RECORDS SUMMARY | 2024-07-17 14:29 | XMS_ITS | Encounter Summary ---
Author Organization [employer] Address [address] [facility] 7t [place] [address] Care Team Providers Care Pressed Or Blown Glass Worker Name Role Phone Angela Curry MD Primary Care Provider [phone] Reason for Referral * Consultation (Routine) - Authorized Specialty Diagnoses / Procedures Referred By Juvencio arriaga Referred To Contact Urology Diagnoses Enlarged prostate Tika Landers FNP [address] [place] [address] Phone: tel: fax: [facility] [address] [place] [address] Phone: tel: fax: Referral ID Status Reason Start Date Expiration Date Visits Requested Visits Authorized [id number] Authorized Specialty Services Required 06/29/2024 06/29/2025 1 1 Reason for Visit * Reason Onset Date Comments Results 06/29/2024 Encounter Details Date Type Department Care Team ([facility] Contact Info) Description 06/29/2024 Telephone [facility] CHC MED & PEDS [address] [place] [address] Nano Walker RN Results Social History Tobacco [...] provider Tika Landers. Pt agreeable to contacting [facility] (Dr. Beard) to f/u on this [...] hepatic steatosis - he is following with [facility] for liver disease with advanced fibrosis [...] Description 09/18/2024 1:00 PM EDT Medication Management [facility] MEDICINE [address] [place] [address] Scheduled Referrals Name Type Priority Associated Diagnoses Orde r Schedule Referral to Urology Outpatient Referral Routine Enlarged prostate Expected: 06/29/2024 (Approximate), Expires: 06/29/2025 documented as of this encounter Goals Goal Patient Goal Type Associated Problems Recent Progress Patient-Stated? Author Short-term: Promote adherence to treatment regimen General No Alfred Long, PharmD Take your medication every day Lifestyle No Mercedes, Alfred, PharmD documented as of this encounter Visit Diagnoses Diagnosis Enlarged prostate- Primary Hypertrophy of prostate without urinary obstruction and other lower urinary tract symptoms (LUTS) documented in this encounter Additional Health Concerns Assessment Noted Time PHQ-9 Depression Total Score: 0 02/25/20 24 11:29 AM EDT documented as of this encounter Care Teams Pressed Or Blown Glass Worker Relationship Specialty Start Date End Date Angela Curry MD [address] [place] [address] PCP - General Family Medicine 07/31/22 documented as of this encounter
--- OUTSIDE RECORDS SUMMARY | 2024-07-17 14:29 | XMS_ITS | Encounter Summary ---
Author Organization [employer] Address [address] [facility] 7t [place] [address] Care Team Providers Care Quality Assurance Group Leader Name Role Phone Angela Curry MD Primary Care Provider [phone] Reason for Visit * Reason Comments Med Refill Encounter Details Date Type Department Care Team ([facility] st Contact Info) Description 07/17/2024 Refill [facility] CHC MED & PEDS [address] [place], [place] [phone] Angela Curry MD [address] [place] [address] Anxiety; Gastroesophageal reflux disease, unspecified whether esophagitis present; Hyperlipidemia, unspecified hyperlipidemia type Social History Tobacco Use Types Packs/Day Years [...] Description 09/18/2024 1:00 PM EDT Medication Management [facility] MEDICINE [address] [place] [address] documented as of this encounter Goals Goal Patient Goal Type Associated Problems Recent Progress Patient-Stated? Author Short-term: Promote adherence to treatment regimen General No Alfred Long, PharmD Take your medication every day Lifestyle No Alfred Long PharmD documented as of this encounter Visit Diagnoses Diagnosis Anxiety Anxiety state, unspecified Gastroesophageal reflux disease, unspecified whether esophagitis present Hyperlipidemia, unspecified hyperlipidemia type documented in this encounter Additional Health Concerns Assessment Noted Time PHQ-9 Depression Total Score: 0 02/25/20 24 11:29 AM EDT documented as of this encounter Care Teams Quality Assurance Group Leader Relationship Specialty Start Date End Date Angela Curry MD [address] [place] [address] PCP - General Family Medicine 07/31/22 documented as of this encounter
--- OUTSIDE RECORDS SUMMARY | 2024-07-17 14:29 | XMS_ITS | Encounter Summary ---
Author Organization [employer] Address [address] [facility] 7t [place] [address] Care Team Providers Care Servicer Coin Machines Name Role Phone Angela Curry MD Primary Care Provider Reason for Visit * Reason Onset Date Comments Lab Orders 06/29/2024 Encounter Details Date Type Department Care Team ([facility] st Contact Info) Description 06/29/2024 Telephone [facility] MEDICINE [address] [place] [address] Angela Curry MD [address] [place] [address] Lab Orders Social History Tobacco Use Types [...] inform needs appointment (physical) but will like [place] to call him for that appointment , program writer inform could help as Identified self and how we assist patients he stated he will like the girls from the team toschedule him documented in this encounter Plan of Treatment Upcoming Encounters Date Type Department Care Team (Late st Contact Info) Description 09/18/2024 1:00 PM EDT Medication Management [facility] MEDICINE [address] [place] [phone] Scheduled Orders Name Type Priority Associated Diagnoses Orde r Schedule T-SPOT??.TB Lab Routine Routine general medical examination at a health care facility Expected: 06/29/2024 (Approximate), Expires: 06/29/2025 documented as of this encounter Goals Goal Patient Goal Type Associated Problems Recent Progress Patient-Stated? Author Short-term: Promote adherence to treatment regimen General Alfred Hylton PharmVibha Take your medication every day Lifestyle No Alfred Long PharmD documented as of this encounter Visit Diagnoses Diagnosis Routine general medical examination at a health care facility documented in this encounter Additional Health Concerns Assessment Noted Time PHQ-9 Depression Total Score: 0 02/25/20 24 11:29 AM EDT documented as of this encounter Care Teams Servicer Coin Machines Relationship Specialty Start Date End Date Angela Curry MD [address] [place] [address] PCP - General Family Medicine 07/31/22 documented as of this encounter
--- OUTSIDE RECORDS SUMMARY | 2024-07-17 14:29 | XMS_ITS | Encounter Summary ---
Author Organization [employer] Address [address] [facility] 7t [place] [address] Care Team Providers Care Manager Animal Name Role Phone Angela Curry MD Primary Care Provider Reason for Visit * Reason Onset Date Comments Lab Orders 06/29/2024 Encounter Details Date Type Department Care Team ([facility] st Contact Info) Description 06/29/2024 Telephone [facility] MEDICINE [address] [place] [address] Angela Curry MD [address] [place] [phone] Lab Orders Social History Tobacco Use Types [...] encounter Miscellaneous Notes * Telephone Encounter - Millicent Woods RN - 06/30/2024 11:10 AM EST Noted. Pt was seen by Dr. Rodriguez today 06/30/24. In provider note, provider states the TB test was ordered for program. TSPOT TB order was placed by Dr. Izaguirre on 06/29/24 and can be seen under lab tab. Pt to follow up PRN. * Telephone Encounter - Jerry Sanchez - 06/29/2024 3:40 PM EST Tc from pt requesting a Lab Order for TB test due to pt needing it for Program. Contact pt at [phone] documented in this encounter Plan of Treatment Upcoming Encounters Date Type Department Care Team (Late st Contact Info) Description 09/18/2024 1:00 PM EDT Medication Management [facility] MEDICINE [address] [place] [phone] documented as of this encounter Goals Goal [...] documented as of this encounter Care Teams Manager Animal Relationship Specialty Start Date End Date Angela Curry MD [address] [place] [phone] PCP - General Family Medicine 07/31/22 documented as of this encounter
--- OUTSIDE RECORDS SUMMARY | 2024-07-17 14:29 | XMS_ITS | Encounter Summary ---
Author Organization [facility] Address [address] [facility] [address] [place] [address] Care Team Providers Care Manager Creative Name Role Phone Angela Curry MD Primary Care Provider [phone] Reason for Referral * Consultation (Urgent) - Authorized Specialty Diagnoses / Procedures Referred By Contac t Referred To Contact Neurosurgery Diagnoses Neuropathy Spinal stenosis of lumbar region with neurogenic claudication Kallie Rodriguez MD [address] [place] [address] Phone: tel: fax: Neurosurgery, [address] [place], [place] Phone: tel: fax: Referral ID Status Reason Start Date Expiration Date Visits Requested Visits Authorized [id number] Authorized Specialty Services Required 06/30/2024 06/30/2025 1 1 Encounter Details Date Type Department Care Team (Late st Contact Info) Description 06/30/2024 9:45 AM EST Office Visit [facility] MED & PEDS [address] [place] [address] Kallie Rodriguez MD [address] [place] [address] Screening-pulmonary TB (Primary Dx); Neuropathy; Spinal stenosis [...] 9:19 AM EST documented in this encounter Progress Notes * Kallie Rodriguez MD - 06/30/2024 9:45 AM EST Subjective Patient ID: Niraj Pedraza is a 68 y.o. male who presents for neuropathy of legs. is a 68-year-old male patient of Dr. Curry here with because of neuropathy of lower extremities associated with severe pain refractory to Lyrica, and gabapentin. Patient saw neurology at [facility] in May and MRI of lower back was ordered but results are not in chart at this time. is not sure if patient is being referred anywhere else for this matter but she is very worried about her . He did have an abnormal EMG done recently as well. He has past medical history of prediabetes, liver cirrhosis and schizophrenia. He is walking with a walker. Review of Systems Constitutional: Negative for activity change, chills, fever and unexpected weight change. Respiratory: Negative for cough, shortness of breath and wheezing. Cardiovascular: Negative for chest pain, palpitations and leg swelling. Gastrointestinal: Negative for abdominal pain and blood in stool. Endocrine: Negative for polydipsia and polyuria. Genitourinary: Negative for decreased urine volume, difficulty urinating, dysuria and hematuria. Musculoskeletal: Negative for arthralgias and gait problem. Skin: Negative for color change and rash. Neurological: Positive for weakness and numbness. Negative for dizziness and headaches. Hematological: Negative for adenopathy. Psychiatric/Behavioral: Negative for dysphoric mood, hallucinations, sleep disturbance and suicidalideas. The patient is not nervous/anxious. Objective BP (!) 146/77 (BP Location: Left arm, Patient Position: Sitting, BP Cuff Size: Adult) Pulse 88 Temp 97.6 ??F (36.4 ??C) (Oral) Resp 20 Ht 5' 6.14 (1.68 m) Wt 216 lb (98 kg) SpO2 96% BMI 34.71 kg/m?? Physical Exam Vitals reviewed. Cardiovascular: Rate and Rhythm: Normal rate and regular rhythm. Neurological: Mental Status: He is alert and oriented to person, place, and time. Mental status is at baseline. Gait: Gait abnormal. Comments: Gait, short steps,using walker Assessment/Plan Diagnoses and all orders for this visit: Screening-pulmonary TB Comments: For [facility] requirement ordered.PE visit scheduled. Neuropathy - traMADol (Ultram) 50 MG tablet; Take 1 tablet (50 mg) by mouth every 8 (eight) hours if needed for severe pain for up to 15 days. - Referral to Neurosurgery; Future Spinal stenosis of lumbar region with neurogenic claudication Comments: Neurosx referral done today, called and informed of lumbar spine MRI results and referral order.Advised to bring daughter to that visit.Tramadol rx. Orders: - Referral to Neurosurgery; Future Claudication of both lower extremities (CMS/HCC) documented in this encounter Plan of Treatment Upcoming Encounters Date Type Department Care Team (Late st Contact Info) Description 09/18/2024 1:00 PM EDT Medication Management [facility] MEDICINE [address] [place] [address] Scheduled Referrals Name Type Priority Associated Diagnoses [...] as of this encounter Care Teams Manager Creative Relationship Specialty Start Date End Date Angela Curry MD [address] [place] [address] PCP - General Family Medicine 07/31/22 documented as of this encounter
--- OUTSIDE RECORDS SUMMARY | 2024-07-17 14:29 | XMS_ITS | Encounter Summary ---
Author Organization [employer] Address [address] [facility] 7[place] [address] Care Team Providers Care Plasma Processor Name Role Phone Angela Curry MD Primary Care Provider [phone] Encounter Details Date Type Department Care Team [...] Description 09/18/2024 1:00 PM EDT Medication Management [facility] MEDICINE [address] [place] [address] documented as of this encounter Goals Goal [...] documented as of this encounter Care Teams Plasma Processor Relationship Specialty Start Date End Date Angela Curry MD [address] [place] [address] PCP - General Family Medicine 07/31/22 documented as of this encounter
--- OUTSIDE RECORDS SUMMARY | 2024-07-17 14:29 | XMS_ITS | Encounter Summary ---
Author Organization [employer] Address [address] [facility] 7t [place] [address] Care Team Providers Care Senior Asic Engineer Name Role Phone Angela Curry MD Primary Care Provider [phone] Reason for Visit * Reason Comments Med Refill Encounter Details Date Type Department Care Team ([facility] st Contact Info) Description 06/19/2024 Refill [facility] CH[facility] MED & PEDS [address] [place], [place] [phone] Angela Curry MD [address] [place] [address] Alcohol use Social History Tobacco Use Types [...] Description 09/18/2024 1:00 PM EDT Medication Management [facility] MEDICINE [address] [place] [address] documented as of this encounter Goals Goal [...] documented as of this encounter Care Teams Senior Asic Engineer Relationship Specialty Start Date End Date Angela Curry MD [address] [place] [address] PCP - General Family Medicine 07/31/22 documented as of this encounter
--- OUTSIDE RECORDS SUMMARY | 2024-07-17 14:29 | XMS_ITS | Encounter Summary ---
Author Organization [employer] Address [address] [facility] 7[address] [place] [address] Care Team Providers Care Electronics Repair Technician Name Role Phone Angela Curry MD Primary Care Provider [phone] Encounter Details Date Type Department Care Team ([facility] st Contact Info) Description 06/27/[address] [facility] MED & PEDS [address] [place], [place] [phone] Angela Curry MD [address] [place] [address] Social History Tobacco Use Types Packs/Day Years [...] 09/18/2024 1:00 PM EDT Medication Management [facility] MEDICINE [address] [place] [address] documented as of this encounter Goals Goal [...] POCT Creatinine 0.8 0.5 - 1.4 mg/dL [facility] GFR POC >60 [facility] Comment:Chronic Kidney Disea se: Estimated GFR < 60 mL/min/1.76t1Gvmvae Kidney Disease: Estimated GFR < 15 mL/min/1.73m2 06/27/2024 5:16 PM EST 06/28/2024 10:14 AM EST Narrative [facility] - 06/28/2024 10:16 AM EST [id number] us Angela Curry MD LAB POINT OF CARE TEST DOCKED DEVICE ORDERABLES Final Result [facility] [address] [place] [address] [phone] documented in this encounter Visit Diagnoses Not on filedocumented in this encounter Additional Health Concerns Assessment Noted Time PHQ-9 Depression Total Score: 0 02/25/20 24 11:29 AM EDT documented as of this encounter Care Teams Electronics Repair Technician Relationship Specialty Start Date End Date Angela Curry MD [address] [place] [address] PCP - General Family Medicine 07/31/22 documented as of this encounter
--- OUTSIDE RECORDS SUMMARY | 2024-07-17 14:29 | XMS_ITS | Encounter Summary ---
Author Organization [employer] Address [address] [facility] 7t [place] [address] Care Team Providers Care Nurse Office Name Role Phone Angela Curry MD Primary Care Provider [phone] Reason for Visit * Reason Onset Date Comments Call Back Request 06/21/2024 Encounter Details Date Type Department Care Team ([facility] st Contact Info) Description 06/21/2024 Telephone [facility] MEDICINE [address] [place] [address] Angela Curry MD [address] [place] [address] Call Back Request Social History Tobacco Use [...] AM EST Tc from Lian Asher with [employer] informing pt has been showing memory loss symptoms as he also been complaining about it and hasn't been feeling to well. Please contact Lian Asher documented in this encounter Plan of Treatment Upcoming Encounters Date Type Department Care Team ([facility] st Contact Info) Description 09/18/2024 1:00 PM EDT Medication Management [facility] MEDICINE [address] [place] [phone] documented as of this encounter Goals Goal [...] documented as of this encounter Care Teams Nurse Office Relationship Specialty Start Date End Date Angela Curry MD [address] [place] [address] PCP - General Family Medicine 07/31/22 documented as of this encounter
--- OUTSIDE RECORDS SUMMARY | 2024-07-17 14:29 | XMS_ITS | Encounter Summary ---
Author Organization [employer] Address [address] [facility] 7t [place] [address] Care Team Providers Care Bullet Slug Casting Machine Operator Name Role Phone Angela Curry MD Primary Care Provider Encounter Details Date Type Department Care Team (Latest Contact Info) Description 07/11/2024 Travel Social History Tobacco Use Types Packs/Day [...] Description 09/18/2024 1:00 PM EDT Medication Management [facility] MEDICINE [address] [place] [address] documented as of this encounter Goals Goal [...] documented as of this encounter Care Teams Bullet Slug Casting Machine Operator Relationship Specialty Start Date End Date Angela Curry MD [address] [place] [address] PCP - General Family Medicine 07/31/22 documented as of this encounter
--- OUTSIDE RECORDS SUMMARY | 2024-07-17 14:29 | XMS_ITS | Encounter Summary ---
Author Organization [employer] Address [address] [facility] 7t [place] [address] Care Team Providers Care Heeler Machine Name Role Phone Angela Curry MD Primary Care Provider [phone] Reason for Visit * Reason Onset Date Comments Referral 05/08/2024 Encounter Details Date Type Department Care Team ([facility] st Contact Info) Description 05/08/2024 Telephone [facility] MEDICINE [address] [place] [address] Angela Curry MD [address] [place] [address] Referral Social History Tobacco Use Types Packs/Day [...] 05/08/2024 5:24 PM EST Referral re-faxed to [facility] PT. * Telephone Encounter - Edgar Gallego - 05/08/2024 8:54 AM EST Tc from spouse requesting new referral for physical therapy as pt inform called [facility] facility and referral doesn't exist, contract technical writer verify referral status is (closed) , pt verbalized not understanding kristina had call her for pt to make appointment and now referral doesn't exist. documented in this encounter Plan of Treatment Upcoming Encounters Date Type Department Care Team (Late st Contact Info) Description 09/18/2024 1:00 PM EDT Medication Management [facility] MEDICINE [address] [place] [address] documented as of this encounter Goals Goal Patient Goal Type Associated Problems Recent Progress Patient-Stated? Author Short-term: Promote adherence to treatment regimen General No Mercedes, Alfred, PharmD Take your medication every day Lifestyle No Alfred Long PharmD documented as of this encounter Visit Diagnoses Not on filedocumented in this encounter Additional Health Concerns Assessment Noted Time PHQ-9 Depression Total Score: 0 02/25/20 24 11:29 AM EDT documented as of this encounter Care Teams Heeler Machine Relationship Specialty Start Date End Date Angela Curry MD [address] [place] [address] PCP - General Family Medicine 07/31/22 documented as of this encounter
== END 2024-07-17 13:27 | disposition home or self-care (01) ==
PROVIDERS: PCP Family Medicine; Visit Provider Internal Medicine Cardiovascular Disease
DX: R06.00 Dyspnea, unspecified (principal)
CPT/HCPCS: 93010; 99204; G2211

== ENCOUNTER → 2024-07-17 12:54 | Outpatient (BNVA) | payer OTHER, SELFPAY | PROVIDERS: PCP Family Medicine; Visit Provider Internal Medicine Cardiovascular Disease | DX: R06.00 Dyspnea, unspecified (principal) | CPT/HCPCS: 93005; 99202 ==

== ENCOUNTER → 2024-08-02 07:37 | Outpatient (REF) | payer OTHER, SELFPAY ==
--- NOTE | ~2024-08-02 | NM_ITS ---
Lexiscan Myocardial perfusion study Indication: Shortness of breath to evaluate for myocardial ischemia Technique: The patient was brought in for a Lexiscan perfusion study on 08/02/2024 and was injected 0.4 mg of Lexiscan intravenously. Within a minute of this injection 30 mCi of sestamibi was given intravenously. Images were obtained using the SPECT gamma camera interlaced with the gating device. Images were obtained in supine position. Resting perfusion study was performed on 08/03/2024. Patient was administered 30 mCi of sestamibi intravenously at rest. Images were then obtained in supine position. Images obtained without without CT attenuation. Total DLP 89 mGy-cm. Images were processed with the software and compared side to side in short axis, horizontal long axis and vertical long axis views. Findings: The stress perfusion study showed nonattenuated images show mildly reduced uptake in the lateral wall of the LV myocardium. There is also mildly reduced uptake in the basal inferior wall of the LV myocardium. Remainder of the LV myocardium is normally perfused. Attenuated corrected images show normal uptake of radiotracer in all segments of the LV myocardium The gated study shows normal LV systolic function with calculated LVEF of 63%. LV cavity is normal in size. The gated study shows normal systolic wall thickening and contraction of segments. Resting study shows nonattenuated images show mild thinning of the lateral wall of the LV myocardium with improved uptake on PET to stress perfusion study. Attenuated corrected images show mildly reduced uptake in the apex of the LV myocardium. Gating at rest reveals normal systolic wall motion with ejection fraction at 72%. The findings are consistent with [normal myocardial perfusion lateral wall defect most likely suggestive of attenuation artifact due to arms down position. NM/NM franklin perf SPECT rest & str Impression: 1. Myocardial perfusion imaging study shows likely normal myocardial perfusion 2. Gated LVEF is 63% 3. Transient ischemic dilatation not present Nondiagnostic changes on EKG. Electronically signed by: Levi Robison MD 08/03/2024 04:06 PM EDT
--- OUTSIDE RECORDS SUMMARY | 2024-08-02 07:41 | XMS_ITS | Encounter Summary ---
Author Organization [employer] Address [address] [facility] 7t [place] [address] Care Team Providers Care Matrix Plater Name Role Phone Angela Curry MD Primary Care Provider [phone] Encounter Details Date Type Department Care Team [...] Description 09/18/2024 1:00 PM EDT Medication Management [facility] MEDICINE [address] [place] [address] documented as of this encounter Goals Goal [...] documented as of this encounter Care Teams Matrix Plater Relationship Specialty Start Date End Date Angela Curry MD [address] [place] [address] PCP - General Family Medicine 07/31/22 documented as of this encounter
--- OUTSIDE RECORDS SUMMARY | 2024-08-02 07:41 | XMS_ITS | Encounter Summary ---
Author Organization [employer] Address [address] [facility] 7t [place] [address] Care Team Providers Care Soft Sugar Supervisor Name Role Phone Angela Curry MD Primary Care Provider [phone] Reason for Visit * Reason Comments Med Refill Encounter Details Date Type Department Care Team ([facility] st Contact Info) Description 07/21/2024 Refill [facility] MED & PEDS [address] [place], [place] [phone] Stephanie Mckeon MD [address] [place] [address] Social History Tobacco Use Types Packs/Day Years [...] Description 09/18/2024 1:00 PM EDT Medication Management [facility] MEDICINE [address] [place] [address] documented as of this encounter Goals Goal [...] documented as of this encounter Care Teams Soft Sugar Supervisor Relationship Specialty Start Date End Date Angela Curry MD [address] [place] [address] PCP - General Family Medicine 07/31/22 documented as of this encounter
--- OUTSIDE RECORDS SUMMARY | 2024-08-02 07:41 | XMS_ITS | Encounter Summary ---
Author Organization [employer] Address [address] [facility] 7t [place] [address] Care Team Providers Care Cloth Shearer Name Role Phone Angela Curry MD Primary Care Provider [phone] Encounter Details Date Type Department Care Team ([facility] st Contact Info) Description 06/30/[address] [facility] MED & PEDS [address] [place], [place] [phone] Baltazar Patel MD [address] [place] [address] Social History Tobacco Use Types Packs/Day Years [...] 09/18/2024 1:00 PM EDT Medication Management [facility] MEDICINE [address] [place] [address] documented as of this encounter Goals Goal [...] Results * T-SPOT??.TB (06/30/2024 10:06 AM EST) [facility] T Spot TB Negative Negative [facility] Comment:A negative test resu lt does [...] as aquantitative test. TS PANEL A 0 [facility] TS PANEL B 1 [facility] Negative Control Passed [facility] Positive Control Passed [facility] Comment:For additional infor mation, please refer [email or web address](This link is being provided for informational/educational purposes only.)THIS TEST WAS PERFORMED AT:[facility] [facility] [id number] [place] [address]KZSLWSPEDILIA LEE MD,PHD 06/30/2024 10:0 6 AM EST 06/30/2024 1:55 PM EST Baltazar Perez MD LAB BLOOD ORDERABL ES Final Result [facility] [address] [place] [address] [phone] documented in this encounter Visit Diagnoses Not on filedocumented in this encounter Additional Health Concerns Assessment Noted Time PHQ-9 Depression Total Score: 0 02/25/20 24 11:29 AM EDT documented as of this encounter Care Teams Cloth Shearer Relationship Specialty Start Date End Date Angela Curry MD [address] [place] [address] PCP - General Family Medicine 07/31/22 documented as of this encounter
--- OUTSIDE RECORDS SUMMARY | 2024-08-02 07:41 | XMS_ITS | Encounter Summary ---
Author Organization [employer] Address [address] [facility] 7t [place] [address] Care Team Providers Care Merchandise Distributor Name Role Phone Angela Curry MD Primary Care Provider [phone] Reason for Visit * Reason Onset Date Comments Lab Orders 06/29/2024 Encounter Details Date Type Department Care Team ([facility] st Contact Info) Description 06/29/2024 Telephone [facility] MEDICINE [address] [place] [address] Angela Curry MD [address] [place] [address] Lab Orders Social History Tobacco Use Types [...] needing it for Program. Contact pt at [phone] documented in this encounter Plan of Treatment Upcoming Encounters Date Type Department Care Team (Late st Contact Info) Description 09/18/2024 1:00 PM EDT Medication Management [facility] MEDICINE [address] [place] [address] documented as of this encounter Goals Goal [...] documented as of this encounter Care Teams Merchandise Distributor Relationship Specialty Start Date End Date Angela Curry MD [address] [place] [address] PCP - General Family Medicine 07/31/22 documented as of this encounter
--- OUTSIDE RECORDS SUMMARY | 2024-08-02 07:41 | XMS_ITS | Encounter Summary ---
Author Organization [employer] Address [address] [facility] 7t [place] [address] Care Team Providers Care Group Activities Aide Name Role Phone Angela Curry MD Primary Care Provider [phone] Reason for Visit * Reason Comments Med Refill Encounter Details Date Type Department Care Team ([facility] st Contact Info) Description 07/17/2024 Refill [facility] MED & PEDS [address] [place], [place] [phone] Angela Curry MD [address] [place] [address] Anxiety; Gastroesophageal reflux disease, unspecified whether esophagitis [...] Description 09/18/2024 1:00 PM EDT Medication Management [facility] MEDICINE [address] [place] [address] documented as of this encounter Goals Goal [...] documented as of this encounter Care Teams Group Activities Aide Relationship Specialty Start Date End Date Angela Curry MD [address] [place] [address] PCP - General Family Medicine 07/31/22 documented as of this encounter
--- OUTSIDE RECORDS SUMMARY | 2024-08-02 07:41 | XMS_ITS | Clinical Summary ---
Author Organization [employer] Address [address] [facility] 7t [place] [address] Care Team Providers Care Infrastructure Design Engineer Name Role Phone Angela Curry MD Primary Care Provider [phone] Allergies No known active allergies Medications Multiple [...] EACH NOSTRIL TWICE DAILY 09/22/19 24 Active Blood Pressure kit 1 Units [...] MORNING 90 tablet 1 06/20/19 25 Active Fluocinolone Acetonide Scalp ([place]-Smoothe/FS Scalp) 0.01 % oilIndications:Se bopsoriasis To use 2 times a week at night. 118 mL 3 07/12/19 25 Active pregabalin (Lyrica) 75 MG capsule TAKE 1 CAPSULE BY MOUTH TWICE DAILY IN THE MORNING AND IN THE EVENING 60 capsule 2 07/19/19 25 Active citalopram (CeleXA) 20 MG tabletIndications :Anxiety TAKE 1 TABLET BY MOUTH EVERY MORNING 90 tablet 1 07/21/19 25 Active famotidine (Pepcid) 40 MG tabletIndications :Gastroesophageal reflux disease, unspecified whether esophagitis present TAKE 1 TABLET BY MOUTH AT BEDTIME 90 tablet 1 07/21/19 25 Active omega-3 acid ethyl esters (Lovaza) 1 g capsuleIndication s:Hyperlipidemia, unspecified hyperlipidemia type TAKE 1 CAPSULE BY MOUTH TWICE DAILY IN THE MORNING AND IN THE EVENING 180 capsule 1 07/21/19 25 Active simvastatin (Zocor) 40 MG tabletIndications :Hyperlipidemia, unspecified hyperlipidemia type TAKE 1 TABLET BY MOUTH AT BEDTIME 90 tablet 1 07/21/19 25 Active amitriptyline (Elavil) 25 MG tablet TAKE 1 TABLET BY MOUTH AT BEDTIME 30 tablet 07/22/19 25 Active furosemide (Lasix) 40 MG tablet TAKE 1 TABLET BY MOUTH EVERY MORNING 30 tablet 07/22/19 25 Active famotidine (Pepcid) 40 MG tabletIndications :Gastroesophageal reflux disease, unspecified whether esophagitis present Take 1 tablet (40 mg) by mouth at bedtime. 90 tablet 1 01/17/20 24 025 Discontinued citalopram (CeleXA) 20 MG tabletIndications :Anxiety TAKE 1 TABLET BY MOUTH EVERY MORNING 90 tablet 1 01/27/20 24 025 Discontinued simvastatin (Zocor) 40 MG tabletIndications :Hyperlipidemia, unspecified hyperlipidemia type TAKE 1 TABLET BY MOUTH AT BEDTIME 90 tablet 1 01/27/20 24 025 Discontinued omega-3 acid ethyl esters (Lovaza) 1 g capsuleIndication s:Hyperlipidemia, unspecified hyperlipidemia type TAKE 1 CAPSULE BY MOUTH TWICE DAILY IN THE MORNING AND IN THE EVENING 180 capsule 1 01/27/20 24 025 Discontinued amitriptyline (Elavil) 25 MG tablet TAKE 1 TABLET BY MOUTH AT BEDTIME 30 tablet 06/27/19 25 025 Discontinued furosemide (Lasix) 40 MG tablet TAKE 1 TABLET BY MOUTH EVERY DAY 30 tablet 06/27/19 25 025 Discontinued pregabalin (Lyrica) 75 MG capsule 06/23/19 025 Discontinued traMADol (Ultram) 50 MG tabletIndications :Neuropathy Take 1 tablet (50 mg) by mouth every 8 (eight) hours if needed for severe pain for up to 15 days. 45 tablet 06/30/19 025 Active Problems Problem Noted Date Diagnosed [...] being seen by psychiatrist yet or received GRIEF COUNSELOR services. Will discontinue haldol and start on abilify. Assessment & Plan (08/05/2022 1:24 PM EDT): Patient needs formal psychiatry followup, referral was placed and also will send medications for now. He needs VNA services to assist with medication compliance and also will need GRIEF COUNSELOR service to assist with ADLs/IADLs that need help. Vitamin D deficiency 08/05/2022 Hyperlipidemia 08/05/2022 Gastroesophageal reflux disease 08/05/2022 Assessment & Plan (01/17/2024 11:21 AM EDT): Continue on current medications. Arthritis 08/05/2022 Anxiety 08/05/2022 Assessment & Plan (07/13/2023 9:30 PM EST): Refilled Citalopram Psoriasis 08/05/2022 Polypharmacy 07/31/2022 Encounters Date Type Department Care Team Description 07/21/2024 Refill [facility] [address] [place] [address] Stephanie Mckeon MD 07/17/2024 Refill [facility] [address] [place] [address] Angela Curry MD Anxiety; Gastroesophageal reflux disease, unspecified whether esophagitis present; Hyperlipidemia, unspecified hyperlipidemia type 07/16/2024 Refill [facility] [address] [place] [address] Angela Curry MD 07/12/2024 2:00 PM EST Office Visit [facility] [address] [place] [address] Stephanie Mckeon MD Hyperlipidemia, unspecified hyperlipidemia type (Primary Dx); Gastroesophageal reflux disease, unspecified whether esophagitis present; Encounter for annual wellness visit; Neuropathy 07/11/2024 10:15 AM EST Office Visit [facility] [address] [place] [address] Rocky Cruz MD Sebopsoriasis (Primary Dx) 07/11/2024 Travel 06/30/2024 9:45 AM EST Office Visit [facility] [address] [place] [address] Kallie Rodriguez MD Screening-pulmonary TB (Primary Dx); Neuropathy; Spinal stenosis of lumbar region with neurogenic claudication; Claudication of both lower extremities ([facility]) 06/30/2024 Orders Only [facility] [address] [place] [address] Baltazar Patel MD 06/30/2024 Travel 06/29/2024 Telephone [facility] [address] [place] [address] Angela Curry MD Lab Orders 06/29/[address] [address] Angela Curry MD Lab Orders 06/29/2024 Telephone [facility] [address] [place] [address] Nano Walker, RN Results 06/27/2024 Orders Only [facility] [address] [place], [place] [phone] Angela Curry MD 06/23/2024 Telephone [facility] [address] [place] [address] Angela Curry MD Nurse Triage 06/23/2024 Refill [facility] [address] [place] [address] Angela Curry MD 06/21/[address] [address] Angela Curry MD Call Back Request 06/19/2024 Refill [facility] [address] [place] [address] Angela Curry MD Alcohol use 06/06/2024 Refill [facility] [address] [place], [place] [phone] Angela Curry MD Arthritis (Primary Dx) 05/24/2024 Refill [facility] [address] [place], [place] [phone] Angela Curry MD Gastroesophageal reflux disease, unspecified whether esophagitis present 05/18/2024 Refill [facility] [address] [place] [address] Anegla Curry MD 05/12/2024 2:30 PM EST Telemedicine [facility] [address] [place], [place] [phone] Angela Curry MD Neuropathy (Primary Dx) 05/12/2024 Travel 05/08/2024 Telephone [facility] [address] [place], [place] [phone] Angela Curry MD Referral from Last 3 Months Immunizations Name Administration [...] 1:00 PM EDT Medication Management [facility] [address] [place] [address] [phone] Health Maintenance Due Date Last Done Comments [...] Results * T-SPOT??.TB (06/30/2024 10:06 AM EST) [facility] T Spot TB Negative Negative [facility] Comment:A negative test resu lt [...] as aquantitative test. TS PANEL A 0 [facility] TS PANEL B 1 [facility] Negative Control Passed [facility] Positive Control Passed [facility] Comment:For additional infor imelda, please refer tohttp://education.Colibrí/faq/AYU032(This link is being provided for informational/educational purposes only.)THIS TEST WAS PERFORMED AT:[employer] [id number] [place] [address]YHQKVMYEDILIA LEE MD,PHD 06/30/2024 10:0 6 AM EST 06/30/2024 1:55 PM EST us Baltazar Perez MD LAB BLOOD ORDERABL ES Final Result [facility] [address] [place] [address] [phone] * CT Abdomen Pelvis w/ Contrast (06/28/2024 10:53 AM EST) Anatomical Region Laterality Modality Body, Pelvis, Abdomen Computed T omography 06/28/2024 10:5 3 AM EST Narrative 06/28/2024 10:54 AM EST ? [facility] ?[address] ?[place] [address] ? CT Scan Report ? Signed ? Patient: Niraj Ro ?MR#: M ?? [id number] ? : 1955 ?Acct:[id number] ? Age/Sex: 68 / M ?ADM Date: 06/27/24 ? Loc: HO.CT ? Attending Dr: Angela Curry MD ? Ordering Physician: Angela Curry MD ?? Date of Service: 06/27/24 ?? Procedure(s): CT abdomen pelvis w IV con ?? Accession Number(s): [id number] ? cc: Angela Curry MD ? Report Number: ?? [id number]: Total DLP = 1685.00 mGy-cm ? CLINICAL [...] DD/ 1053 ? TD/TT: 06/28/24 1053 ? Bicycle Fitter: ? Procedure Note Mindy, Image - 06/28/[address] [place] [address] [address] Scan Report Signed Patient: Taylor RoR#: M [id number] : 5Acct:[id number] Age/Sex: 68 / MADM Date: 06/27/24 Loc: HO.CT Attending Dr: Angela Curry MD Ordering Physician: Angela Curry MD Date of Service: 06/27/24 Procedure(s): CT abdomen pelvis w IV con Accession Number(s): [id number] cc: Angela Curry MD Report Number: [id number]: Total DLP = 1685.00 mGy-cm CLINICAL HISTORY: [...] 06/28/24 1053 DD/ 1053 TD/TT: 06/28/24 1053 Bicycle Fitter: us Angela Curry MD IMG CT PROCEDURES Edited Resu lt - Final * POCT Creatinine GFR (06/27/2024 5:16 PM EST) POCT Creatinine 0.8 0.5 - 1.4 mg/dL [facility] GFR POC >60 [facility] Comment:Chronic Kidney Disea se: Estimated GFR < 60 mL/min/1.73s9Cxcvhj Kidney Disease: Estimated GFR < 15 mL/min/1.73m2 06/27/2024 5:16 PM EST 06/28/2024 10:14 AM EST Narrative [facility] - 06/28/2024 10:16 AM EST [id number] us Angela Curry MD LAB POINT OF CARE TEST DOCKED DEVICE ORDERABLES Final Result Performing Organization Address [facility]/ZIP Co de Phone Number [facility] [address] [place] [phone] * Hemoglobin A1c (03/06/2024 7:45 AM EDT) Hemoglobin A1c 5.8 <6.0 % [facility] Comment:Hemoglobin A1C Refer ence Range Adults: 4.8 - 6.0 % Non diabetic: < 6.0 % Goal: < 7.0 %Additional Action Suggested: > 8.0 %Note: Hemoglobin A1c results are invalid for patients with abnormal amounts of HbF. Blood transfusions may impact the HbA1c concentration in the patient sample. Estimated Average Glucose 120 mg/dL [facility] Comment:eAG = Estimated ave rage glucose which is %A1C expressed asaverage glucose, using the formula of the [id number]-[id number] Glucose study (ADAG), Diabetes Care, Vol.31,#8,Dec. 2007 Blood Venous blood specimen / Unknown 03/06/2024 7:45 AM EDT 03/06/2024 7:45 AM EDT us Angela Curry MD LAB BLOOD ORDERABLES Final Re sult Performing Organization Address City/[facility]/ZIP Co de Phone Number [facility] [address] [place] [phone] * Lipid Panel, Standard (08/23/2023 10:42 AM EDT) Triglycerides 71 <150 mg/dL [facility] Comment:Desirable Triglyceri de: less than 150 mg/dLBorderline High Triglyceride 150-199 mg/dLHigh Triglyceride: 200-499 mg/dLVery High Triglyceride: greater than or equal to 5OO mg/dL Cholesterol 133 <200 mg/dL [facility] Comment:Desirable Cholestero l: less than 200 mg/dLBorderline High Cholesterol: 200-239 mg/dLHigh Cholesterol: greater than 239 mg/dL LDL Cholesterol Calculated 64 <100 mg/dL [facility] Comment:Desirable LDL: less than 100 mg/dLNear Optimal/Above Optimal LDL: 110- 129 mg/dLBorderline High LDL: 130-159 mg/dLHigh LDL: 160-189 mg/dLVery High LDL: greater than or equal to 190 mg/dL HDL Cholesterol 55 >40 mg/dL [facility] Comment:Desirable HDL: great er than 40 mg/dL Note: This HDL assay may give artificially low results in patients with liver disease. Blood Venous blood specimen / Unknown 08/23/2023 10:42 AM EDT 08/23/2023 10:42 AM EDT Angela Curry MD LAB BLOOD ORDERABLES Final Re sult Performing Organization Address City/[facility]/ZIP Co de Phone Number [facility] [address] [place] [address] [phone] * Hm Colonoscopy (03/11/2023) Colonoscopy Normal Normal Narrative Angela Curry MD - 03/11/[address] Kisha Hale, normal, diverticulosis and hemorrhoids noticed Historical Provider HEALTH MAINTENANCE Final Result * Hepatitis C Ab (11/09/2022 4:15 PM EDT) Hepatitis C Antibody Nonreactive Nonreactive [facility] Comment:Antibodies to HCV no t detected; does not exclude early acuteHCV infection. 11/09/2022 4:15 PM EDT 11/09/2022 4:16 PM EDT [facility] External Provider LAB BLO OD ORDERABLES Final Result [facility] [address] [place] [address] [phone] from Last 3 Months or Most Recently Relevant to Health Maintenance Insurance MEDICARE [facility] Care Teams Infrastructure Design Engineer Relationship Specialty Start Date End Date Angela Curry MD [address] [place] [address] PCP - General Family Medicine 07/31/22
--- OUTSIDE RECORDS SUMMARY | 2024-08-02 07:41 | XMS_ITS | Encounter Summary ---
Author Organization [employer] Address [address] [facility] [address] [place] [address] Care Team Providers Care Administrative Manager Name Role Phone Angela Curry MD Primary Care Provider [phone] Reason for Visit * Reason Comments Med Refill Encounter Details Date Type Department Care Team ([facility] st Contact Info) Description 07/16/2024 Refill [facility] [address] [place], [place] [phone] Angela Curry MD [address] [place] [address] Social History Tobacco Use Types Packs/Day Years [...] Description 09/18/2024 1:00 PM EDT Medication Management [facility] [address] [place] [address] documented as of this encounter Goals Goal [...] documented as of this encounter Care Teams Administrative Manager Relationship Specialty Start Date End Date Angela Curry MD [address] [place] [address] PCP - General Family Medicine 07/31/22 documented as of this encounter
--- OUTSIDE RECORDS SUMMARY | 2024-08-02 07:41 | XMS_ITS | Encounter Summary ---
Author Organization [employer] Address [address] [facility] [address] [place] [address] Care Team Providers Care Manager Of Human Resources Name Role Phone Angela Curry MD Primary Care Provider [phone] Reason for Visit * Reason Comments Annual Exam VCare program ok per provider Encounter Details Date Type Department Care Team (Latest Contact Info) Description 07/12/2024 2:00 PM EST Office Visit [facility] [address] [place], [place] [phone] Stephanie Mckeon MD [address] [place] [address] Hyperlipidemia, unspecified hyperlipidemia type (Primary Dx); Gastroesophageal [...] 1:00 PM EDT Medication Management [facility] [address] [place] [phone] documented as of this encounter Goals Goal [...] as of this encounter Care Teams Manager Of Human Resources Relationship Specialty Start Date End Date Angela Curry MD [address] [place] [address] PCP - General Family Medicine 07/31/22 documented as of this encounter
--- OUTSIDE RECORDS SUMMARY | 2024-08-02 07:41 | XMS_ITS | Encounter Summary ---
Author Organization [employer] Address [address] [facility] 7 [place] [address] Care Team Providers Care Custodian Supervisor Name Role Phone Angela Curry MD Primary Care Provider [phone] Encounter Details Date Type Department Care Team (Latest Contact Info) Description 07/11/2024 10:15 AM EST Office Visit [facility] [address] [place] [address] Rocky Cruz MD [address] [place] [address] Sebopsoriasis (Primary Dx) Social History Tobacco Use [...] this visit: Sebopsoriasis - Fluocinolone Acetonide Scalp ([place]-Smoothe/FS Scalp) 0.01 % oil; To use 2 times a week at night. Pt is to RTC as needed Advised to avoid removing the scales manually. documented in this encounter Plan of Treatment Upcoming Encounters Date Type Department Care Team (Late st Contact Info) Description 09/18/2024 1:00 PM EDT Medication Management [facility] [address] [place] [address] documented as of this encounter Goals Goal [...] documented as of this encounter Care Teams Custodian Supervisor Relationship Specialty Start Date End Date Angela Curry MD [address] [place] [address] PCP - General Family Medicine 07/31/22 documented as of this encounter
--- OUTSIDE RECORDS SUMMARY | 2024-08-02 07:42 | XMS_ITS | Encounter Summary ---
Author Organization [employer] Address [address] [facility] 7t [place] [address] Care Team Providers Care Lead Pourer Name Role Phone Angela Curry MD Primary Care Provider Reason for Visit * Reason Onset Date Comments Referral 05/08/2024 Encounter Details Date Type Department Care Team ([facility] st Contact Info) Description 05/08/2024 Telephone [facility] [address] [place] [address] Angela Curry MD [address] [place] [address] Referral Social History Tobacco Use Types Packs/Day [...] 05/08/2024 5:24 PM EST Referral re-faxed to [facility]. * Telephone Encounter - Edgar Gallego - 05/08/2024 8:54 AM EST Tc from spouse requesting new referral for physical therapy as pt inform called [facility] and referral doesn't exist, freelance writer verify referral status is (closed) , pt verbalized not understanding kristina had call her for pt to make appointment and now referral doesn't exist. documented in this encounter Plan of Treatment Upcoming Encounters Date Type Department Care Team (Late st Contact Info) Description 09/18/2024 1:00 PM EDT Medication Management [facility] [address] [place] [address] documented as of this encounter Goals Goal [...] documented as of this encounter Care Teams Lead Pourer Relationship Specialty Start Date End Date Angela Curry MD [address] [place] [address] PCP - General Family Medicine 07/31/22 documented as of this encounter
--- NOTE | 2024-08-02 07:54 | CA_ITS ---
Acquisition Time: 2024-08-02 07:57:36 Total Exercise Time: 00:02:00 Test Indications: SOB Medications: SEE H&P Protocol: LEXISCAN Max HR: 90 BPM 59% of Pred: 151 BPM Max BP: 112/60 mmHG Max Work Load: 1.0 METS Pharmacological stress test with Lexiscan while pt marches in the chair, with reports of flushing in face and mild SOB, with isolated PACs, with normotensive response to injection. Nondiagnostic EKG for ischemia. In recovery, breathing returned to baseline. Nuclear images pending. Test reviewed with Dr. Robison. Referred By: Levi Robison Electronically Signed By: El Hoffman
== END ==
LOC: HO.CARD 07:37
PROVIDERS: PCP Family Medicine; Visit Provider Internal Medicine Cardiovascular Disease
DX: R06.00 Dyspnea, unspecified (principal)
CPT/HCPCS: 78452; 93017; A9500; J0280; J2785

== ENCOUNTER → 2024-08-02 07:54 | Outpatient (BNV) | payer OTHER, SELFPAY | PROVIDERS: PCP Family Medicine | DX: I49.1 Atrial premature depolarization (principal); R06.02 Shortness of breath | CPT/HCPCS: 78452; 93016; 93018 ==

== ENCOUNTER 2024-08-04 15:58 | Outpatient (AMB) | payer OTHER, MEDICAID, SELFPAY ==
[2024-08-04 16:01] VITALS: BP 124/72; PULSE 77; O2SAT 98; BMI 35.0
--- NOTE | 2024-08-04 16:01 | A.OFFVIS_ITS ---
Vital Signs 08/04/24 16:01 Height 5 ft 6 in Weight 217 lb BMI 35.0 BP 124/72 Pulse 77 Pulse Source Pulse Oximeter Pulse Oximetry (%) 98 Oxygen Delivery Method Room Air Intake Visit Reasons: dyspnea Patient Clerical Assistant: Patient Clerical Assistant offered & declined Accompanied by: Daughter Allergies Seasonal Allergies Allergy (Mild, Verified 08/04/24 16:05) Unknown Medication List - Last Reconciled 08/04/24 by Tessa Light LPN albuterol sulfate 90 mcg/actuation (Ventolin HFA) 2 puffs PO Q4-6H PRN aripiprazole 15 mg PO DAILY ascorbic acid (vitamin C) (Vitamin C) 1,000 mg PO QAM betamethasone valerate 0.1% 1 appl topical BID cholecalciferol (vitamin D3) (Vitamin D3) 50 mcg PO QAM citalopram 20 mg PO QAM cyanocobalamin (vitamin B-12) 1,000 mcg PO QAM famotidine 40 mg PO DAILY fluticasone propion-salmeterol 115-21 mcg/actuation (Advair HFA) 2 puffs inhalation Q12H folic acid 0.8 mg PO QAM furosemide 40 mg PO DAILY ipratropium bromide 2 sprays intranasal BID nabumetone 750 mg PO BID omega-3 acid ethyl esters 1 cap PO BID pantoprazole 40 mg PO DAILY pregabalin 75 mg PO BID simvastatin 40 mg PO BEDTIME HPI HPI dyspnea: Details: Niraj is a pleasant 68 year old male, never smoker, with underlying asthma, cirrhosis and COREY on CPAP. He has been well controlled on Advair 115mcg and ipratropium nasal spray. He currently denies any respiratory symptoms. He denies any visits care or hospitalizations related to respiratory distress since last visit. Today he presents for routine visit. Since the last visit he has been evaluated by cardiology for evaluation of decreased exercise capacity, underwent stress test and will be following up to review results. He also notes that he will be undergoing lumbar surgery next week. [facility] Surgical History Hx of colonoscopy Hx of cholecystectomy History of esophagogastroduodenoscopy (EGD) Social History Alcohol intake: current Alcohol intake frequency: holidays/special occasions only Patient Tobacco Use Status: Never used Tobacco Review of Systems Const Denies chills, Denies excessive sweating, Denies fever(s), Denies headache(s) and Denies night sweats Eyes Denies dry eyes, Denies irritation and Denies itchy eyes ENT Reports Normal hearing present, Denies headache(s), Denies nasal congestion, Denies nasal discharge, Denies post nasal drip and Denies sore throat Card Denies chest pain, Denies chest pain at rest, Denies chest pain with activity, Denies claudication, Denies leg edema, Denies dyspnea, Denies dyspnea on exertion, Denies orthopnea and Denies paroxysmal nocturnal dyspnea Resp Denies chest congestion, Denies cough, Denies excessive phlegm production, Denies pain on inspiration, Denies pain with cough, Denies dyspnea, Denies dyspnea on exertion, Denies stridor and Denies wheezing Musc Denies myalgias Neuro Reports Normal hearing present and Denies headache(s) Endo Denies excessive sweating Daren/Lymph Denies lymphadenopathy Aller/Immun Denies itchy eyes, Denies seasonal rhinorrhea and Denies wheezing Physical Exam Vital Signs: Last Vital Signs Pulse 77 08/04/24 16:01 BP 124/72 08/04/24 16:01 Pulse Ox 98 08/04/24 16:01 Oxygen Delivery Method Room Air 08/04/24 16:01 BMI result Body Mass Index 35.0 Const General: cooperative, healthy appearing, comfortable, no acute distress, well developed and alert Nutritional Appearance: obese Orientation/consciousness: patient oriented x3 Limitations: no limitations HEENT Head: Yes normal to inspection, Yes normocephalic and Yes atraumatic Ears: hearing grossly normal bilaterally and external ears normal Eyes General: appearance normal, both eyes and all related structures Eyelids: Yes eyelids normal Sclerae: sclerae normal EOM: EOMs intact bilaterally Neck Neck: Yes normal visual inspection and Yes no lymphadenopathy Lymphatic: no lymphadenopathy noted Chest Chest palpation & inspection: normal inspection of the chest Resp Effort & Inspection: normal respiratory effort, able to speak in complete sentences, no audible wheezes, no cough, no stridor, not tachypneic, no tripod positioning and no use of accessory muscles Auscultation: clear to auscultation bilaterally Cardio Jugular venous distension: no JVD Rate: regular rate Rhythm: regular rhythm Skin Other: warm, dry General skin exam: no rashes or lesions noted Neuro General: patient oriented x3 Cranial nerves: Yes Normal hearing present Cognition (Neuro): normal cognition Gait exam (Neuro): Normal gait present Extrem General: Yes normal to inspection, Yes capillary refill normal, Yes no clubbing, cyanosis or edema and Yes no pedal edema Psych Appearance: grossly normal and well kempt Speech and movement: Normal speech and movement present and Clear speech present Affect: normal affect Attitude: cooperative Thought process: Normal thought process present Thought content: Normal thought content present Insight: Good insight present (Psych) Judgement: Good judgement present (Psych) Assessment & Plan Assessment & Plan (1) Asthma: Code(s): J45.909 - Unspecified asthma, uncomplicated Category: Medical (2) Dyspnea: Code(s): R06.00 - Dyspnea, unspecified Category: Medical (3) Allergic rhinitis: Code(s): J30.9 - Allergic rhinitis, unspecified Category: Medical Plan Niraj reports excellent control on Advair, ipratropium, requiring albuterol MDI infrequently. Advised to continue current regimen. He is aware to call if symptoms become less controlled as we enter the Spring. All questions were answered and patient is in agreement of plan. Will follow up in 3 months or sooner if needed. Medications: Refilled albuterol sulfate 90 mcg/actuation (Ventolin HFA) 2 puffs PO Q4-6H PRN 1 ea 3RF for wheezing Coding Level of Care Code Est Pt Level 3 (43259) Diagnoses Asthma J45.909 Dyspnea R06.00 Allergic rhinitis J30.9
== END 2024-08-04 16:19 | disposition home or self-care (01) ==
LOC: HO.HPSW 15:59
PROVIDERS: PCP Family Medicine; Visit Provider Nurse Practitioner Family
DX: J45.909 Unspecified asthma, uncomplicated (principal); R06.00 Dyspnea, unspecified; J30.9 Allergic rhinitis, unspecified
CPT/HCPCS: 99213

== ENCOUNTER → 2024-08-04 15:58 | Outpatient (BNVA) | payer OTHER, SELFPAY | PROVIDERS: PCP Family Medicine; Visit Provider Nurse Practitioner Family | DX: J45.909 Unspecified asthma, uncomplicated (principal); R06.00 Dyspnea, unspecified | CPT/HCPCS: 99212 ==

== ENCOUNTER 2024-10-04 11:38 | Outpatient (REF) | payer OTHER, SELFPAY ==
[2024-10-04 13:50] LABS: Hematocrit 38.9 % (42.0-52.0); Hemoglobin 12.6 g/dl (14.0-18.0); Mean Corpuscular HGB Conc 32.4 g/dl (31.0-36.0); Mean Corpuscular Hemoglobin 29.3 pg (27.0-33.0); Mean Corpuscular Volume 90.5 fL (80.0-98.0); Mean Platelet Volume 10.6 fL (9.4-12.4); Platelet Count 143 X10*3/uL (160-400); White Blood Count 6.6 X10*3/uL (4.8-10.8)
[2024-10-04 14:07] LABS: Prothrombin Time 11.8 SEC (10.9-12.4)
[2024-10-04 14:20] LABS: Alanine Aminotransferase 84 U/L (0-40); Albumin Level 4.3 g/dL (3.5-5.0); Alkaline Phosphatase 140 U/L (39-117); Anion Gap 10 (12-20); Aspartate Amino Transferase 72 U/L (5-37); Bilirubin Total 0.4 mg/dL (0.0-1.0); Blood Urea Nitrogen 21 mg/dL (9-16); Carbon Dioxide 26 mmol/L (22-29); Chloride 107 mmol/L (96-108); Estimated Glomerular Filt Rate > 60; Glucose Random 114 mg/dL (60-115); Potassium 4.1 mmol/L (3.3-5.1); Sodium 139 mmol/L (135-145); Total Protein 7.5 g/dL (6.5-8.0)
[2024-10-10 10:53] LABS: Phosphatidylethanol 16:0-18:1 NEGATIVE; Phosphatidylethanol 16:0-18:2 NEGATIVE
== END 2024-10-04 11:39 | disposition home or self-care (01) ==
LOC: HO.LAB 11:38
PROVIDERS: PCP Family Medicine; Visit Provider Internal Medicine
DX: K76.9 Liver disease, unspecified (principal); Z78.9 Other specified health status; R18.8 Other ascites; Z79.899 Other long term (current) drug therapy
CPT/HCPCS: 36415; 80053; 80321; 85027; 85610

== ENCOUNTER 2024-10-19 08:55 | Outpatient (REF) | payer OTHER, SELFPAY ==
[2024-10-19 11:35] LABS: Hematocrit 39.6 % (42.0-52.0); Hemoglobin 12.9 g/dl (14.0-18.0); Mean Corpuscular HGB Conc 32.6 g/dl (31.0-36.0); Mean Corpuscular Volume 92.1 fL (80.0-98.0); Mean Platelet Volume 10.5 fL (9.4-12.4); Platelet Count 118 X10*3/uL (160-400); Red Cell Distribution Width 14.2 % (11.0-16.0); White Blood Count 5.9 X10*3/uL (4.8-10.8)
[2024-10-19 11:47] LABS: Alanine Aminotransferase 85 U/L (0-40); Albumin Level 4.3 g/dL (3.5-5.0); Alkaline Phosphatase 137 U/L (39-117); Anion Gap 12 (12-20); Aspartate Amino Transferase 71 U/L (5-37); Bilirubin Total 0.3 mg/dL (0.0-1.0); Blood Urea Nitrogen 22 mg/dL (9-16); Calcium 9.2 mg/dL (8.4-10.2); Carbon Dioxide 24 mmol/L (22-29); Chloride 109 mmol/L (96-108); Cholesterol 149 mg/dL (<200); Estimated Glomerular Filt Rate > 60; Glucose Random 131 mg/dL (60-115); HDL Cholesterol 53 mg/dL (>40); LDL Cholesterol Calculated 76 mg/dL (<100); Potassium 3.9 mmol/L (3.3-5.1); Sodium 141 mmol/L (135-145); Total Protein 7.4 g/dL (6.5-8.0); Triglycerides 100 mg/dL (<150)
== END 2024-10-19 08:56 | disposition home or self-care (01) ==
LOC: HO.HHCL 08:55
PROVIDERS: Internal Medicine; Visit Provider Family Medicine
DX: E78.5 Hyperlipidemia, unspecified (principal); K76.9 Liver disease, unspecified; Z78.9 Other specified health status
CPT/HCPCS: 36415; 80053; 80061; 85027

== ENCOUNTER 2024-10-25 15:47 | Outpatient (REF) | payer OTHER, SELFPAY ==
--- NOTE | ~2024-10-25 | US_ITS ---
CLINICAL HISTORY: left leg pain, r o dvt Left leg venous duplex Doppler ultrasound with color and pulsed Doppler spectral analysis: Comparison: None. Findings: The deep veins of the left leg were evaluated with compression, augmentation and phasicity which are normal. Color Doppler also confirms blood flow in the deep veins. Impression: Negative for deep venous thrombosis. This document has been electronically signed by: Clay Grant MD on 10/25/2024 16:55:25
--- NOTE | ~2024-10-25 | XR_ITS ---
EXAMINATION: XR KNEE, LEFT CLINICAL INFORMATION: atraumatic left knee pain COMPARISON: None available. TECHNIQUE: AP, lateral, sunrise view of the left knee. FINDINGS: There is a joint effusion. Superior patellar marginal osteophyte is visible. Minimal osteophyte are evident along the lateral joint line. Joint spaces and straightening subtle narrowing of the medial compartment. There is mild lateral patellar tilt. XR/XR knee LT 3V IMPRESSION: Nonspecific mild joint space narrowing in the medial compartment. Joint effusion. 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
--- OUTSIDE RECORDS SUMMARY | 2024-10-25 17:54 | XMS_ITS | Encounter Summary ---
Author Organization [facility] Address [address] [place] [address] Care Team Providers Care Market Superintendent Name Role Phone Angela Curry MD Primary Care Provider [phone] Reason for Visit * Reason Onset Date Comments VCare Form 08/10/2024 FYI 08/10/2024 Encounter Details Date Type Department Care Team ([facility] st Contact Info) Description 08/10/2024 Telephone [facility] [address] [place] [address] Angela Curry MD [address] [place] [phone] VCare Form ; Social History Tobacco Use Types Packs/Day Years [...] Telephone Encounter - Danae Dunn RN - 08/18/2024 11:00 AM EDT Vcare forms re-faxed to fax number provided below. * Telephone Encounter - Kelli Napier - 08/18/2024 10:33 AM EDT Tc from Db stating Vcare doesn't receive the form. [facility]Care F. [phone] * Telephone Encounter - Kelli Napier - 08/10/2024 10:38 AM EDT Tc from Db (spouse) to report pt had lower spine surgery yesterday and need to expedite the process for Vcare services. Pt is waiting for PCP signature so that services can be approved. documented in this encounter Plan of Treatment Upcoming Encounters Date Type Department Care Team (Late st Contact Info) Description 10/23/2025 2:30 PM EDT Telemedicine [facility] [address] [place] [address] Nael Iyer, Jean-aPul [address] [place] [address] documented as of this encounter Goals Goal Patient Goal Type Associated Problems Recent Progress Patient-Stated? Author Short-term: Promote adherence to treatment regimen General No Alfred Long PharmD Take your medication every day Lifestyle No Alfred Lnog PharmD documented as of this encounter Visit Diagnoses Not on filedocumented in this encounter Additional Health Concerns Assessment Noted Time PHQ-9 Depression Total Score: 0 02/25/20 24 11:29 AM EDT documented as of this encounter Care Teams Market Superintendent Relationship Specialty Start Date End Date Angela Curry MD [address] [place] [id number] PCP - General Family Medicine 07/31/22 documented as of this encounter
== END 2024-10-25 15:48 | disposition home or self-care (01) ==
LOC: HO.US 15:47
PROVIDERS: PCP Family Medicine; Visit Provider Emergency Medicine
DX: M25.562 Pain in left knee (principal); M79.605 Pain in left leg; M79.652 Pain in left thigh
CPT/HCPCS: 73562; 93971

== ENCOUNTER → 2024-10-25 16:10 | Outpatient (BNV) | payer OTHER, SELFPAY | PROVIDERS: PCP Family Medicine; Visit Provider Radiology Diagnostic Radiology | DX: M79.605 Pain in left leg (principal); M25.462 Effusion, left knee | CPT/HCPCS: 73562; 93971 ==

== ENCOUNTER → 2024-11-14 18:03 | Outpatient (BNV) | payer OTHER, SELFPAY | PROVIDERS: PCP Family Medicine; Visit Provider Radiology Diagnostic Radiology | DX: R41.3 Other amnesia (principal); R41.82 Altered mental status, unspecified | CPT/HCPCS: 70551 ==

== ENCOUNTER 2024-11-14 18:24 | Outpatient (REF) | payer OTHER, SELFPAY ==
--- NOTE | ~2024-11-14 | MR_ITS ---
EXAMINATION: MR BRAIN WITHOUT CONTRAST CLINICAL INFORMATION: Memory loss. Change in mental status. COMPARISON: None available. TECHNIQUE: MRI of the brain was obtained using routine sequences without contrast. FINDINGS: No restricted diffusion. No acute intracranial hemorrhage, mass effect, midline shift, hydrocephalus or herniation. Valdez-white matter differentiation is normal. Posterior cranial fossa contents demonstrated no signal abnormality or mass effect. Prominence of the extra-axial CSF spaces cerebral sulci and ventricles related to volume loss. Flow-void signal within the main cerebral vessels is normal. No signal abnormality or volume loss in the hippocampi. Sellar/suprasellar region demonstrated no masses or signal abnormality. Craniocervical junction demonstrates normal position of the cerebellar tonsils. MR/MR head/brain wo con IMPRESSION: No acute or structural brain abnormality. Electronically signed by: Chandu Padron MD 11/15/2024 07:08 AM EDT
== END 2024-11-14 18:25 | disposition home or self-care (01) ==
LOC: HO.MRI 18:24
PROVIDERS: PCP Family Medicine; Visit Provider Family Medicine
DX: R41.0 Disorientation, unspecified (principal); R41.3 Other amnesia
CPT/HCPCS: 70551

== ENCOUNTER 2024-12-04 08:25 | Outpatient (REF) | payer OTHER, SELFPAY ==
--- NOTE | ~2024-12-04 | US_ITS ---
CLINICAL HISTORY: K76.9 - Liver disease, unspecified US abdomen complete with duplex and color Doppler Comparison: CT/SR - CT ABDOMEN PELVIS W IV CON - 06/27/24 17:10 EST US/NC/SR - US ABDOMEN COMPLETE - 04/04/24 09:43 EST Findings: The visualized pancreas, aorta, and are unremarkable. IVC was obscured by bowel gas. Liver normal size and mildly echogenic throughout. Right lobe 15.6 cm length. No focal hepatic masses. Common duct 5.0 mm diameter. Post cholecystectomy Main portal vein antegrade. Right kidney normal size, 11.6 cm in length. Normal cortical width and echotexture. No solid or cystic renal masses. No nephrolithiasis. No hydronephrosis. Left kidney normal, 11.7 cm in length. Normal cortical width and echotexture. No solid or cystic renal masses. No nephrolithiasis. No hydronephrosis. Spleen measures 12.0 cm. No splenic masses. No ascites. No lymphadenopathy. Impression: 1. Normal-sized liver diffusely echogenic reflecting mild diffuse hepatic steatosis or diffuse hepatocellular disease. No focal hepatic lesions. 2. Post cholecystectomy. 3. Borderline splenomegaly stable. This document has been electronically signed by: Adrian Trinidad MD on 12/04/2024 13:03:19
--- OUTSIDE RECORDS SUMMARY | 2024-12-04 08:35 | XMS_ITS | Encounter Summary ---
Author Organization [employer] Address [address] [place] [address] Care Team Providers Care Anesthesiologist Assistant Certified Name Role Phone Angela Curry MD Primary Care Provider [phone] Reason for Visit * Reason Onset Date Comments Lab Orders 06/29/2024 Encounter Details Date Type Department Care Team ([facility] st Contact Info) Description 06/29/2024 Telephone [facility] [address] [place] [address] Angela Curry MD [address] [place], [place] [phone] Lab Orders Social History Tobacco Use Types [...] 1:19 PM EDT Sexual Orientation Straight 07/31/2022 1 :19 PM EDT documented as of this encounter [...] needing it for Program. Contact pt at [phone] documented in this encounter Plan of Treatment Upcoming Encounters Date Type Department Care Team ([facility] st Contact Info) Description 12/15/2024 3:00 PM EDT Office Visit [facility] [address] [place] [address] Angela Curry MD [address] [place] [address] 01/03/2025 3:00 PM EDT Clinical Support [facility] [address] [place] [address] 10/23/2025 2:30 PM EDT Telemedicine [facility] [address] [place] [address] Nael Iyer, LienD [address] [place] [address] documented as of this encounter Goals Goal [...] documented as of this encounter Care Teams Anesthesiologist Assistant Certified Relationship Specialty Start Date End Date Angela Curry MD [address] [place] [id number] PCP - General Family Medicine 07/31/22 documented as of this encounter
--- OUTSIDE RECORDS SUMMARY | 2024-12-04 08:35 | XMS_ITS | Encounter Summary ---
Author Organization [facility] Address [address] [place] [id number] Care Team Providers Care Mechanic Assistant Name Role Phone Physician, Pcp Unknown Primary Care Provider Saba vailable Encounter Details Date Type Department Care Team (Late st Contact Info) Description 10/04/2024 Lab Requisition [facility] Lab [address] [facility] [place] [address] Kendrick Huang MD [address] [facility] [address] [place] [address] Benign essential microscopic hematuria Social History Tobacco Use Types Packs/Day Years Used Date Smoking Tobacco: Never Assessed Sex and Gender Information Value Date Recorded Sex Assigned at Not on file Legal Sex Male 2:10 PM EDT Gender Identity Not on file Sexual Orientation Not on file documented as of this encounter Plan of Treatment Not on file documented as of this encounter Procedures Procedure Name Priority Date/Time Associated Diagnosis Comments AP OUTSIDE CONSULT Routine 09/27/2024 12 :00 AM EDT Benign essential microscopic hematuria documented in this encounter Results * Anatomic pathology outside consult (09/27/2024 12:00 AM EDT) Final Diagnosis A. Urine, Voided, [id number]: Negative for high grade urothelial carcinoma. Results of UroVysion fluorescence in situ hybridization (FISH) testing: CEP3: Normal CEP7: Normal CEP17: Normal LSI 9p21: Normal Interpretation: Normal profile Controls stained appropriately. Note: The results are intended as a screening device and should be interpreted in association with other clinical and pathological findings. 10/18/2024 3:48 PM EDT [facility] Clinical Information Benign essential microscopic hematuria R31.1 Urine Cytology/FISH (now) 10/18/2024 3:48 PM EDT [facility] Gross Description A. Urine, Voided, [id number]: Received one ThinPrep slide for cytology and one ThinPrep slide for UroVysion FISH 10/18/2024 3:48 PM EDT [facility] Disclaimer Unless otherwise specified, all tissue is 10% NB formalin fixed and paraffin embedded. Technical pathology services provided by [facility] at [address] [facility] [address], [place] [address] (CLIA #[id number]/Eloina Jason MD, Stator Plate Washer) 10/18/2024 3:48 PM EDT [facility] Tissue Urine specimen from urethra / Unknown 09/27/2024 10/04/2024 2:15 PM EDT us Kendrick Huang MD LAB PATHOLOGY ORDERABLES Fi nal Result [facility] [address] [place] [address], documented in this encounter Visit Diagnoses Diagnosis Benign essential microscopic hematuria documented in this encounter Care Teams Mechanic Assistant Relationship Specialty Start Date End Date Physician, Pcp Unknown PCP - General 10/04/24 documented as of this encounter
[2024-12-04 09:44] LABS: Hematocrit 37.0 % (42.0-52.0); Hemoglobin 12.2 g/dl (14.0-18.0); Mean Corpuscular HGB Conc 33.0 g/dl (31.0-36.0); Mean Corpuscular Hemoglobin 29.9 pg (27.0-33.0); Mean Corpuscular Volume 90.7 fL (80.0-98.0); NRBC Abs Auto 0.000 X10*3/uL (0.0-0.012); NRBC Pct Auto 0.0 /100WBC (0.0-0.2); Platelet Count 112 X10*3/uL (160-400); Red Blood Count 4.08 X10*6/uL (4.60-5.80); White Blood Count 4.8 X10*3/uL (4.8-10.8)
[2024-12-04 10:49] LABS: Microalbum/Creatinine Ratio Ur 3.4 ug/mg cr (<30)
[2024-12-04 10:53] LABS: Alanine Aminotransferase 115 U/L (0-40); Albumin Level 4.0 g/dL (3.5-5.0); Alkaline Phosphatase 181 U/L (39-117); Anion Gap 12 (12-20); Aspartate Amino Transferase 92 U/L (5-37); Blood Urea Nitrogen 22 mg/dL (9-16); Calcium 8.8 mg/dL (8.4-10.2); Carbon Dioxide 24 mmol/L (22-29); Chloride 110 mmol/L (96-108); Estimated Glomerular Filt Rate > 60; Potassium 3.9 mmol/L (3.3-5.1); Sodium 142 mmol/L (135-145); Total Protein 6.9 g/dL (6.5-8.0)
[2024-12-04 11:00] LABS: Syphilis Screen Nonreactive (Nonreactive)
[2024-12-04 11:16] LABS: Folate 14.0 ng/mL (> or = 4.0); Vitamin B12 927 pg/mL (200-900)
[2024-12-05 23:23] LABS: Lyme Abs Screen <0.90 index
== END 2024-12-04 08:26 | disposition home or self-care (01) ==
LOC: HO.US 08:25
PROVIDERS: PCP Family Medicine; Visit Provider Internal Medicine
DX: K76.9 Liver disease, unspecified (principal); E11.9 Type 2 diabetes mellitus without complications; R25.1 Tremor, unspecified; R41.3 Other amnesia; Z11.3 Encounter for screening for infections with a predominantly sexual mode of transmission; Z01.84 Encounter for antibody response examination
CPT/HCPCS: 36415; 76700; 80053; 82043; 82248; 82390; 82570; 82607; 82746; 84443; 85027; 86617; 86618; 86780

== ENCOUNTER → 2024-12-04 08:28 | Outpatient (BNV) | payer OTHER, SELFPAY | PROVIDERS: PCP Family Medicine; Visit Provider Radiology Diagnostic Radiology | DX: K76.9 Liver disease, unspecified (principal) | CPT/HCPCS: 76700 ==

== ENCOUNTER 2024-12-11 12:29 | Outpatient (AMB) | payer OTHER, SELFPAY ==
[2024-12-11 12:34] VITALS: BP 144/68; PULSE 96; BMI 35.6
--- NOTE | 2024-12-11 12:34 | MHC.OFFVIS ---
Vital Signs 12/11/24 12:34 Height 5 ft 6 in Weight 220 lb 7.396 oz BMI 35.6 BP 144/68 H Blood Pressure Location Lt brachial Position Sitting Pulse 96 Intake Visit Reasons: r/s 10/26/24 3 mos followup/mibi Intake Note: 3 month follow-up after MIBI feeling good Ball Ender Required: Yes Ball Ender Services: Ball Ender Offered & Declined Service Center Specialist: Service Center Specialist Present Accompanied by: Daughter Allergies Seasonal Allergies Allergy (Mild, Verified 10/04/24 11:48) Unknown Medication List - Last Reconciled 12/11/24 by Levi Robison MD albuterol sulfate 90 mcg/actuation (Ventolin HFA) 2 puffs PO Q4-6H PRN amitriptyline mg PO DAILY PRN aripiprazole 15 mg PO DAILY ascorbic acid (vitamin C) (Vitamin C) 1,000 mg PO QAM betamethasone valerate 0.1% 1 appl topical BID cholecalciferol (vitamin D3) (Vitamin D3) 50 mcg PO QAM citalopram 20 mg PO QAM cyanocobalamin (vitamin B-12) 1,000 mcg PO QAM famotidine 40 mg PO DAILY fluticasone propion-salmeterol 115-21 mcg/actuation (Advair HFA) 2 puffs inhalation Q12H folic acid 0.8 mg PO QAM furosemide 40 mg PO DAILY ipratropium bromide 2 sprays intranasal BID metformin ER 500 mg PO DAILY nabumetone 750 mg PO BID omega-3 acid ethyl esters 1 cap PO BID pantoprazole 40 mg PO DAILY pregabalin 75 mg PO BID simvastatin 40 mg PO BEDTIME HPI Comments Details: Niraj comes for follow up after stress testing. He is accompanied by his daughter who acts as restaurant busser. . He underwent a vasodilating myocardial perfusion imaging in July which was within normal limits. He is not limited in walking due to the left knee issues and currently waiting to see orthopedic. He walks with the help of a walker. He denies any orthopnea, PND, leg edema. No change or worsening shortness of breath. No chest pain. Blood pressure at home in his usually well optimized. PFSH Surgical History Hx of colonoscopy Hx of cholecystectomy History of esophagogastroduodenoscopy (EGD) Social History Alcohol intake: current Alcohol intake frequency: holidays/special occasions only Patient Tobacco Use Status: Never used Tobacco Review of Systems Const Denies chills, Denies fatigue, Denies fever(s), Denies frequent falls, Denies weakness, Denies weight gain and Denies weight loss ENT Denies dizziness Card Denies chest pain, Denies leg edema, Denies lightheadedness, Denies palpitations, Denies dyspnea, Denies dyspnea on exertion, Denies orthopnea and Denies other (loss of consciousness) Resp Denies cough, Denies dyspnea and Denies dyspnea on exertion GI Denies hematochezia and Denies change in stool character Musc Denies abnormal gait, Denies muscle weakness, Denies numbness, Denies radiating pain into limb and Denies tingling Neuro Denies Abnormal speech present, Denies abnormal gait, Denies dizziness, Denies frequent falls, Denies numbness, Denies tingling and Denies weakness Endo Denies fatigue and Denies palpitations Physical Exam Vital Signs: Last Vital Signs Pulse 96 12/11/24 12:34 BP 144/68 H 12/11/24 12:34 BMI result Body Mass Index 35.6 Const General: cooperative, comfortable, no acute distress, alert and awake Nutritional Appearance: obese and overweight Orientation/consciousness: patient oriented x3 Limitations: ambulation with walker HEENT Head: Yes normocephalic and Yes atraumatic Neck Neck: Yes trachea midline, Yes supple and Yes no JVD Resp Effort & Inspection: normal respiratory effort Auscultation: clear to auscultation bilaterally Cardio Jugular venous distension: no JVD Palpation: normal PMI Rate: regular rate Rhythm: regular rhythm Heart sounds: S1 normal heart sound present, S2 normal heart sound present, no click, no gallops, no murmurs and no rubs GI Inspection: Yes obesity Auscultation: normal bowel sounds Skin General skin exam: no rashes or lesions noted Neuro General: patient oriented x3 and no focal motor deficits Speech: No Abnormal speech present Extrem General: Yes no clubbing, cyanosis or edema Psych Appearance: grossly normal Assessment & Plan Assessment & Plan (1) Dyspnea: Code(s): R06.00 - Dyspnea, unspecified Category: Medical Plan: Exertional shortness of breath or signs or symptoms of heart failure. Myocardial perfusion imaging as echocardiogram within normal limits. On his shortness of breath is not cardiac in nature. Suggest other workup. Possibly related to weight and deconditioning. Continue aggressive blood pressure control. Continue current therapy. Advised to monitor blood pressure and maintain a log. Will follow up in the clinic if need be. Coding Level of Care Code Est Pt Level 3 (94235) Complex EM visit Add On G2211 Diagnoses Dyspnea R06.00
--- OUTSIDE RECORDS SUMMARY | 2024-12-11 12:58 | XMS_ITS | Encounter Summary ---
Author Organization [facility] Address [address] [place] [phone] Care Team Providers Care Executive Community Planning Name Role Phone Physician, Pcp Unknown Primary Care Provider Saba vailable Encounter Details Date Type Department Care Team (Late st Contact Info) Description 10/04/2024 Lab Requisition [facility] Lab [address] [facility] [place] [address] Kendrick Huang MD [address] [facility] [address] [place] [address] Benign essential microscopic hematuria Social History Tobacco [...] AM EDT) Final Diagnosis A. Urine, Voided, [id number]: Negative for high grade urothelial carcinoma. Results of UroVysion fluorescence in situ hybridization (FISH) testing: CEP3: Normal CEP7: Normal CEP17: Normal LSI 9p21: Normal Interpretation: Normal profile Controls stained appropriately. Note: The results are intended as a screening device and should be interpreted in association with other clinical and pathological findings. 10/18/2024 3:48 PM EDT [facility] Clinical Information Benign essential microscopic hematuria R31.1 Urine Cytology/FISH (now) 10/18/2024 3:48 PM EDT [facility] Gross Description A. Urine, Voided, [id number]: Received one ThinPrep slide for cytology and one ThinPrep slide for UroVysion FISH 10/18/2024 3:48 PM EDT [facility] Disclaimer Unless otherwise specified, all tissue is 10% NB formalin fixed and paraffin embedded. Technical pathology services provided by [facility] at [address] [facility] [address], [place] [address] (CLIA #[id number]/Eloina Jason MD, Triage Assistant) 10/18/2024 3:48 PM EDT [facility] Tissue Urine specimen from urethra / Unknown 09/27/2024 10/04/2024 2:15 PM EDT us Kendrick Huang MD LAB PATHOLOGY ORDERABLES Fi nal Result [facility] [address] [place] [address], documented in this encounter Visit Diagnoses Diagnosis Benign essential microscopic hematuria documented in this encounter Care Teams Executive Community Planning Relationship Specialty Start Date End Date Physician, Pcp Unknown PCP - General 10/04/24 documented as of this encounter
--- OUTSIDE RECORDS SUMMARY | 2024-12-11 12:58 | XMS_ITS | Encounter Summary ---
Author Organization [employer] Address [address] [facility] [address] [place] [address] Care Team Providers Care Supervisor Shipfitters Name Role Phone Angela Curry MD Primary Care Provider [phone] Reason for Visit * Reason Onset Date Comments Lab Orders 06/29/2024 Encounter Details Date Type Department Care Team ([facility] st Contact Info) Description 06/29/2024 Telephone [facility] MEDICINE [address] [place] [address] Angela Curry MD [address] [place], [place] [phone] Lab Orders Social History Tobacco Use Types [...] needing it for Program. Contact pt at [phone] documented in this encounter Plan of Treatment Upcoming Encounters Date Type Department Care Team ([facility] st Contact Info) Description 12/15/2024 3:00 PM EDT Office Visit [facility] MED & PEDS [address] [place] [address] Angela Curry MD [address] [place] [address] 01/03/2025 3:00 PM EDT Clinical Support [facility] MED & PEDS [address] [place] [address] 10/23/2025 2:30 PM EDT Telemedicine [facility] MEDICINE [address] [place] [address] Nael Iyer, LienD [address] [place] [address] documented as of this encounter Goals Goal [...] documented as of this encounter Care Teams Supervisor Shipfitters Relationship Specialty Start Date End Date Angela Curry MD [address] [place] [id number] PCP - General Family Medicine 07/31/22 documented as of this encounter
== END 2024-12-11 13:05 | disposition home or self-care (01) ==
LOC: HO.HCS 12:30
PROVIDERS: PCP Family Medicine; Visit Provider Internal Medicine Cardiovascular Disease
DX: R06.00 Dyspnea, unspecified (principal)
CPT/HCPCS: 99213; G2211

== ENCOUNTER → 2024-12-11 12:29 | Outpatient (BNVA) | payer OTHER, SELFPAY | PROVIDERS: PCP Family Medicine; Visit Provider Internal Medicine Cardiovascular Disease | DX: Z71.2 Person consulting for explanation of examination or test findings (principal); R06.00 Dyspnea, unspecified | CPT/HCPCS: 99212 ==

== ENCOUNTER 2025-01-03 10:14 | Outpatient (AMB) | payer OTHER, SELFPAY ==
--- NOTE | 2025-01-03 10:22 | MHC.OFFVIS ---
Vital Signs 01/03/25 10:31 Height 5 ft 6 in Weight 219 lb BMI 35.3 BP 133/50 L Blood Pressure Location Lt brachial Position Sitting Pulse 83 Pulse Oximetry (%) 96 Oxygen Delivery Method Room Air Intake Visit Reasons: 6 mo f/u Intake Note: Patient 6 month follow up for Patient cc: abdominal bloating, with chronic daily constipation, also hx of hemorrhoids. Denies any other GI issue fr today. Certified Income Tax Preparer Required: Yes Certified Income Tax Preparer Name: [facility] interpeter Accompanied by: Family/Other Allergies Seasonal Allergies Allergy (Mild, Verified 01/03/25 10:22) Unknown HPI Comments Details: 67y.o M with PMH of recently diagnosed cirrhosis of ? etiology for which he is here for follow up. 11/09/22: Pt here with his and daughter. Reports that last year he underwent a CCY, from their description it sounds like he then also had a bile leak secondary to CBD stone which was removed post cholecystectomy. During this hospitalisation he was told he likely has cirrhosis. However pt does not recall seeing a tombstone polisher for furhter care. He has remote hx of drinking in his teenage. No current or previous IVDU. No fam hx of chronic liver diseases including iron or copper disorders, early COPD or neuropsychiatric disorders. No fam hx of HCC. Pt does not have DM or HLD that he is aware of. He has never had CRC screening. 12/07/22: Here with . Seen with kettle operator. Apart from R sided abdominal pain and discomfort at the site of CCY, no new gastrointestinal complaints. Labs reviewed and are reassuring for normal INR and platelet count. Elastography done but report pending. 03/11/23: EGD/colo 1. Normal esophagus 2. Normal stomach 3. Peptic duodenitis (biopsy) 4. Normal colon and terminal ileum mucosa 5. Internal hemorrhoids 6. 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 Has no gastrointestinal complaints. Findings of EGD/colo reviewed with the pt. Previously reported no etOH use but today reports that he in fact continues to drink beer daily, also has whiskey on weekends when he's meeting with friends and family. 09/29/23: Here for routine 6m follow up. Cont to intermittently drink but has cut down significantly. Reports drinking may be once a month now. Main complaint today is shortness of breath with sensation of phlegm stuck in his throat. Otherwise no abd oain, distention, pruritus. US Abd 06/10/23: Hepatic parenchymal increased echogenicity consistent with fatty infiltration. Fib-4 score 2.52. 03/29/24: Here for routine 6 month follow up. Reports for the past 2 weeks has been having R sided abd pain that radiates to the L side. Has also been noticing increase in abd girth x 4 weeks. Pt was due for US which was sid for 01/11 but pt missed appt - reports never got a phone call. Was seen by PCP and started lasix for possible ascites. Also sid for US Abd next week. 04/12/24: Seen for follow-up. Reports further increase of 1inch in his waist in the past 4 weeks. Ultrasound done, but read is pending. Otherwise, does not report any abdominal pain, shortness of breath, chest pain, lightheadedness. 10/04/24: Was lost to follow up last year. Reports no active issues such as abd pain, N,V. 01/03/25: Here for follow up after 3 months. Here with and daughter. Reports no abd pain, nausea and vomiting. Main complaint is increase in abdominal girth. Weight is stable. No ascites on US. Spironolactone was switched to furosemide. Also reports L leg swelling. US duplex from october without DVT. No sleep wake disturbance. However is getting tremors and being evaluated by Neuro for ? parkinsons. PFSH Surgical History Hx of colonoscopy Hx of cholecystectomy History of esophagogastroduodenoscopy (EGD) Social History Alcohol intake: current Alcohol intake frequency: holidays/special occasions only Patient Tobacco Use Status: Never used Tobacco Review of Systems Const All systems reviewed & are unremarkable except as noted in HPI and below Physical Exam Exam Exam: No apparent distress Nonicteric Abdomen soft, distended, no shifting dullness Alert and oriented x3, normal gait Vital Signs: Last Vital Signs Pulse 83 01/03/25 10:31 BP 133/50 L 01/03/25 10:31 Pulse Ox 96 01/03/25 10:31 Oxygen Delivery Method Room Air 01/03/25 10:31 BMI result Body Mass Index 35.3 Assessment & Plan Assessment & Plan (1) Chronic liver disease: Code(s): K76.9 - Liver disease, unspecified Category: Medical Plan Has evidence of advanced fibrosis based on Fib-4 and elastography. No definite CSPH appreciated based on work up so far including upper endoscopy. However pt was strongly counseled to stop drinking to avoid progression of liver disease. MELD Na 6 on most recent labs. Currenlt no evidence of ascites or HE clinically. Supportive family who is accompanying him to office as well. Plan: - No ascites or HE on exam - US Abd due in May 2025 for HCC screening - EGD for variceal screening due fall 2025 - Regular weights - pt to call office for weight gain 5 lbs in a week - No indication for referral to liver transplant at present - Pt with assymetric LLE swelling - recommend discussing work up for venous insufficiency with PCP Follow up 6 months - labs due before next visit Orders: Orders Complete Blood Count no Diff 6 Months K74.60 - Unspecified cirrhosis of liver Comprehensive Met. Panel 6 Months K74.60 - Unspecified cirrhosis of liver Prothrombin Time INR 6 Months K74.60 - Unspecified cirrhosis of liver Coding Level of Care Code Est Pt Level 5 (02194) Complex EM visit Add On G2211 Diagnoses Chronic liver disease K76.9
[2025-01-03 10:31] VITALS: BP 133/50; PULSE 83; O2SAT 96; BMI 35.3
--- OUTSIDE RECORDS SUMMARY | 2025-01-03 11:02 | XMS_ITS | Encounter Summary ---
Author Organization [employer] Address [address] [facility] [address] [place] [address] Care Team Providers Care Corporate Giving Manager Name Role Phone Angela Curry MD Primary Care Provider [phone] Reason for Visit * Reason Onset Date Comments VCare Form 08/10/2024 FYI 08/10/2024 Encounter Details Date Type Department Care Team ([facility] st Contact Info) Description 08/10/2024 Telephone [facility] MEDICINE [address] [place] [address] Angela Curry MD [address] [place] [phone] VCare Form ; Social History Tobacco Use [...] Vcare doesn't receive the form. VCare F. [phone] * Telephone Encounter - Kelli Napier - 08/10/2024 10:38 AM EDT Tc from Db (spouse) to report pt had lower spine surgery yesterday and need to expedite the process for Vcare services. Pt is waiting for PCP signature so that services can be approved. documented in this encounter Plan of Treatment Upcoming Encounters Date Type Department Care Team (Late st Contact Info) Description 01/03/2025 3:00 PM EDT Clinical Support [facility] MED & PEDS [address] [place] [address] 02/28/2025 10:45 AM EDT Office Visit [facility] MED & PEDS [address] [place] [address] Angela Curry MD [address] [place] [address] 10/23/2025 2:30 PM EDT Telemedicine [facility] MEDICINE [address] [place] [address] Nael Iyer, PharmD [address] [place] [address] documented as of this encounter Goals Goal [...] as of this encounter Care Teams Corporate Giving Manager Relationship Specialty Start Date End Date Angela Curry MD [address] [place] [address] PCP - General Family Medicine 07/31/22 documented as of this encounter
--- OUTSIDE RECORDS SUMMARY | 2025-01-03 11:02 | XMS_ITS | Encounter Summary ---
Author Organization [employer] Address [address] [facility] [address] [place] [address] Care Team Providers Care Dicer Operator Name Role Phone Angela Curry MD Primary Care Provider [phone] Reason for Visit * Reason Onset Date Comments Prior Authorization 11/15/2024 Encounter Details Date Type Department Care Team ([facility] st Contact Info) Description 11/15/2024 Telephone [facility] MEDICINE [address] [place] [address] Angela Curry MD [address] [place] [address] Prior Authorization Social History Tobacco Use Types Packs/Day Years [...] encounter Miscellaneous Notes * Telephone Encounter - Obdulia Crooks LPN - 11/15/2024 11:02 AM EDT No Pa needed insurance require ONE Touch device and supply. Queued to PCP Tc from [facility] ( pt gaver verbal permission to speak with her) reports PA required for Blood Glucose Monitoring Suppl (FreeStyle [place] Lite) w/Device kit * Telephone Encounter - Khoa Louise - 11/15/2024 10:51 AM EDT Tc from [facility] ( pt gaver verbal permission to speak with her) reports PA required for Blood Glucose Monitoring Suppl (FreeStyle [place] Lite) w/Device kit documented in this encounter Plan of Treatment Upcoming Encounters Date Type Department Care Team (Late st Contact Info) Description 01/03/2025 3:00 PM EDT Clinical Support [facility] MED & PEDS [address] [place] [address] 02/28/2025 10:45 AM EDT Office Visit [facility] MED & PEDS [address] [place] [address] Angela Curry MD [address] [place] [address] 10/23/2025 2:30 PM EDT Telemedicine [facility] MEDICINE [address] [place] [address] Nael Iyer, LienD [address] [place] [address] documented as of this encounter Goals Goal [...] documented as of this encounter Care Teams Dicer Operator Relationship Specialty Start Date End Date Angela Curry MD [address] [place] [address] PCP - General Family Medicine 07/31/22 documented as of this encounter
--- OUTSIDE RECORDS SUMMARY | 2025-01-03 11:02 | XMS_ITS | Encounter Summary ---
Author Organization [employer] Address [address] [place] [address] Care Team Providers Care Medical Case Worker Name Role Phone Angela Curry MD Primary Care Provider [phone] Reason for Visit * Reason Comments Med Refill Encounter Details Date Type Department Care Team ([facility] st Contact Info) Description 12/31/2024 Refill [facility] MEDICINE [address] [place] [address] Angela Curry MD [address] [place], [place] [phone] Social History Tobacco Use Types Packs/Day Years [...] your housing situation today? I have jerod rudi 02/25/[address] you li [...] Description 01/03/2025 3:00 PM EDT Clinical Support [facility] MED & PEDS [address] [place] [address] 02/28/2025 10:45 AM EDT Office Visit [facility] MED & PEDS [address] [place] [address] Angela Curry MD [address] [place] [address] 10/23/2025 2:30 PM EDT Telemedicine [facility] MEDICINE [address] [place] [address] Nael Iyer PharmD [address] [place] [address] documented as of this encounter Goals Goal [...] documented as of this encounter Care Teams Medical Case Worker Relationship Specialty Start Date End Date Angela Curry MD [address] [place] [address] PCP - General Family Medicine 07/31/22 documented as of this encounter
--- OUTSIDE RECORDS SUMMARY | 2025-01-03 11:02 | XMS_ITS | Clinical Summary ---
Author Organization [employer] Address [address] [place] [address] Care Team Providers Care Game Design Instructor Name Role Phone Angela Curry MD Primary Care Provider [phone] Allergies No known active allergies Medications albuterol 108 (90 Base) MCG/ACT inhaler INHALE 2 PUFFS EVERY 4 HOURS IF NEEDED FOR WHEEZING. 18 g 11 05/05/20 23 Active betamethasone valerate (Valisone) 0.1 % creamIndications: [...] per day. 1 kit 04/14/20 24 Active folic acid (Folvite) 800 MCG tabletIndications :Alcohol use TAKE 1 TABLET BY MOUTH EVERY MORNING 90 tablet 1 06/20/19 25 Active citalopram (CeleXA) 20 MG tabletIndications [...] BY MOUTH AT BEDTIME 90 tablet 1 09/22/19 25 Active furosemide (Lasix) 40 MG tablet TAKE 1 TABLET BY MOUTH EVERY MORNING 90 tablet 1 09/22/19 25 Active tamsulosin (Flomax) 0.4 MG 24 hr capsule Take 0.4 mg by mouth in the evening. 09/28/19 25 Active D3 Super Strength 50 MCG (2000 UT) capsule TAKE 1 CAPSULE BY MOUTH EVERY MORNING 120 capsule 3 10/13/19 25 Active nabumetone (Relafen) 750 MG tabletIndications :Arthritis TAKE 1 TABLET BY MOUTH TWICE DAILY 60 tablet 10/14/19 25 Active Ascorbic Acid (vitamin C) 500 MG tablet Take 2 tablets (1,000 mg) by mouth Once per day. TAKE 2 TABLETS BY MOUTH ONCE DAILY IN THE MORNING 180 tablet 1 10/20/19 25 Active cyanocobalamin (Vitamin B-12) 1000 MCG tabletIndications :Alcohol use Take 1 tablet (1,000 mcg) by mouth in the morning. 90 tablet 1 10/20/19 25 Active pantoprazole (ProtoNix) 40 MG EC tabletIndications :Gastroesophageal reflux disease, unspecified whether esophagitis present Take 1 tablet (40 mg) by mouth before breakfast. 90 tablet 1 10/20/19 25 Active FREESTYLE LITE test strip Use to test blood sugar BID 100 each 12 11/07/19 25 2025 Active Blood Glucose Monitoring Suppl (FreeStyle Fontana Lite) w/Device kit Use to test blood sugar BID times daily 1 kit 11/07/19 25 Active pregabalin (Lyrica) 75 MG capsule TAKE 1 CAPSULE BY MOUTH TWICE DAILY IN THE MORNING AND IN THE EVENING 60 capsule 2 11/10/19 25 Active glucose blood (Accu-Chek Guide Test) test stripIndications: Type 2 diabetes mellitus without complication, unspecified whether custodial insulin use ([facility]) Please check once daily at breakfast 100 each 12 11/24/19 25 2025 Active Lancets miscIndications:T ype 2 diabetes mellitus without complication, 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 1 kit 11/24/19 Active ARIPiprazole (Abilify) 15 MG tablet TAKE 1 TABLET BY MOUTH EVERY MORNING 90 tablet 1 12/09/19 25 Active Fluocinolone Acetonide Scalp 0.01 % oilIndications:Se bopsoriasis APPLY TO THE AFFECTED AREA(S) TWICE A WEEK IN THE EVENING 118.28 mL 3 12/16/19 25 Active ammonium lactate (Amlactin) 12 % cream Apply topically if needed for dry skin. 400 g 2 12/16/19 25 2025 Active lidocaine (Lidoderm) 5 % patchIndications: Acute pain of left knee,Left leg pain,Acute pain of left thigh Apply 1 patch topically Once per day. Remove & discard patch within 12 hours or as directed by MD. 90 patch 2 12/16/19 Active metFORMIN XR (Glucophage-XR) 500 MG 24 hr tablet TAKE 1 TABLET BY MOUTH EVERY EVENING 30 tablet 1 01/02/20 25 Active Fluocinolone Acetonide Scalp (Fox-Smoothe/FS Scalp) 0.01 % oilIndications:Se bopsoriasis To use 2 times a week at night. 118 mL 3 07/12/19 25 2024 Discontinued lidocaine (Lidoderm) 5 % patchIndications: Acute pain of left knee,Left leg pain,Acute pain of left thigh Apply 1 patch topically Once per day. Remove & discard patch within 12 hours or as directed by MD. 30 patch 2 10/26/19 25 2024 Discontinued(R eorder (will not trigger notification to Pharmacy)) metFORMIN, OSM, (Fortamet) 500 MG 24 hr tablet Take 1 tablet (500 mg) by mouth with evening meal. Do not crush, chew, or split. 30 tablet 1 11/07/19 25 2024 Discontinued ARIPiprazole (Abilify) 15 MG tablet TAKE 1 TABLET BY MOUTH EVERY MORNING 30 tablet 2 11/10/19 25 2024 Discontinued Active Problems Problem Noted Date Diagnosed Date Xerosis of skin 12/15/2024 Tremors of nervous system 11/03/2024 Assessment & Plan (11/03/2024 2:16 PM EDT): Patient reports increased hand tremors and involuntary movements, particularly noticeable in the mornings. Tremors are present in both hands. Handwriting has not changed significantly. Differential diagnoses include copper deficiency, thyroid dysfunction, and neurological conditions. Plan: - Order laboratory tests: - Copper levels - Thyroid function tests - Lyme disease test - Syphilis test - Referral to neurologist at [facility] for evaluation of tremors Acute pain of left knee 11/03/2024 Assessment & Plan (11/03/2024 2:16 PM EDT): Patient reports left knee pain that started on October 21 and has persisted for two weeks. The pain [place] Patient was seen in the emergency room to rule out a blood clot, which was negative. Currently using lidocaine patches and Relafen for pain management with slight improvement. An MRI of the knee is needed to evaluate for potential ligament damage. Plan: - Continue Relafen twice daily - Continue lidocaine patches every 12 hours - Referral to orthopedist on November 28 - Hold PT referral pend ortho recs and MRI results - Order MRI of left knee to r/o ligament involvement Class 1 obesity 10/06/2024 Abnormal gait 04/14/2024 Abnormality of gait and [...] do not improve and fu with PCP. Bilateral leg cramps 01/17/2024 Claudication of both lower extremities Assessment & Plan (01/17/2024 11:21 AM EDT): Ordering Vascular US for further evaluation of Sx. A vague feeling of discomfort 07/13/2023 Wheezing 04/13/2023 Assessment & Plan (07/13/2023 9:29 [...] being seen by psychiatrist yet or received SALES AND TRAINING SPECIALIST services. Will discontinue haldol and start on abilify. Assessment & Plan (08/05/2022 1:24 PM EDT): Patient needs formal psychiatry followup, referral was placed and also will send medications for now. He needs VNA services to assist with medication compliance and also will need SALES AND TRAINING SPECIALIST service to assist with ADLs/IADLs that need help. Vitamin D deficiency 08/05/2022 Hyperlipidemia 08/05/2022 Gastroesophageal reflux disease 08/05/2022 Assessment & Plan (01/17/2024 11:21 AM EDT): Continue on current medications. Arthritis 08/05/2022 Anxiety 08/05/2022 Assessment & Plan (07/13/2023 9:30 PM EST): Refilled Citalopram Psoriasis 08/05/2022 Polypharmacy 07/31/2022 Resolved Problems Problem Noted Date Diagnosed Date Resolved Date Unstable gait 02/25/2024 11/03/2024 Upper respiratory tract infection 04/13/2023 11/03/2024 Encounters Date Type Department Care Team Description 12/31/2024 Refill [facility] [address] [place] [address] Angela Curry MD 12/15/2024 3:00 PM EDT Office Visit [facility] [address] [place] [address] Angela Curry MD Xerosis of skin (Primary Dx); Acute pain of left knee; Left leg pain; Acute pain of left thigh 12/15/2024 Travel 12/15/2024 Refill [facility] [address] [place] [address] Rocky Cruz MD 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 Refill [facility] [address] [place] [address] Angela Curry MD 12/06/2024 Results Follow-Up [facility] [address] [place] [address] Angela Curry MD Hepatic Function Panel, Vitamin B12/Folate, Serum Panel, Albumin, Random Urine W/Creatinine 12/04/2024 Orders Only GENERIC EXTERNAL DATA DEPARTMENT Provider, Generic External Data 11/28/2024 1:15 PM EDT Clinical Support [facility] [address] [place] [address] Amalia Duran, RN Type 2 diabetes mellitus without complication, unspecified whether custodial insulin use ([facility]) 11/28/2024 Travel 11/22/2024 Telephone [facility] [address] [place] [address] Angela Curry MD 11/16/2024 1:00 PM EDT Clinical Support [facility] [address] [place] [address] Amalia Duran, RN Tremors of nervous system [R25.1] 11/16/2024 Travel 11/15/2024 Telephone [facility] [address] [place] [address] Angela Curry MD Referral 11/15/[address] [address] Angela Curry MD Prior Authorization 11/15/2024 Results Follow-Up [facility] [address] [place] [address] Angela Curry MD MR Brain w/o Contrast 11/09/2024 Refill [facility] [address] [place] [address] Rocky Cruz MD 11/08/2024 Telephone [facility] [address] [place] [address] Angela Curry MD requesting call back 11/06/[address] [address] Angela Curry MD Nurse Triage 11/03/2024 10:45 AM EDT Office Visit [facility] [address] [place] [address] Angela Curry MD Tremors of nervous system (Primary Dx); Prediabetes; Acute pain of left knee; Confusion; Memory deficit 11/03/2024 Travel 11/02/2024 Telephone [facility] [address] [place] [address] Angela Curry MD Nurse Triage 11/01/2024 Telephone [facility] [address] [place] [phone] Vidal Morrison MD Paperwork/Forms 10/31/[address] [address] Angela Curry MD Nurse Triage 10/27/[address] [address] Angela Curry MD Nurse Triage 10/27/2024 Results Follow-Up [facility] [address] [place] [address] Angela Curry MD CBC, Lipid Panel, Standard 10/25/2024 3:00 PM EDT Office Visit [facility] [address] [place] [address] Vidal Morrison MD Acute pain of left knee (Primary Dx); Left leg pain; Acute pain of left thigh 10/25/2024 Orders Only [facility] [address] [address] Vidal Morrison MD 10/25/[address] [address] Angela Curry MD Nurse Triage 10/19/2024 Orders Only GENERIC EXTERNAL DATA DEPARTMENT Provider, Generic External Data 10/18/2024 Refill [facility] [address] [place] [address] Angela Curry MD Alcohol use; Gastroesophageal reflux disease, unspecified whether esophagitis present 10/17/2024 2:30 PM EDT Telemedicine [address] [address] Marissa Shook, LienD Polypharmacy (Primary Dx); Neuropathy; Hyperlipidemia, unspecified hyperlipidemia type 10/13/2024 Refill [facility] [address] [place] [address] Angela Curry MD Arthritis 10/12/2024 Refill [facility] [address] [place] [address] Angela Curry MD 10/09/2024 Telephone [facility] [address], [place] [phone] Angela Curry MD Referral 10/09/2024 Telephone [facility] [address], [place] [phone] Angela Curry MD 10/04/2024 Orders Only GENERIC EXTERNAL DATA DEPARTMENT Provider, Generic External Data from Last 3 Months Immunizations Immunization Administration Dates Next Due Influenza High-dose Quadrivalent [...] the past 12 months, has t he [employer], gas, oil or water company threatened to [...] Sign Reading Time Taken Comments Blood Pressure 126/78 12/15/2024 3:09 PM EDT Pulse 76 12/15/2024 3:09 PM EDT Temperature 36.9 C (98.4 F) 12/15/2024 3:09 PM EDT Respiratory Rate 18 12/15/2024 3:09 PM EDT Oxygen Saturation 97% 12/15/2024 3:09 PM EDT Inhaled Oxygen Concentration - - Weight 100 kg (220 lb 9.6 oz) 12/15/2024 3:09 PM EDT Height 167.6 cm (5' 6 ) 12/15/2024 3:09 PM EDT Body Mass Index 35.61 12/15/2024 3:09 PM EDT Plan of Treatment Upcoming Encounters Date Type Department Care Team (Late st Contact Info) Description 01/03/2025 3:00 PM EDT Clinical Support [facility] [address] [place] [address] 02/28/2025 10:45 AM EDT Office Visit [facility] [address] [place] [address] Angela Curry MD [address] [place] [address] 10/23/2025 2:30 PM EDT Telemedicine [facility] [address], [place] [phone] Nael Iyer, PharmD [address] [place], [place] [phone] Health Maintenance Due Date Last Done Comments CT Colonography 1955 FIT DNA/Cologuard 1955 FIT 1955 FOBT 1955 Sigmoidoscopy 1955 Eye Exam 1964 Hepatitis A Vaccines (1 of 2 - Risk 2-dose series) 1973 Hepatitis B Vaccines (1 of 3 - Risk 3-dose series) 2014 COVID-19 Vaccine ( season) 2024 07/13/2023 Influenza Vaccine (#1) 2025 , 07/13/2023, 12/26/2021 Alcohol/Substance Use Screening 02/24/2025 02/25/2024 Depression Screening 02/24/2025 02/25/2024, 02/25/20 Diabetes: Foot Exam 03/08/2025 03/08/2024, 03/08/2024, 03/08/2024, Additional history exists Diabetes: Hemoglobin A1C 06/17/2025 025, 11/03/2024, 03/06/2024 SDOH Screening 09/25/2025 09/25/2024 Lipid Panel 10/19/2025 10/19/2024, 08/23/2023 Diabetes: Urine Protein Screening 12/04/2025 12/04/2024 Tobacco Screening 12/27/2025 12/27/2024 DTaP/Tdap/Td Vaccines (2 - Td or Tdap) 09/28/2032 09/28/2022 Colonoscopy 03/11/2033 03/11/2023 Colorectal Cancer Screening 03/11/2033 Pneumococcal Vaccine: 50+ Years Completed 12/26/2021 Hepatitis C Screening Completed 11/09/2022 Zoster Vaccines Completed 02/16/2023, 12/04/2022 RSV Patients and Patients Aged 60 years or older Completed 01/27/2024 HIB Vaccines Aged Out No longer eligi ble based on patient's age to complete this topic HPV Vaccines Aged Out No longer eligi ble based on patient's age to complete this topic IPV Vaccines Aged Out No longer eligi ble based on patient's age to complete this topic Meningococcal B Vaccine Aged Out No l onger eligible based on patient's age to complete [...] Name Priority Date/Time Associated Diagnosis Comments POCT GLYCATED HEMOGLOBIN, TOTAL Routine 12/15/2024 3:35 PM EDT Xerosis of skin POCT GLUCOSE Routine 12/15/2024 3:34 PM EDT Xerosis of skin US ABDOMEN COMPLETE Routine 12/04/2024 1 :03 PM EDT CBC Routine 12/04/2024 9:30 AM EDT ALBUMIN, RANDOM URINE W/CREATININE Routine 12/04/2024 9:30 AM EDT Type 2 diabetes mellitus without complication, unspecified whether custodial insulin use (CMS/HCC) HEPATIC FUNCTION PANEL Routine 9:30 AM EDT Type 2 diabetes mellitus without complication, 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 (CMS/HCC) SYPHILIS SCREEN Routine 12/04/2024 9:30 AM EDT Memory deficit TSH W/REFLEX TO FT4 Routine 12/04/2024 9 :30 AM EDT Tremors of nervous system COMPREHENSIVE METABOLIC PANEL Routine 12/04/2024 9:30 AM EDT Tremors of nervous system VITAMIN B12/FOLATE, SERUM PANEL Routine 12/04/2024 9:25 AM EDT Type 2 diabetes mellitus without complication, unspecified whether custodial insulin use ([facility]) LYME DISEASE AB W/REFL TO BLOT (IGG, IGM) Routine 12/04/2024 9:25 AM EDT Memory deficit CERULOPLASMIN Routine 12/04/2024 9:25 AM EDT Tremors of nervous system MR BRAIN WO CONTRAST Routine 11/14/2024 6:32 PM EDT Confusion Memory deficit POCT GLUCOSE Routine 11/03/2024 11:26 AM EDT Prediabetes POCT GLYCATED HEMOGLOBIN, TOTAL Routine 11/03/2024 11:23 AM EDT Prediabetes US VENOUS DUPLEX LE LT Routine 4:55 PM EDT XR KNEE 3 VIEWS LEFT Routine 10/25/2024 4:10 PM EDT Acute pain of left knee LIPID PANEL, STANDARD Routine 10/19/2024 8:57 AM EDT COMPREHENSIVE METABOLIC PANEL Routine 10/19/2024 8:57 AM EDT CBC Routine 10/19/2024 8:57 AM EDT DRUG MONITORING, PHOSPHATIDYLETHANOL (PETH), BLOOD Routine 10/04/2024 12:48 PM EDT COMPREHENSIVE METABOLIC PANEL Routine 10/04/2024 12:48 PM EDT PROTHROMBIN TIME-INR Routine 10/04/2024 12:48 PM EDT CBC Routine 10/04/2024 12:48 PM EDT HM COLONOSCOPY Routine 03/11/2023 HEPATITIS C ANTIBODY Routine 11/09/2022 4:15 PM EDT from Last 3 Months or Most Recently Relevant to Health Maintenance Results * (ABNORMAL) POCT HGB A1C (12/15/2024 3:35 PM EDT) Only the most recent of2 resultswithin the time period is included. Hemoglobin A1C 6.5(A) 4.0 - 5.7 % QC Media Lot # [id number] Lot# Expiration Date 47, Blood 12/15/2024 3:35 PM EDT Angela Curry MD POINT OF CARE TEST ENTER/EDIT ORDERABLES Final Result * POCT Glucose (12/15/2024 3:34 PM EDT) Only the most recent of2 resultswithin the time period is included. Glucose Blood, POC 134 60 - 200 mg/dL QC Media Lot # [id number] Lot# Expiration Date 90,,386 Blood Capillary blood specimen / Unknown 12/15/2024 3:34 PM EDT Angela Curry MD POINT OF CARE TEST ENTER/EDIT ORDERABLES Final Result * US Abdomen Complete (12/04/2024 1:03 PM EDT) Anatomical Region Laterality Modality Abdomen Ultrasound 12/04/2024 1:03 PM EDT Narrative 12/04/2024 1:04 PM EDT [address] [address] Ultrasound Report Signed Patient: Niraj Ro MR#: [id number] : 1955 Acct:[id number] Age/Sex: 69 / M ADM Date: 12/04/24 Loc: HO.US Attending Dr: Kisha Hale MD Ordering Physician: Kisha Hale MD Date of Service: 12/04/24 Procedure(s): US abdomen complete Accession Number(s): [id number] cc: Angela Curry MD; Kisha Hale MD CLINICAL HISTORY: K76.9 - Liver disease, unspecified US abdomen complete with duplex and color Doppler Comparison: CT/SR - CT ABDOMEN PELVIS W IV CON - 06/27/24 17:10 EST US/WA/SR - US ABDOMEN COMPLETE - 04/04/24 09:43 EST Findings: The visualized pancreas, aorta, and are unremarkable. IVC was obscured by bowel gas. Liver normal size and mildly echogenic throughout. Right lobe 15.6 cm length. No focal hepatic masses. Common duct 5.0 mm diameter. Post cholecystectomy Main portal vein antegrade. Right kidney normal size, 11.6 cm in length. Normal cortical width and echotexture. No solid or cystic renal masses. No nephrolithiasis. No hydronephrosis. Left kidney normal, 11.7 cm in length. Normal cortical width and echotexture. No solid or cystic renal masses. No nephrolithiasis. No hydronephrosis. Spleen measures 12.0 cm. No splenic masses. No ascites. No lymphadenopathy. Impression: 1. Normal-sized liver diffusely echogenic reflecting mild diffuse hepatic steatosis or diffuse hepatocellular disease. No focal hepatic lesions. 2. Post cholecystectomy. 3. Borderline splenomegaly stable. This document has been electronically signed by: Adrian Trinidad MD on 12/04/2024 13:03:19 Dictated By: Adrian Trinidad MD Signed By: <Electronically signed by Adrian Trinidad MD in OV> 12/04/24 1304 DD/ 1303 TD/TT: 12/04/24 1303 Military Aircraft Designer: Procedure Note Donotuseinterpreter, Image - 12/04/2024 [place] [id number] Ultrasound Report Signed Patient: Taylor RoR#: M [id number] : 5Acct:[id number] Age/Sex: 69 / MADM Date: 12/04/24 Loc: HO.US Attending Dr: Kisha Hale MD Ordering Physician: Kisha Hale MD Date of Service: 12/04/24 Procedure(s): US abdomen complete Accession Number(s): [id number] cc: Angela Curry MD; Kisha Hale MD CLINICAL HISTORY: K76.9 - Liver disease, unspecified US abdomen complete with duplex and color Doppler Comparison: CT/SR - CT ABDOMEN PELVIS W IV CON - 06/27/24 17:10 EST US/WA/SR - US ABDOMEN COMPLETE - 04/04/24 09:43 EST Findings: The visualized pancreas, aorta, and are unremarkable. IVC was obscured by bowel gas. Liver normal size and mildly echogenic throughout. Right lobe 15.6 cm length. No focal hepatic masses. Common duct 5.0 mm diameter. Post cholecystectomy Main portal vein antegrade. Right kidney normal size, 11.6 cm in length. Normal cortical width and echotexture. No solid or cystic renal masses. No nephrolithiasis. No hydronephrosis. Left kidney normal, 11.7 cm in length. Normal cortical width and echotexture. No solid or cystic renal masses. No nephrolithiasis. No hydronephrosis. Spleen measures 12.0 cm. No splenic masses. No ascites. No lymphadenopathy. Impression: 1. Normal-sized liver diffusely echogenic reflecting mild diffuse hepatic steatosis or diffuse hepatocellular disease. No focal hepatic lesions. 2. Post cholecystectomy. 3. Borderline splenomegaly stable. This document has been electronically signed by: Adrian Trinidad MD on 12/04/2024 13:03:19 Dictated By: Adrian Trinidad MD Signed By: <Electronically signed by Adrian Trinidad MD in OV> 12/04/24 1304 DD/ 1303 TD/TT: 12/04/24 1303 Military Aircraft Designer: us [facility] External Provider IMG US PROCEDURES Final Result * Syphilis Screen (12/04/2024 9:30 AM EDT) Syphilis Screen Nonreactive Nonreactive [facility] Blood 12/04/2024 9:30 AM EDT 12/04/2024 9:30 AM EDT us Angela Curry MD LAB BLOOD ORDERABLES Final Re sult Performing Organization Address [facility] Co de Phone Number [facility] [address] [place] [phone] * TSH W/Reflex to FT4 (12/04/2024 9:30 AM EDT) TSH reflex Free T4 1.64 0.32 - 4.0 uIU/mL [facility] Blood Venous blood specimen / Unknown 12/04/2024 9:30 AM EDT 12/04/2024 9:30 AM EDT Angela Curry MD LAB BLOOD ORDERABLES Final Re sult Performing Organization Address [facility] Co de Phone Number [facility] [address] [place] [phone] * Albumin, Random Urine W/Creatinine (12/04/2024 9:30 AM EDT) Creatinine, Urine 172.70 mg/dL [facility] Microalbumin Urine 6.0 mg/L [facility] Microalbum Creatinine Ratio Ur 3.4 <30 ug/mg cr [facility] Comment:Albumin/Creatinine R atio Reference Ranges: Normal: < 30 ug/mg creatinine Microalbuminuria: 30 - 300 ug/mg creatinineClinical Albuminuria: > 300 ug/mg creatinine Urine (Urine, Random) 12/04/2024 9:30 AM EDT 12/04/2024 9:43 AM EDT us Angela Curry MD LAB URINE ORDERABLES Final Re sult Performing Organization Address [facility] de Phone Number [facility] [address] [place] [phone] * (ABNORMAL) CBC (12/04/2024 9:30 AM EDT) Only the most recent of3 resultswithin the time period is included. White Blood Count 4.8 4.8 - 10.8 X10*3/uL [facility] Red Blood Count 4.08(L) 4.60 - 5.80 X10*6/uL [facility] Hemoglobin 12.2(L) 14.0 - 18.0 g/dl [facility] Hematocrit 37.0(L) 42.0 - 52.0 % [facility] Mean Corpuscular Volume 90.7 80.0 - 98.0 fL [facility] Mean Corpuscular Hemoglobin 29.9 27.0 - 33.0 pg [facility] Mean Corpuscular HGB Conc 33.0 31.0 - 36.0 g/dl [facility] Red Cell Distribution Width 14.0 11.0 - 16.0 % [facility] Platelet Count 112(L) 160 - 400 X10*3/uL [facility] Mean Platelet Volume 10.7 9.4 - 12.4 fL [facility] NRBC Pct Auto 0.0 0.0 - 0.2 /100WBC [facility] NRBC Abs Auto 0.000 0.0 - 0.012 X10*3/uL [facility] 12/04/2024 9:30 AM EDT 12/04/2024 9:30 AM EDT us Generic External Data Provider LAB BLOOD ORDERAB LES Final Result [facility] [address] [place] [address] [phone] * Hepatic Function Panel (12/04/2024 9:30 AM EDT) Bilirubin, Direct 0.2 0.0 - 0.5 mg/dL [facility] Blood Venous blood specimen / Unknown 12/04/2024 9:30 AM EDT 12/04/2024 9:30 AM EDT us Angela Curry MD LAB BLOOD ORDERABLES Final Re sult [facility] [address] [place] [address] [phone] * (ABNORMAL) Comprehensive Metabolic Panel (12/04/2024 9:30 AM EDT) Only the most recent of3 resultswithin the time period is included. Sodium 142 135 - 145 mmol/L [facility] Potassium 3.9 3.3 - 5.1 mmol/L [facility] Chloride 110(H) 96 - 108 mmol/L [facility] Carbon Dioxide 24 22 - 29 mmol/L [facility] Anion Gap 12 12 - 20 [facility] Urea Nitrogen (BUN) 22(H) 9 - 16 mg/dL [facility] Creatinine, Serum 0.76 0.5 - 1.4 mg/dL [facility] Estimated Glomerular Filt Rate >60 [facility] Comment:Chronic Kidney Disea se: Estimated GFR < 60 mL/min/1.13t5Iuhsvt Kidney Disease: Estimated GFR < 15 mL/min/1.73m2 Glucose 146(H) 60 - 115 mg/dL [facility] Calcium 8.8 8.4 - 10.2 mg/dL [facility] Bilirubin, Total 0.3 0.0 - 1.0 mg/dL [facility] Aspartate Amino Transferase 92(H) 5 - 37 U/L [facility] Alanine Aminotransferase 115(H) 0 - 40 U/L [facility] Total Protein 6.9 6.5 - 8.0 g/dL [facility] Albumin Level 4.0 3.5 - 5.0 g/dL [facility] Alkaline Phosphatase 181(H) 39 - 117 U/L [facility] Blood Venous blood specimen / Unknown 12/04/2024 9:30 AM EDT 12/04/2024 9:30 AM EDT Anglea Curry MD LAB BLOOD ORDERABLES Final Re sult Performing Organization Address [facility] Co de Phone Number [facility] [address] [place] [phone] * (ABNORMAL) Vitamin B12/Folate, Serum Panel (12/04/2024 9:25 AM EDT) Pathologist [facility] Vitamin B12 927(H) 200 - 900 pg/mL [facility] Comment:NORMAL 200-900 PG/ML INDETERMINATE 160-199 PG/ML DEFICIENT < 160 PG/ML Folate 14.0 > or = 4.0 ng/mL [facility] Comment:Reference Values:> o r = 4.0 ng/mL< 4.0 ng/mL suggests folate deficiency Methotrexate, aminopterin and folinic acid(leucovorin) are chemotherapeutic agents whose molecularstructures are similar to folate; therefore, the Architectfolate assay cannot be used for patients using these drugs. Blood Venous blood specimen / Unknown 12/04/2024 9:25 AM EDT 12/04/2024 9:30 AM EDT Angela Curry MD LAB BLOOD ORDERABLES Final Re sult Performing Organization Address [facility] de Phone Number [facility] [address] [place] [phone] * Lyme Disease Ab with Reflex to Blot (IgG, IgM) (12/04/2024 9:25 AM EDT) [facility] Lyme Antibody Screen <0.90 index [facility] Comment:Index Interpretation ----- < 0.90 Negative 0.90-1.09 Equivocal > 1.09 PositiveAs recommended by the Food and Drug Administration(FDA), all samples with positive or equivocalresults in a Borrelia burgdorferi antibody screenwill be tested using a blot method. Positive orequivocal screening test results should not beinterpreted as truly positive until verified as suchusing a supplemental assay (e.g., B. burgdorferi blot).The screening test and/or blot for B. burgdorferiantibodies may be falsely negative in early stagesof Lyme disease, including the period when erythemamigrans is apparent.THIS TEST WAS PERFORMED AT:[facility] [address] [phone] WATKINS MD Lyme Blot TNP [facility] 12/04/2024 9:25 AM EDT 12/04/2024 9:30 AM EDT Angela Curry MD LAB BLOOD ORDERABLES Final Re sult Performing Organization Address [facility] de Phone Number [facility] [address] [place] [phone] * Ceruloplasmin (12/04/2024 9:25 AM EDT) Ceruloplasmin 25 14 - 30 mg/dL [facility] Comment:THIS TEST WAS PERFOR MED AT:[facility] [address] [phone] WATKINS MD Blood Venous blood specimen / Unknown 12/04/2024 9:25 AM EDT 12/04/2024 9:30 AM EDT Angela Curry MD LAB BLOOD ORDERABLES Final Re sult Performing Organization Address [facility] de Phone Number [facility] [address] [place] [phone] * MR Brain w/o Contrast (11/14/2024 6:32 PM EDT) Anatomical Region Laterality Modality Brain Magnetic Resonan ce 11/14/2024 6:32 PM EDT Narrative 11/15/2024 7:12 AM EDT [address] [address] Magnetic Resonance Report Signed Patient: Niraj Ro MR#: M [id number] : 1955 Acct:[id number] Age/Sex: 69 / M ADM Date: 11/14/24 Loc: HO.MRI Attending Dr: Angela Curry MD Ordering Physician: Angela Curry MD Date of Service: 11/14/24 Procedure(s): MR head/brain wo con Accession Number(s): [id number] cc: Angela Curry MD EXAMINATION: MR BRAIN WITHOUT CONTRAST CLINICAL INFORMATION: Memory loss. Change in mental status. COMPARISON: None available. TECHNIQUE: MRI of the brain was obtained using routine sequences without contrast. FINDINGS: No restricted diffusion. No acute intracranial hemorrhage, mass effect, midline shift, hydrocephalus or herniation. Valdez-white matter differentiation is normal. Posterior cranial fossa contents demonstrated no signal abnormality or mass effect. Prominence of the extra-axial CSF spaces cerebral sulci and ventricles related to volume loss. Flow-void signal within the main cerebral vessels is normal. No signal abnormality or volume loss in the hippocampi. Sellar/suprasellar region demonstrated no masses or signal abnormality. Craniocervical junction demonstrates normal position of the cerebellar tonsils. MR/MR head/brain wo con IMPRESSION: No acute or structural brain abnormality. Electronically signed by: Chandu Padron MD 11/15/2024 07:08 AM EDT Dictated By: Chandu Macias MD Signed By: <Electronically signed by Chandu Garber MD in OV> 11/15/24 0708 DD/ 1832 TD/TT: 11/14/24 1853 Military Aircraft Designer: Procedure Note Donotuseinterpreter, Image - 11/15/2024 [place] [address] Magnetic Resonance Report Signed Patient: Taylor RoR#: M [id number] : 5Acct:[id number] Age/Sex: 69 / MADM Date: 11/14/24 Loc: HO.MRI Attending Dr: Angela Curry MD Ordering Physician: Angela Curry MD Date of Service: 11/14/24 Procedure(s): MR head/brain wo con Accession Number(s): [id number] cc: Angela Curry MD EXAMINATION: MR BRAIN WITHOUT CONTRAST CLINICAL INFORMATION: Memory loss. Change in mental status. COMPARISON: None available. TECHNIQUE: MRI of the brain was obtained using routine sequences without contrast. FINDINGS: No restricted diffusion. No acute intracranial hemorrhage, mass effect, midline shift, hydrocephalus or herniation. Valdez-white matter differentiation is normal. Posterior cranial fossa contents demonstrated no signal abnormality or mass effect. Prominence of the extra-axial CSF spaces cerebral sulci and ventricles related to volume loss. Flow-void signal within the main cerebral vessels is normal. No signal abnormality or volume loss in the hippocampi. Sellar/suprasellar region demonstrated no masses or signal abnormality. Craniocervical junction demonstrates normal position of the cerebellar tonsils. MR/MR head/brain wo con IMPRESSION: No acute or structural brain abnormality. Electronically signed by: Chandu Padron MD 11/15/2024 07:08 AM EDT Dictated By: Chandu Macias MD Signed By: <Electronically signed by Chandu Garber MDin OV> 11/15/24 0708 DD/ 1832 TD/TT: 11/14/24 1853 Military Aircraft Designer: us Angela Curry MD IMG MRI PROCEDURES Final Resu lt * US VENOUS DUPLEX LE LT (10/25/2024 4:55 PM EDT) Anatomical Region Laterality Modality Abdomen Ultrasound 10/25/2024 4:55 PM EDT Narrative 10/25/2024 4:56 PM EDT [address] [address] Ultrasound Report Signed Patient: Niraj Ro MR#: M [id number] : 1955 Acct:[id number] Age/Sex: 69 / M ADM Date: 10/25/24 Loc: HO.US Attending Dr: Vidal Morrison MD Ordering Physician: VIDAL MORRISON MD Date of Service: 10/25/24 Procedure(s): US venous duplex LE LT Accession Number(s): [id number] cc: VIDAL MORRISON MD; Angela Curry MD CLINICAL HISTORY: left leg pain, r o dvt Left leg venous duplex Doppler ultrasound with color and pulsed Doppler spectral analysis: Comparison: None. Findings: The deep veins of the left leg were evaluated with compression, augmentation and phasicity which are normal. Color Doppler also confirms blood flow in the deep veins. Impression: Negative for deep venous thrombosis. This document has been electronically signed by: Clay Grant MD on 10/25/2024 16:55:25 Dictated By: Clay Grant MD Signed By: <Electronically signed by Clay Grant MD in OV> 10/25/241655 DD/ 54 TD/TT: 10/25/241654 Military Aircraft Designer: Procedure Note Donotuseinterpreter, Image - 10/25/2024 [place] [address] Ultrasound Report Signed Patient: Chapin Ro#: M [id number] : 5Acct:[id number] Age/Sex: 69 / MADM Date: 10/25/24 Loc: . Attending Dr: Vidal Morrison MD Ordering Physician: VIDAL MORRISON MD Date of Service: 10/25/24 Procedure(s): US venous duplex LE LT Accession Number(s): [id number] cc: VIDAL MORRISON MD; Angela Curry MD CLINICAL HISTORY: left leg pain, r o dvt Left leg venous duplex Doppler ultrasound with color and pulsed Doppler spectral analysis: Comparison: None. Findings: The deep veins of the left leg were evaluated with compression, augmentation and phasicity which are normal. Color Doppler also confirms blood flow in the deep veins. Impression: Negative for deep venous thrombosis. This document has been electronically signed by: Clay Grant MD on 10/25/2024 16:55:25 Dictated By: Clay Grant MD Signed By: <Electronically signed by Clay Grant MD in OV> 10/25/241655 DD/ TD/TT: 10/25/241654 Military Aircraft Designer: Vidal Morrison MD IMG US PROCEDURES Final Result * XR Knee 3 Views Left (10/25/2024 4:10 PM EDT) Anatomical Region Laterality Modality Lower Extremities, Knee Left Radiogra phic Imaging 10/25/2024 4:10 PM EDT Narrative 10/25/2024 5:31 PM EDT [address] [address] XRay Report Signed Patient: Niraj Ro MR#: M [id number] : 1955 Acct:[id number] Age/Sex: 69 / M ADM Date: 10/25/24 Loc: .US Attending Dr: Vidal Morrison MD Ordering Physician: VIDAL MORRISON MD Date of Service: 10/25/24 Procedure(s): XR knee LT 3V Accession Number(s): [id number] cc: VIDAL MORRISON MD; Angela Curry MD EXAMINATION: XR KNEE, LEFT CLINICAL INFORMATION: atraumatic left knee pain COMPARISON: None available. TECHNIQUE: AP, lateral, sunrise view of the left knee. FINDINGS: There is a joint effusion. Superior patellar marginal osteophyte is visible. Minimal osteophyte are evident along the lateral joint line. Joint spaces and straightening subtle narrowing of the medial compartment. There is mild lateral patellar tilt. XR/XR knee LT 3V IMPRESSION: Nonspecific mild joint space narrowing in the medial compartment. Joint effusion. 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 Dictated By: Irving Billings MD Signed By: <Electronically signed by Irving Billings MD in OV> 10/25/24 1728 DD/ 1610 TD/TT: 10/25/24 1620 Military Aircraft Designer: Procedure Note Donotuseinterpreter, Image - 10/25/[address] [address] XRay Report Signed Patient: Chapin Ro#: Edelmira [id number] : 5Acct:[id number] Age/Sex: 69 / MADM Date: 10/25/24 Loc: HO.US Attending Dr: Vidal Morrison MD Ordering Physician: VIDAL MORRISON MD Date of Service: 10/25/24 Procedure(s): XR knee LT 3V Accession Number(s): [id number] cc: VIDAL MORRISON MD; Angela Curry MD EXAMINATION: XR KNEE, LEFT CLINICAL INFORMATION: atraumatic left knee pain COMPARISON: None available. TECHNIQUE: AP, lateral, sunrise view of the left knee. FINDINGS: There is a joint effusion. Superior patellar marginal osteophyte is visible. Minimal osteophyte are evident along the lateral joint line. Joint spaces and straightening subtle narrowing of the medial compartment. There is mild lateral patellar tilt. XR/XR knee LT 3V IMPRESSION: Nonspecific mild joint space narrowing in the medial compartment. Joint effusion. 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 RP Dictated By: Irving Billings MD Signed By: <Electronically signed by Irving Billings MD in OV> 10/25/24 1728 DD/ 1610 TD/TT: 10/25/24 1620 Military Aircraft Designer: us Vidal Morrison MD IMG XR PROCEDURES Final Result * Lipid Panel, Standard (10/19/2024 8:57 AM EDT) Triglycerides 100 <150 mg/dL [facility] Comment:Desirable Triglyceri de: less than 150 mg/dLBorderline High Triglyceride 150-199 mg/dLHigh Triglyceride: 200-499 mg/dLVery High Triglyceride: greater than or equal to 5OO mg/dL Cholesterol 149 <200 mg/dL [facility] Comment:Desirable Cholestero l: less than 200 mg/dLBorderline High Cholesterol: 200-239 mg/dLHigh Cholesterol: greater than 239 mg/dL LDL Cholesterol Calculated 76 <100 mg/dL [facility] Comment:Desirable LDL: less than 100 mg/dLNear Optimal/Above Optimal LDL: 110- 129 mg/dLBorderline High LDL: 130-159 mg/dLHigh LDL: 160-189 mg/dLVery High LDL: greater than or equal to 190 mg/dL HDL Cholesterol 53 >40 mg/dL [facility] Comment:Desirable HDL: great er than 40 mg/dL Note: This HDL assay may give artificially low results in patients with liver disease. 10/19/2024 8:57 AM EDT 10/19/2024 11:10 AM EDT us Angela Curry MD LAB BLOOD ORDERABLES Final Re sult [facility] [address] [place] [phone] * Drug Monitoring, Phosphatidylethanol (PEth), Blood (10/04/2024 12:48 PM EDT) Phosphatidylethanol, Blood NEGATIVE [facility] Comment:CUTOFF: 20 ng/mL PEth 16:0/18:2 (PLPEth) NEGATIVE [facility] Comment:CUTOFF: 20 ng/mL PEth Comments SEE NOTE [facility] Comment:This drug testing is for medical treatment only. Analysiswas performed as non-forensic testing and these resultsshould be used only by healthcare providers to renderdiagnosis or treatment, or to monitor progress of medicalconditions.LDT Notes:Confirmation tests were developed and their analyticalperformance characteristics have been determined by [employer]. It has not been cleared orapproved by the FDA. This assay has been validated pursuantto the CLIA regulations and is used for clinical purposes.Healthcare Providers needing Interpretation assistance,please contact us at [phone] ( ) M-F,8am to 10pm ESTTHIS TEST PERFORMED AT:[facility] [id number] [facility] [place] [phone] DIRECTOR: EDILIA LEE MD, PHD 10/04/2024 12:4 8 PM EDT 10/04/2024 12:48 PM EDT Generic External Data Provider LAB BLOOD ORDERAB LES Final Result Performing Organization Address City/[facility]/ZIP Co de Phone Number [facility] [address] [place] [phone] * Prothrombin Time-INR (10/04/2024 12:48 PM EDT) Prothrombin Time 11.8 10.9 - 12.4 SEC [facility] INTERNATIONAL NORM RATIO 1.0 0.9 - 1.1 [facility] Comment:INTERNATIONAL NORMAL IZED RATIO (INR) REFERENCE RANGES Reference RangeFor patients not on anticoagulant therapy: 0.9 - 1.1INR ranges for oral anticoagulanttherapy:For prevention and treatment of venous thrombosis and pulmonary embolism: 2.0 - 3.0For acute myocardial infarction with aspirin therapy: 2.0 - 3.0For acute myocardial infarction without aspirin therapy: 3.0 - 4.0For patients with mechanical prosthetic heart valves: 2.5 - 3.5 10/04/2024 12:4 8 PM EDT 10/04/2024 12:48 PM EDT Generic External Data Provider LAB BLOOD ORDERAB LES Final Result Performing Organization Address [facility] Co de Phone Number [facility] [address] [place] [phone] * Hm Colonoscopy (03/11/2023) Colonoscopy Normal Normal Narrative Angela Curry MD - 03/11/[address] Kisha Hale, normal, diverticulosis and hemorrhoids noticed Historical Provider HEALTH MAINTENANCE Final Result * Hepatitis C Ab (11/09/2022 4:15 PM EDT) Hepatitis C Antibody Nonreactive Nonreactive [facility] Comment:Antibodies to HCV no t detected; does not exclude early acuteHCV infection. 11/09/2022 4:15 PM EDT 11/09/2022 4:16 PM EDT [facility] External Provider LAB BLO OD ORDERABLES Final Result [facility] [address] [place] [phone] from Last 3 Months or Most Recently Relevant to Health Maintenance Insurance MEDICARE [facility] Care Teams Game Design Instructor Relationship Specialty Start Date End Date Anglea Curry MD [address] [place] [address] PCP - General Family Medicine 07/31/22
--- OUTSIDE RECORDS SUMMARY | 2025-01-03 11:02 | XMS_ITS | Encounter Summary ---
Author Organization [facility] Address [address] [place] [phone] Care Team Providers Care Supervisor Film Processing Name Role Phone Physician, Pcp Unknown Primary Care Provider Saba vailable Encounter Details Date Type Department Care Team (Late st Contact Info) Description 10/04/2024 Lab Requisition [facility] - Main Lab [address] [facility] [place] [address] Kendrick Huang MD [address] [facility] [address] [place] [address] Benign essential microscopic hematuria Social History Tobacco [...] AM EDT) Final Diagnosis A. Urine, Voided, [id number]: Negative for high grade urothelial carcinoma. Results of [employer] fluorescence in situ hybridization (FISH) testing: CEP3: Normal CEP7: Normal CEP17: Normal LSI 9p21: Normal Interpretation: Normal profile Controls stained appropriately. Note: The results are intended as a screening device and should be interpreted in association with other clinical and pathological findings. 10/18/2024 3:48 PM EDT [facility] Clinical Information Benign essential microscopic hematuria R31.1 Urine Cytology/FISH (now) 10/18/2024 3:48 PM EDT [facility] Gross Description A. Urine, Voided, [id number]: Received one ThinPrep slide for cytology and one ThinPrep slide for UroVysion FISH 10/18/2024 3:48 PM EDT [facility] Disclaimer Unless otherwise specified, all tissue is 10% NB formalin fixed and paraffin embedded. Technical pathology services provided by [facility] at [address] [facility] [address], [place] [address] (CLIA #[id number]/Eloina Jason MD, Bulk Tank Driver) 10/18/2024 3:48 PM EDT [facility] Tissue Urine specimen from urethra / Unknown 09/27/2024 10/04/2024 2:15 PM EDT us Kendrick Huang MD LAB PATHOLOGY ORDERABLES Fi nal Result [facility] [address] [place] [address], documented in this encounter Visit Diagnoses Diagnosis Benign essential microscopic hematuria documented in this encounter Care Teams Supervisor Film Processing Relationship Specialty Start Date End Date Physician, Pcp Unknown PCP - General 10/04/24 documented as of this encounter
--- OUTSIDE RECORDS SUMMARY | 2025-01-03 11:02 | XMS_ITS | Encounter Summary ---
Author Organization [facility] Address [address] [facility] [address] [place] [address] Care Team Providers Care Reception Clerk Name Role Phone Angela Curry MD Primary Care Provider [phone] Reason for Visit * Reason Onset Date Comments Lab Orders 06/29/2024 Encounter Details Date Type Department Care Team ([facility] st Contact Info) Description 06/29/2024 Telephone [facility] MEDICINE [address] [place] [phone] Angela Curry MD [address] [place], [place] [phone] Lab Orders Social History Tobacco Use Types [...] needing it for Program. Contact pt at [phone] documented in this encounter Plan of Treatment Upcoming Encounters Date Type Department Care Team (Late st Contact Info) Description 01/03/2025 3:00 PM EDT Clinical Support [facility] MED & PEDS [address] [place] [address] 02/28/2025 10:45 AM EDT Office Visit [facility] [address] [place] [address] Angela Curry MD [address] [place] [address] 10/23/2025 2:30 PM EDT Telemedicine [facility] MEDICINE [address] [place] [address] Nael Iyer, LienD [address] [place] [address] documented as of this encounter Goals Goal [...] documented as of this encounter Care Teams Reception Clerk Relationship Specialty Start Date End Date Angela Curry MD [address] [place] [phone] PCP - General Family Medicine 07/31/22 documented as of this encounter
--- OUTSIDE RECORDS SUMMARY | 2025-01-03 11:02 | XMS_ITS | Clinical Summary ---
Author Organization [address] [facility] Address [address] [place] [address] Phone Care Team Providers Care Match Up Person Name Role Phone Physician, Pcp Unknown Primary Care Provider Saba vailable Encounters Date Type Department Care Team Description 10/04/2024 Lab Requisition [facility] - Main Lab [address] [facility] [place] [place] [address] Kendrick Huang MD Benign essential microscopic hematuria from Last 3 Months Social History Tobacco Use Types Packs/Day Years Used Date Smoking Tobacco: Never Assessed Sex and Gender Information Value Date Recorded Sex Assigned at Not on file Legal Sex Male 2:10 PM EDT Gender Identity Not on file Sexual Orientation Not on file Plan of Treatment Health Maintenance Due Date Last Done Comments DTaP,Tdap,and Td Vaccines (1 - Tdap) 1973 Pneumococcal Vaccine: 50+ Ye ars (1 of 1 - PCV) 2004 Zoster Vaccines (1 of 2) 2004 COVID-19 Vaccine ( - 2023-2 5 season) 2024 Depression Screening 05/10/2024 Abdominal Aortic Aneurysm (A AA) Screen 10/05/2024 Cholesterol Screening (Lipid Panel) 10/05/2024 Colorectal Cancer Screening: Colonoscopy 10/05/2024 Falls Risk Assessment 10/05/2024 Hepatitis C Screening 10/05/2024 Social Influencers of Health Screening 10/05/2024 Influenza Vaccine (#1) 2025 RSV Immunization Adult Patie nts (1 - 1-dose 75+ series) 2029 HIB Vaccines Aged Out No longer eligi ble based on patient's age to complete this topic HPV Vaccines Aged Out No longer eligi ble based on patient's age to complete this topic Hepatitis A Vaccines Aged Out No long er eligible based on patient's age to complete this topic Hepatitis B Vaccines Aged Out No long er eligible based on patient's age to complete this topic IPV Vaccines Aged Out No longer eligi ble based on patient's age to complete this topic MMR Vaccines Aged Out No longer eligi ble based on patient's age to complete this topic Meningococcal ACWY Vaccine Aged Out N o longer eligible based on patient's age to complete this topic Meningococcal B Vaccine Aged Out No l onger eligible based on patient's age to complete this topic RSV Immunization Patients Un nancy 20 months Aged Out No longer eligible b ased on patient's age to complete this topic Varicella Vaccines Aged Out No longer eligible based on patient's age to complete this topic Insurance [facility] Care Teams Match Up Person Relationship Specialty Start Date End Date Physician, Pcp Unknown PCP - General 10/04/24
--- OUTSIDE RECORDS SUMMARY | 2025-01-03 11:03 | XMS_ITS | Encounter Summary ---
Author Organization [employer] Address [address] [place] [address] Care Team Providers Care Greenhouse Specialist Name Role Phone Angela Curry MD Primary Care Provider [phone] Reason for Visit * Reason Onset Date Comments Referral 05/08/2024 Encounter Details Date Type Department Care Team ([facility] st Contact Info) Description 05/08/2024 Telephone [facility] [address] [place] [address] Angela Curry MD [address] [place], [place] [phone] Referral Social History Tobacco Use Types Packs/Day [...] 05/08/2024 5:24 PM EST Referral re-faxed to [facility]. * Telephone Encounter - Edgar Gallego - 05/08/2024 8:54 AM EST Tc from spouse requesting new referral for physical therapy as pt inform called [facility] facility and referral doesn't exist, brief writer verify referral status is (closed) , pt verbalized not understanding ironey had call her for pt to make appointment and now referral doesn't exist. documented in this encounter Plan of Treatment Upcoming Encounters Date Type Department Care Team (Late st Contact Info) Description 01/03/2025 3:00 PM EDT Clinical Support [facility] [address] [place] [address] 02/28/2025 10:45 AM EDT Office Visit [facility] [address] [place] [address] Angela Curry MD [address] [place] [address] 10/23/2025 2:30 PM EDT Telemedicine [facility] [address] [place] [address] Nael Iyer, LienD [address] [place] [address] documented as of this encounter Goals Goal [...] documented as of this encounter Care Teams Greenhouse Specialist Relationship Specialty Start Date End Date Angela Curry MD [address] [place] [id number] PCP - General Family Medicine 07/31/22 documented as of this encounter
--- OUTSIDE RECORDS SUMMARY | 2025-01-03 11:03 | XMS_ITS | Encounter Summary ---
Author Organization [employer] Address [address] [place] [address] Care Team Providers Care Tearoom Hostess Name Role Phone Angela Curry MD Primary Care Provider [phone] Reason for Visit * Reason Onset Date Comments Nurse Triage 10/31/2024 Encounter Details Date Type Department Care Team ([facility] st Contact Info) Description 10/31/2024 Telephone [facility] [address] [place] [address] Angela Curry MD [address] [place], [place] [phone] Nurse Triage Social History Tobacco Use Types [...] Telephone Encounter - Amanda Montanez RN - 10/31/2024 1:08 PM EDT Spouse not on HIPAA. Call returned to Niraj Pedraza to triage below at [phone]. Patient gives verbal consent with spouse for this call. Pt having left leg pain since Wednesday10/21/24. Pt having severe leg pain and dragging. Pt returned from [place] on 10/25. Pt had arthritis in the knee. Pt seen at [facility]. Xray and DVT negative. Spouse is calling to request sooner Ortho appt. Has one booked for November 28. Advised to call ortho office to see if a wait list is available. Spouse also requesting another referral for Neurosurgeon as pt Neurologist left practice at [facility]. Advised will send to PCP to review request. Offered [facility] slot for tomorrow to re-assess leg pain. Spouse declines, states pt utilizing lidocaine slots with moderate relief. Reviewed home care advise, ER precautions and reasons tocall back. Protocol Used: Information Only Call - No Triage (Adult) Protocol-Based Disposition: Discuss with PCP and Callback by Nurse Today Video visit offer not recorded Positive Triage Question: * Requesting referral to a specialist * All higher-acuity triage questions were negative Care Advice Discussed: * Reasons To Call Back - New symptoms develop - You become worse * Telephone Encounter - Yamileth Julián Garcia - 10/31/2024 12:43 PM EDT Symptom: Leg Pain - Not From Injury Outcome: Talk to a nurse or provider within 15 minutes Reason: Can't walk (unless normally can't walk) The caller accepted this outcome. Contact spouses at [phone] Need flooring machine feeder documented in this encounter Plan of Treatment Upcoming Encounters Date Type Department Care Team ([facility] st Contact Info) Description 01/03/2025 3:00 PM EDT Clinical Support [facility] [address] [place] [address] 02/28/2025 10:45 AM EDT Office Visit [facility] [address] [place] [address] Angela Curry MD [address] [place] [address] 10/23/2025 2:30 PM EDT Telemedicine [facility] [address] [place] [phone] Nael Iyer PharmD [address] [place] [phone] documented as of this encounter Goals Goal [...] documented as of this encounter Care Teams Tearoom Hostess Relationship Specialty Start Date End Date Angela Curry MD [address] [place] [id number] PCP - General Family Medicine 07/31/22 documented as of this encounter
--- OUTSIDE RECORDS SUMMARY | 2025-01-03 11:03 | XMS_ITS | Encounter Summary ---
Author Organization [employer] Address [address] [place] [address] Care Team Providers Care Model Home Sales Greeter Name Role Phone Angela Curry MD Primary Care Provider [phone] Reason for Referral * Consultation (Routine) - Canceled Specialty Diagnoses / Procedures Referred By Juvencio t Referred To Contact Pharmacy Diagnoses Polypharmacy Herlinda Olsen MD [address] [place] [address] Phone: tel: fax: Referral ID Status Reason Start Date Expiration Date V isits Requested Visits Authorized [id number] Canceled Continuity of Care 10/03/2024 10/03/2025 6 6 Encounter Details Date Type Department Care Team (Late st Contact Info) Description 09/27/2024 Orders Only [facility] [address] [place] [phone] Herlinda Olsen MD [address] [place], [place] [phone] Polypharmacy (Primary Dx) Social History Tobacco Use Types [...] 3:00 PM EDT Clinical Support [facility] [address] [place] [address] 02/28/2025 10:45 AM EDT Office Visit [facility] [address] [place] [address] Angela Curry MD [address] [place] [address] 10/23/2025 2:30 PM EDT Telemedicine [facility] [address] [place] [address] Nael Iyer, LienD [address] [place] [address] Scheduled Referrals Name Type Priority Associated Diagnoses Orde r Schedule Referral to Pharmacy MTM Outpatient Referral Routine Polypharmacy Ordered: 10/03/2024 documented as of this encounter Goals Goal Patient Goal Type Associated Problems Recent Progress Patient-Stated? Author Short-term: Promote adherence to treatment regimen General No Alfred Long PharmD Take your medication every day Lifestyle No Alfred Long PharmD documented as of this encounter Visit Diagnoses Diagnosis Polypharmacy- Primary Issue of repeat prescriptions documented in this encounter Additional Health Concerns Assessment Noted Time PHQ-9 Depression Total Score: 0 02/25/20 24 11:29 AM EDT documented as of this encounter Care Teams Model Home Sales Greeter Relationship Specialty Start Date End Date Angela Curry MD [address] [place] [address] PCP - General Family Medicine 07/31/22 documented as of this encounter
--- OUTSIDE RECORDS SUMMARY | 2025-01-03 11:03 | XMS_ITS | Encounter Summary ---
Author Organization [employer] Address [address] [place] [address] Care Team Providers Care Hydrodynamicist Name Role Phone Angela Curry MD Primary Care Provider [phone] Encounter Details Date Type Department Care Team ([facility] st Contact Info) Description 10/09/2024 Telephone [facility] [address] [place] [address] Angela Curry MD [address] [place], [place] [phone] Social History Tobacco Use Types Packs/Day Years [...] Description 01/03/2025 3:00 PM EDT Clinical Support [facility] [address] [place] [address] 02/28/2025 10:45 AM EDT Office Visit [facility] [address] [place] [address] Angela Curry MD [address] [place] [address] 10/23/2025 2:30 PM EDT Telemedicine [facility] [address] [place] [address] Nael Iyer PharmD [address] [place] [address] documented as of this encounter Goals Goal [...] documented as of this encounter Care Teams Hydrodynamicist Relationship Specialty Start Date End Date Angela Curry MD [address] [place] [address] PCP - General Family Medicine 07/31/22 documented as of this encounter
== END 2025-01-03 11:08 | disposition home or self-care (01) ==
LOC: HO.HGI 10:15
PROVIDERS: PCP Family Medicine; Visit Provider Internal Medicine
DX: K76.9 Liver disease, unspecified (principal)
CPT/HCPCS: 99214; G2211

== ENCOUNTER → 2025-01-03 10:14 | Outpatient (BNVA) | payer OTHER, SELFPAY | PROVIDERS: PCP Family Medicine; Visit Provider Internal Medicine | DX: K74.60 Unspecified cirrhosis of liver (principal) | CPT/HCPCS: 99212 ==

== ENCOUNTER 2025-01-17 13:00 | Outpatient (AMB) | payer OTHER, SELFPAY ==
--- NOTE | 2025-01-17 13:03 | MHC.OFFVIS ---
Vital Signs 01/17/25 13:07 Height 5 ft 6 in Weight 219 lb BMI 35.3 Intake Visit Reasons: Left knee pain and giving way Intake Note: Niraj is a 69 year old male who presents with complaints of progressively worsening left knee pain and giving way. The patient describes his pain as sharp in nature. Most of the pain is along the medial aspect of his knee. He has been walking with a walker or cane because of his knee instability. He has failed the last 6 weeks of conservative treatment which has included physical therapy exercises, a home exercise program, Tylenol and anti-inflammatory medicines. The patient did undergo low back surgery at [facility] in August of this year. He reports minimal discomfort in his back. Custody Officer Required: Yes Custody Officer Services: Custody Officer Offered & Declined Custody Officer Name: Unruly Sands daughter Allergies Seasonal Allergies Allergy (Mild, Verified 01/17/25 13:08) Unknown Medication List - Last Reconciled 01/17/25 by eWnceslao Minor MD albuterol sulfate 90 mcg/actuation (Ventolin HFA) 2 puffs PO Q4-6H PRN amitriptyline mg PO DAILY PRN aripiprazole 15 mg PO DAILY ascorbic acid (vitamin C) (Vitamin C) 1,000 mg PO QAM betamethasone valerate 0.1% 1 appl topical BID cholecalciferol (vitamin D3) (Vitamin D3) 50 mcg PO QAM citalopram 20 mg PO QAM cyanocobalamin (vitamin B-12) 1,000 mcg PO QAM famotidine 40 mg PO DAILY fluticasone propion-salmeterol 115-21 mcg/actuation (Advair HFA) 2 puffs inhalation Q12H folic acid 0.8 mg PO QAM furosemide 40 mg PO DAILY ipratropium bromide 2 sprays intranasal BID metformin ER 500 mg PO DAILY nabumetone 750 mg PO BID omega-3 acid ethyl esters 1 cap PO BID pantoprazole 40 mg PO DAILY pregabalin 75 mg PO BID simvastatin 40 mg PO BEDTIME PFSH Surgical History Hx of colonoscopy Hx of cholecystectomy History of esophagogastroduodenoscopy (EGD) Social History Alcohol intake: current Alcohol intake frequency: holidays/special occasions only Patient Tobacco Use Status: Never used Tobacco Physical Exam Vital Signs: BMI result Body Mass Index 35.3 Const Other: Well-nourished well-developed very friendly male awake alert and oriented x3 in no acute distress Extrem Other: Left knee examination shows a minimal effusion, mild crepitus with range motion, tenderness along his medial joint line, positive Carina's test, no instability Results Reviewed Results Reviewed: X-rays of the patient's left knee show mild diffuse joint space narrowing, no acute bony abnormalities Assessment & Plan Assessment & Plan (1) Tear of medial meniscus of left knee: Code(s): S83.242A - Other tear of medial meniscus, current injury, left knee, initial encounter Category: Medical Plan Mr. Milo Garcia presents with left knee pain and mechanical symptoms most likely due to a medial meniscus tear. Thus, I will send the patient for an MRI of his left knee for further evaluation. I will see him back once the MRI is completed to discuss the findings and treatment options. Feel free to call me at any time should questions regarding his orthopedic management arise. Thank you very much for asking me to see this very friendly gentleman. I spent 21 minutes in reviewing the patient's records and imaging studies, seeing the patient and documenting in the medical record. Orders: Orders MR knee LT wo con 01/18/25 S83.242A - Other tear of medial meniscus, current injury, left knee, initial encounter Coding Level of Care Code New Pt Level 3 (04609) Complex EM visit Add On G2211 Diagnoses Tear of medial meniscus of left knee S83.242A
[2025-01-17 13:07] VITALS: BMI 35.3
--- OUTSIDE RECORDS SUMMARY | 2025-01-17 16:00 | XMS_ITS | Clinical Summary ---
Author Organization [employer] Address [address] [facility] [address] [place] [address] Care Team Providers Care Cafe Operator Name Role Phone Angela Curry MD Primary Care Provider [phone] Allergies No known active allergies Medications albuterol [...] MORNING 120 capsule 3 10/13/19 25 Active Ascorbic Acid (vitamin C) 500 [...] 2025 Active Blood Glucose Monitoring Suppl (FreeStyle Addison Lite) w/Device kit Use to test blood sugar BID times daily 1 kit 11/07/19 25 Active pregabalin (Lyrica) 75 MG capsule TAKE 1 CAPSULE BY MOUTH TWICE DAILY IN THE MORNING AND IN THE EVENING 60 capsule 2 11/10/19 25 Active glucose blood (Accu-Chek Guide Test) test stripIndications: Type 2 diabetes mellitus without complication, 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 ([facility]) Please check once daily at breakfast 100 each 12 11/24/19 25 2025 Active Lancets miscIndications:T ype 2 diabetes mellitus without complication, unspecified whether longterm insulin use ([facility]) Use to test blood sugar BID times daily 100 each 11/24/19 25 Active Blood Glucose Monitoring Suppl (Accu-Chek Annika Plus) w/Device kitIndications:Ty pe 2 diabetes mellitus without complication, 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 1 kit 11/24/19 25 Active ARIPiprazole (Abilify) 15 MG tablet TAKE [...] directed by MD. 90 patch 2 12/16/19 25 Active metFORMIN XR (Glucophage-XR) 500 MG 24 hr tablet TAKE 1 TABLET BY MOUTH EVERY EVENING 30 tablet 1 01/02/20 25 Active famotidine (Pepcid) 40 MG tabletIndications :Gastroesophageal reflux disease, unspecified whether esophagitis present Take 1 tablet (40 mg) by mouth at bedtime. 90 tablet 1 01/06/20 25 Active citalopram (CeleXA) 20 MG tabletIndications :Anxiety Take 1 tablet (20 mg) by mouth in the morning. 90 tablet 1 01/06/20 25 Active simvastatin (Zocor) 40 MG tabletIndications :Hyperlipidemia, unspecified hyperlipidemia type Take 1 tablet (40 mg) by mouth at bedtime. 90 tablet 1 01/06/20 25 Active omega-3 acid ethyl esters (Lovaza) 1 g capsuleIndication s:Hyperlipidemia, unspecified hyperlipidemia type Take 1 capsule (1 g) by mouth 2 times daily. 180 capsule 1 01/06/20 25 Active nabumetone (Relafen) 750 MG tabletIndications :Arthritis Take 1 tablet (750 mg) by mouth 2 times daily. 60 tablet 01/12/20 25 Active citalopram (CeleXA) 20 MG tabletIndications :Anxiety TAKE 1 TABLET BY MOUTH EVERY MORNING 90 tablet 1 07/21/19 25 2024 Discontinued(R eorder (will not trigger notification to Pharmacy)) famotidine (Pepcid) 40 MG tabletIndications :Gastroesophageal reflux disease, unspecified whether esophagitis present TAKE 1 TABLET BY MOUTH AT BEDTIME 90 tablet 1 07/21/19 25 2024 Discontinued(R eorder (will not trigger notification to Pharmacy)) omega-3 acid ethyl esters (Lovaza) 1 g capsuleIndication s:Hyperlipidemia, unspecified hyperlipidemia type TAKE 1 CAPSULE BY MOUTH TWICE DAILY IN THE MORNING AND IN THE EVENING 180 capsule 1 07/21/19 25 2024 Discontinued(R eorder (will not trigger notification to Pharmacy)) simvastatin (Zocor) 40 MG tabletIndications :Hyperlipidemia, unspecified hyperlipidemia type TAKE 1 TABLET BY MOUTH AT BEDTIME 90 tablet 1 07/21/19 25 2024 Discontinued(R eorder (will not trigger notification to Pharmacy)) nabumetone (Relafen) 750 MG tabletIndications :Arthritis TAKE 1 TABLET BY MOUTH TWICE DAILY 60 tablet 10/14/19 25 2024 Discontinued(R eorder (will not trigger notification to Pharmacy)) metFORMIN, OSM, (Fortamet) 500 MG 24 hr tablet Take 1 tablet (500 mg) by mouth with evening meal. Do not crush, chew, or split. 30 tablet 1 11/07/19 25 2024 Discontinued Active Problems Problem Noted [...] Syphilis test - Referral to neurologist at [facility] for evaluation of tremors Acute pain [...] being seen by psychiatrist yet or received CORE PLACER services. Will discontinue haldol and start on abilify. Assessment & Plan (08/05/2022 1:24 PM EDT): Patient needs formal psychiatry followup, referral was placed and also will send medications for now. He needs VNA services to assist with medication compliance and also will need CORE PLACER service to assist with ADLs/IADLs that need [...] Encounters Date Type Department Care Team Description 01/17/2025 Telephone [facility] [address] [place] [address] Angela Curry MD Nurse Triage 01/11/2025 Refill [facility] [address] [place], [place] [phone] Angela Curry MD Arthritis 01/05/2025 Refill [facility] [address] [place] [address] Angela Curry MD Gastroesophageal reflux disease, unspecified whether esophagitis present; Anxiety; Hyperlipidemia, unspecified hyperlipidemia type 01/03/2025 Telephone [facility] [address] [place] [address] Angela Curry MD No Show 12/31/2024 Refill [facility] [address] [place] [address] Angela Curry MD 12/15/2024 3:00 PM EDT Office Visit [facility] [address] [place] [address] Angela Curry MD Xerosis of skin (Primary Dx); Acute pain of left knee; Left leg pain; Acute pain of left thigh 12/15/2024 Travel 12/15/2024 Refill [facility] [address] [place] [address] Rocky Cruz MD 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 Refill [facility] [address] [place] [address] Angela Curry MD 12/06/2024 Results Follow-Up [facility] [address] [place] [address] Angela Curry MD Hepatic Function Panel, Vitamin B12/Folate, Serum Panel, Albumin, Random Urine W/Creatinine 12/04/2024 Orders Only GENERIC EXTERNAL DATA DEPARTMENT Provider, Generic External Data 11/28/2024 1:15 PM EDT Clinical Support [facility] [address] [place] [address] Amalia Duran RN Type 2 diabetes mellitus without complication, 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 ([facility]) 11/28/2024 Travel 11/22/2024 Telephone [facility] [address] [place] [address] Angela Curry MD 11/16/2024 1:00 PM EDT Clinical Support [facility] [address] [place] [address] Amalia Duran RN Tremors of nervous system [R25.1] 11/16/2024 Travel 11/15/2024 Telephone [facility] [address] [place] [address] Angela Curry MD Referral 11/15/[address] [address] Angela Curry MD Prior Authorization 11/15/2024 Results Follow-Up [facility] [address] [place] [phone] Angela Curry MD MR Brain w/o Contrast 11/09/2024 Refill [facility] [address] [place] [phone] Rocky Cruz MD 11/08/2024 Telephone [facility] [address] [place] [phone] Angela Curry MD requesting call back 11/06/[address] [address] Angela Curry MD Nurse Triage 11/03/2024 10:45 AM EDT Office Visit [facility] [address] [place] [address] Angela Curry MD Tremors of nervous system (Primary Dx); Prediabetes; Acute pain of left knee; Confusion; Memory deficit 11/03/2024 Travel 11/02/2024 Telephone [facility] [address] [place] [phone] Angela Curry MD Nurse Triage 11/01/2024 Telephone [facility] [address] [place] [phone] Vidal Morrison MD Paperwork/Forms 10/31/[address] [address] Angela Curry MD Nurse Triage 10/27/[address] [address] Angela Curry MD Nurse Triage 10/27/2024 Results Follow-Up [facility] [address] [place] [address] Angela Curry MD CBC, Lipid Panel, Standard 10/25/2024 3:00 PM EDT Office Visit [facility] [address] [place] [address] Vidal Morrison MD Acute pain of left knee (Primary Dx); Left leg pain; Acute pain of left thigh 10/25/2024 Orders Only [facility] [address] [place] [phone] Vidal Morrison MD 10/25/2024 Telephone [facility] [address] [place] [address] Angela Crury MD Nurse Triage 10/19/2024 Orders Only GENERIC EXTERNAL DATA DEPARTMENT Provider, Generic External Data 10/18/2024 Refill [facility] [address] [place] [address] Angela Curry MD Alcohol use; Gastroesophageal reflux disease, unspecified whether esophagitis present 10/17/2024 2:30 PM EDT Telemedicine [facility] [address] [place] [address] Marissa Shook, LienD Polypharmacy (Primary Dx); Neuropathy; Hyperlipidemia, unspecified hyperlipidemia type from Last 3 Months Immunizations Immunization Administration [...] Care Team (Late st Contact Info) Description 02/28/2025 10:45 AM EDT Office Visit [facility] [address] [place], [place] [phone] Angela Curry MD [address] [place], [place] [phone] 10/23/2025 2:30 PM EDT Telemedicine [facility] [address] [place], [place] [phone] Nael Iyer, PharmD [address] [place], [place] [phone] Health Maintenance Due Date Last Done Comments CT Colonography 1955 FIT DNA/Cologuard 1955 FIT 1955 FOBT 1955 Sigmoidoscopy 1955 Eye Exam 1964 Hepatitis A Vaccines (1 of 2 - Risk 2-dose series) 1973 Hepatitis B Vaccines (1 of 3 - Risk 3-dose series) 2014 COVID-19 Vaccine ( season) 2025 07/13/2023 Influenza Vaccine (#1) 2025 , 07/13/2023, 12/26/2021 Alcohol/Substance Use Screening 02/24/2025 02/25/2024 Depression Screening 02/24/2025 02/25/2024, 02/25/20 24 Diabetes: Foot Exam 03/08/2025 03/08/2024, 03/08/2024, 03/08/2024, [...] mellitus without complication, 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 (CMS/HCC) HEPATIC FUNCTION PANEL Routine 9:30 AM EDT Type 2 diabetes mellitus without complication, unspecified whether longterm insulin use (CMS/HCC) SYPHILIS SCREEN Routine 12/04/2024 9:30 AM EDT Memory deficit TSH W/REFLEX TO FT4 Routine 12/04/2024 9 :30 AM EDT Tremors of nervous system COMPREHENSIVE METABOLIC PANEL Routine 12/04/2024 9:30 AM EDT Tremors of nervous system VITAMIN B12/FOLATE, SERUM PANEL Routine 12/04/2024 9:25 AM EDT Type 2 diabetes mellitus without complication, unspecified whether longterm insulin use (CMS/HCC) LYME DISEASE AB W/REFL TO BLOT (IGG, [...] EDT CBC Routine 10/19/2024 8:57 AM EDT HM COLONOSCOPY Routine 03/11/2023 HEPATITIS C ANTIBODY Routine 11/09/2022 4:15 PM EDT from Last 3 Months or Most Recently Relevant to Health Maintenance Results * (ABNORMAL) POCT HGB A1C (12/15/2024 3:35 PM EDT) Only the most recent of2 resultswithin the time period is included. Hemoglobin A1C 6.5(A) 4.0 - 5.7 % QC Media Lot # [id number] Lot# Expiration Date 74, Blood 12/15/2024 3:35 PM EDT Angela Curry MD POINT OF CARE TEST ENTER/EDIT ORDERABLES Final Result * POCT Glucose (12/15/2024 3:34 PM EDT) Only the most recent of2 resultswithin the time period is included. Glucose Blood, POC 134 60 - 200 mg/dL QC Media Lot # [id number] Lot# Expiration Date ,743 Blood Capillary blood specimen / Unknown 12/15/2024 3:34 PM EDT Angela Curry MD POINT OF CARE TEST ENTER/EDIT ORDERABLES Final Result * US Abdomen Complete (12/04/2024 1:03 PM EDT) Anatomical Region Laterality Modality Abdomen Ultrasound 12/04/2024 1:03 PM EDT Narrative 12/04/2024 1:04 PM EDT [address] [address] Ultrasound Report Signed Patient: Niraj Ro MR#: M [id number] : 1955 Acct:[id number] Age/Sex: 69 / M ADM Date: 12/04/24 Loc: HO.US Attending Dr: Kisha Hale MD Ordering Physician: Kisha Hale MD Date of Service: 12/04/24 Procedure(s): US abdomen complete Accession Number(s): [id number] cc: Angela Curry MD; Kisha Hale MD CLINICAL HISTORY: K76.9 - Liver disease, unspecified US abdomen complete with duplex and color Doppler Comparison: CT/SR - CT ABDOMEN PELVIS W IV CON - 06/27/24 17:10 EST US/NV/SR - US ABDOMEN COMPLETE - 04/04/24 09:43 [...] 12/04/24 1304 DD/ 1303 TD/TT: 12/04/24 1303 All Round Logger: Procedure Note Donotuseinterpreter, Image - 12/04/2024 [place] [address] Ultrasound Report Signed Patient: Toby RotyleroMR#: M [id number] : 5Acct:[id number] Age/Sex: 69 / MADM Date: 12/04/24 Loc: HO.US Attending Dr: Kisha Hale MD Ordering Physician: Kisha Hale MD Date of Service: 12/04/24 Procedure(s): US abdomen complete Accession Number(s): [id number] cc: Angela Curry MD; Kisha Hale MD CLINICAL HISTORY: K76.9 - Liver disease, unspecified US abdomen complete with duplex and color Doppler Comparison: CT/SR - CT ABDOMEN PELVIS W IV CON - 06/27/24 17:10 EST US/NV/SR - US ABDOMEN COMPLETE - 04/04/24 09:43 [...] 12/04/24 1304 DD/ 1303 TD/TT: 12/04/24 1303 All Round Logger: us [facility] External Provider IMG US PROCEDURES Final Result * Syphilis Screen (12/04/2024 9:30 AM EDT) Syphilis Screen Nonreactive Nonreactive [facility] Blood 12/04/2024 9:30 AM EDT 12/04/2024 9:30 AM EDT us Angela Curry MD LAB BLOOD ORDERABLES Final Re sult Performing Organization Address [facility] Co de Phone Number [facility] [address] [place] [phone] * TSH W/Reflex to FT4 (12/04/2024 9:30 AM EDT) TSH reflex Free T4 1.64 0.32 - 4.0 uIU/mL [facility] Blood Venous blood specimen / Unknown 12/04/2024 9:30 AM EDT 12/04/2024 9:30 AM EDT Angela Curry MD LAB BLOOD ORDERABLES Final Re sult Performing Organization Address [facility] de Phone Number [facility] [address] [place] [phone] * Albumin, Random Urine W/Creatinine (12/04/2024 9:30 AM EDT) Creatinine, Urine 172.70 mg/dL [facility] Microalbumin Urine 6.0 mg/L [facility] Microalbum Creatinine Ratio Ur 3.4 <30 ug/mg cr [facility] Comment:Albumin/Creatinine R atio Reference Ranges: Normal: < 30 ug/mg creatinine Microalbuminuria: 30 - 300 ug/mg creatinineClinical Albuminuria: > 300 ug/mg creatinine Urine (Urine, Random) 12/04/2024 9:30 AM EDT 12/04/2024 9:43 AM EDT us Angela Curry MD LAB URINE ORDERABLES Final Re sult Performing Organization Address [facility] Co de Phone Number [facility] [address] [place] [phone] * (ABNORMAL) CBC (12/04/2024 9:30 AM EDT) Only the most recent of2 resultswithin the time period is included. White Blood Count 4.8 4.8 - 10.8 X10*3/uL [facility] Red Blood Count 4.08(L) 4.60 - 5.80 X10*6/uL [facility] Hemoglobin 12.2(L) 14.0 - 18.0 g/dl [facility] Hematocrit 37.0(L) 42.0 - 52.0 % [facility] Mean Corpuscular Volume 90.7 80.0 - 98.0 fL [facility] Mean Corpuscular Hemoglobin 29.9 27.0 - 33.0 pg [facility] Mean Corpuscular HGB Conc 33.0 31.0 - 36.0 g/dl [facility] Red Cell Distribution Width 14.0 11.0 - 16.0 % [facility] Platelet Count 112(L) 160 - 400 X10*3/uL [facility] Mean Platelet Volume 10.7 9.4 - 12.4 fL [facility] NRBC Pct Auto 0.0 0.0 - 0.2 /100WBC [facility] NRBC Abs Auto 0.000 0.0 - 0.012 X10*3/uL [facility] 12/04/2024 9:30 AM EDT 12/04/2024 9:30 AM EDT us Generic External Data Provider LAB BLOOD ORDERAB LES Final Result [facility] [address] [place] [phone] * Hepatic Function Panel (12/04/2024 9:30 AM EDT) Pathologist [facility] Bilirubin, Direct 0.2 0.0 - 0.5 mg/dL [facility] Blood Venous blood specimen / Unknown 12/04/2024 9:30 AM EDT 12/04/2024 9:30 AM EDT us Angela Curry MD LAB BLOOD ORDERABLES Final Re sult [facility] [address] [place] [phone] * (ABNORMAL) Comprehensive Metabolic Panel (12/04/2024 9:30 AM EDT) Only the most recent of2 resultswithin the time period is included. Sodium 142 135 - 145 mmol/L [facility] Potassium 3.9 3.3 - 5.1 mmol/L [facility] Chloride 110(H) 96 - 108 mmol/L [facility] Carbon Dioxide 24 22 - 29 mmol/L [facility] Anion Gap 12 12 - 20 [facility] Urea Nitrogen (BUN) 22(H) 9 - 16 mg/dL [facility] Creatinine, Serum 0.76 0.5 - 1.4 mg/dL [facility] Estimated Glomerular Filt Rate >60 [facility] Comment:Chronic Kidney Disea se: Estimated GFR < 60 mL/min/1.61k0Pehahw Kidney Disease: Estimated GFR < 15 mL/min/1.73m2 Glucose 146(H) 60 - 115 mg/dL [facility] Calcium 8.8 8.4 - 10.2 mg/dL [facility] Bilirubin, Total 0.3 0.0 - 1.0 mg/dL [facility] Aspartate Amino Transferase 92(H) 5 - 37 U/L [facility] Alanine Aminotransferase 115(H) 0 - 40 U/L [facility] Total Protein 6.9 6.5 - 8.0 g/dL [facility] Albumin Level 4.0 3.5 - 5.0 g/dL [facility] Alkaline Phosphatase 181(H) 39 - 117 U/L [facility] Blood Venous blood specimen / Unknown 12/04/2024 9:30 AM EDT 12/04/2024 9:30 AM EDT Angela Curry MD LAB BLOOD ORDERABLES Final Re sult Performing Organization Address [facility]/ZIP Co de Phone Number [facility] [address] [place] [phone] * (ABNORMAL) Vitamin B12/Folate, Serum Panel (12/04/2024 9:25 AM EDT) Pathologist [facility] Vitamin B12 927(H) 200 - 900 pg/mL [facility] Comment:NORMAL 200-900 PG/ML INDETERMINATE 160-199 PG/ML DEFICIENT < 160 PG/ML Folate 14.0 > or = 4.0 ng/mL [facility] Comment:Reference Values:> o r = [...] ORDERABLES Final Re sult Performing Organization Address [facility] Co de Phone Number [facility] [address] [place] [phone] * Lyme Disease Ab with Reflex to Blot (IgG, IgM) (12/04/2024 9:25 AM EDT) [facility] Lyme Antibody Screen <0.90 index [facility] Comment:Index Interpretation ----- < 0.90 [...] when erythemamigrans is apparent.THIS TEST WAS PERFORMED AT:[facility] [address] [phone] WATKINS MD Lyme Blot TNP [facility] 12/04/2024 9:25 AM EDT 12/04/2024 9:30 AM EDT Angela Curry MD LAB BLOOD ORDERABLES Final Re sult Performing Organization Address [facility] de Phone Number [facility] [address] [place] [phone] * Ceruloplasmin (12/04/2024 9:25 AM EDT) Ceruloplasmin 25 14 - 30 mg/dL [facility] Comment:THIS TEST WAS PERFOR MED AT:[facility] [address] [phone] WATKINS MD Blood Venous blood specimen / Unknown 12/04/2024 9:25 AM EDT 12/04/2024 9:30 AM EDT Angela Curry MD LAB BLOOD ORDERABLES Final Re sult Performing Organization Address [facility] de Phone Number [facility] [address] [place] [phone] * MR Brain w/o Contrast (11/14/2024 6:32 PM EDT) Anatomical Region Laterality Modality Brain Magnetic Resonan ce 11/14/2024 6:32 PM EDT Narrative 11/15/2024 7:12 AM EDT [address] [address] Magnetic Resonance Report Signed Patient: Milo EscobarNiraj cui MR#: Edelmira [id number] : 1955 Acct:[id number] Age/Sex: 69 / M ADM Date: 11/14/24 Loc: HO.MRI Attending Dr: Angela Curry MD Ordering Physician: Angela Curry MD Date of Service: 11/14/24 Procedure(s): MR head/brain wo con Accession Number(s): [id number] cc: Angela Curry MD EXAMINATION: MR BRAIN [...] 11/15/24 0708 DD/ 1832 TD/TT: 11/14/24 1853 All Round Logger: Procedure Note Donotuseinterpreter, Image - 11/15/2024 [place] [address] Magnetic Resonance Report Signed Patient: Chapin Ro#: M [id number] : 5Acct:[id number] Age/Sex: 69 / MADM Date: 11/14/24 Loc: HO.MRI Attending Dr: Angela Curry MD Ordering Physician: Angela Curry MD Date of Service: 11/14/24 Procedure(s): MR head/brain wo con Accession Number(s): [id number] cc: Angela Curry MD EXAMINATION: MR BRAIN [...] 11/15/24 0708 DD/ 1832 TD/TT: 11/14/24 1853 All Round Logger: us Angela Curry MD IMG MRI PROCEDURES Final Resu lt * US VENOUS DUPLEX LE LT (10/25/2024 4:55 PM EDT) Anatomical Region Laterality Modality Abdomen Ultrasound 10/25/2024 4:55 PM EDT Narrative 10/25/2024 4:56 PM EDT [place] [address] Ultrasound Report Signed Patient: Niraj Ro MR#: M [id number] : 1955 Acct:[id number] Age/Sex: 69 / M ADM Date: 10/25/24 Loc: HO.US Attending Dr: Vidal Morrison MD Ordering Physician: VIDAL MORRISON MD Date of Service: 10/25/24 Procedure(s): US venous duplex LE LT Accession Number(s): [id number] cc: VIDAL MORRISON MD; Angela Curry MD [...] in OV> 10/25/241655 DD/ 54 TD/TT: 10/25/241654 All Round Logger: Procedure Note Donotuseinterpreter, Image - 10/25/2024 [place] [address] Ultrasound Report Signed Patient: Chapin Ro#: M [id number] : 5Acct:[id number] Age/Sex: 69 / MADM Date: 10/25/24 Loc: . Attending Dr: Vidal Morrison MD Ordering Physician: VIDAL MORRISON MD Date of Service: 10/25/24 Procedure(s): US venous duplex LE LT Accession Number(s): [id number] cc: VIDAL MORRISON MD; Angela Curry MD [...] MD in OV> 10/25/241655 DD/ 54 TD/TT: 10/25/24 1655 All Round Logger: us Vidal Morrison MD IMG US PROCEDURES Final Result * XR Knee 3 Views Left (10/25/2024 4:10 PM EDT) Anatomical Region Laterality Modality Lower Extremities, Knee Left Radiogra phic Imaging 10/25/2024 4:10 PM EDT Narrative 10/25/2024 5:31 PM EDT [address] [address] XRay Report Signed Patient: Niraj Ro MR#: M [id number] : 1955 Acct:[id number] Age/Sex: 69 / M ADM Date: 10/25/24 Loc: .US Attending Dr: Vidal Morrison MD Ordering Physician: VIDAL MORRISON MD Date of Service: 10/25/24 Procedure(s): XR knee LT 3V Accession Number(s): [id number] cc: VIDAL MORRISON MD; Angela Curry MD [...] 10/25/24 1728 DD/ 1610 TD/TT: 10/25/24 1620 All Round Logger: Procedure Note Donotuseinterpreter, Image - 10/25/[address] [address] XRay Report Signed Patient: Chapin Ro#: Edelmira [id number] : 5Acct:[id number] Age/Sex: 69 / MADM Date: 10/25/24 Loc: . Attending Dr: Vidal Morrison MD Ordering Physician: VIDAL MORRISON MD Date of Service: 10/25/24 Procedure(s): XR knee LT 3V Accession Number(s): [id number] cc: VIDAL MORRISON MD; Angela Curry MD [...] 10/25/24 1728 DD/ 1610 TD/TT: 10/25/24 1620 All Round Logger: us Vidal Morrison MD IMG XR PROCEDURES Final Result * Lipid Panel, Standard (10/19/2024 8:57 AM EDT) Triglycerides 100 <150 mg/dL [facility] Comment:Desirable Triglyceri de: less than 150 mg/dLBorderline High Triglyceride 150-199 mg/dLHigh Triglyceride: 200-499 mg/dLVery High Triglyceride: greater than or equal to 5OO mg/dL Cholesterol 149 <200 mg/dL [facility] Comment:Desirable Cholestero l: less than 200 mg/dLBorderline High Cholesterol: 200-239 mg/dLHigh Cholesterol: greater than 239 mg/dL LDL Cholesterol Calculated 76 <100 mg/dL [facility] Comment:Desirable LDL: less than 100 mg/dLNear Optimal/Above Optimal LDL: 110- 129 mg/dLBorderline High LDL: 130-159 mg/dLHigh LDL: 160-189 mg/dLVery High LDL: greater than or equal to 190 mg/dL HDL Cholesterol 53 >40 mg/dL [facility] Comment:Desirable HDL: great er than 40 mg/dL Note: This HDL assay may give artificially low results in patients with liver disease. 10/19/2024 8:57 AM EDT 10/19/2024 11:10 AM EDT Angela Curry MD LAB BLOOD ORDERABLES Final Re sult Performing Organization Address [facility]/ZIP Co de Phone Number [facility] [address] [place] [address] [phone] * Hm Colonoscopy (03/11/2023) Colonoscopy Normal Normal Narrative Angela Curry MD - 03/11/[address] Kisha Hale, normal, diverticulosis and hemorrhoids noticed Historical Provider HEALTH MAINTENANCE Final Result * Hepatitis C Ab (11/09/2022 4:15 PM EDT) Hepatitis C Antibody Nonreactive Nonreactive [facility] Comment:Antibodies to HCV no t detected; does not exclude early acuteHCV infection. 11/09/2022 4:15 PM EDT 11/09/2022 4:16 PM EDT [facility] External Provider LAB BLO OD ORDERABLES Final Result Performing Organization Address City/[facility]/ZIP Co de Phone Number [facility] [address] [place] [address] [phone] from Last 3 Months or Most Recently Relevant to Health Maintenance Insurance MEDICARE [facility] STAND[facility] Care Teams Cafe Operator Relationship Specialty Start Date End Date Angela Curry MD [address] [place] [phone] PCP - General Family Medicine 07/31/22
--- OUTSIDE RECORDS SUMMARY | 2025-01-17 16:00 | XMS_ITS | Encounter Summary ---
Author Organization [employer] Address [address] 7t [place] [address] Care Team Providers Care Bill Adjuster Name Role Phone Angela Curry MD Primary Care Provider [phone] Reason for Referral * Consultation (Routine) - Canceled Specialty Diagnoses / Procedures Referred By Juvencio t Referred To Contact Pharmacy Diagnoses Polypharmacy Herlinda Olsen MD [address] [place] [address] Phone: tel: fax: Referral ID Status Reason Start Date Expiration Date V isits Requested Visits Authorized [id number] Canceled Continuity of Care 10/03/2024 10/03/2025 6 6 Encounter Details Date Type Department Care Team (Late st Contact Info) Description 09/27/2024 Orders Only [facility] MEDICINE [address] [place] [address] [phone] Herlinda Olsen MD [address] [place], [place] [phone] Polypharmacy (Primary Dx) Social History Tobacco Use [...] Description 02/28/2025 10:45 AM EDT Office Visit [facility] MED & PEDS [address] [place] [address] Angela Curry MD [address] [place] [address] 10/23/2025 2:30 PM EDT Telemedicine [facility] MEDICINE [address] [place] [address] Nael Iyer, PharmD [address] [place] [address] Scheduled Referrals Name Type Priority Associated Diagnoses [...] documented as of this encounter Care Teams Bill Adjuster Relationship Specialty Start Date End Date Angela Curry MD [address] [place] [address] PCP - General Family Medicine 07/31/22 documented as of this encounter"
--- OUTSIDE RECORDS SUMMARY | 2025-01-17 16:00 | XMS_ITS | Encounter Summary ---
Author Organization [employer] Address [address] 7[address] [place] [address] Care Team Providers Care Monument Erector Name Role Phone Angela Curry MD Primary Care Provider [phone] Reason for Visit * Reason Onset Date Comments Nurse Triage 01/17/2025 Encounter Details Date Type Department Care Team ([facility] st Contact Info) Description 01/17/2025 Telephone [facility] MEDICINE [address] [place] [address] Angela Curry MD [address] [place], [place] [phone] Nurse Triage Social History Tobacco Use Types [...] encounter Miscellaneous Notes * Telephone Encounter - Norma Gtz RN - 01/17/2025 10:02 AM EDT called pt to triage, spoke to through [employer] Lub[employer]ating Machine Tender. states pt has difficulty with toenails for a while now and requesting appt. states right great toe is the worst but many of the toes are effected. states nails lifted up, yellow, and split with uneven edges. denies history, drainage, redness, fever, or other associated symptoms. advised no available appt to schedule in [facility] at this time and given option of visiting the walk in in [facility] or call back afternoon for any open [facility] appt. advised home care: rest, fluids, soak twice daily, dry very well, white socks, and call back as needed. given location, hours and wait times cautions for the walk in in the [facility] office. understands and agrees with plan. insurance verified. Protocol Used: Toe Pain (Adult) Protocol-Based Disposition: See in Office or Video Visit within 2 Weeks Video visit offer not recorded Positive Triage Questions: * Mild pain (e.g., does not interfere with normal activities) and present > 7 days * Thickened, ugly-appearing toenail * All higher-acuity triage questions were negative Care Advice Discussed: * Wear Shoes That Fit * Wear the Right Shoe for the Right Activity * Reasons To Call Back - Signs of infection occur (such as spreading redness, warmth, fever) - You become worse * Foot Care - General * Foot Care - Cleaning * Foot Care - Nail Trimming * Wear Shoes That Fit * Telephone Encounter - Aníbalpetey Zambrano - 01/17/2025 9:23 AM EDT Symptom: Toenail Symptoms Outcome: Schedule an urgent appointment (within 4 hours) or talk to a nurse or provider soon Reason: Looks infected Please contact pt at [phone]. (Nepali Speaker) documented in this encounter Plan of Treatment Upcoming Encounters Date Type Department Care Team ([facility] st Contact Info) Description 02/28/2025 10:45 AM EDT Office Visit [facility] CH[facility] MED & PEDS [address] [place] [address] Angela Curry MD [address] [place] [address] 10/23/2025 2:30 PM EDT Telemedicine [facility] MEDICINE [address] [place] [address] Nael Iyer PharmD 230 [place] [address] documented as of this encounter Goals Goal [...] documented as of this encounter Care Teams Monument Erector Relationship Specialty Start Date End Date Angela Curry MD [address] [place] [address] PCP - General Family Medicine 07/31/22 documented as of this encounter
--- OUTSIDE RECORDS SUMMARY | 2025-01-17 16:00 | XMS_ITS | Encounter Summary ---
Author Organization [employer] Address [address] 7t [place] [address] Care Team Providers Care Radiagraph Operator Name Role Phone Angela Curry MD Primary Care Provider [phone] Encounter Details Date Type Department Care Team ([facility] st Contact Info) Description 10/09/2024 Telephone [facility] MEDICINE [address] [place] [address] Angela Curry MD [address] [place], [place] [phone] Social History Tobacco Use Types Packs/Day Years [...] Office Visit [facility] CH[facility] MED & PEDS [address] [place] [address] Angela Curry MD [address] [place] [address] 10/23/2025 2:30 PM EDT Telemedicine [facility] MEDICINE [address] [place] [address] Nael Iyer PharmD [address] [place] [address] documented as of this encounter Goals Goal [...] documented as of this encounter Care Teams Radiagraph Operator Relationship Specialty Start Date End Date Angela Curry MD [address] [place] [address] PCP - General Family Medicine 07/31/22 documented as of this encounter
--- OUTSIDE RECORDS SUMMARY | 2025-01-17 16:00 | XMS_ITS | Encounter Summary ---
Author Organization [employer] Address [address] [facility] 7t [place] [address] Care Team Providers Care Stock Holder Name Role Phone Angela Curry MD Primary Care Provider Reason for Visit * Reason Onset Date Comments Lab Orders 06/29/2024 Encounter Details Date Type Department Care Team ([facility] st Contact Info) Description 06/29/[address] [facility] MEDICINE 230 [place] [address] Angela Curry MD [address] [place], [place] [phone] Lab Orders Social History Tobacco Use Types [...] needing it for Program. Contact pt at [phone] documented in this encounter Plan of Treatment Upcoming Encounters Date Type Department Care Team ([facility] st Contact Info) Description 02/28/2025 10:45 AM EDT Office Visit [facility]EDS [address] [place] [address] Angela Curry MD [address] [place] [address] 10/23/2025 2:30 PM EDT Telemedicine [facility] MEDICINE [address] [place] [address] Nael Iyer, LienD [address] [place] [address] documented as of this encounter Goals Goal [...] documented as of this encounter Care Teams Stock Holder Relationship Specialty Start Date End Date Angela Curry MD [address] [place] [address] PCP - General Family Medicine 07/31/22 documented as of this encounter
--- OUTSIDE RECORDS SUMMARY | 2025-01-17 16:00 | XMS_ITS | Encounter Summary ---
Author Organization [employer] Address [address] [facility] 7t [place] [address] Care Team Providers Care Non Clinical Advisor Name Role Phone Angela Curry MD Primary Care Provider Reason for Visit * Reason Onset Date Comments VCare Form 08/10/2024 FYI 08/10/2024 Encounter Details Date Type Department Care Team ([facility] st Contact Info) Description 08/10/2024 Telephone [facility] MEDICINE [address] [place] [address] Angeal Curry MD [address] [place] [phone] VCare Form ; Social History Tobacco Use [...] Vcare doesn't receive the form. VCare F. [phone] * Telephone Encounter - Kelli Napier - [...] 10:45 AM EDT Office Visit [facility] CHC MED & PEDS [address] [place] [address] Angela Curry MD [address] [place] [address] 10/23/2025 2:30 PM EDT Telemedicine [facility] MEDICINE [address] [place] [address] Nael Iyer, LienD [address] [place] [address] documented as of this encounter Goals Goal [...] documented as of this encounter Care Teams Non Clinical Advisor Relationship Specialty Start Date End Date Angela Curry MD [address] [place] [address] PCP - General Family Medicine 07/31/22 documented as of this encounter
--- OUTSIDE RECORDS SUMMARY | 2025-01-17 16:00 | XMS_ITS | Encounter Summary ---
Author Organization [employer] Address [address] 7t [place] [address] Care Team Providers Care Binder And Wrapper Packer Name Role Phone Angela Curry MD Primary Care Provider [phone] Reason for Visit * Reason Onset Date Comments Referral 05/08/2024 Encounter Details Date Type Department Care Team ([facility] st Contact Info) Description 05/08/2024 Telephone [facility] MEDICINE [address] [place] [address] Angela Curry MD [address] [place], [place] [phone] Referral Social History Tobacco Use Types Packs/Day [...] 05/08/2024 5:24 PM EST Referral re-faxed to [facility] PT. * Telephone Encounter - Edgar Gallego - 05/08/2024 8:54 AM EST Tc from spouse requesting new referral for physical therapy as pt inform called [facility] facility and referral doesn't exist, financial writer verify referral status is (closed) , pt verbalized not understanding ironey had call her for pt to make appointment and now referral doesn't exist. documented in this encounter Plan of Treatment Upcoming Encounters Date Type Department Care Team (Late st Contact Info) Description 02/28/2025 10:45 AM EDT Office Visit [facility] CHC MED & PEDS [address] [place] [address] Angela Curry MD [address] [place] [address] 10/23/2025 2:30 PM EDT Telemedicine [facility] MEDICINE [address] [place] [address] Nael Iyer, LienD [address] [place] [address] documented as of this encounter Goals Goal [...] documented as of this encounter Care Teams Binder And Wrapper Packer Relationship Specialty Start Date End Date Angela Curry MD [address] [place] [address] PCP - General Family Medicine 07/31/22 documented as of this encounter
--- OUTSIDE RECORDS SUMMARY | 2025-01-17 16:00 | XMS_ITS | Encounter Summary ---
Author Organization [employer] Address [address] [facility] 7t [place] [address] Care Team Providers Care Bid Manager Name Role Phone Angela Curry MD Primary Care Provider [phone] Reason for Visit * Reason Onset Date Comments Prior Authorization 11/15/2024 Encounter Details Date Type Department Care Team ([facility] st Contact Info) Description 11/15/[address] [facility] MEDICINE [address] [place] [address] Angela Curry MD [address] [place] [address] Prior Authorization Social History Tobacco Use Types [...] for Blood Glucose Monitoring Suppl (FreeStyle [place] Lite) w/Device kit * Telephone Encounter - Khoa Louise - 11/15/2024 10:51 AM EDT Tc from [place] ( pt gaver verbal permission to speak with her) reports PA required for Blood Glucose Monitoring Suppl (FreeStyle [place] Lite) w/Device kit documented in this encounter Plan of Treatment Upcoming Encounters Date Type Department Care Team ([facility] st Contact Info) Description 02/28/2025 10:45 AM EDT Office Visit [facility] MED & PEDS [address] [place] [address] Angela Curry MD [address] [place] [address] 10/23/2025 2:[address] [facility] MEDICINE [address] [place] [address] Nael Iyer, LienD [address] [place] [address] documented as of this encounter Goals Goal [...] documented as of this encounter Care Teams Bid Manager Relationship Specialty Start Date End Date Angela Curry MD [address] [place] [address] PCP - General Family Medicine 07/31/22 documented as of this encounter
--- OUTSIDE RECORDS SUMMARY | 2025-01-17 16:00 | XMS_ITS | Clinical Summary ---
Author Organization [address] Address [address] [place] [address] Phone Care Team Providers Care Printer Technician Name Role Phone Physician, Pcp Unknown Primary Care Provider Saba vailable Social History Tobacco Use Types Packs/Day Years [...] 2004 Zoster Vaccines (1 of 2) 2004 Depression Screening 05/10/2024 Abdominal Aortic Aneurysm (A AA) Screen 10/05/2024 Cholesterol Screening (Lipid Panel) 10/05/2024 Colorectal Cancer Screening: Colonoscopy 10/05/2024 Falls Risk Assessment 10/05/2024 Hepatitis C Screening 10/05/2024 Social Influencers of Health Screening 10/05/2024 COVID-19 Vaccine (1 - 2023-2 5 season) 2025 Influenza Vaccine (#1) 2025 RSV Immunization Adult [...] patient's age to complete this topic Insurance [facility] Care Teams Printer Technician Relationship Specialty Start Date End Date Physician, Pcp Unknown PCP - General 10/04/24
--- OUTSIDE RECORDS SUMMARY | 2025-01-17 16:00 | XMS_ITS | Encounter Summary ---
Author Organization [facility] Address [address] [place] [address] Care Team Providers Care Marine Rigger Name Role Phone Physician, Pcp Unknown Primary Care Provider Saba vailable Encounter Details Date Type Department Care Team (Late st Contact Info) Description 10/04/2024 Lab Requisition [facility] - Main Lab [address] [facility] [place] [address] Kendrick Huang MD [address] [facility] [address] [place] [address] Benign essential microscopic hematuria Social History Tobacco [...] AM EDT) Final Diagnosis A. Urine, Voided, [id number]: Negative for high grade urothelial carcinoma. Results of UroVysion fluorescence in situ hybridization (FISH) testing: CEP3: Normal CEP7: Normal CEP17: Normal LSI 9p21: Normal Interpretation: Normal profile Controls stained appropriately. Note: The results are intended as a screening device and should be interpreted in association with other clinical and pathological findings. 10/18/2024 3:48 PM EDT [facility] Clinical Information Benign essential microscopic hematuria R31.1 Urine Cytology/FISH (now) 10/18/2024 3:48 PM EDT [facility] Gross Description A. Urine, Voided, [id number]: Received one ThinPrep slide for cytology and one ThinPrep slide for UroVysion FISH 10/18/2024 3:48 PM EDT [facility] Disclaimer Unless otherwise specified, all tissue is 10% NB formalin fixed and paraffin embedded. Technical pathology services provided by [facility] at [address] [facility] [address], [place] [address] (CLIA #[id number]/Eloina Jason MD, Staffing Assistant) 10/18/2024 3:48 PM EDT [facility] Tissue Urine specimen from urethra / Unknown 09/27/2024 10/04/2024 2:15 PM EDT us Kendrick Huang MD LAB PATHOLOGY ORDERABLES Fi nal Result [facility] [address] [place] [address], documented in this encounter Visit Diagnoses Diagnosis Benign essential microscopic hematuria documented in this encounter Care Teams Marine Rigger Relationship Specialty Start Date End Date Physician, Pcp Unknown PCP - General 10/04/24 documented as of this encounter
--- OUTSIDE RECORDS SUMMARY | 2025-01-17 16:00 | XMS_ITS | Encounter Summary ---
Author Organization [employer] Address [address] 7[address] [place] [address] Care Team Providers Care Roustabout Name Role Phone Angela Curry MD Primary Care Provider [phone] Reason for Visit * Reason Onset Date Comments Nurse Triage 10/31/2024 Encounter Details Date Type Department Care Team ([facility] st Contact Info) Description 10/31/2024 Telephone [facility] MEDICINE [address] [place] [address] Angela Curry MD [address] [place], [place] [phone] Nurse Triage Social History Tobacco Use Types [...] to Niraj Pedraza to triage below at [phone]. Patient gives verbal consent with spouse for this call. Pt having left leg pain since Wednesday10/21/24. Pt having severe leg pain and dragging. Pt returned from [place] on 10/25. Pt had arthritis in the knee. Pt seen at [facility]. Xray and DVT negative. Spouse is calling to request sooner Ortho appt. Has one booked for November 28. Advised to call ortho office to see if a wait list is available. Spouse also requesting another referral for Neurosurgeon as pt Neurologist left practice at [facility] [place]. Advised will send to PCP to review request. Offered [facility] slot for tomorrow to re-assess leg pain. [...] caller accepted this outcome. Contact spouses at [phone] Need auto body mechanic apprentice documented in this encounter Plan of Treatment Upcoming Encounters Date Type Department Care Team ([facility] st Contact Info) Description 02/28/2025 10:45 AM EDT Office Visit [facility] CHC MED & PEDS [address] [place], [place] [phone] Angela Curry MD [address] [place], [place] [phone] 10/23/2025 2:30 PM EDT Telemedicine [facility] MEDICINE [address] [place] [address] Nael Iyer, LienD [address] [place] [address] documented as of this encounter Goals Goal [...] documented as of this encounter Care Teams Roustabout Relationship Specialty Start Date End Date Angela Curry MD [address] [place] [address] PCP - General Family Medicine 07/31/22 documented as of this encounter
== END 2025-01-17 13:21 | disposition home or self-care (01) ==
LOC: HO.HOS 13:01
PROVIDERS: PCP Family Medicine; Visit Provider Orthopaedic Surgery
DX: S83.242A Other tear of medial meniscus, current injury, left knee, initial encounter (principal)
CPT/HCPCS: 99203; G2211

== ENCOUNTER → 2025-01-17 13:00 | Outpatient (BNVA) | payer OTHER, SELFPAY | PROVIDERS: PCP Family Medicine; Visit Provider Orthopaedic Surgery | DX: S83.242A Other tear of medial meniscus, current injury, left knee, initial encounter (principal) | CPT/HCPCS: 99202 ==

== ENCOUNTER → 2025-02-20 09:56 | Outpatient (BNV) | payer OTHER, SELFPAY | PROVIDERS: PCP Family Medicine; Visit Provider Radiology Diagnostic Radiology | DX: S72.435A Nondisplaced fracture of medial condyle of left femur, initial encounter for closed fracture (principal) | CPT/HCPCS: 73721 ==

== ENCOUNTER 2025-02-20 09:57 | Outpatient (REF) | payer OTHER, SELFPAY ==
--- NOTE | ~2025-02-20 | MR_ITS ---
EXAM: MRI LOWER EXTREMITY JOINT, KNEE, left TECHNIQUE: Multiplanar multisequence MR imaging performed through the left knee without contrast. INDICATION: S83.242A - Other tear of medial meniscus, current injury, left knee, current injury PRIOR: X-ray on October 25, 2024 FINDINGS: Menisci: Lateral Meniscus: Intact Medial Meniscus: There is irregular linear intermediate signal in the posterior half of the body and posterior horn extending to the tibial surface consistent with a tear. There is moderate extrusion of the meniscal body. ACL/PCL: ACL and PCL are intact. Extensor mechanism: There is a joint effusion. There is mild reticulated edema like signal in Hoffa's fat pad. There is mildly increased signal in the deep proximal fibers patellar tendon. MCL/LCL: MCL is bowed outward by extruded meniscus. Proximal fibers are mildly thickened with increased signal. LCL complex is intact. Articular cartilage: Patellofemoral Compartment: There is a central osteophyte and 14 mm full-thickness defect in the lower trochlear groove. There is linear high signal in the upper extremity, just lateral to the trochlear groove involving more than half the cartilage thickness. Lateral Compartment: Articular cartilage is intact. Medial Compartment: There is a focal full-thickness articular cartilage defect 6 mm in diameter involving the posterior central weightbearing region, adjacent to the inner free margin of the posterior horn. There is mild to moderate diffuse thinning of articular cartilage involving femoral condyle tibial plateau. Bones/Marrow: There is a subchondral insufficiency fracture involving the weightbearing region of the femoral condyle near the joint line that measures 20 x 3 x 11 mm (AP by cc by transverse). There is mild adjacent marrow edema. Soft tissues: Edema mildly reticulates the soft tissues. MR/MR knee LT wo con IMPRESSION: There is a high-grade insufficiency fracture involving the medial femoral condyle that is probably subacute in nature. There is a horizontal tear extending to the tibial surface involving posterior half of the medial meniscal body and the posterior horn. The medial meniscal body is mildly extruded from the joint line. There is a joint effusion. 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 Age-indeterminate grade 1 sprain, acute versus chronic partial tear of proximal MCL. Electronically signed by: Irving Billings MD 02/20/2025 11:54 AM EDT
--- OUTSIDE RECORDS SUMMARY | 2025-02-20 11:22 | XMS_ITS | Encounter Summary ---
Author Organization [employer] Address [address] [place] [address] Care Team Providers Care Stone Spreader Operator Name Role Phone Physician, Pcp Unknown Primary Care Provider Saba vailable Encounter Details Date Type Department Care Team (Late st Contact Info) Description 10/04/2024 Lab Requisition [facility] - Main Lab [address] [facility] [place] [address] Kendrick Huang MD [address] [place] [address] Benign essential microscopic hematuria Social History Tobacco Use Types Packs/Day Years Used Date Smoking Tobacco: Never Assessed Sex and Gender Information Value Date Recorded Sex Assigned at Not on file Legal Sex Male 8:03 AM EDT Gender Identity Not on file Sexual [...] AM EDT) Final Diagnosis A. Urine, Voided, [id number]: Negative for high grade urothelial carcinoma. Results of UroVysion fluorescence in situ hybridization (FISH) testing: CEP3: Normal CEP7: Normal CEP17: Normal LSI 9p21: Normal Interpretation: Normal profile Controls stained appropriately. Note: The results are intended as a screening device and should be interpreted in association with other clinical and pathological findings. 10/18/2024 3:48 PM EDT [facility] Clinical Information Benign essential microscopic hematuria R31.1 Urine Cytology/FISH (now) 10/18/2024 3:48 PM EDT [facility] Gross Description A. Urine, Voided, [id number]: Received one ThinPrep slide for cytology and one ThinPrep slide for UroVysion FISH 10/18/2024 3:48 PM EDT [facility] Disclaimer Unless otherwise specified, all tissue is 10% NB formalin fixed and paraffin embedded. Technical pathology services provided by [facility] at [address] [place] [address] [address], [place] [address] (CLIA #[id number]/Eloina Jason MD, Distribution Analyst) 10/18/2024 3:48 PM EDT [facility] Tissue Urine specimen from urethra / Unknown 09/27/2024 10/04/2024 2:15 PM EDT us Kendrick Huang MD LAB PATHOLOGY ORDERABLES Fi nal Result [facility] [address] [place] [address], documented in this encounter Visit Diagnoses Diagnosis Benign essential microscopic hematuria documented in this encounter Care Teams Stone Spreader Operator Relationship Specialty Start Date End Date Physician, Pcp Unknown PCP - General 10/04/24 documented as of this encounter
--- OUTSIDE RECORDS SUMMARY | 2025-02-20 11:22 | XMS_ITS | Clinical Summary ---
Author Organization [facility] Address [address] [place] [address] Phone Care Team Providers Care Cattery Operator Name Role Phone Physician, Pcp Unknown [...] Health Maintenance Due Date Last Done Comments Colorectal Cancer Screening: Colonoscopy 1954 DTaP,Tdap,and Td Vaccines (1 - Tdap) 1973 Pneumococcal Vaccine: 50+ Ye ars (1 of 1 - PCV) 2004 Zoster Vaccines (1 of 2) 2004 Depression Screening 05/10/2024 COVID-19 Vaccine (1 - 2023-2 5 season) 2025 Influenza Vaccine (#1) 2025 Abdominal Aortic Aneurysm (A AA) Screen 02/13/2025 Cholesterol Screening (Lipid Panel) 02/13/2025 Falls Risk Assessment 02/13/2025 Hepatitis C Screening 02/13/2025 Social Influencers of Health Screening 02/13/2025 RSV Immunization Adult Patie nts (1 - [...] topic Insurance [facility] Care Teams Cattery Operator Relationship Specialty Start Date End Date Physician, Pcp Unknown PCP - General 10/04/24
--- OUTSIDE RECORDS SUMMARY | 2025-02-20 11:23 | XMS_ITS | Encounter Summary ---
Author Organization [employer] Address [address] [place] [address] Care Team Providers Care Division Roadmaster Name Role Phone Angela Curry MD Primary Care Provider [phone] Reason for Visit * Reason Onset Date Comments Referral 05/08/2024 Encounter Details Date Type Department Care Team ([facility] st Contact Info) Description 05/08/2024 Telephone [facility] [address] [place] [address] Angela Curry MD [address] [place], [place] [phone] Referral Social History Tobacco Use Types Packs/Day [...] 05/08/2024 5:24 PM EST Referral re-faxed to [facility]. * Telephone Encounter - Edgar Gallego - 05/08/2024 8:54 AM EST Tc from spouse requesting new referral for physical therapy as pt inform called [facility] facility and referral doesn't exist, underwriter verify referral status is (closed) , pt verbalized not understanding ironey had call her for pt to make appointment and now referral doesn't exist. documented in this encounter Plan of Treatment Upcoming Encounters Date Type Department Care Team (Late st Contact Info) Description 02/28/2025 10:45 AM EDT Office Visit [facility] [address] [place] [address] Angela Curry MD [address] [place] [address] 03/15/2025 3:15 PM EST Office Visit [facility] [address] [place] [address] Angela Curry MD [address] [place] [address] 10/23/2025 2:30 PM EDT Telemedicine [facility] [address] [place] [address] Nael Iyer, LienD [address] [place] [address] documented as of this encounter Goals Goal [...] documented as of this encounter Care Teams Division Roadmaster Relationship Specialty Start Date End Date Angela Curry MD [address] [place] [address] PCP - General Family Medicine 07/31/22 documented as of this encounter
--- OUTSIDE RECORDS SUMMARY | 2025-02-20 11:23 | XMS_ITS | Encounter Summary ---
Author Organization [employer] Address [address] [place] [address] Care Team Providers Care Tourist Home Keeper Name Role Phone Angela Curry MD Primary Care Provider [phone] Reason for Referral * Consultation (Routine) - Canceled Specialty Diagnoses / Procedures Referred By Juvencio t Referred To Contact Pharmacy Diagnoses Polypharmacy Herlinda Olsen MD [address] [place] [address] Phone: tel: fax: Referral ID Status Reason Start Date Expiration Date V isits Requested Visits Authorized [id number] Canceled Continuity of Care 10/03/2024 10/03/2025 6 6 Encounter Details Date Type Department Care Team (Late st Contact Info) Description 09/27/2024 Orders Only [facility] MED[facility]INE [address] [place] [address] [phone] Herlinda Olsen MD [address] [place], [place] [phone] Polypharmacy (Primary Dx) Social History Tobacco Use [...] Description 02/28/2025 10:45 AM EDT Office Visit [facility] [address] [place] [address] Angela Curry MD [address] [place] [address] 03/15/2025 3:15 PM EST Office Visit [facility] [address] [place] [address] Angela Curry MD [address] [place] [address] 10/23/2025 2:30 PM EDT Telemedicine [facility]INE [address] [place] [phone] Nael Iyer, LienD [address] [place] [phone] Scheduled Referrals Name Type Priority Associated Diagnoses [...] documented as of this encounter Care Teams Tourist Home Keeper Relationship Specialty Start Date End Date Angela Curry MD [address] [place] [address] PCP - General Family Medicine 07/31/22 documented as of this encounter
--- OUTSIDE RECORDS SUMMARY | 2025-02-20 11:23 | XMS_ITS | Encounter Summary ---
Author Organization [employer] Address [address] [facility] [address] [place] [address] Care Team Providers Care Opal Miner Name Role Phone Angeal Curry MD Primary Care Provider [phone] Reason for Visit * Reason Onset Date Comments [facility] Form 08/10/2024 FYI 08/10/2024 Encounter Details Date Type Department Care Team ([facility] st Contact Info) Description 08/10/2024 Telephone [facility] [address] [place] [address] Angela Curry MD [address] [place] [phone] VCare Form ; Social History Tobacco Use [...] Miscellaneous Notes * Telephone Encounter - Danae Dnun RN - 08/18/2024 11:00 AM EDT [facility] forms re-faxed to fax number provided below. * Telephone Encounter - Kelli Napier - 08/18/2024 10:33 AM EDT Tc from [facility] stating [facility] doesn't receive the form. [facility] F. [phone] * Telephone Encounter - Kelli Napier - [...] 10:45 AM EDT Office Visit [facility]ED[facility] [address] [place] [address] Angela Curry MD [address] [place] [address] 03/15/2025 3:15 PM EST Office Visit [facility] [address] [place] [address] Angela Curry MD [address] [place] [address] 10/23/2025 2:30 PM EDT Telemedicine [facility] MEDICINE [address] [place] [address] Nael Iyer, LienD [address] [place] [phone] documented as of this encounter Goals Goal Patient Goal Type Associated Problems Recent Progress Patient-Stated? Author Short-term: Promote adherence to treatment regimen General No Alfred Long, PharmD Take your medication every day Lifestyle Alfred Hylton PharmD documented as of this encounter Visit Diagnoses Not on filedocumented in this encounter Additional Health Concerns Assessment Noted Time PHQ-9 Depression Total Score: 0 02/25/20 24 11:29 AM EDT documented as of this encounter Care Teams Opal Miner Relationship Specialty Start Date End Date Angela Curry MD [address] [place] [id number] PCP - General Family Medicine 07/31/22 documented as of this encounter
--- OUTSIDE RECORDS SUMMARY | 2025-02-20 11:23 | XMS_ITS | Encounter Summary ---
Author Organization [employer] Address [address] [facility] [address] [place] [address] Care Team Providers Care Warehouse Distribution Associate Name Role Phone Angela Curry MD Primary Care Provider [phone] Reason for Visit * Reason Onset Date Comments Prior Authorization 11/15/2024 Encounter Details Date Type Department Care Team ([facility] st Contact Info) Description 11/15/2024 Telephone [facility] MEDICINE [address] [place] [address] Angela Curry MD [address] [place] [address] Prior Authorization Social History Tobacco Use Types [...] required for Blood Glucose Monitoring Suppl (FreeStyle Greene Lite) w/Device kit * Telephone Encounter - Khoa Louise - 11/15/2024 10:51 AM EDT Tc from [facility] ( pt gaver verbal permission to speak with her) reports PA required for Blood Glucose Monitoring Suppl (FreeStyle Greene Lite) w/Device kit documented in this encounter Plan of Treatment Upcoming Encounters Date Type Department Care Team ([facility] st Contact Info) Description 02/28/2025 10:45 AM EDT Office Visit [facility] MED & PEDS [address] [place] [address] Angela Curry MD [address] [place] [address] 03/15/2025 3:15 PM EST Office Visit [facility] [address] [place], [place] [phone] Angela Curry MD [address] [place] [address] 10/23/2025 2:30 PM EDT Telemedicine [facility] MEDICINE [address] [place] [address] Nael Iyer, LienD [address] [place] [address] [phone] documented as of this encounter Goals Goal [...] documented as of this encounter Care Teams Warehouse Distribution Associate Relationship Specialty Start Date End Date Angela Curry MD [address] [place] [address] PCP - General Family Medicine 07/31/22 documented as of this encounter
--- OUTSIDE RECORDS SUMMARY | 2025-02-20 11:23 | XMS_ITS | Clinical Summary ---
Author Organization [employer] Address [address] [facility] 7[address] [place] [address] Care Team Providers Care Biomedical Technician Name Role Phone Angela Curry MD Primary Care Provider [phone] Allergies No known active allergies Medications albuterol [...] 2025 Active Blood Glucose Monitoring Suppl (FreeStyle Chula Lite) w/Device kit Use to test blood sugar BID times daily 1 kit 11/07/19 Active glucose blood (Accu-Chek Guide Test) test stripIndications: Type 2 diabetes mellitus without complication, unspecified whether halfway insulin use Please check once daily at breakfast 100 each 12 11/24/19 25 2025 Active Lancets miscIndications:T ype 2 diabetes mellitus without complication, unspecified whether terminal carman insulin use Use to test blood sugar BID times daily 100 each 11/24/19 Active Blood Glucose Monitoring Suppl (Accu-Chek Annika Plus) w/Device kitIndications:Ty pe 2 diabetes mellitus without complication, unspecified whether halfway insulin use Test daily before all meals/snacks and once before bedtime. 1 kit 11/24/19 25 Active ARIPiprazole (Abilify) 15 MG tablet TAKE 1 TABLET BY MOUTH EVERY MORNING 90 tablet 1 12/09/19 25 Active Fluocinolone Acetonide Scalp 0.01 % oilIndications:Se bopsoriasis APPLY TO THE AFFECTED AREA(S) TWICE A WEEK IN THE EVENING 118.28 mL 3 12/16/19 25 Active lidocaine (Lidoderm) 5 % patchIndications: Acute [...] daily. 180 capsule 1 01/06/20 25 Active clotrimazole (Lotrimin) 1 % cream Apply topically 2 times daily. Apply to toenails and feet 113 g 3 01/26/20 25 2024 Active ammonium lactate (Amlactin) 12 % cream Apply topically to feet daily 385 g 3 01/26/20 25 Active pregabalin (Lyrica) 75 MG capsule TAKE 1 CAPSULE BY MOUTH TWICE DAILY IN THE MORNING AND IN THE EVENING 60 capsule 2 01/30/20 25 Active nabumetone (Relafen) 750 MG tabletIndications :Arthritis TAKE 1 TABLET BY MOUTH TWICE DAILY 60 tablet 02/07/20 25 Active pregabalin (Lyrica) 75 MG capsule TAKE 1 CAPSULE BY MOUTH TWICE DAILY IN THE MORNING AND IN THE EVENING 60 capsule 2 11/10/19 25 2024 Discontinued ammonium lactate (Amlactin) 12 % cream Apply topically if needed for dry skin. 400 g 2 12/16/19 25 2024 Discontinued(R eorder (will not trigger notification to Pharmacy)) nabumetone (Relafen) 750 MG tabletIndications :Arthritis Take 1 tablet (750 mg) by mouth 2 times daily. 60 tablet 01/12/20 25 2024 Discontinued triamcinolone (Kenalog) 0.1 % ointment Apply topically if needed in the morning and at bedtime for rash for up to 14 days. To R knee 30 g 1 01/26/20 25 2024 Active Problems Problem Noted Date Diagnosed Date [...] Syphilis test - Referral to neurologist at [facility] for evaluation of tremors Acute pain of [...] test, ECHO, and chest xray. Hepatic cirrhosis (CMS/HCC) 08/18/2022 Assessment & Plan (03/24/2024 6:59 PM [...] being seen by psychiatrist yet or received SHIPPING RECEIVING MANAGER services. Will discontinue haldol and start on abilify. Assessment & Plan (08/05/2022 1:24 PM EDT): Patient needs formal psychiatry followup, referral was placed and also will send medications for now. He needs VNA services to assist with medication compliance and also will need SHIPPING RECEIVING MANAGER service to assist with ADLs/IADLs that need [...] Encounters Date Type Department Care Team Description 02/05/2025 Refill [facility] [address] [place] [address] Angela Curry MD Arthritis 02/01/2025 Telephone [facility] [address] [place] [address] Angela Curry MD Appointment Request 01/30/2025 Telephone [facility] MED[facility] [address] [place] [phone] Angela Curry MD Referral 01/28/2025 Refill [facility] [address] [place] [address] Angela Curry MD 01/25/2025 2:00 PM EDT Office Visit [facility] [address] [place] [phone] Kassidy Cannon DO Onychomycosis (Primary Dx); Dermatitis 01/25/2025 Travel 01/17/2025 Telephone [facility] MED[facility]INE [address] [place] [phone] Angela Curry MD Nurse Triage 01/11/2025 Refill [facility] [address] [place] [address] Angela Curry MD Arthritis 01/05/2025 Refill [facility] [address] [place] [address] Angela Curry MD Gastroesophageal reflux disease, unspecified whether esophagitis present; Anxiety; Hyperlipidemia, unspecified hyperlipidemia type 01/03/2025 Telephone [facility] [address] [place] [address] Angela Curry MD No Show 12/31/2024 Refill [facility] [address] [place] [address] Angela Curry MD 12/15/2024 3:00 PM EDT Office Visit [facility] [address] [place] [address] Angela Curry MD Xerosis of skin (Primary Dx); Acute pain of left knee; Left leg pain; Acute pain of left thigh 12/15/2024 Travel 12/15/2024 Refill [facility] [address] [place] [address] Rocky Cruz MD 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 Refill [facility] [address] [place] [address] Angela Curry MD 12/06/2024 Results Follow-Up [facility] [address] [place] [address] Angela Curry MD Hepatic Function Panel, Vitamin B12/Folate, Serum Panel, Albumin, Random Urine W/Creatinine 12/04/2024 Orders Only GENERIC EXTERNAL DATA DEPARTMENT Provider, Generic External Data 11/28/2024 1:15 PM EDT Clinical Support [facility] [address] [place] [address] Amalia Duran RN Type 2 diabetes mellitus without complication, unspecified whether terminal carman insulin use ([facility]) 11/28/2024 Travel 11/22/2024 Telephone [facility] [address] [place], [place] [phone] Angela Curry MD from Last 3 Months Immunizations Immunization Administration [...] Sign Reading Time Taken Comments Blood Pressure 132/67 01/25/2025 1:51 PM EDT Pulse 79 01/25/2025 1:51 PM EDT Temperature 36.1 C (97 F) 01/25/2025 1:51 PM EDT Respiratory Rate 18 01/25/2025 1:51 PM EDT Oxygen Saturation 97% 01/25/2025 1:51 PM EDT Inhaled Oxygen Concentration - - Weight 101 kg (221 lb 9.6 oz) 01/25/2025 1:51 PM EDT Height 167.6 cm (5' 6 ) 12/15/2024 3:09 PM EDT Body Mass Index 35.77 12/15/2024 3:09 PM EDT Plan of Treatment Upcoming Encounters Date Type Department Care Team (Late st Contact Info) Description 02/28/2025 10:45 AM EDT Office Visit [facility] [address] [place] [address] Angela Curry MD [address] [place] [address] 03/15/2025 3:15 PM EST Office Visit [facility] [address] [place] [address] Angela Curry MD [address] [place] [address] 10/23/2025 2:30 PM EDT Telemedicine [facility] [address] [place] [address] Nael Iyer, PharmD [address] [place] [address] Health Maintenance Due Date Last Done Comments [...] Depression Screening 02/24/2025 02/25/2024, 02/25/20 24 Diabetes: Hemoglobin A1C 06/17/2025 025, 11/03/2024, 03/06/2024 SDOH Screening 09/25/2025 09/25/2024 Lipid Panel 10/19/2025 10/19/2024, 08/23/2023 Diabetes: Urine Protein Screening 12/04/2025 12/04/2024 Diabetes: Foot Exam 01/25/2026 01/25/2025, 01/25/2025, 01/25/2025, Additional history exists Tobacco Screening 01/25/2026 01/25/2025 DTaP/Tdap/Td Vaccines (2 - Td or Tdap) [...] Procedure Name Priority Date/Time Associated Diagnosis Comments AMB REFERRAL TO UROLOGY Routine 01/17/2025 Enlarged prostate POCT GLYCATED HEMOGLOBIN, TOTAL Routine 12/15/2024 3:35 PM EDT Xerosis of skin POCT GLUCOSE Routine 12/15/2024 3:34 PM EDT Xerosis of skin US ABDOMEN COMPLETE Routine 12/04/2024 1 :03 PM EDT CBC Routine 12/04/2024 9:30 AM EDT ALBUMIN, RANDOM URINE W/CREATININE Routine 12/04/2024 9:30 AM EDT Type 2 diabetes mellitus without complication, unspecified whether terminal carman insulin use (CMS/HCC) HEPATIC FUNCTION PANEL Routine 9:30 AM EDT Type 2 diabetes mellitus without complication, unspecified whether halfway insulin use (CMS/HCC) SYPHILIS SCREEN Routine 12/04/2024 9:30 AM EDT Memory deficit TSH W/REFLEX TO FT4 Routine 12/04/2024 9 :30 AM EDT Tremors of nervous system COMPREHENSIVE METABOLIC PANEL Routine 12/04/2024 9:30 AM EDT Tremors of nervous system VITAMIN B12/FOLATE, SERUM PANEL Routine 12/04/2024 9:25 AM EDT Type 2 diabetes mellitus without complication, unspecified whether halfway insulin use (CMS/HCC) LYME DISEASE AB W/REFL TO BLOT (IGG, IGM) Routine 12/04/2024 9:25 AM EDT Memory deficit CERULOPLASMIN Routine 12/04/2024 9:25 AM EDT Tremors of nervous system LIPID PANEL, STANDARD Routine 10/19/2024 8:57 AM EDT HM COLONOSCOPY Routine 03/11/2023 HEPATITIS C ANTIBODY Routine 11/09/2022 4:15 PM EDT from Last 3 Months or Most Recently Relevant to Health Maintenance Results * Referral to Urology (01/17/2025) Tika Gatica [facility] OUTPATIENT REFERRAL ORDERABLES Final Result * (ABNORMAL) POCT HGB A1C (12/15/2024 3:35 PM EDT) Hemoglobin A1C 6.5(A) 4.0 - 5.7 % [employer] Lot # [id number] Lot# Expiration Date 47, Blood 12/15/2024 3:35 PM EDT Angela Curry MD POINT OF CARE TEST ENTER/EDIT ORDERABLES Final Result * POCT Glucose (12/15/2024 3:34 PM EDT) Glucose Blood, POC 134 60 - 200 mg/dL [employer] Lot # [id number] Lot# Expiration Date ,025 Blood Capillary blood specimen / Unknown 12/15/2024 3:34 PM EDT Angela Curry MD POINT OF CARE TEST ENTER/EDIT ORDERABLES Final Result * US Abdomen Complete (12/04/2024 1:03 PM EDT) Anatomical Region Laterality Modality Abdomen Ultrasound 12/04/2024 1:03 PM EDT Narrative 12/04/2024 1:04 PM EDT [address] [address] Ultrasound Report Signed Patient: Niraj Ro MR#: [id number] : 1955 Acct:[id number] Age/Sex: 69 / M ADM Date: 12/04/24 Loc: HO.US Attending Dr: Kisha Hale MD Ordering Physician: Kisha Hale MD Date of Service: 12/04/24 Procedure(s): US abdomen complete Accession Number(s): [id number] cc: Angela Curry MD; Kisha Hale MD CLINICAL HISTORY: K76.9 - Liver disease, unspecified US abdomen complete with duplex and color Doppler Comparison: CT/SR - CT ABDOMEN PELVIS W IV CON - 06/27/24 17:10 EST US/IA/SR - US ABDOMEN COMPLETE - 04/04/24 09:43 [...] 12/04/24 1304 DD/ 1303 TD/TT: 12/04/24 1303 Manager Copy: Procedure Note Donotuseinterpreter, Image - 12/04/2024 [place] [address] Ultrasound Report Signed Patient: Taylor RoR#: [id number] : 5Acct:[id number] Age/Sex: 69 / MADM Date: 12/04/24 Loc: HO.US Attending Dr: Kisha Hale MD Ordering Physician: Kisha Hale MD Date of Service: 12/04/24 Procedure(s): US abdomen complete Accession Number(s): [id number] cc: Angela Curry MD; Kisha Hale MD CLINICAL HISTORY: K76.9 - Liver disease, unspecified US abdomen complete with duplex and color Doppler Comparison: CT/SR - CT ABDOMEN PELVIS W IV CON - 06/27/24 17:10 EST US/IA/SR - US ABDOMEN COMPLETE - 04/04/24 09:43 [...] 12/04/24 1304 DD/ 1303 TD/TT: 12/04/24 1303 Manager Copy: Result [facility] External Provider IMG US PROCEDURES Final Result * Syphilis Screen (12/04/2024 9:30 AM EDT) Syphilis Screen Nonreactive Nonreactive [facility] Blood 12/04/2024 9:30 AM EDT 12/04/2024 9:30 AM EDT Result [facility] Angela Curry MD LAB BLOOD ORDERABLES Final Re sult Performing Organization Address [facility] Co de Phone Number [facility] [address] [place] [phone] * TSH W/Reflex to FT4 (12/04/2024 9:30 AM EDT) TSH reflex Free T4 1.64 0.32 - 4.0 uIU/mL [facility] Blood Venous blood specimen / Unknown 12/04/2024 9:30 AM EDT 12/04/2024 9:30 AM EDT Result [facility] Angela Curry MD LAB BLOOD ORDERABLES Final Re sult Performing Organization Address [facility]/ZIP Co de Phone Number [facility] [address] [place] [phone] * Albumin, Random Urine W/Creatinine (12/04/2024 9:30 AM EDT) Creatinine, Urine 172.70 mg/dL [facility] Microalbumin Urine 6.0 mg/L [facility] Microalbum Creatinine Ratio Ur 3.4 <30 ug/mg cr [facility] Comment:Albumin/Creatinine R atio Reference Ranges: Normal: < 30 ug/mg creatinine Microalbuminuria: 30 - 300 ug/mg creatinineClinical Albuminuria: > 300 ug/mg creatinine Urine (Urine, Random) 12/04/2024 9:30 AM EDT 12/04/2024 9:43 AM EDT us Angela Curry MD LAB URINE ORDERABLES Final Re sult Performing Organization Address City/[facility]/ZIP Co de Phone Number [facility] [address] [place] [address] [phone] * (ABNORMAL) CBC (12/04/2024 9:30 AM EDT) White Blood Count 4.8 4.8 - 10.8 X10*3/uL [facility] Red Blood Count 4.08(L) 4.60 - 5.80 X10*6/uL [facility] Hemoglobin 12.2(L) 14.0 - 18.0 g/dl [facility] Hematocrit 37.0(L) 42.0 - 52.0 % [facility] Mean Corpuscular Volume 90.7 80.0 - 98.0 fL [facility] Mean Corpuscular Hemoglobin 29.9 27.0 - 33.0 pg [facility] Mean Corpuscular HGB Conc 33.0 31.0 - 36.0 g/dl [facility] Red Cell Distribution Width 14.0 11.0 - 16.0 % [facility] Platelet Count 112(L) 160 - 400 X10*3/uL [facility] Mean Platelet Volume 10.7 9.4 - 12.4 fL [facility] NRBC Pct Auto 0.0 0.0 - 0.2 /100WBC [facility] NRBC Abs Auto 0.000 0.0 - 0.012 X10*3/uL [facility] 12/04/2024 9:30 AM EDT 12/04/2024 9:30 AM EDT us Generic External Data Provider LAB BLOOD ORDERAB LES Final Result [facility] [address] [place] [address] [phone] * Hepatic Function Panel (12/04/2024 9:30 AM EDT) Bilirubin, Direct 0.2 0.0 - 0.5 mg/dL [facility] Blood Venous blood specimen / Unknown 12/04/2024 9:30 AM EDT 12/04/2024 9:30 AM EDT us Angela Curry MD LAB BLOOD ORDERABLES Final Re sult Performing Organization Address [facility] de Phone Number [facility] [address] [place] [phone] * (ABNORMAL) Comprehensive Metabolic Panel (12/04/2024 9:30 AM EDT) Pathologist [facility] Sodium 142 135 - 145 mmol/L [facility] Potassium 3.9 3.3 - 5.1 mmol/L [facility] Chloride 110(H) 96 - 108 mmol/L [facility] Carbon Dioxide 24 22 - 29 mmol/L [facility] Anion Gap 12 12 - 20 [facility] Urea Nitrogen (BUN) 22(H) 9 - 16 mg/dL [facility] Creatinine, Serum 0.76 0.5 - 1.4 mg/dL [facility] Estimated Glomerular Filt Rate >60 [facility] Comment:Chronic Kidney Disea se: Estimated GFR < 60 mL/min/1.87x6Alwatn Kidney Disease: Estimated GFR < 15 mL/min/1.73m2 Glucose 146(H) 60 - 115 mg/dL [facility] Calcium 8.8 8.4 - 10.2 mg/dL [facility] Bilirubin, Total 0.3 0.0 - 1.0 mg/dL [facility] Aspartate Amino Transferase 92(H) 5 - 37 U/L [facility] Alanine Aminotransferase 115(H) 0 - 40 U/L [facility] Total Protein 6.9 6.5 - 8.0 g/dL [facility] Albumin Level 4.0 3.5 - 5.0 g/dL [facility] Alkaline Phosphatase 181(H) 39 - 117 U/L [facility] Blood Venous blood specimen / Unknown 12/04/2024 9:30 AM EDT 12/04/2024 9:30 AM EDT us Angela Curry MD LAB BLOOD ORDERABLES Final Re sult Performing Organization Address City/[facility]/ZIP Co de Phone Number [facility] [address] [place], [place] [phone] * (ABNORMAL) Vitamin B12/Folate, Serum Panel (12/04/2024 9:25 AM EDT) Vitamin B12 927(H) 200 - 900 pg/mL [facility] Comment:NORMAL 200-900 PG/ML INDETERMINATE 160-199 PG/ML DEFICIENT < 160 PG/ML Folate 14.0 > or = 4.0 ng/mL [facility] Comment:Reference Values:> o r = 4.0 ng/mL< 4.0 ng/mL suggests folate deficiency Methotrexate, aminopterin and folinic acid(leucovorin) are chemotherapeutic agents whose molecularstructures are similar to folate; therefore, the Architectfolate assay cannot be used for patients using these drugs. Blood Venous blood specimen / Unknown 12/04/2024 9:25 AM EDT 12/04/2024 9:30 AM EDT us Angela Curry MD LAB BLOOD ORDERABLES Final Re sult Performing Organization Address City/[facility]/ZIP Co de Phone Number [facility] [address], [place] [phone] * Lyme Disease Ab with Reflex to Blot (IgG, IgM) (12/04/2024 9:25 AM EDT) Lyme Antibody Screen <0.90 index [facility] Comment:Index Interpretatio n ----- < 0.90 Negative 0.90-1.09 Equivocal > [...] when erythemamigrans is apparent.THIS TEST WAS PERFORMED AT:[employer] [place] [phone] WATKINS MD Lyme Blot TNP [facility] 12/04/2024 9:25 AM EDT 12/04/2024 9:30 AM EDT Angela Curry MD LAB BLOOD ORDERABLES Final Re sult Performing Organization Address [facility]/ZIP Co de Phone Number [facility] [address] [place] [phone] * Ceruloplasmin (12/04/2024 9:25 AM EDT) Ceruloplasmin 25 14 - 30 mg/dL [facility] Comment:THIS TEST WAS PERFOR MED AT:[facility] [address] [phone] WATKINS MD Blood Venous blood specimen / Unknown 12/04/2024 9:25 AM EDT 12/04/2024 9:30 AM EDT Angela Curry MD LAB BLOOD ORDERABLES Final Re sult Performing Organization Address City/[facility]/ZIP Co de Phone Number [facility] [address] [place] [phone] * Lipid Panel, Standard (10/19/2024 8:57 AM EDT) Triglycerides 100 <150 mg/dL [facility] Comment:Desirable Triglyceri de: less than 150 mg/dLBorderline High Triglyceride 150-199 mg/dLHigh Triglyceride: 200-499 mg/dLVery High Triglyceride: greater than or equal to 5OO mg/dL Cholesterol 149 <200 mg/dL [facility] Comment:Desirable Cholestero l: less than 200 mg/dLBorderline High Cholesterol: 200-239 mg/dLHigh Cholesterol: greater than 239 mg/dL LDL Cholesterol Calculated 76 <100 mg/dL [facility] Comment:Desirable LDL: less than 100 mg/dLNear Optimal/Above Optimal LDL: 110- 129 mg/dLBorderline High LDL: 130-159 mg/dLHigh LDL: 160-189 mg/dLVery High LDL: greater than or equal to 190 mg/dL HDL Cholesterol 53 >40 mg/dL [facility] Comment:Desirable HDL: great er than 40 mg/dL Note: This HDL assay may give artificially low results in patients with liver disease. 10/19/2024 8:57 AM EDT 10/19/2024 11:10 AM EDT Angela Curry MD LAB BLOOD ORDERABLES Final Re sult [facility] [address] [place] [phone] * Hm Colonoscopy (03/11/2023) Pathologist [facility] Colonoscopy Normal Normal Narrative Angela Curry MD - 03/11/[address] Kisha Hale, normal, diverticulosis and hemorrhoids noticed Historical Provider HEALTH MAINTENANCE Final Result * Hepatitis C Ab (11/09/2022 4:15 PM EDT) Hepatitis C Antibody Nonreactive Nonreactive [facility] Comment:Antibodies to HCV no t detected; does not exclude early acuteHCV infection. 11/09/2022 4:1 5 PM EDT 11/09/2022 4:16 PM EDT [facility] External Provider LAB BLO OD ORDERABLES Final Result [facility] [address] [place] [address] [phone] from Last 3 Months or Most Recently Relevant to Health Maintenance Insurance MEDICARE Member Subscriber Plan / Payer (Ef fective 2019-Present) Name:Niraj Pedraza Member ID:[id number] Relation to Subscriber:Self Name:Niraj Pedraza Subscriber ID:[id number] Payer ID:STATE Group ID:Not on file Type:Medicare Address: [facility].[address] [phone] [facility] STANDARD Care Teams Biomedical Technician Relationship Specialty Start Date End Date Angela Curry MD [address] [place] [address] PCP - General Family Medicine 07/31/22
--- OUTSIDE RECORDS SUMMARY | 2025-02-20 11:23 | XMS_ITS | Encounter Summary ---
Author Organization [employer] Address [address] [facility] [address] [place] [address] Care Team Providers Care Tower Helper Name Role Phone Angela Curry MD Primary Care Provider [phone] Encounter Details Date Type Department Care Team ([facility] st Contact Info) Description 10/09/2024 Telephone [facility] [address] [place] [address] Angela Curry MD [address] [place], [place] [phone] Social History Tobacco Use Types Packs/Day Years [...] Description 02/28/2025 10:45 AM EDT Office Visit [facility] [address] [place] [address] Angela Curry MD [address] [place] [address] 03/15/2025 3:15 PM EST Office Visit [facility] [address] [place] [address] Angela Curry MD [address] [place] [address] 10/23/2025 2:30 PM EDT Telemedicine [facility] [address] [place] [address] Nael Iyer PharmD [address] [place], [place] [phone] documented as of this encounter Goals Goal Patient Goal Type Associated Problems Recent Progress Patient-Stated? Author Short-term: Promote adherence to treatment regimen General No Alfred Long, LienD Take your medication every day Lifestyle No Alfred Long PharmD documented as of this encounter Visit Diagnoses Not on filedocumented in this encounter Additional Health Concerns Assessment Noted Time PHQ-9 Depression Total Score: 0 02/25/20 24 11:29 AM EDT documented as of this encounter Care Teams Tower Helper Relationship Specialty Start Date End Date Angela Curry MD [address] [place] [address] PCP - General Family Medicine 07/31/22 documented as of this encounter
--- OUTSIDE RECORDS SUMMARY | 2025-02-20 11:23 | XMS_ITS | Encounter Summary ---
Author Organization [employer] Address [address] [facility] [address] [place] [address] Care Team Providers Care Quiller Runner Name Role Phone Angela Curry MD Primary Care Provider [phone] Reason for Visit * Reason Onset Date Comments Lab Orders 06/29/2024 Encounter Details Date Type Department Care Team ([facility] st Contact Info) Description 06/29/2024 Telephone [facility] MED[facility] [address] [place] [address] Angela Curry MD [address] [place], [place] [phone] Lab Orders Social History Tobacco Use Types [...] needing it for Program. Contact pt at [phone] documented in this encounter Plan of Treatment Upcoming Encounters Date Type Department Care Team ([facility] st Contact Info) Description 02/28/2025 10:45 AM EDT Office Visit [facility] [address] [place] [address] Angela Curry MD [address] [place] [address] 03/15/2025 3:15 PM EST Office Visit [facility] [address] [place], [place] [phone] Angela Curry MD [address] [place] [address] 10/23/2025 2:30 PM EDT Telemedicine [facility] MEDICINE [address] [place] [address] Nael Iyer, LienD [address] [place] [address] documented as of this encounter Goals Goal [...] documented as of this encounter Care Teams Quiller Runner Relationship Specialty Start Date End Date Angela Curry MD [address] [place] [phone] PCP - General Family Medicine 07/31/22 documented as of this encounter
== END 2025-02-20 09:58 | disposition home or self-care (01) ==
LOC: HO.MRI 09:57
PROVIDERS: PCP Family Medicine; Visit Provider Orthopaedic Surgery
DX: S83.242A Other tear of medial meniscus, current injury, left knee, initial encounter (principal)
CPT/HCPCS: 73721

== ENCOUNTER 2025-03-07 11:34 | Outpatient (AMB) | payer OTHER, SELFPAY ==
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
[2025-03-07 11:40] VITALS: BP 112/60; PULSE 75; O2SAT 97; BMI 35.4
--- NOTE | 2025-03-07 11:40 | MHC.OFFVIS ---
Vital Signs 03/07/25 11:40 Height 5 ft 6 in Weight 219 lb 4 oz BMI 35.4 BP 112/60 Blood Pressure Location Rt brachial Position Sitting Pulse 75 Pulse Source Pulse Oximeter Pulse Oximetry (%) 97 Oxygen Delivery Method Room Air Intake Visit Reasons: dyspnea Allergies Seasonal Allergies Allergy (Mild, Verified 03/07/25 11:42) Unknown HPI HPI dyspnea: Details: Niraj is a pleasant 69 year old male, never smoker, with underlying asthma, cirrhosis and COREY on CPAP. Today he is accompanied by his daughter. He has been moderately controlled on Advair 115mcg and ipratropium nasal spray. Occasionally he does note dyspnea with exertion and daughter notes intermittent audible wheezing, although patient denies. He does have albuterol MDI however does note use. Denies cough or chest tightness. He denies any visits to urgent care or hospitalizations related to respiratory distress since the last visit. [facility] Surgical History Hx of colonoscopy Hx of cholecystectomy History of esophagogastroduodenoscopy (EGD) Social History Alcohol intake: current Alcohol intake frequency: holidays/special occasions only Patient Tobacco Use Status: Never used Tobacco Review of Systems Const Denies chills, Denies excessive sweating, Denies fever(s), Denies headache(s) and Denies night sweats Eyes Denies dry eyes, Denies irritation and Denies itchy eyes ENT Reports Normal hearing present, Denies headache(s), Denies nasal congestion, Denies nasal discharge, Denies post nasal drip and Denies sore throat Card Denies chest pain, Denies chest pain at rest, Denies chest pain with activity, Denies claudication, Denies leg edema, Denies orthopnea and Denies paroxysmal nocturnal dyspnea Resp Denies chest congestion, Denies cough, Denies excessive phlegm production, Denies pain on inspiration, Denies pain with cough and Denies stridor Musc Denies myalgias Neuro Reports Normal hearing present and Denies headache(s) Endo Denies excessive sweating Daren/Lymph Denies lymphadenopathy Aller/Immun Denies itchy eyes and Denies seasonal rhinorrhea Physical Exam Vital Signs: Last Vital Signs Pulse 75 03/07/25 11:40 BP 112/60 10/29/25 11:40 Pulse Ox 97 03/07/25 11:40 Oxygen Delivery Method Room Air 03/07/25 11:40 BMI result Body Mass Index 35.4 Const General: cooperative, healthy appearing, comfortable, no acute distress, well developed and alert Orientation/consciousness: patient oriented x3 Limitations: no limitations HEENT Head: Yes normal to inspection, Yes normocephalic and Yes atraumatic Ears: hearing grossly normal bilaterally and external ears normal Eyes General: appearance normal, both eyes and all related structures Eyelids: Yes eyelids normal Sclerae: sclerae normal EOM: EOMs intact bilaterally Neck Neck: Yes normal visual inspection and Yes no lymphadenopathy Lymphatic: no lymphadenopathy noted Chest Chest palpation & inspection: normal inspection of the chest Resp Effort & Inspection: normal respiratory effort, able to speak in complete sentences, no audible wheezes, no cough, no stridor, not tachypneic, no tripod positioning and no use of accessory muscles Auscultation: clear to auscultation bilaterally Cardio Jugular venous distension: no JVD Rate: regular rate Rhythm: regular rhythm Skin Other: warm, dry General skin exam: no rashes or lesions noted Neuro General: patient oriented x3 Cranial nerves: Yes Normal hearing present Cognition (Neuro): normal cognition Gait exam (Neuro): Normal gait present Extrem Other: 1+ pitting edema General: Yes normal to inspection, Yes capillary refill normal, Yes no clubbing, cyanosis or edema and Yes no pedal edema Psych Appearance: grossly normal and well kempt Speech and movement: Normal speech and movement present and Clear speech present Affect: normal affect Attitude: cooperative Thought process: Normal thought process present Thought content: Normal thought content present Insight: Good insight present (Psych) Judgement: Good judgement present (Psych) Assessment & Plan Assessment & Plan (1) Asthma: Code(s): J45.909 - Unspecified asthma, uncomplicated Category: Medical (2) Dyspnea: Code(s): R06.00 - Dyspnea, unspecified Category: Medical (3) Allergic rhinitis: Code(s): J30.9 - Allergic rhinitis, unspecified Category: Medical Plan Niraj reports moderate control with Advair and ipratropium nasal spray. Encouraged to trial albuterol MDI PRN for intermittent symptoms. If symptoms do not improve, will consider increasing Advair. All questions were answered and patient is in agreement of plan. Will follow up in 3 months or sooner if needed. Coding Level of Care Code Est Pt Level 4 (44478) Diagnoses Asthma J45.909 Dyspnea R06.00 Allergic rhinitis J30.9
--- OUTSIDE RECORDS SUMMARY | 2025-03-07 15:01 | XMS_ITS | Encounter Summary ---
Author Organization [employer] Address [address] [place] [address] Care Team Providers Care Solar Water Heater Installer Name Role Phone Physician, Pcp Unknown Primary Care Provider Saba vailable Encounter Details Date Type Department Care Team (Late st Contact Info) Description 10/04/2024 Lab Requisition [facility] - Main Lab [address] [facility] [place] [address] Kendrick Huang MD [address] [place] [address] Benign essential microscopic hematuria Social History Tobacco [...] AM EDT) Final Diagnosis A. Urine, Voided, [id number]: Negative for high grade urothelial carcinoma. Results of UroVysion fluorescence in situ hybridization (FISH) testing: CEP3: Normal CEP7: Normal CEP17: Normal LSI 9p21: Normal Interpretation: Normal profile Controls stained appropriately. Note: The results are intended as a screening device and should be interpreted in association with other clinical and pathological findings. 10/18/2024 3:48 PM EDT [facility] Clinical Information Benign essential microscopic hematuria R31.1 Urine Cytology/FISH (now) 10/18/2024 3:48 PM EDT [facility] Gross Description A. Urine, Voided, [id number]: Received one ThinPrep slide for cytology and one ThinPrep slide for UroVysion FISH 10/18/2024 3:48 PM EDT [facility] Disclaimer Unless otherwise specified, all tissue is 10% NB formalin fixed and paraffin embedded. Technical pathology services provided by [facility] at [address] [place] [address] [address], [place] [address] (CLIA #[id number]/Eloina Jason MD, Mineralogy Teacher) 10/18/2024 3:48 PM EDT [facility] Tissue Urine specimen from urethra / Unknown 09/27/2024 10/04/2024 2:15 PM EDT us Kendrick Huang MD LAB PATHOLOGY ORDERABLES Fi nal Result [facility] [address] [place] [address], documented in this encounter Visit Diagnoses Diagnosis Benign essential microscopic hematuria documented in this encounter Care Teams Solar Water Heater Installer Relationship Specialty Start Date End Date Physician, Pcp Unknown PCP - General 10/04/24 documented as of this encounter
--- OUTSIDE RECORDS SUMMARY | 2025-03-07 15:01 | XMS_ITS | Encounter Summary ---
Author Organization [employer] Address [address] [facility] 7t [place] [address] Care Team Providers Care Shift Supervisor Film Processing Name Role Phone Angela Curry MD Primary Care Provider [phone] Reason for Visit * Reason Onset Date Comments Prior Authorization 11/15/2024 Encounter Details Date Type Department Care Team ([facility] st Contact Info) Description 11/15/2024 Telephone [facility] MEDICINE [address] [place] [address] Angela Curry MD [address] [place] [address] Prior Authorization Social History Tobacco Use Types [...] required for Blood Glucose Monitoring Suppl (FreeStyle [place] Lite) w/Device kit * Telephone Encounter - Khoa Louise - 11/15/2024 10:51 AM EDT Tc from [facility] ( pt gaver verbal permission to speak with her) reports PA required for Blood Glucose Monitoring Suppl (FreeStyle [place] Lite) w/Device kit documented in this encounter Plan of Treatment Upcoming Encounters Date Type Department Care Team ([facility] st Contact Info) Description 03/15/2025 3:15 PM EST Office Visit [facility] MED & PEDS [address] [place] [address] Angela Curry MD [address] [place] [address] 10/23/2025 2:30 PM EDT Telemedicine [facility] MEDICINE [address] [place] [address] Nael Iyer, LienD [address] [place] [address] documented as of this encounter Goals Goal [...] documented as of this encounter Care Teams Shift Supervisor Film Processing Relationship Specialty Start Date End Date Angela Curry MD [address] [place] [address] PCP - General Family Medicine 07/31/22 documented as of this encounter
--- OUTSIDE RECORDS SUMMARY | 2025-03-07 15:01 | XMS_ITS | Encounter Summary ---
Author Organization [employer] Address [address] [facility] 7t [place] [address] Care Team Providers Care Sport Internship Name Role Phone Angela Curry MD Primary Care Provider [phone] Reason for Visit * Reason Onset Date Comments Lab Orders 06/29/2024 Encounter Details Date Type Department Care Team ([facility] st Contact Info) Description 06/29/2024 Telephone [facility] MEDICINE [address] [place] [address] Angela Curry MD [address] [place], [place] [phone] Lab Orders Social History Tobacco Use Types [...] it for Program. Contact pt at [phone] documented in this encounter Plan of Treatment Upcoming Encounters Date Type Department Care Team ([facility] st Contact Info) Description 03/15/2025 3:15 PM EST Office Visit [facility] MED & PEDS [address] [place] [address] Angela Curry MD [address] [place] [address] 10/23/2025 2:30 PM EDT Telemedicine [facility] MEDICINE [address] [place] [address] Nael Iyer, LienD [address] [place] [address] documented as of this encounter Goals Goal [...] documented as of this encounter Care Teams Sport Internship Relationship Specialty Start Date End Date Angela Curry MD [address] [place] [address] PCP - General Family Medicine 07/31/22 documented as of this encounter
--- OUTSIDE RECORDS SUMMARY | 2025-03-07 15:01 | XMS_ITS | Clinical Summary ---
Author Organization [address] [facility] Address [address] [place] [address] Phone Care Team Providers Care Retail Service Specialist Name Role Phone Physician, Pcp Unknown Primary [...] patient's age to complete this topic Insurance [facility] Care Teams Retail Service Specialist Relationship Specialty Start Date End Date Physician, Pcp Unknown PCP - General 10/04/24
--- OUTSIDE RECORDS SUMMARY | 2025-03-07 15:01 | XMS_ITS | Encounter Summary ---
Author Organization [employer] Address [address] [facility] 7t [place] [address] Care Team Providers Care Casing Crew Name Role Phone Angela Curry MD Primary Care Provider [phone] Reason for Visit * Reason Onset Date Comments [facility]Care Form 08/10/2024 FYI 08/10/2024 Encounter Details Date Type Department Care Team ([facility] st Contact Info) Description 08/10/2024 Telephone [facility] MEDICINE [address] [place] [address] Angela Curry MD [address] [place] [phone] VCare Form ; Social History Tobacco Use [...] Vcare doesn't receive the form. [facility]Care F. [phone] * Telephone Encounter - Kelli Napier - [...] Description 03/15/2025 3:15 PM EST Office Visit [facility] CHC MED & PEDS [address] [place] [address] Angela Curry MD [address] [place] [address] 10/23/2025 2:30 PM EDT Telemedicine [facility] MEDICINE [address] [place] [address] Nael Iyer, LienD [address] [place] [address] documented as of this encounter Goals Goal [...] documented as of this encounter Care Teams Casing Crew Relationship Specialty Start Date End Date Angela Curry MD [address] [place] [address] PCP - General Family Medicine 07/31/22 documented as of this encounter
--- OUTSIDE RECORDS SUMMARY | 2025-03-07 15:02 | XMS_ITS | Encounter Summary ---
Author Organization [employer] Address [address] [facility] 7t [place] [address] Care Team Providers Care Reinforcing Steel Erector Name Role Phone Angela Curry MD Primary Care Provider [phone] Reason for Referral * Consultation (Routine) - Canceled Specialty Diagnoses / Procedures Referred By Juvencio t Referred To Contact Pharmacy Diagnoses Polypharmacy Herlinda Olsen MD [address] [place] [address] Phone: tel: fax: Referral ID Status Reason Start Date Expiration Date V isits Requested Visits Authorized [id number] Canceled Continuity of Care 10/03/2024 10/03/2025 6 6 Encounter Details Date Type Department Care Team (Late st Contact Info) Description 09/27/2024 Orders Only [facility] MEDICINE [address] [place] [phone] Herlinda Olsen MD [address] [place], [place] [phone] Polypharmacy (Primary Dx) Social History Tobacco Use [...] Description 03/15/2025 3:15 PM EST Office Visit [facility] CHC MED & PEDS [address] [place] [address] Angela Curry MD [address] [place] [address] 10/23/2025 2:30 PM EDT Telemedicine [facility] MEDICINE [address] [place] [address] Nael Iyer, PharmD [address] [place] [address] Scheduled Referrals Name Type Priority Associated Diagnoses [...] documented as of this encounter Care Teams Reinforcing Steel Erector Relationship Specialty Start Date End Date Angela Curry MD [address] [place] [address] PCP - General Family Medicine 07/31/22 documented as of this encounter
--- OUTSIDE RECORDS SUMMARY | 2025-03-07 15:02 | XMS_ITS | Encounter Summary ---
Author Organization [employer] Address [address] [facility] [address] [place] [address] Care Team Providers Care Cattle Producers Name Role Phone Angela Curry MD Primary Care Provider [phone] Encounter Details Date Type Department Care Team (Latest Contact Info) Description 03/07/2025 Travel Social History Tobacco Use Types Packs/Day [...] is your housing situation today? I have jerodluther grijalva 02/25/[address] you [...] Description 03/15/2025 3:15 PM EST Office Visit [facility] CHC MED & PEDS [address] [place] [address] Angela Curry MD [address] [place], [place] [phone] 10/23/2025 2:30 PM EDT Telemedicine [facility] MEDICINE [address] [place] [address] Nael Iyer PharmD [address] [place] [address] documented as of this encounter Goals Goal [...] documented as of this encounter Care Teams Cattle Producers Relationship Specialty Start Date End Date Angela Curry MD [address] [place] [address] PCP - General Family Medicine 07/31/22 documented as of this encounter
--- OUTSIDE RECORDS SUMMARY | 2025-03-07 15:02 | XMS_ITS | Encounter Summary ---
Author Organization [employer] Address [address] [place] [address] Care Team Providers Care Customer Success Intern Name Role Phone Angela Curry MD Primary Care Provider [phone] Reason for Visit * Reason Onset Date Comments Referral 05/08/2024 Encounter Details Date Type Department Care Team ([facility] st Contact Info) Description 05/08/2024 Telephone [facility] MED[facility] [address] [place] [address] Angela Curry MD [address] [place], [place] [phone] Referral Social History Tobacco Use Types Packs/Day [...] 05/08/2024 5:24 PM EST Referral re-faxed to [facility]. * Telephone Encounter - Edgar Gallego - 05/08/2024 8:54 AM EST Tc from spouse requesting new referral for physical therapy as pt inform called [facility] facility and referral doesn't exist, caption writer verify referral status is (closed) , pt verbalized not understanding ironey had call her for pt to make appointment and now referral doesn't exist. documented in this encounter Plan of Treatment Upcoming Encounters Date Type Department Care Team (Late st Contact Info) Description 03/15/2025 3:15 PM EST Office Visit [facility]EDS [address] [place] [address] Angela Curry MD [address] [place] [address] 10/23/2025 2:30 PM EDT Telemedicine [facility] MED[facility] [address] [place] [address] Nael Iyer, LienD [address] [place] [address] documented as of this encounter Goals Goal [...] documented as of this encounter Care Teams Customer Success Intern Relationship Specialty Start Date End Date Angela Curry MD [address] [place] [address] PCP - General Family Medicine 07/31/22 documented as of this encounter
--- OUTSIDE RECORDS SUMMARY | 2025-03-07 15:02 | XMS_ITS | Encounter Summary ---
Author Organization [employer] Address [address] [address] [place] [address] Care Team Providers Care Cycle Analyst Name Role Phone Angela Curry MD Primary Care Provider [phone] Reason for Visit * Reason Onset Date Comments derm appt 03/02/2025 Encounter Details Date Type Department Care Team ([facility] st Contact Info) Description 03/02/2025 Telephone [facility] MED & PEDS [address] [place] [address] Angela Curry MD [address] [place] [address] derm appt Social History Tobacco Use Types Packs/Day Years [...] encounter Miscellaneous Notes * Telephone Encounter - Alena Merchant MA - 03/02/2025 9:22 AM EDT Called pt to schedule appointment with dr. Cruz f/u [facility] for call center to schedule documented in this encounter Plan of Treatment Upcoming Encounters Date Type Department Care Team (Late st Contact Info) Description 03/15/2025 3:15 PM EST Office Visit [facility] MED [facility] PEDS [address] [place] [address] Angela Curry MD [address] [place] [address] 10/23/2025 2:30 PM EDT Telemedicine [facility] MEDICINE [address] [place] [address] Nael Iyer, PharmD [address] [place] [address] documented as of this encounter Goals Goal [...] documented as of this encounter Care Teams Cycle Analyst Relationship Specialty Start Date End Date Angela Curry MD [address] [place] [id number] PCP - General Family Medicine 07/31/22 documented as of this encounter
--- OUTSIDE RECORDS SUMMARY | 2025-03-07 15:02 | XMS_ITS | Encounter Summary ---
Author Organization [employer] Address [address] [place] [address] Care Team Providers Care Computer Systems Analyst Name Role Phone Angela Curry MD Primary Care Provider [phone] Encounter Details Date Type Department Care Team ([facility] st Contact Info) Description 10/09/2024 Telephone [facility] [address] [place] [address] Angela Curry MD [address] [place], [place] [phone] Social History Tobacco Use Types Packs/Day Years [...] Description 03/15/2025 3:15 PM EST Office Visit [facility] [address] [place] [address] Angela Curry MD [address] [place], [place] [phone] 10/23/2025 2:30 PM EDT Telemedicine [facility] [address] [place] [address] Nael Iyer PharmD [address] [place] [phone] documented as of this encounter Goals Goal [...] documented as of this encounter Care Teams Computer Systems Analyst Relationship Specialty Start Date End Date Angela Curry MD [address] [place] [id number] PCP - General Family Medicine 07/31/22 documented as of this encounter
--- OUTSIDE RECORDS SUMMARY | 2025-03-07 15:02 | XMS_ITS | Clinical Summary ---
Author Organization [employer] Address [address] [facility] 7[address] [place] [address] Care Team Providers Care Spring Repairer Helper Hand Name Role Phone Angela Curry MD Primary Care Provider [phone] Allergies No known active allergies Medications albuterol [...] MORNING 90 tablet 1 06/20/19 25 Active tamsulosin (Flomax) 0.4 MG 24 [...] sugar BID 100 each 12 11/07/19 25 026 Active Blood Glucose Monitoring Suppl (FreeStyle Howell Lite) w/Device kit Use to test blood sugar BID times daily 1 kit 11/07/19 25 Active glucose blood (Accu-Chek Guide Test) test stripIndications: Type 2 diabetes mellitus without complication, unspecified whether supervisor intermediates insulin use Please check once daily at breakfast 100 each 12 11/24/19 25 026 Active Lancets miscIndications:T ype 2 diabetes mellitus without complication, unspecified whether supervisor intermediates insulin use Use to test blood sugar BID times daily 100 each 11/24/19 25 Active Blood Glucose Monitoring Suppl (Accu-Chek Annika Plus) w/Device kitIndications:Ty pe 2 diabetes mellitus without complication, unspecified whether [facility] insulin use Test daily before all meals/snacks [...] MD. 90 patch 2 12/16/19 25 Active famotidine (Pepcid) 40 MG tabletIndications [...] and feet 113 g 3 01/26/20 25 025 Active ammonium lactate (Amlactin) 12 % cream Apply topically to feet daily 385 g 3 01/26/20 25 Active pregabalin (Lyrica) 75 MG capsule TAKE 1 CAPSULE BY MOUTH TWICE DAILY IN THE MORNING AND IN THE EVENING 60 capsule 2 01/30/20 25 Active nabumetone (Relafen) 750 MG tabletIndications :Arthritis TAKE 1 TABLET BY MOUTH TWICE DAILY 60 tablet 02/07/20 25 Active amitriptyline (Elavil) 25 MG tablet TAKE 1 TABLET BY MOUTH AT BEDTIME 30 tablet 5 02/29/20 25 Active furosemide (Lasix) 40 MG tablet TAKE 1 TABLET BY MOUTH EVERY MORNING 90 tablet 1 02/29/20 25 Active metFORMIN XR (Glucophage-XR) 500 MG 24 hr tablet TAKE 1 TABLET BY MOUTH EVERY EVENING 30 tablet 5 02/29/20 25 Active ketorolac (Acular) 0.5 % ophthalmic solution PLACE 1 DROP IN THE AFFECTED EYE THREE TIMES DAILY STARTING 2 DAYS BEFORE YOUR SURGERY, CONTINUE DIRECTED 02/06/20 25 Active albuterol 108 (90 Base) MCG/ACT inhalerIndication s:Mild intermittent asthma without complication Inhale 2 puffs every 4 (four) hours if needed for wheezing. 18 g 03/07/20 25 026 Active amitriptyline (Elavil) 25 MG tablet TAKE 1 TABLET BY MOUTH AT BEDTIME 90 tablet 1 09/22/19 25 025 Discontinued furosemide (Lasix) 40 MG tablet TAKE 1 TABLET BY MOUTH EVERY MORNING 90 tablet 1 09/22/19 25 025 Discontinued metFORMIN XR (Glucophage-XR) 500 MG 24 hr tablet TAKE 1 TABLET BY MOUTH EVERY EVENING 30 tablet 1 01/02/20 25 025 Discontinued nabumetone (Relafen) 750 MG tabletIndications :Arthritis Take 1 tablet (750 mg) by mouth 2 times daily. 60 tablet 01/12/20 25 025 Discontinued triamcinolone (Kenalog) 0.1 % ointment Apply topically if needed in the morning and at bedtime for rash for up to 14 days. To R knee 30 g 1 01/26/20 25 025 Active Problems Problem Noted Date Diagnosed Date Preop cardiovascular exam 02/28/2025 Assessment & Plan (02/28/2025 9:44 PM EDT): Patient was seen for pre-operative evaluation. He will undergo cataract surgery on both eyes. Patient reports no symptoms of CP at rest or with exertion, dyspnea at rest or with exertion, PND, LE edema, claudication, or palpitations. Patient has no hx of ischemic heart disease, CHF, CVD, diabetes, recent anticoagulant or antithrombotic use, person or family hx of coagulopathy. Patient reports no history of stress test, cardiac cath or coronary revascularization. Patients without any known cardiac risk factors (will undergo low risk surgery, no hx of ischemic heart disease, no h/o CVD, no h/o CHF, & no insulin dependent diabetes mellitus or known renal failure). According to the RCRI, this number of risk factors stratifies the patient to Class O, which carries a 0.4% risk of major CV complications. In this case, CV Risk is low for the intended procedure. Xerosis of skin 12/15/2024 Tremors of nervous [...] Syphilis test - Referral to neurologist at [facility] for evaluation of tremors Acute pain of [...] left knee to r/o ligament involvement Class 2 obesity 10/06/2024 Abnormal gait 04/14/2024 Abnormality of [...] being seen by psychiatrist yet or received GROCERY SUPERVISOR services. Will discontinue haldol and start on abilify. Assessment & Plan (08/05/2022 1:24 PM EDT): Patient needs formal psychiatry followup, referral was placed and also will send medications for now. He needs VNA services to assist with medication compliance and also will need GROCERY SUPERVISOR service to assist with ADLs/IADLs that need [...] Encounters Date Type Department Care Team Description 03/07/2025 9:30 AM EDT Office Visit [facility] [address] [place] [address] Kallie Rodriguez MD Hearing loss, unspecified hearing loss type, unspecified laterality (Primary Dx); Mild intermittent asthma without complication 03/07/2025 Travel 03/06/[address] [address] Angela Curry MD Nurse Triage 03/02/2025 Telephone [facility] [address] [place] [address] Angela Curry MD derm appt 02/28/2025 10:45 AM EDT Office Visit [facility] [address] [place] [address] Angela Curry MD Encounter for immunization (Primary Dx); Encounter for vaccination; Preop cardiovascular exam 02/28/2025 Travel 02/28/2025 Refill [facility] [address] [place] [address] Angela Curry MD 02/20/2025 Orders Only [facility] External Provider, [facility] 02/05/2025 Refill [facility] [address] [place] [address] Angela Curry MD Arthritis 02/01/2025 Telephone [facility] [address] [place] [address] Angela Curry MD Appointment Request 01/30/2025 Telephone [facility] [address] [place] [address] Angela Curry MD Referral 01/28/2025 Refill [facility] [address] [place] [address] Angela Curry MD 01/25/2025 2:00 PM EDT Office Visit [facility] [address] [place] [address] [address] CannonniferDO Onychomycosis (Primary Dx); Dermatitis 01/25/2025 Travel 01/17/2025 Telephone [facility] [address] [place] [address] Angela Curry MD Nurse Triage 01/11/2025 Refill [facility] [address] [place] [address] Angela Curry MD Arthritis 01/05/2025 Refill [facility] [address] [place] [address] Angela Curry MD Gastroesophageal reflux disease, unspecified whether esophagitis present; Anxiety; Hyperlipidemia, unspecified hyperlipidemia type 01/03/2025 Telephone [facility] [address] [place] [address] Angela Curry MD No Show 12/31/2024 Refill [facility] [address] [place] [address] Angela Curry MD 12/15/2024 3:00 PM EDT Office Visit [facility] [address] [place] [address] Angela Curry MD Xerosis of skin (Primary Dx); Acute pain of left knee; Left leg pain; Acute pain of left thigh 12/15/2024 Travel 12/15/2024 Refill [facility] [address] [place] [address] Rocky Cruz MD 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 Refill [facility] [address] [place] [address] Angela Curry MD 12/06/2024 Results Follow-Up [facility] [address] [place] [address] Angela Curry MD Hepatic Function Panel, Vitamin B12/Folate, Serum Panel, Albumin, Random Urine W/Creatinine from Last 3 Months Immunizations Immunization Administration Dates Next Due Influenza High-dose Quadrivalent Preservative Fr ee 12/26/2021 Influenza injectable quadrivalent preservative f ree 07/13/2023 Influenza, High Dose Seasonal, Preservative Free 02/28/2025,01/17/2024 Pfizer Covid-19 Vaccine 12+ 02/28/2025, Pneumococcal Conjugate PCV 20 12/26/2021 RSV Bivalent [...] t he electric, gas, oil or water [employer] threatened to shut off services in your [...] 20 03/07/2025 9:40 AM EDT Oxygen Saturation 97% 01/25/2025 1:51 PM EDT Inhaled Oxygen Concentration - - Weight 99.8 kg (220 lb) 03/07/2025 9:40 AM EDT Height 167.6 cm (5' 6 ) 02/28/2025 10:57 AM EDT Body Mass Index 35.51 02/28/2025 10:57 AM EDT Plan of Treatment Upcoming Encounters Date Type Department Care Team (Late st Contact Info) Description 03/15/2025 3:15 PM EST Office Visit [facility] [address] [place] [address] Angela Curry MD [address] [place] [address] 10/23/2025 2:30 PM EDT Telemedicine [facility] [address] [place] [address] Nael Iyer, PharmD [address] [place] [address] Health Maintenance Due Date Last Done Comments CT Colonography 1955 FIT DNA/Cologuard 1955 FIT 1955 FOBT 1955 Sigmoidoscopy 1955 Eye Exam 1964 Alcohol/Substance Use Screening 1966 Hepatitis A Vaccines (1 of 2 - Risk 2-dose series) 1973 Hepatitis B Vaccines (1 of 3 - Risk 3-dose series) 2014 Depression Screening 02/24/2025 02/25/2024, 02/25/20 Diabetes: Hemoglobin A1C 06/17/2025 025, 11/03/2024, 03/06/2024 COVID-19 Vaccine ( season) 2025 02/28/2025, 07/13/2023 SDOH Screening 09/25/2025 09/25/2024 Lipid Panel 10/19/2025 10/19/2024, 08/23/2023 Diabetes: Urine Protein Screening 12/04/2025 12/04/2024 Diabetes: Foot Exam 01/25/2026 01/25/2025, 01/25/2025, 01/25/2025, Additional history exists Tobacco Screening 03/07/2026 03/07/2025 DTaP/Tdap/Td Vaccines (2 - Td or Tdap) 09/28/2032 09/28/2022 Colonoscopy 03/11/2033 03/11/2023 Colorectal Cancer Screening 03/11/2033 Pneumococcal Vaccine: 50+ Years Completed 12/26/2021 Hepatitis C Screening Completed 11/09/2022 Zoster Vaccines Completed 02/16/2023, 12/04/2022 RSV Patients and Patients Aged 60 years or older Completed 01/27/2024 Influenza Vaccine Completed 02/28/2025, , 07/13/2023, Additional history exists HIB Vaccines Aged Out No longer eligi [...] Procedure Name Priority Date/Time Associated Diagnosis Comments MR KNEE WO CONTRAST LEFT Routine 02/20/2025 10:05 AM EDT AMB REFERRAL TO UROLOGY Routine 01/17/2025 Enlarged prostate POCT GLYCATED HEMOGLOBIN, TOTAL Routine 12/15/2024 3:35 PM EDT Xerosis of skin POCT GLUCOSE Routine 12/15/2024 3:34 PM EDT Xerosis of skin ALBUMIN, RANDOM URINE W/CREATININE Routine 12/04/2024 9:30 AM EDT Type 2 diabetes mellitus without complication, unspecified whether [facility] insulin use ([facility]) LIPID PANEL, STANDARD Routine 10/19/2024 8:57 AM EDT HM COLONOSCOPY Routine 03/11/2023 HEPATITIS C ANTIBODY Routine 11/09/2022 4:15 PM EDT from Last 3 Months or Most Recently Relevant to Health Maintenance Results * MR Knee w/o Contrast Left (02/20/2025 10:05 AM EDT) Anatomical Region Laterality Modality Magnetic Resonan ce 02/20/2025 10:0 5 AM EDT Narrative 02/20/2025 11:56 AM EDT [place] [address] Magnetic Resonance Report Signed Patient: Niraj Ro MR#: [id number] : 1955 Acct:[id number] Age/Sex: 69 / M ADM Date: 02/20/25 Loc: HO.MRI Attending Dr: Wenceslao Minor MD Ordering Physician: Wenceslao Minor MD Date of Service: 02/20/25 Procedure(s): MR knee LT wo con Accession Number(s): [id number] cc: Wenceslao Minor MD; Angela Curry MD Reason for Exam: S83.242A - Other tear of medial meniscus, current injury, left knee, ini... EXAM: MRI LOWER EXTREMITY JOINT, KNEE, left TECHNIQUE: Multiplanar multisequence MR imaging performed through the left knee without contrast. INDICATION: S83.242A - Other tear of medial meniscus, current injury, left knee, current injury PRIOR: X-ray on October 25, 2024 FINDINGS: Menisci: Lateral Meniscus: Intact Medial Meniscus: There is irregular linear intermediate signal in the posterior half of the body and posterior horn extending to the tibial surface consistent with a tear. There is moderate extrusion of the meniscal body. ACL/PCL: ACL and PCL are intact. Extensor mechanism: There is a joint effusion. There is mild reticulated edema like signal in Hoffa's fat pad. There is mildly increased signal in the deep proximal fibers patellar tendon. MCL/LCL: MCL is bowed outward by extruded meniscus. Proximal fibers are mildly thickened with increased signal. LCL complex is intact. Articular cartilage: Patellofemoral Compartment: There is a central osteophyte and 14 mm full-thickness defect in the lower trochlear groove. There is linear high signal in the upper extremity, just lateral to the trochlear groove involving more than half the cartilage thickness. Lateral Compartment: Articular cartilage is intact. Medial Compartment: There is a focal full-thickness articular cartilage defect 6 mm in diameter involving the posterior central weightbearing region, adjacent to the inner free margin of the posterior horn. There is mild to moderate diffuse thinning of articular cartilage involving femoral condyle tibial plateau. Bones/Marrow: There is a subchondral insufficiency fracture involving the weightbearing region of the femoral condyle near the joint line that measures 20 x 3 x 11 mm (AP by cc by transverse). There is mild adjacent marrow edema. Soft tissues: Edema mildly reticulates the soft tissues. MR/MR knee LT wo con IMPRESSION: There is a high-grade insufficiency fracture involving the medial femoral condyle that is probably subacute in nature. There is a horizontal tear extending to the tibial surface involving posterior half of the medial meniscal body and the posterior horn. The medial meniscal body is mildly extruded from the joint line. There is a joint effusion. 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 Age-indeterminate grade 1 sprain, acute versus chronic partial tear of proximal MCL. Electronically signed by: Irving Billings MD 02/20/2025 11:54 AM EDT RP Dictated By: Irving Billings MD Signed By: <Electronically signed by Irving Billings MD in OV> 02/20/25 1154 DD/ 1005 TD/TT: 02/20/25 1030 [employer] Consultant: Procedure Note Donotuseinterpreter, Image - 02/20/2025 [place] [address] Magnetic Resonance Report Signed Patient: Chapin Ro#: M [id number] : 5Acct:[id number] Age/Sex: 69 / MADM Date: 02/20/25 Loc: HO.MRI Attending Dr: Wenceslao Minor MD Ordering Physician: Wenceslao Minor MD Date of Service: 02/20/25 Procedure(s): MR knee LT wo con Accession Number(s): [id number] cc: Wenceslao Minor MD; Angela Curry MD Reason for Exam: S83.242A - Other tear of medial meniscus, currentinjury, left knee, ini... EXAM: MRI LOWER EXTREMITY JOINT, KNEE, left TECHNIQUE: Multiplanar multisequence MR imaging performed through the left knee without contrast. INDICATION: S83.242A - Other tear of medial meniscus, current injury, left knee, current injury PRIOR: X-ray on October 25, 2024 FINDINGS: Menisci: Lateral Meniscus: Intact Medial Meniscus: There is irregular linear intermediate signal in the posterior half of the body and posterior horn extending to the tibial surface consistent with a tear. There is moderate extrusion of the meniscal body. ACL/PCL: ACL and PCL are intact. Extensor mechanism: There is a joint effusion. There is mild reticulated edema like signal in Hoffa's fat pad. There is mildly increased signal in the deep proximal fibers patellar tendon. MCL/LCL: MCL is bowed outward by extruded meniscus. Proximal fibers are mildly thickened with increased signal. LCL complex is intact. Articular cartilage: Patellofemoral Compartment: There is a central osteophyte and 14 mm full-thickness defect in the lower trochlear groove. There is linear high signal in the upper extremity, just lateral to the trochlear groove involving more than half the cartilage thickness. Lateral Compartment: Articular cartilage is intact. Medial Compartment: There is a focal full-thickness articular cartilage defect 6 mm in diameter involving the posterior central weightbearing region, adjacent to the inner free margin of the posterior horn. There is mild to moderate diffuse thinning of articular cartilage involving femoral condyle tibial plateau. Bones/Marrow: There is a subchondral insufficiency fracture involving the weightbearing region of the femoral condyle near the joint line that measures 20 x 3 x 11 mm (AP by cc by transverse). There is mild adjacent marrow edema. Soft tissues: Edema mildly reticulates the soft tissues. MR/MR knee LT wo con IMPRESSION: There is a high-grade insufficiency fracture involving the medial femoral condyle that is probably subacute in nature. There is a horizontal tear extending to the tibial surface involving posterior half of the medial meniscal body and the posterior horn. The medial meniscal body is mildly extruded from the joint line. There is a joint effusion. 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 Age-indeterminate grade 1 sprain, acute versus chronic partial tear of proximal MCL. Electronically signed by: Irving Billings MD 02/20/2025 11:54 AM EDT Dictated By: Irving Billings MD Signed By: <Electronically signed by Irving Billings MD in OV> 02/20/25 1154 DD/ 1005 TD/TT: 02/20/25 1030 Heritage Consultant: [facility] External Provider IMG MRI PROCEDURES Final Result * Referral to Urology (01/17/2025) Tika Gatica PROFESSOR OF MUSIC OUTPATIENT REFERRAL ORDERABLES Final Result * (ABNORMAL) POCT HGB A1C (12/15/2024 3:35 PM EDT) Hemoglobin A1C 6.5(A) 4.0 - 5.7 % QC Media Lot # [id number] Lot# Expiration Date Blood 12/15/2024 3:35 PM EDT Angela Curry MD POINT OF CARE TEST ENTER/EDIT ORDERABLES Final Result * POCT Glucose (12/15/2024 3:34 PM EDT) Glucose Blood, POC 134 60 - 200 mg/dL QC Media Lot # [id number] Lot# Expiration Date Blood Capillary blood specimen / Unknown 12/15/2024 3:34 PM EDT Angela Curry MD POINT OF CARE TEST ENTER/EDIT ORDERABLES Final Result * Albumin, Random Urine W/Creatinine (12/04/2024 9:30 AM EDT) Creatinine, Urine 172.70 mg/dL [facility] Microalbumin Urine 6.0 mg/L [facility] Microalbum Creatinine Ratio Ur 3.4 <30 ug/mg cr [facility] Comment:Albumin/Creatinine R atio Reference Ranges: Normal: < 30 ug/mg creatinine Microalbuminuria: 30 - 300 ug/mg creatinineClinical Albuminuria: > 300 ug/mg creatinine Urine (Urine, Random) 12/04/2024 9:30 AM EDT 12/04/2024 9:43 AM EDT Angela Curry MD LAB URINE ORDERABLES Final Re sult [facility] [address] [place] [phone] * Lipid Panel, Standard (10/19/2024 8:57 AM EDT) Triglycerides 100 <150 mg/dL [facility] Comment:Desirable Triglyceri de: less than 150 mg/dLBorderline High Triglyceride 150-199 mg/dLHigh Triglyceride: 200-499 mg/dLVery High Triglyceride: greater than or equal to 5OO mg/dL Cholesterol 149 <200 mg/dL [facility] Comment:Desirable Cholestero l: less than 200 mg/dLBorderline High Cholesterol: 200-239 mg/dLHigh Cholesterol: greater than 239 mg/dL LDL Cholesterol Calculated 76 <100 mg/dL [facility] Comment:Desirable LDL: less than 100 mg/dLNear Optimal/Above Optimal LDL: 110- 129 mg/dLBorderline High LDL: 130-159 mg/dLHigh LDL: 160-189 mg/dLVery High LDL: greater than or equal to 190 mg/dL HDL Cholesterol 53 >40 mg/dL [facility] Comment:Desirable HDL: great er than 40 mg/dL Note: This HDL assay may give artificially low results in patients with liver disease. 10/19/2024 8:57 AM EDT 10/19/2024 11:10 AM EDT Angela Curry MD LAB BLOOD ORDERABLES Final Re sult [facility] [address] [place] [phone] * Hm Colonoscopy (03/11/2023) Colonoscopy Normal Normal Narrative Angela Curry MD - 03/11/[address] Kisha Hale, normal, diverticulosis and hemorrhoids noticed Historical Provider HEALTH MAINTENANCE Final Result * Hepatitis C Ab (11/09/2022 4:15 PM EDT) Hepatitis C Antibody Nonreactive Nonreactive [facility] Comment:Antibodies to HCV no t detected; does not exclude early acuteHCV infection. 11/09/2022 4:15 PM EDT 11/09/2022 4:16 PM EDT [facility] External Provider LAB BLO OD ORDERABLES Final Result [facility] [address] [place] [phone] [phone] from Last 3 Months or Most Recently Relevant to Health Maintenance Insurance MEDICARE [facility] STANDARD Care Teams Spring Repairer Helper Hand Relationship Specialty Start Date End Date Angela Curry MD [address] [place] [address] PCP - General Family Medicine 07/31/22
--- OUTSIDE RECORDS SUMMARY | 2025-03-07 15:02 | XMS_ITS | Encounter Summary ---
Author Organization [employer] Address [address] [facility] [place] [address] Care Team Providers Care Pheresis Specialist Name Role Phone Angela Curry MD Primary Care Provider [phone] Reason for Visit * Reason Onset Date Comments Nurse Triage 03/06/2025 Encounter Details Date Type Department Care Team ([facility] st Contact Info) Description 03/06/2025 Telephone [facility] [address] [place] [address] Angela Curry MD [address] [place] [address] Nurse Triage Social History Tobacco Use Types [...] encounter Miscellaneous Notes * Telephone Encounter - Lucía Garber RN - 03/06/2025 2:16 PM EDT Telephone call returned to pt's stepdaughter Trish on HIPAA to triage. She reports pt hasn't been following instructions and has been acting confused. When she talked to him about it he told her that he has been having difficulty hearing. She reports worse in the left ear than the right. She reports that she isn't sure when it started as it has been gradual. Pt denies pain or tinnitus. She reports that pt is a poor historian so she isn't sure if she can believe his report. She reports that he told her that years ago he was supposed to get a hearing aide but never did. Booked for tomorrow 03/07/25 with Jennifer. Daughter agrees with disposition. Protocol Used: Hearing Loss or Change (Adult) Protocol-Based Disposition: See in Office or Video Visit within 2 Weeks Positive Triage Question: * ALL other adults with decreased hearing that has gradually decreased * All higher-acuity triage questions were negative Care Advice Discussed: * Reasons To Call Back - Earache - You become worse * Telephone Encounter - Lian Sutton - 03/06/2025 1:46 PM EDT Symptom: Hearing Loss Outcome: Schedule an urgent appointment (within 1 hour) or talk to a nurse or provider soon Reason: Getting worse The caller accepted this outcome. To contact Trish at [phone] Curry documented in this encounter Plan of Treatment Upcoming Encounters Date Type Department Care Team (Late st Contact Info) Description 03/15/2025 3:15 PM EST Office Visit [facility] [address] [place], [place] [phone] Angela Curry MD [address] [place], [place] [phone] 10/23/2025 2:30 PM EDT Telemedicine [facility] [address] [place] [address] Nael Iyer PharmD [address] [place] [address] documented as of this encounter Goals Goal [...] documented as of this encounter Care Teams Pheresis Specialist Relationship Specialty Start Date End Date Angela Curry MD [address] [place] [address] PCP - General Family Medicine 07/31/22 documented as of this encounter
== END 2025-03-07 12:00 | disposition home or self-care (01) ==
LOC: HO.HPSW 11:34
PROVIDERS: PCP Family Medicine; Visit Provider Nurse Practitioner Family
DX: J45.909 Unspecified asthma, uncomplicated (principal); R06.00 Dyspnea, unspecified; J30.9 Allergic rhinitis, unspecified
CPT/HCPCS: 99214

== ENCOUNTER → 2025-03-07 11:34 | Outpatient (BNVA) | payer OTHER, SELFPAY | PROVIDERS: PCP Family Medicine; Visit Provider Nurse Practitioner Family | DX: J45.909 Unspecified asthma, uncomplicated (principal); R06.00 Dyspnea, unspecified | CPT/HCPCS: 99212 ==

== ENCOUNTER 2025-03-13 11:23 | Outpatient (AMB) | payer OTHER, SELFPAY ==
--- NOTE | 2025-03-13 11:44 | A.OFFVIS_ITS ---
Vital Signs 03/13/25 11:48 Height 5 ft 6 in Weight 219 lb BMI 35.3 Intake Visit Reasons: OV- Left knee MRI Review Intake Note: Niraj is a 69 year old male who presents with complaints of intermittent discomfort in his left knee. The patient states that his left knee discomfort has improved somewhat since his last visit. He continues with his home exercise program. He does walk with a rolling walker. Furnace Erector Required: Yes Furnace Erector Services: Furnace Erector Present (ipad) Furnace Erector Name: [id number] Allergies Seasonal Allergies Allergy (Mild, Verified 03/13/25 11:45) Unknown Medication List - Last Reconciled 03/13/25 by Wenceslao Minor MD albuterol sulfate 90 mcg/actuation (Ventolin HFA) 2 puffs PO Q4-6H PRN amitriptyline mg PO DAILY PRN aripiprazole 10 mg PO DAILY ascorbic acid (vitamin C) (Vitamin C) 1,000 mg PO QAM betamethasone valerate 0.1% 1 appl topical BID cholecalciferol (vitamin D3) (Vitamin D3) 50 mcg PO QAM citalopram 20 mg PO QAM cyanocobalamin (vitamin B-12) 1,000 mcg PO QAM famotidine 40 mg PO DAILY fluticasone propion-salmeterol 115-21 mcg/actuation (Advair HFA) 2 puffs inhalation Q12H folic acid 0.8 mg PO QAM furosemide 40 mg PO DAILY ipratropium bromide 2 sprays intranasal BID metformin ER 500 mg PO DAILY nabumetone 750 mg PO BID omega-3 acid ethyl esters 1 cap PO BID pantoprazole 40 mg PO DAILY pregabalin 75 mg PO BID simvastatin 40 mg PO BEDTIME PFSH Surgical History Hx of colonoscopy Hx of cholecystectomy History of esophagogastroduodenoscopy (EGD) Social History Alcohol intake: current Alcohol intake frequency: holidays/special occasions only Patient Tobacco Use Status: Never used Tobacco Physical Exam Vital Signs: BMI result Body Mass Index 35.3 Extrem Other: Left knee examination shows a minimal effusion, palpable crepitus with range of motion, tenderness along his medial joint line, positive Carina's test, no instability Results Reviewed Results Reviewed: MRI of the patient's left knee shows mild to moderate degenerative changes as well as a tear of the medial meniscus Assessment & Plan Assessment & Plan (1) Tear of medial meniscus of left knee: Code(s): S83.242A - Other tear of medial meniscus, current injury, left knee, initial encounter Category: Medical Plan Mr. Milo Garcia presents with left knee pain due to degenerative joint disease as well as a tear of the medial meniscus. I had a lengthy discussion with the patient regarding the treatment options. At this point his symptoms are tolerable to him. He will continue with his activity modifications. He will follow up with me on an as-needed basis should his symptoms worsen in any way. Feel free to call me at any time should questions regarding his orthopedic management arise. I spent 22 minutes in reviewing the patient's records and imaging studies, seeing the patient and documenting in the medical record. Coding Level of Care Code Est Pt Level 3 (22142) Complex EM visit Add On G2211 Diagnoses Tear of medial meniscus of left knee S83.242A
[2025-03-13 11:48] VITALS: BMI 35.3
--- OUTSIDE RECORDS SUMMARY | 2025-03-13 14:00 | XMS_ITS | Clinical Summary ---
Author Organization [address] [facility] Address [address] [place] [address] Phone Care Team Providers Care Pr Intern Name Role Phone Physician, Pcp Unknown Primary [...] patient's age to complete this topic Insurance [facility] Care Teams Pr Intern Relationship Specialty Start Date End Date Physician, Pcp Unknown PCP - General 10/04/24
--- OUTSIDE RECORDS SUMMARY | 2025-03-13 14:00 | XMS_ITS | Encounter Summary ---
Author Organization [employer] Address [address] [facility] 7t [place] [address] Care Team Providers Care Log Roper Name Role Phone Angela Curry MD Primary Care Provider [phone] Reason for Visit * Reason Onset Date Comments VCare Form 08/10/2024 FYI 08/10/2024 Encounter Details Date Type Department Care Team ([facility] st Contact Info) Description 08/10/2024 Telephone [facility] MEDICINE [address] [place] [address] Angela Curry MD [address] [place] [phone] VCare Form ; Social History Tobacco Use [...] Vcare doesn't receive the form. VCare F. [phone] * Telephone Encounter - Kelli Napier - [...] Description 03/15/2025 3:15 PM EST Office Visit [facility] MED & PEDS [address] [place] [address] Angela Curry MD [address] [place] [address] 10/23/2025 2:30 PM EDT Telemedicine [facility] MEDICINE [address] [place] [address] Nael Iyer, LienD [address] [place] [address] documented as of this encounter Goals Goal [...] documented as of this encounter Care Teams Log Roper Relationship Specialty Start Date End Date Angela Curry MD [address] [place] [address] PCP - General Family Medicine 07/31/22 documented as of this encounter
--- OUTSIDE RECORDS SUMMARY | 2025-03-13 14:00 | XMS_ITS | Encounter Summary ---
Author Organization [employer] Address [address] [facility] 7t [place] [address] Care Team Providers Care Vocational Rehabilitation Teacher Name Role Phone Angela Curry MD Primary Care Provider [phone] Reason for Visit * Reason Onset Date Comments Lab Orders 06/29/2024 Encounter Details Date Type Department Care Team ([facility] st Contact Info) Description 06/29/2024 Telephone [facility] MEDICINE [address] [place] [address] Angela Curry MD [address] [place], [place] [phone] Lab Orders Social History Tobacco Use Types [...] needing it for Program. Contact pt at [phone] documented in this encounter Plan of Treatment Upcoming Encounters Date Type Department Care Team ([facility] st Contact Info) Description 03/15/2025 3:15 PM EST Office Visit [facility] MED & PEDS [address] [place] [address] Angela Curry MD [address] [place] [address] 10/23/2025 2:30 PM EDT Telemedicine [facility] MEDICINE [address] [place] [address] Nael Iyer, LienD [address] [place] [address] documented as of this encounter Goals Goal [...] documented as of this encounter Care Teams Vocational Rehabilitation Teacher Relationship Specialty Start Date End Date Angela Curry MD [address] [place] [address] PCP - General Family Medicine 07/31/22 documented as of this encounter
--- OUTSIDE RECORDS SUMMARY | 2025-03-13 14:00 | XMS_ITS | Encounter Summary ---
Author Organization [employer] Address [address] [facility] 7t [place] [address] Care Team Providers Care Process Engineering Technician Name Role Phone Angela Curry MD Primary Care Provider [phone] Reason for Referral * Consultation (Routine) - Canceled Specialty Diagnoses / Procedures Referred By Juvencio t Referred To Contact Pharmacy Diagnoses Polypharmacy Herlinda Olsen MD [address] [place] [address] Phone: tel: fax: Referral ID Status Reason Start Date Expiration Date V isits Requested Visits Authorized [id number] Canceled Continuity of Care 10/03/2024 10/03/2025 6 6 Encounter Details Date Type Department Care Team (Late st Contact Info) Description 09/27/2024 Orders Only [facility] MEDICINE [address] [place] [phone] Herlinda Olsen MD [address] [place], [place] [phone] Polypharmacy (Primary Dx) Social History Tobacco Use [...] 03/15/2025 3:15 PM EST Office Visit [facility] MED & PEDS [address] [place] [address] Angela Curry MD [address] [place] [address] 10/23/2025 2:30 PM EDT Telemedicine [facility] MEDICINE [address] [place] [address] Nael Iyer, PharmD [address] [place] [address] Scheduled Referrals Name Type Priority Associated Diagnoses [...] documented as of this encounter Care Teams Process Engineering Technician Relationship Specialty Start Date End Date Angela Curry MD [address] [place] [address] PCP - General Family Medicine 07/31/22 documented as of this encounter
--- OUTSIDE RECORDS SUMMARY | 2025-03-13 14:00 | XMS_ITS | Encounter Summary ---
Author Organization [employer] Address [address] [place] [address] Care Team Providers Care Batch Plant Operator Name Role Phone Physician, Pcp Unknown Primary Care Provider Sbaa vailable Encounter Details Date Type Department Care Team (Late st Contact Info) Description 10/04/2024 Lab Requisition [facility] - Main Lab [address] [facility] [place] [address] Kendrick Huang MD [address] [place] [address] Benign essential microscopic hematuria Social History Tobacco [...] AM EDT) Final Diagnosis A. Urine, Voided, [id number]: Negative for high grade urothelial carcinoma. Results [...] CENTER LAB Gross Description A. Urine, Voided, [id number]: Received one ThinPrep slide for cytology and one ThinPrep slide for UroVysion FISH 10/18/2024 3:48 PM EDT [facility] Disclaimer Unless otherwise specified, all tissue is 10% NB formalin fixed and paraffin embedded. Technical pathology services provided by [facility] at [address] [place] [address] [address], [place] [address] (CLIA #[id number]/Eloina Jason MD, Drill Press Set Up Operator) 10/18/2024 3:48 PM EDT [facility] Tissue Urine specimen from urethra / Unknown 09/27/2024 10/04/2024 2:15 PM EDT us Kendrick Huang MD LAB PATHOLOGY ORDERABLES Fi nal Result [facility] [address] [place] [address], documented in this encounter Visit Diagnoses Diagnosis Benign essential microscopic hematuria documented in this encounter Care Teams Batch Plant Operator Relationship Specialty Start Date End Date Physician, Pcp Unknown PCP - General 10/04/24 documented as of this encounter
--- OUTSIDE RECORDS SUMMARY | 2025-03-13 14:00 | XMS_ITS | Encounter Summary ---
Author Organization [employer] Address [address] [facility] [address] 7[address] [place] [address] Care Team Providers Care Fire Investigator Name Role Phone Angela Curry MD Primary Care Provider [phone] Reason for Visit * Reason Onset Date Comments Referral 05/08/2024 Encounter Details Date Type Department Care Team ([facility] st Contact Info) Description 05/08/2024 Telephone [facility] MEDICINE [address] [place] [address] Angela Curry MD [address] [place], [place] [phone] Referral Social History Tobacco Use Types Packs/Day [...] 05/08/2024 5:24 PM EST Referral re-faxed to [facility]. * Telephone Encounter - Edgar Gallego - 05/08/2024 8:54 AM EST Tc from spouse requesting new referral for physical therapy as pt inform called [facility] facility and referral doesn't exist, instructional writer verify referral status is (closed) , pt verbalized not understanding ironey had call her for pt to make appointment and now referral doesn't exist. documented in this encounter Plan of Treatment Upcoming Encounters Date Type Department Care Team (Late st Contact Info) Description 03/15/2025 3:15 PM EST Office Visit [facility] MED [facility] PEDS [address] [place] [address] Angela Curry MD [address] [place] [address] 10/23/2025 2:30 PM EDT Telemedicine [facility] MEDICINE [address] [place] [address] Nael Iyer, LienD [address] [place] [address] documented as of this encounter Goals Goal [...] documented as of this encounter Care Teams Fire Investigator Relationship Specialty Start Date End Date Angela Curry MD [address] [place] [address] PCP - General Family Medicine 07/31/22 documented as of this encounter
--- OUTSIDE RECORDS SUMMARY | 2025-03-13 14:00 | XMS_ITS | Encounter Summary ---
Author Organization [employer] Address [address] [facility] [address] [place] [address] Care Team Providers Care Senior Information Security Architect Name Role Phone Angela Curry MD Primary Care Provider [phone] Encounter Details Date Type Department Care Team ([facility] st Contact Info) Description 10/09/[address] [facility] MEDICINE [address] [place] [address] Angela Curry MD [address] [place], [place] [phone] Social History Tobacco Use Types Packs/Day Years [...] Description 03/15/2025 3:15 PM EST Office Visit [facility] MED [facility] PEDS [address] [place] [address] Angela Curry MD [address] [place], [place] [phone] 10/23/2025 2:[address] [facility] MEDICINE [address] [place] [address] Nael Iyer PharmD [address] [place] [address] documented as of this encounter Goals Goal [...] as of this encounter Care Teams Senior Information Security Architect Relationship Specialty Start Date End Date Angela Curry MD [address] [place] [address] PCP - General Family Medicine 07/31/22 documented as of this encounter
--- OUTSIDE RECORDS SUMMARY | 2025-03-13 14:00 | XMS_ITS | Encounter Summary ---
Author Organization [employer] Address [address] [facility] 7t [place] [address] Care Team Providers Care Licensed Bondsman Name Role Phone Angela Curry MD Primary Care Provider [phone] Reason for Visit * Reason Onset Date Comments derm appt 03/02/2025 Encounter Details Date Type Department Care Team ([facility] st Contact Info) Description 03/02/2025 Telephone [facility] MED & PEDS [address] [place] [address] Angela Curry MD [address] [place] [address] derm appt Social History Tobacco Use Types [...] to schedule appointment with dr. Cruz f/u [facility] for call center to schedule documented in this encounter Plan of Treatment Upcoming Encounters Date Type Department Care Team (Late st Contact Info) Description 03/15/2025 3:15 PM EST Office Visit [facility] MED [facility] PEDS [address] [place] [address] Angela Curry MD [address] [place] [address] 10/23/2025 2:30 PM EDT Telemedicine [facility] MEDICINE [address] [place] [address] Nael Iyer, PharmD [address] [place] [address] documented as of this encounter Goals Goal [...] documented as of this encounter Care Teams Licensed Bondsman Relationship Specialty Start Date End Date Angela Curry MD [address] [place] [address] PCP - General Family Medicine 07/31/22 documented as of this encounter
--- OUTSIDE RECORDS SUMMARY | 2025-03-13 14:00 | XMS_ITS | Encounter Summary ---
Author Organization [employer] Address [address] [facility] 7t [place] [address] Care Team Providers Care Horse Race Starter Name Role Phone Angela Curry MD Primary Care Provider Reason for Visit * Reason Onset Date Comments Prior Authorization 11/15/2024 Encounter Details Date Type Department Care Team ([facility] st Contact Info) Description 11/15/2024 Telephone [facility] MEDICINE [address] [place] [address] Angela Curry MD [address] [place] [address] Prior Authorization Social History Tobacco Use Types [...] required for Blood Glucose Monitoring Suppl (FreeStyle Linden Lite) w/Device kit * Telephone Encounter - Khoa Louise - 11/15/2024 10:51 AM EDT Tc from [place] ( pt gaver verbal permission to speak with her) reports PA required for Blood Glucose Monitoring Suppl (FreeStyle Linden Lite) w/Device kit documented in this encounter Plan of Treatment Upcoming Encounters Date Type Department Care Team ([facility] st Contact Info) Description 03/15/2025 3:15 PM EST Office Visit [facility] MED & PEDS [address] [place] [address] Angela Curry MD [address] [place] [address] 10/23/2025 2:30 PM EDT Telemedicine [facility] MEDICINE [address] [place] [address] Nael Iyer, LienD [address] [place] [address] documented as of this encounter Goals Goal [...] documented as of this encounter Care Teams Horse Race Starter Relationship Specialty Start Date End Date Angela Curry MD [address] [place] [address] PCP - General Family Medicine 07/31/22 documented as of this encounter
--- OUTSIDE RECORDS SUMMARY | 2025-03-13 14:00 | XMS_ITS | Clinical Summary ---
Author Organization [employer] Address [address] [place] [address] Care Team Providers Care Sales Vice President Name Role Phone Angela Curry MD Primary Care Provider [phone] Allergies No known active allergies Medications albuterol [...] 026 Active Blood Glucose Monitoring Suppl (FreeStyle Mayking Lite) w/Device kit Use to test blood sugar BID times daily 1 kit 11/07/19 25 Active glucose blood (Accu-Chek Guide Test) test stripIndications: Type 2 diabetes mellitus without complication, unspecified whether terminal gauger insulin use Please check once daily at breakfast 100 each 12 11/24/19 25 026 Active Lancets miscIndications:T ype 2 diabetes mellitus without complication, unspecified whether terminal gauger insulin use Use to test blood sugar BID times daily 100 each 11/24/19 25 Active Blood Glucose Monitoring Suppl (Accu-Chek Annika Plus) w/Device kitIndications:Ty pe 2 diabetes mellitus without complication, unspecified whether senior living insulin use Test daily before all meals/snacks [...] DAYS BEFORE YOUR SURGERY, CONTINUE DIRECTED 02/06/20 Active albuterol 108 (90 Base) MCG/ACT inhalerIndication [...] 30 tablet 1 01/02/20 25 025 Discontinued Active Problems Problem Noted Date Diagnosed [...] Syphilis test - Referral to neurologist at [facility] for evaluation of tremors Acute pain [...] being seen by psychiatrist yet or received [facility] services. Will discontinue haldol and start on abilify. Assessment & Plan (08/05/2022 1:24 PM EDT): Patient needs formal psychiatry followup, referral was placed and also will send medications for now. He needs [facility] services to assist with medication compliance and also will need [facility] service to assist with ADLs/IADLs that need [...] Description 03/07/2025 9:30 AM EDT Office Visit [facility] [address] [place] [address] Kallie Rodriguez MD Hearing loss, unspecified hearing loss type, unspecified laterality (Primary Dx); Mild intermittent asthma without complication 03/07/2025 Travel 03/06/2025 Telephone [facility] [address] [place] [phone] Angela Curry MD Nurse Triage 03/02/2025 Telephone [facility] [address] [place] [address] Angela Curry MD derm appt 02/28/2025 10:45 AM EDT Office Visit [facility] [address] [place] [address] Angela Curry MD Encounter for immunization (Primary Dx); Encounter for vaccination; Preop cardiovascular exam 02/28/2025 Travel 02/28/2025 Refill [facility] [address] [place] [address] Angela Curry MD 02/20/2025 Orders Only [facility] External Provider, [facility] 02/05/2025 Refill [facility] [address] [place] [address] Angela Curry MD Arthritis 02/01/2025 Telephone [facility] [address] [place] [address] Angela Curry MD Appointment Request 01/30/2025 Telephone [facility] [address] [place] [phone] Angela Curry MD Referral 01/28/2025 Refill [facility] [address] [place] [address] Angela Curry MD 01/25/2025 2:00 PM EDT Office Visit [facility] [address] [place] [phone] Kassidy Cannon DO Onychomycosis (Primary Dx); Dermatitis 01/25/2025 Travel 01/17/2025 Telephone [facility] [address] [place] [address] Angela Curry MD Nurse Triage 01/11/2025 Refill [facility] [address] [place] [address] Angela Curry MD Arthritis 01/05/2025 Refill [facility] [address], [place] [phone] Angela Curry MD Gastroesophageal reflux disease, unspecified whether esophagitis present; Anxiety; Hyperlipidemia, unspecified hyperlipidemia type 01/03/2025 Telephone [facility] [address] [place] [address] Angela Curry MD No Show 12/31/2024 Refill [facility] [address] [place] [address] Angela Curry MD 12/15/2024 3:00 PM EDT Office Visit [facility] [address] [place] [address] Angela Curry MD Xerosis of skin (Primary Dx); Acute pain of left knee; Left leg pain; Acute pain of left thigh 12/15/2024 Travel 12/15/2024 Refill [facility] [address] [place] [address] Rocky Cruz MD Sebopsoriasis from Last 3 Months Immunizations Immunization Administration [...] [facility] [address] [place] [address] Angela Curry MD [address], [place] [phone] 10/23/2025 2:30 PM EDT Telemedicine [facility] [address] [place] [address] Nael Iyer, PharmD [address] [place] [address] Health Maintenance Due Date Last Done Comments CT Colonography 1954 FIT DNA/Cologuard 1954 FIT 1954 FOBT 1954 Sigmoidoscopy 1954 Eye Exam 1964 Alcohol/Substance Use Screening 1966 Hepatitis A Vaccines (1 of 2 - Risk 2-dose series) 1973 Hepatitis B Vaccines (1 of 3 - Risk 3-dose series) 2014 Depression Screening 02/24/2025 02/25/2024, 02/25/20 24 Diabetes: [...] 2 diabetes mellitus without complication, unspecified whether senior living insulin use (CMS/HCC) LIPID PANEL, STANDARD Routine 10/19/2024 8:57 AM EDT HM COLONOSCOPY Routine 03/11/2023 HEPATITIS C ANTIBODY Routine 11/09/2022 4:15 PM EDT from Last 3 Months or Most Recently Relevant to Health Maintenance Results * MR Knee w/o Contrast Left (02/20/2025 10:05 AM EDT) Anatomical Region Laterality Modality Magnetic Resonan ce 02/20/2025 10:0 5 AM EDT Narrative 02/20/2025 11:56 AM EDT [place] [address] Magnetic Resonance Report Signed Patient: Niraj Ro MR#: [id number] : 1955 Acct:[id number] Age/Sex: 69 / M ADM Date: 02/20/25 Loc: HO.MRI Attending Dr: Wenceslao Minor MD Ordering Physician: Wenceslao Minor MD Date of Service: 02/20/25 Procedure(s): MR knee LT wo con Accession Number(s): [id number] cc: Wenceslao Minor MD; Angela Curry MD [...] 02/20/25 1154 DD/ 1005 TD/TT: 02/20/25 1030 Process Specialist: Procedure Note Donotuseinterpreter, Image - 02/20/[address] [address] Magnetic Resonance Report Signed Patient: Taylor RoR#: [id number] : 5Acct:[id number] Age/Sex: 69 / MADM Date: 02/20/25 Loc: HO.MRI Attending Dr: Wenceslao Minor MD Ordering Physician: Wenceslao Minor MD Date of Service: 02/20/25 Procedure(s): MR knee LT wo con Accession Number(s): [id number] cc: Wenceslao Minor MD; Angela Curry MD [...] 02/20/25 1154 DD/ 1005 TD/TT: 02/20/25 1030 Process Specialist: [facility] External Provider IMG MRI PROCEDURES Final Result * Referral to Urology (01/17/2025) Tika Gatica [facility] OUTPATIENT REFERRAL ORDERABLES Final Result * (ABNORMAL) POCT HGB A1C (12/15/2024 3:35 PM EDT) Hemoglobin A1C 6.5(A) 4.0 - 5.7 % QC Media Lot # [id number] Lot# Expiration Date 47 Blood 12/15/2024 3:35 PM EDT Angela Curry [...] AM EDT) Creatinine, Urine 172.70 mg/dL [facility] Microalbumin Urine 6.0 mg/L [facility] Microalbum Creatinine Ratio Ur 3.4 <30 ug/mg cr [facility] Comment:Albumin/Creatinine R atio Reference Ranges: Normal: < 30 ug/mg creatinine Microalbuminuria: 30 - 300 ug/mg creatinineClinical Albuminuria: > 300 ug/mg creatinine Urine (Urine, Random) 12/04/2024 9:30 AM EDT 12/04/2024 9:43 AM EDT Angela Curry MD LAB URINE ORDERABLES Final Re sult Performing Organization Address City/State/[facility] Co de Phone Number [facility] [address] [place] [phone] * Lipid Panel, Standard (10/19/2024 8:57 AM EDT) Triglycerides 100 <150 mg/dL [facility] Comment:Desirable Triglyceri de: less than 150 mg/dLBorderline High Triglyceride 150-199 mg/dLHigh Triglyceride: 200-499 mg/dLVery High Triglyceride: greater than or equal to 5OO mg/dL Cholesterol 149 <200 mg/dL [facility] Comment:Desirable Cholestero l: less than 200 mg/dLBorderline High Cholesterol: 200-239 mg/dLHigh Cholesterol: greater than 239 mg/dL LDL Cholesterol Calculated 76 <100 mg/dL [facility] Comment:Desirable LDL: less than 100 mg/dLNear Optimal/Above Optimal LDL: 110- 129 mg/dLBorderline High LDL: 130-159 mg/dLHigh LDL: 160-189 mg/dLVery High LDL: greater than or equal to 190 mg/dL HDL Cholesterol 53 >40 mg/dL [facility] Comment:Desirable HDL: great er than 40 mg/dL Note: This HDL assay may give artificially low results in patients with liver disease. 10/19/2024 8:57 AM EDT 10/19/2024 11:10 AM EDT Angela Curry MD LAB BLOOD ORDERABLES Final Re sult Performing Organization Address [facility] Co de Phone Number [facility] [address] [place] [phone] * Hm Colonoscopy (03/11/2023) Colonoscopy Normal Normal Narrative Angela Curry MD - 03/11/[address] Kisha Hale, normal, diverticulosis and hemorrhoids noticed Historical Provider HEALTH MAINTENANCE Final Result * Hepatitis C Ab (11/09/2022 4:15 PM EDT) Hepatitis C Antibody Nonreactive Nonreactive [facility] Comment:Antibodies to HCV no t detected; does not exclude early acuteHCV infection. 11/09/2022 4:15 PM EDT 11/09/2022 4:16 PM EDT [facility] External Provider LAB BLO OD ORDERABLES Final Result Performing Organization Address [facility] Co de Phone Number [facility] [address] [place] [phone] from Last 3 Months or Most Recently Relevant to Health Maintenance Insurance MEDICARE [employer] [place] [employer] Care Teams Sales Vice President Relationship Specialty Start Date End Date Angela Curry MD [address] [place] [address] PCP - General Family Medicine 07/31/22
== END 2025-03-13 12:08 | disposition home or self-care (01) ==
LOC: HO.HOS 11:23
PROVIDERS: PCP Family Medicine; Visit Provider Orthopaedic Surgery
DX: S83.242A Other tear of medial meniscus, current injury, left knee, initial encounter (principal)
CPT/HCPCS: 99213; G2211

== ENCOUNTER → 2025-03-13 11:23 | Outpatient (BNVA) | payer OTHER, SELFPAY | PROVIDERS: PCP Family Medicine; Visit Provider Orthopaedic Surgery | DX: M25.562 Pain in left knee (principal); S83.242A Other tear of medial meniscus, current injury, left knee, initial encounter | CPT/HCPCS: 99212 ==